=== PATIENT | male | born 1965 | race Caucasian/White ===

== ENCOUNTER 2023-01-22 09:37 | Outpatient (OUT) | payer MEDICAID, SELFPAY ==
[2023-01-22 11:26] LABS: Free T4 0.96 ng/dL (0.76-1.46)
[2023-01-22 11:31] LABS: Anion Gap 8.5; BUN Creatinine Ratio 13.9; Calcium 8.5 mg/dL (8.5-10.1); Carbon Dioxide 27.4 mmol/L (21.0-32.0); Chloride 104 mmol/L (98-107); Estimated GFR (African America >60 (>=60); Estimated GFR (Non-African Ame >60 (>=60); Free T3 2.59 pg/mL (2.18-3.98); Glucose 88 mg/dL (74-106); Potassium 3.9 mmol/L (3.5-5.1); Sodium 136 mmol/L (136-145); Thyroid Stimulating Hormone 1.747 uIU/mL (0.358-3.740)
== END 2023-01-22 09:38 | disposition home or self-care (01) ==
LOC: LAB 09:43
PROVIDERS: PCP Nurse Practitioner; Visit Provider Nurse Practitioner
DX: E03.9 Hypothyroidism, unspecified (principal); I10 Essential (primary) hypertension
CPT/HCPCS: 36415; 80048; 84439; 84443; 84481

== ENCOUNTER 2025-01-03 10:03 | Outpatient (OUT) | payer MEDICAID, SELFPAY ==
--- OUTSIDE RECORDS SUMMARY | 2024-12-29 13:44 | XMS_ITS ---
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 Name Role Phone NO PCP, NO PCP Primary Care Unavailable FABIENNE SIFUENTES Attending Unavailable JASON NASSAR Admitting Unavailable JASON NASSAR Attending Unavailable MARIANN MO Referring Unavailable SARTHAK DIXON Primary Care Unavailable CITLALLI JAMES Attending UnavailZEESHAN Serrano Referring Unavailable ZEESHAN STONE Referring Unavailable KAYLA BALES Attending Unavailable MARIANN MO Attending Unavailable SELF Referring Unavailable JASON NASSAR Attending Unavailable Christy Belcher Jr Referring Unavailable KODI SULLIVAN Referring Unavailable ANA SEVILLA Referring Unavailable ANA SEVILLA Attending Unavailable NASIM ENNIS Attending Unavailable KODI SULLIVAN Referring Unavailable KODI SULLIVAN Referring Unavailable KODI SULLIVAN Attending Unavailable CHERYL SHAW Referring Unavailable KENNETH GUADALUPE Attending Unavailable SCOT RICHMOND Attending Unavailable SARTHAK DIXON Primary Care Unavailable KODI SULLIVAN Attending Unavailable SARTHAK DIXON Primary Care Unavailable ULISSES HERNDON Attending Unavailable SARTHAK DIXON Primary Care Unavailable ULISSES HERNDON Referring Unavailable SARTHAK DIXON Primary Care Unavailable KAYLA BALES Referring Unavailable KAYLA BALES Attending Unavailable SARTHAK DIXON Primary Care Unavailable MARIANN MO Attending Unavailable KENNETH GUADALUPE Referring Unavailable SARTHAK DIXON Primary Care Unavailable SELF Referring Unavailable NIGEL BLUM Attending Unavailable SELF Referring Unavailable RIGO ANNA Attending Unavailab Christy Suh Jr Referring Unavailable SARTHAK DIXON Primary Care Unavailable MARIANN MO Referring Unavailable ANA SEVILLA Referring Unavailable ANA SEVILLA Referring Unavailable OLIVER RACHEL Referring Unavailable KAHNERT, ANA Referring Unavailable KAHNERT, ANA Referring Unavailable BONITA, RAJINDER Referring Unavailable BONITARAJINDER Attending Unavailable SELF Referring Unavailable ZEESHAN STONE Attending Unavailable ULISSES CUEVAS Attending Unavailable PROBLEMS DATE TYPE CONDITION / CODE ATTENDING STATUS [facility] 12/29/2024 Active Sensorineural he aring loss, bilateral / H90.3(ICD-10) NIGEL BLUM Active [facility] 11/22/2024 Active Fatty liver / K76.0(ICD-10) ULISSES HERNDON Active [facility] 07/21/2024 Active Coronary artery disease involving [place] coronary artery of [place] heart without angina pectoris / I25.10(ICD-10) KODI SULLIVAN Active [facility] 11/15/2024 Active Rupture of ulnar collateral ligament of thumb, right, initial encounter / S63.641A(ICD-10) NA [facility] 10/27/2024 Active Cigarette nicoti ne dependence without complication / F17.210(ICD-10) SCOT RICHMOND Active [facility] 10/27/2024 Active Dyspnea and resp iratory abnormalities / R06.00(ICD-10) SCOT RICHMOND Active [facility] 10/27/2024 Active Dyspnea and resp iratory abnormalities / R06.89(ICD-10) SCOT RICHMOND Active [facility] 10/27/2024 Active Obesity, unspeci fied class, unspecified obesity type, unspecified whether serious comorbidity present / E66.9(ICD-10) SCOT RICHMOND Active [facility] 10/09/2024 Active Pain / R52(ICD-10) NA Active [facility] 10/04/2024 Active Other chronic al lergic conjunctivitis of both eyes / H10.45(ICD-10) KAYLA BALES Active [facility] 08/07/2024 Active Pain of both bhavin ulder joints / M25.511(ICD-10) NASIM ENNIS Active [facility] 08/07/2024 Active Pain of both bhavin ulder joints / M25.512(ICD-10) NASIM ENNIS Active [facility] 08/07/2024 Active Impingement synd suzette of right shoulder / M75.41(ICD-10) NASIM ENNIS Active [facility] 08/07/2024 Active Impingement synd suzette of left shoulder / M75.42(ICD-10) NASIM ENNIS Active [facility] 08/04/2024 Active Lumbar spondylos is / M47.816(ICD-10) JASON NASSAR Active [facility] 07/24/2024 Active Epigastric pain / R10.13(ICD-10) CITLALLI JAMES Active [facility] 07/21/2024 Active Cerebral infarct ion due to unspecified occlusion or stenosis of unspecified carotid artery (HCC) / I63.239(ICD-10) NA Active [facility] 07/21/2024 Active Consult / UNK(Unknown) RIGO ANNA Active [facility] 07/21/2024 Active Occlusion of rig ht carotid artery / I65.21(ICD-10) NA Active [facility] 07/21/2024 Active Mixed hyperlipid emia / E78.2(ICD-10) NA Active [facility] 07/21/2024 Active Coronary artery disease involving [place] coronary artery of [place] heart, unspecified whether angina present / I25.10(ICD-10) NA Active [facility] 11/26/2023 Active Primary hyperten lynda / I10(ICD-10) NA Active [facility] 07/27/2023 Active BMI 40.0-44.9, a dult (HCC) / Z68.41(ICD-10) NA Active [facility] 03/22/2023 Active Acquired hypothy roidism / E03.9(ICD-10) NA Active [facility] 03/22/2023 Active Gastroesophageal reflux disease without esophagitis / K21.9(ICD-10) NA Active [facility] 11/07/2020 Active Alcohol use / F10.90(ICD-10) NA Active [facility] 11/07/2020 Active FEDE (obstructive sleep apnea) / G47.33(ICD-10) NA Active [facility] 11/07/2020 Active Hard to intubate , sequela / T88.4XXS(ICD-10) NA [facility] 11/10/2016 Active Former smoker / Z87.891(ICD-10) NA Active [facility] 11/10/2016 Active Laryngeal cancer (HCC) / C32.9(ICD-10) NA [facility] 07/21/2024 Active Pre-op evaluatio n / Z01.818(ICD-10) NA [facility] 06/06/2024 Active Encounter for fo llow-up examination after completed treatment for malignant neoplasm / Z08(ICD-10) NA [facility] 06/06/2024 Active History of glott ic cancer / Z85.21(ICD-10) NA Active [facility] 06/06/2024 Active Hypothyroidism, unspecified type / E03.9(ICD-10) [facility] 06/06/2024 Active Essential hypert ension / I10(ICD-10) [facility] 06/06/2024 Active Class 3 obesity / E66.813(ICD-10) Active [facility] 06/06/2024 Active Encounter for sc reening for cardiovascular disorders / Z13.6(ICD-10) Active [facility] 06/06/2024 Active Ischemic cardiom yopathy / I25.5(ICD-10) [facility] 06/01/2024 Active Benign prostatic hyperplasia with weak urinary stream / N40.1(ICD-10) NA [facility] 06/01/2024 Active Benign prostatic hyperplasia with weak urinary stream / R39.12(ICD-10) [facility] 06/01/2024 Active Screening for pr ostate cancer / Z12.5(ICD-10) Active [facility] 05/22/2024 Unknown Essential (prima ry) hypertension / I10(ICD-10) FABIENNE SIFUENTES Active [facility] 05/22/2024 Unknown Dizziness and gi ddiness / R42(ICD-10) FABIENNE SIFUENTES Active [facility] 05/22/2024 Unknown Hypertension / FREETEXT(AOF) FABIENNE SIFUENTES Active [facility] 05/22/2024 Unknown High blood press ure / UNK(Unknown) FABIENNE SIFUENTES Active [facility] 04/07/2024 Active Abdominal pain, unspecified abdominal location / R10.9(ICD-10) NA [facility] 01/31/2024 Active S/P drug eluting coronary stent placement / Z95.5(ICD-10) NA [facility] 01/31/2024 Active Class 3 severe o besity due to excess calories without serious comorbidity with body mass index (BMI) of 40.0 to 44.9 in adult ([facility]) / E66.813(ICD-10) NA [facility] 01/31/2024 Active Class 3 severe o besity due to excess calories without serious comorbidity with body mass index (BMI) of 40.0 to 44.9 in adult ([facility]) / E66.01(ICD-10) NA [facility] 01/31/2024 Active Class 3 severe o besity due to excess calories without serious comorbidity with body mass index (BMI) of 40.0 to 44.9 in adult ([facility]) / Z68.41(ICD-10) NA Active [facility] 01/31/2024 Active Smoker / F17.200(ICD-10) NA Acti ve [facility] PROCEDURES No Procedure Records Found RESULTS CNOV Observed: 12/29/2024 3:30 PM Status: COMPLETED Source: [facility] Office Visit (OTOL[facility]) MIKI SAUCEDA ([id number]) 1965 M Date Time Provider Department 12/29/24 3:30 PM NIGEL BLUM OTOL During your visit today, we recorded the following information about you: Pulse Respiration 89/minute 18/minute Nigel Blum, MANAGEMENT ACCOUNTANT.UPHOLSTERY TRIMMER 01/02/2025 2:45 PM Signed Recording using Salonmeister software for draft documentation of the visit was discussed with the patient/authorized b2b sales representative; all questions welcomed and answered. Patient/authorized b2b sales representative agreed to proceed Mr. Sauceda is a 59 year old male who comes in for evaluation of ear and sinus problems. Patient has multiple complaints. He has hearing loss, gradual onset and would like that checked. He has concerns about his occluded right carotid artery. He also currently has a head cold, c/o significant head pressure, nasal congestion, PND, coughing up some whitish phlegm, his ears are popping - these symptoms have been ongoing for a while but acutely worsened in last week. Taking OTC Sinex, Advil cold and sinus - taking as needed. Feels this helps with post nasal drainage. Uses nasal saline spray as needed. Smoking one cigarette daily His voice is hoarse. He denies any voice changes since last scope exam in June. Review of Systems: CONSTITUTIONAL: No fevers, chills, nightsweats, unintended weight loss HEAD: + headaches, - head injury EYES: - glasses/contact lens, - changes in vision, - diplopia, - blurry vision, - floaters EARS: + hearing loss, - change in hearing, - tinnitus, - otalgia, + ear pressure, - aural fullness, - otorrhea, - itching, - autophony, - ear infections, - PE tubes NOSE AND SINUSES: + nasal congestion, - rhinorrhea, + PND, - epistaxis, - sense of smell, - history of nasal polyps, - sinus trouble, - sinus pressure, - sinus pain MOUTH AND THROAT: - soreness, - dryness, - ulcers, - sore throat, + hoarseness, - change in voice, - teeth (caries, dentures, extractions, abscesses) NECK: - neck lumps, - goiter, - neck pain, - swollen lymph nodes or glands PULM: No dyspnea, + cough CV: No chest pain, shortness of breath, leg swelling, or palpitations GI: No dysphagia/odynophagia, problematic reflux. No nausea, vomiting, or diarrhea NEURO: No new balance problems, dizziness, or syncope. No peripheral weakness/paresthesias or numbness MSK: No new joint pain, swelling, or erythema HEMATOLOGIC/LYMPHATIC/IMMUNOLOGIC: No prolonged bleeding, bruising easily, or swollen nodes PSYCH: No concerns regarding depression, anxiety or panic Past history : PAST MEDICAL HISTORY Diagnosis Date Adjustment disorder with anxious mood 09/16/2016 CAD (coronary artery disease) 07/21/2024 Chronic obstructive pulmonary disease (COPD) (HCC) Cigarette nicotine dependence in remission 02/06/2016 Reports not smoking for multiple weeks. 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 ticagrelor (BRILINTA) 60 mg tablet Take 1 tablet by mouth two times a day. varenicline tartrate (CHANTIX STARTING MONTH BOX) 0.5 mg (11)- 1 mg (42) tablet Use as directed. levothyroxine (SYNTHROID) 75 mcg tablet Take 1 tablet by mouth once daily tamsulosin (FLOMAX) 0.4 mg Take 1 capsule by mouth once daily. meloxicam (MOBIC) 7.5 mg tablet Take 1 tablet by mouth once daily. methocarbamol (ROBAXIN) 500 mg tablet Take 1 tablet by mouth at bedtime as needed. rosuvastatin (CRESTOR) 20 mg tablet TAKE 1 TABLET BY MOUTH ONCE DAILY AT BEDTIME fluticasone (FLONASE) 50 mcg/actuation nasal spray Use 2 spray(s) in each nostril once daily mupirocin (BACTROBAN) 2 % ointment Apply to affected area daily aspirin, enteric coated (ECOTRIN LOW STRENGTH) 81 mg EC tablet Take 1 tablet by mouth once daily. tamsulosin (FLOMAX) 0.4 mg Take 1 capsule by mouth once daily azelastine 0.1% nasal spray Use 2 Sprays in each nostril two times a day as needed. No current facility-administered medications for this visit. Allergies: ALLERGIES No Known Allergies Social history: SOCIAL HISTORY[1] Family history: FAMILY HISTORY Problem Relation Age of Onset Cancer Mother breast Cancer Father small cell lung cancer Colon Cancer No Family History Anesthesia Problems No Family History There are no exam notes on file for this visit. Physical exam: General Appearance: 59 year old male is alert, oriented, not in acute distress. Hearing is grossly normal, voice is raspy. There is no tenderness with percussion over the paranasal sinuses. Eyes: PEERLA, extraocular movements are full. Nose: Clean, septum is deviated. There are no polyps. There is no discharge. Visible turbinates are hypertrophied. Oropharynx: Teeth are in fair repair. Lips, gums, tongue and posterior pharynx are within normal limits. Gag reflex is intact. Nasopharynx: visualization is limited Hypopharynx: visualization is limited Neck: No masses palpated. Thyroid is not enlarged. Trachea is in the midline. Ears: Both ear canals are impacted with cerumen Procedure: Cerumen disimpaction Risks including but not limited to damage to ear canal, ear drum, and bleeding were discussed. Benefits and alternatives were discussed; patient verbally agrees to proceed with procedure. Cerumen impaction was removed under stereoscopic magnification from Bilateral external auditory canal(s) requiring use of multiple instruments including curette, suction. Patient tolerated procedure well. Once the ears were cleaned, patient felt relief of symptoms and return of hearing back to baseline. After cleaning, both TMs are intact and mobile. Pires is in the midline. Rinne is positive bilaterally. Air conduction is equal bilaterally. 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 -Plan of management: Start Augmentin mg 1 tablet twice daily for 10 days Start Flonase 2 sprays each nostril daily both ears were cleaned Continue saline nasal spray daily as needed Audiogram to evaluate hearing given report of worsening hearing with known history of bilateral SNHL (previous audio in 2016) Reassurance provided that these URI/sinusitis symptoms are unlikely related to known right internal carotid artery occlusion. Instructed patient to send mychart message with update on his condition in few days and follow up after hearing test. Pt seen in conjunction with INTERIOR MECHANIC in orientation Ev Naranjo CNP. Physical exam completed by both the orient and me. All history, objective findings, and plan discussed by me in the office at the time of the visit as well as with Jan Jose A. Nigel Blum APRN.LEWIS I spent a total of 33 minutes on the date of the service which included preparing to see the patient, [id number] patient care, completing clinical documentation, obtaining and/or reviewing separately obtained history, performing a medically appropriate examination, counseling and educating the patient/family/caregiver, ordering medications, tests, or procedures, and time excludes procedure cerumen removal. [1] Social History Tobacco Use Smoking status: Former Current packs/day: 0.00 Average packs/day: 1 pack/day for 30.0 years (30.0 ttl pk-yrs) Types: Cigarettes Start date: 10/30/1985 Quit date: 10/31/2015 Years since quittin.1 Smokeless tobacco: Never Tobacco comments: Smokes socially now or when drinking. -07/27/23 [place] Vaping Use Vaping status: Never Used Substance Use Topics Alcohol use: Yes Comment: 12 beers weekly, does not drink daily Drug use: No Ev Naranjo APRN.CNP 12/29/2024 3:00 PM Signed Send Nigel amaya My Chart message and update her on how you're feeling next week. Referring Provider: SELF [200] Allergies As of Date: 12/29/2024 (No Known Allergies) Date Reviewed: 12/29/2024 Reviewed by: Holden Flynn MA - Fully Assessed Reason for Visit: Ear Infection [816] Cmt: With sinus issues Primary Visit Diagnosis:Sensorineural hearing loss, bilateral [H90.3] Other Visit Diagnoses:Acute non-recurrent pansinusitis [J01.40] Bilateral impacted cerumen [H61.23] Sensorineural hearing loss (SNHL) of both ears [H90.3] Nonallergic rhinitis [J31.0] Order(s):HEARING TEST/AUDIOGRAM [[id number]] Order #: [id number]: 1 FUTURE fluticasone (FLONASE) 50 mcg/actuation nasal sprayUse 2 sprays in each nostril once daily.Disp: 1 eachRfl: 11 amoxicillin-clavulanate potassium (AUGMENTIN) 875-125 mg per tabletTake 1 tablet by mouth two times a day for 10 days.Disp: 20 tabletRfl: 0 Prescriptions as of 01/02/2025 - fluticasone (FLONASE) 50 mcg/actuation nasal spray Use 2 sprays in each nostril once daily. - amoxicillin-clavulanate potassium (AUGMENTIN) 875-125 mg per tablet Take 1 tablet by mouth two times a day for 10 days. - losartan (COZAAR) 50 mg tablet Take 1 tablet by mouth once daily - carvedilol (COREG) 25 mg tablet Take 1 tablet by mouth twice daily - pantoprazole DR (PROTONIX) 40 mg tablet Take 1 tablet by mouth once daily. - ticagrelor (BRILINTA) 60 mg tablet Take 1 tablet by mouth two times a day. - varenicline tartrate (CHANTIX STARTING MONTH BOX) 0.5 mg (11)- 1 mg (42) tablet Use as directed. - levothyroxine (SYNTHROID) 75 mcg tablet Take 1 tablet by mouth once daily - tamsulosin (FLOMAX) 0.4 mg Take 1 capsule by mouth once daily. - meloxicam (MOBIC) 7.5 mg tablet Take 1 tablet by mouth once daily. - methocarbamol (ROBAXIN) 500 mg tablet Take 1 tablet by mouth at bedtime as needed. - rosuvastatin (CRESTOR) 20 mg tablet TAKE 1 TABLET BY MOUTH ONCE DAILY AT BEDTIME - fluticasone (FLONASE) 50 mcg/actuation nasal spray Use 2 spray(s) in each nostril once daily - mupirocin (BACTROBAN) 2 % ointment Apply to affected area daily - aspirin, enteric coated (ECOTRIN LOW STRENGTH) 81 mg EC tablet Take 1 tablet by mouth once daily. - tamsulosin (FLOMAX) 0.4 mg Take 1 capsule by mouth once daily - azelastine 0.1% nasal spray Use 2 Sprays in each nostril two times a day as needed. 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.07] 07/24/2016 Adjustment disorder with anxious mood [F43.22] 09/16/2016 Radiculitis [M54.10] 10/29/2016 Primary hypertension [I10] 11/10/2016 Larynx cancer (HCC) [C32.9] 01/06/2016 Laryngeal cancer (HCC) [C32.9] 11/04/2015 Degenerative spondylolisthesis [M43.10] 05/28/2016 Former smoker [Z87.891] History of laryngeal cancer [Z85.21] 03/10/2017 Hoarseness [R49.0] 03/10/2017 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] 04/19/2017 Spinal stenosis, lumbar region with neurogenic *04/19/2017 Lumbar stenosis with neurogenic claudication [M*05/19/2017 Obesity (BMI 35.0-39.9 without comorbidity) [E6*11/07/2020 Difficult intubation [T88.4XXA] 11/07/2020 FEDE (obstructive sleep apnea) [G47.33] 11/07/2020 Alcohol use [F10.90] 11/07/2020 S/P lumbar spinal fusion [Z98.1] 01/16/2021 Chronic midline low back pain without sciatica *01/16/2021 Degenerative lumbar disc [M51.369] 01/16/2021 Lumbar spondylosis [M47.816] 01/20/2022 GERD (gastroesophageal reflux disease) [K21.9] 03/22/2023 Acquired hypothyroidism [E03.9] 03/22/2023 BMI 40.0-44.9, adult (HCC) [Z68.41] 07/27/2023 Stable angina (HCC) [I20.89] 11/26/2023 Elevated coronary artery calcium score [R93.1] 11/26/2023 CAD (coronary artery disease) [I25.10] 07/21/2024 HLD (hyperlipidemia) [E78.5] 07/21/2024 Occlusion of right carotid artery [I65.21] 07/21/2024 Conjunctivitis [H10.9] 10/04/2024 Dry eye syndrome of both eyes [H04.123] 11/15/2024 Other instructions from your clinician: Send Nigel a My Chart message and update her on how you're feeling next week. Prescriptions ordered this encounter Disp Refills Start End FLUTICASONE PROPIONATE 50 MCG/ACTUAT* 1 ea* 11 12/29/2024 Route: EN Sig: Use 2 sprays in each nostril once daily. AMOXICILLIN 875 MG-POTASSIUM CLAVULA* 20 t* 0 12/29/2024 01/08/2025 Route: PO Sig: Take 1 tablet by mouth two times a day for 10 days. Disposition: Return after hearing test. Follow-up and Disposition History for Encounter Date Provider Department Center 12/29/2024 [id number]-OTMYRQNNIGEL BLUM [facility] Encounter Status:Closed by NIGEL BLUM on 01/02/25 PROGRESS Observed: 12/29/2024 1:56 PM Status: COMPLETED Source: [facility] HNO ID: [id number] Author: NIGEL BLUM APRN.UPHOLSTERY TRIMMER Service: ? Author Type: Nurse Practitioner Type: Progress Notes Filed: 01/02/2025 14:45 Note Text: Recording using Salonmeister software for draft documentation of the visit was discussed with the patient/authorized b2b sales representative; all questions welcomed and answered. Patient/authorized b2b sales representative agreed to proceed Mr. Sauceda is a 59 year old male who comes in for evaluation of ear and sinus problems. Patient has multiple complaints. He has hearing loss, gradual onset and would like that checked. He has concerns about his occluded right carotid artery. He also currently has a head cold, c/o significant head pressure, nasal congestion, PND, coughing up some whitish phlegm, his ears are popping - these symptoms have been ongoing for a while but acutely worsened in last week. Taking OTC Sinex, Advil cold and sinus - taking as needed. Feels this helps with post nasal drainage. Uses nasal saline spray as needed. Smoking one cigarette daily His voice is hoarse. He denies any voice changes since last scope exam in June. Review of Systems: CONSTITUTIONAL: No fevers, chills, nightsweats, unintended weight loss HEAD: + headaches, - head injury EYES: - glasses/contact lens, - changes in vision, - diplopia, - blurry vision, - floaters EARS: + hearing loss, - change in hearing, - tinnitus, - otalgia, + ear pressure, - aural fullness, - otorrhea, - itching, - autophony, - ear infections, - PE tubes NOSE AND SINUSES: + nasal congestion, - rhinorrhea, + PND, - epistaxis, - sense of smell, - history of nasal polyps, - sinus trouble, - sinus pressure, - sinus pain MOUTH AND THROAT: - soreness, - dryness, - ulcers, - sore throat, + hoarseness, - change in voice, - teeth (caries, dentures, extractions, abscesses) NECK: - neck lumps, - goiter, - neck pain, - swollen lymph nodes or glands PULM: No dyspnea, + cough CV: No chest pain, shortness of breath, leg swelling, or palpitations GI: No dysphagia/odynophagia, problematic reflux. No nausea, vomiting, or diarrhea NEURO: No new balance problems, dizziness, or syncope. No peripheral weakness/paresthesias or numbness MSK: No new joint pain, swelling, or erythema HEMATOLOGIC/LYMPHATIC/IMMUNOLOGIC: No prolonged bleeding, bruising easily, or swollen nodes PSYCH: No concerns regarding depression, anxiety or panic Past history : PAST MEDICAL HISTORY Diagnosis Date Adjustment disorder with anxious mood 09/16/2016 CAD (coronary artery disease) 07/21/2024 Chronic obstructive pulmonary disease (COPD) ([facility]) Cigarette nicotine dependence in remission 02/06/2016 Reports not smoking for multiple weeks. 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 ticagrelor (BRILINTA) 60 mg tablet Take 1 tablet by mouth two times a day. varenicline tartrate (CHANTIX STARTING MONTH BOX) 0.5 mg (11)- 1 mg (42) tablet Use as directed. levothyroxine (SYNTHROID) 75 mcg tablet Take 1 tablet by mouth once daily tamsulosin (FLOMAX) 0.4 mg Take 1 capsule by mouth once daily. meloxicam (MOBIC) 7.5 mg tablet Take 1 tablet by mouth once daily. methocarbamol (ROBAXIN) 500 mg tablet Take 1 tablet by mouth at bedtime as needed. rosuvastatin (CRESTOR) 20 mg tablet TAKE 1 TABLET BY MOUTH ONCE DAILY AT BEDTIME fluticasone (FLONASE) 50 mcg/actuation nasal spray Use 2 spray(s) in each nostril once daily mupirocin (BACTROBAN) 2 % ointment Apply to affected area daily aspirin, enteric coated (ECOTRIN LOW STRENGTH) 81 mg EC tablet Take 1 tablet by mouth once daily. tamsulosin (FLOMAX) 0.4 mg Take 1 capsule by mouth once daily azelastine 0.1% nasal spray Use 2 Sprays in each nostril two times a day as needed. No current facility-administered medications for this visit. Allergies: ALLERGIES No Known Allergies Social history: SOCIAL HISTORY[1] Family history: FAMILY HISTORY Problem Relation Age of Onset Cancer Mother breast Cancer Father small cell lung cancer Colon Cancer No Family History Anesthesia Problems No Family History There are no exam notes on file for this visit. Physical exam: General Appearance: 59 year old male is alert, oriented, not in acute distress. Hearing is grossly normal, voice is raspy. There is no tenderness with percussion over the paranasal sinuses. Eyes: PEERLA, extraocular movements are full. Nose: Clean, septum is deviated. There are no polyps. There is no discharge. Visible turbinates are hypertrophied. Oropharynx: Teeth are in fair repair. Lips, gums, tongue and posterior pharynx are within normal limits. Gag reflex is intact. Nasopharynx: visualization is limited Hypopharynx: visualization is limited Neck: No masses palpated. Thyroid is not enlarged. Trachea is in the midline. Ears: Both ear canals are impacted with cerumen Procedure: Cerumen disimpaction Risks including but not limited to damage to ear canal, ear drum, and bleeding were discussed. Benefits and alternatives were discussed; patient verbally agrees to proceed with procedure. Cerumen impaction was removed under stereoscopic magnification from Bilateral external auditory canal(s) requiring use of multiple instruments including curette, suction. Patient tolerated procedure well. Once the ears were cleaned, patient felt relief of symptoms and return of hearing back to baseline. After cleaning, both TMs are intact and mobile. Pires is in the midline. Rinne is positive bilaterally. Air conduction is equal bilaterally. 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 -Plan of management: Start Augmentin mg 1 tablet twice daily for 10 days Start Flonase 2 sprays each nostril daily both ears were cleaned Continue saline nasal spray daily as needed Audiogram to evaluate hearing given report of worsening hearing with known history of bilateral SNHL (previous audio in 2016) Reassurance provided that these URI/sinusitis symptoms are unlikely related to known right internal carotid artery occlusion. Instructed patient to send [employer] message with update on his condition in few days and follow up after hearing test. Pt seen in conjunction with INTERIOR MECHANIC in orientation Ev Naranjo CNP. Physical exam completed by both the orient and me. All history, objective findings, and plan discussed by me in the office at the time of the visit as well as with Ms. Naranjo. Nigel Blum APRN.LEWIS I spent a total of 33 minutes on the date of the service which included preparing to see the patient, [id number] patient care, completing clinical documentation, obtaining and/or reviewing separately obtained history, performing a medically appropriate examination, counseling and educating the patient/family/caregiver, ordering medications, tests, or procedures, and time excludes procedure cerumen removal. [1] Social History Tobacco Use Smoking status: Former Current packs/day: 0.00 Average packs/day: 1 pack/day for 30.0 years (30.0 ttl pk-yrs) Types: Cigarettes Start date: 10/30/1985 Quit date: 10/31/2015 Years since quittin.1 Smokeless tobacco: Never Tobacco comments: Smokes socially now or when drinking. -07/27/23 [place] Vaping Use Vaping status: Never Used Substance Use Topics Alcohol use: Yes Comment: 12 beers weekly, does not drink daily Drug use: No US ABD RIGHT UPPER QUADRANT Observed: 8:16 AM Status: F Source: [facility] * * *Final Report* * * DATE OF EXAM: Dec 22 2024 8:16AM LNU 1032 - US ABD RIGHT UPPER QUADRANT / PROCEDURE REASON: Fatty liver * * * * Physician Interpretation * * * * EXAMINATION: RIGHT UPPER QUADRANT ULTRASOUND CLINICAL HISTORY: Fatty liver TECHNIQUE: Sonography of the right upper quadrant was performed. Images were obtained and stored in a permanent archive. MQ: URUQ_2 COMPARISON: CT abdomen/pelvis dated 10/02/22. RESULT: Pancreas: Normal sonographic appearance. Portions obscured: tail Liver: Echotexture: Normal, homogeneous. Echogenicity: Increased Surface contour: Smooth Lesions: None. Biliary: No intrahepatic biliary duct dilation. CBD: 0.4 cm at the hilum. Gallbladder: Normal caliber -Contents: No cholelithiasis -Wall: Normal -Other: No pericholecystic fluid. Right Kidney: No hydronephrosis. Left kidney: No hydronephrosis. Spleen: Mildly enlarged measuring 14.2 cm in length. Subcentimeter echogenic foci suggestive of calcific granulomas. Ascites: None. IMPRESSION: 1. Diffuse hepatic fatty infiltration. 2. Mild splenomegaly. 3. No evidence of cholelithiasis or cholecystitis. Adjustment Clerk: GO Transcribe Date/Time: Dec 22 2024 1:03P Dictated by : EVANS LINDSEY MD This examination was interpreted and the report reviewed and electronically signed by: EVANS LINDSEY MD on Dec 22 2024 1:12PM EST [id number] US ABD SPLEEN -NB Observed: 12/22/2024 8:16 AM Status: F Source: [facility] * * *Final Report* * * DATE OF EXAM: Dec 22 2024 8:16AM LNU 1232 - US ABD SPLEEN -NB / PROCEDURE REASON: Fatty liver * * * * Physician Interpretation * * * * EXAMINATION: RIGHT UPPER QUADRANT ULTRASOUND CLINICAL HISTORY: Fatty liver TECHNIQUE: Sonography of the right upper quadrant was performed. Images were obtained and stored in a permanent archive. MQ: URUQ_2 COMPARISON: CT abdomen/pelvis dated 10/02/22. RESULT: Pancreas: Normal sonographic appearance. Portions obscured: tail Liver: Echotexture: Normal, homogeneous. Echogenicity: Increased Surface contour: Smooth Lesions: None. Biliary: No intrahepatic biliary duct dilation. CBD: 0.4 cm at the hilum. Gallbladder: Normal caliber -Contents: No cholelithiasis -Wall: Normal -Other: No pericholecystic fluid. Right Kidney: No hydronephrosis. Left kidney: No hydronephrosis. Spleen: Mildly enlarged measuring 14.2 cm in length. Subcentimeter echogenic foci suggestive of calcific granulomas. Ascites: None. IMPRESSION: 1. Diffuse hepatic fatty infiltration. 2. Mild splenomegaly. 3. No evidence of cholelithiasis or cholecystitis. Adjustment Clerk: GO Transcribe Date/Time: Dec 22 2024 1:03P Dictated by : EVANS LINDSEY MD This examination was interpreted and the report reviewed and electronically signed by: EVANS LINDSEY MD on Dec 22 2024 1:12PM EST [id number] PROGRESS Observed: 12/22/2024 7:45 AM Status: COMPLETED Source: [facility] ID: [id number] Author: RENAE ELLISON RDMS Service: Radiology Author Type: Field Support Engineer Type: Progress Notes Filed: 12/22/2024 07:45 Note Text: Radiology Service Progress Note PATIENT NAME: Miki Sauceda DATE OF SERVICE: December 22, 2024 TIME: 7:37 AM PATIENT IDENTITY VERIFICATION COMPLETED USING TWO (2) IDENTIFIERS: Name and Date of confirmed by patient verbally. FALL SCREENING: Has the patient had 2 falls in the last year or 1 fall with injury or currently using an Ambulatory Assistive Device (Walker, Cane, Wheelchair, Crutches, etc.)? No PATIENT GENDER DATA: Assigned male at PATIENT RELEVANT IMPLANT DATA REVIEWED: Not Applicable PATIENT PRESENTS WITH AN IMPLANTABLE OR ATTACHED TELEMARKETING AGENT: No RADIOLOGY DEPARTMENT: Ultrasound PERIPHERAL IV DATA: Not applicable SIGNED BY: Renae Ellison RDMS December 22, 2024 7:37 AM HISTORY PHYSICAL Observed: 11/22/2024 11:45 AM Status: COMPLETED Source: [facility] ID: [id number] Author: ULISSES HERNDON APRN.LEWIS Service: ? Author Type: Nurse Practitioner Type: H&P Filed: 11/22/2024 11:05 Note Text: Consultation requested by Dr. Sarthak Dixon for an opinion regarding GERD. My final recommendations will be communicated back to the requesting physician by way of shared medical record or fax. REASON FOR VISIT: medication refills. HPI: Miki Sauceda is a 59 year old male who presents for medication refills. He reports a chronic sensation of nausea that is most pronounced in the morning and after prolonged periods without eating, such as overnight fasting from 6-7 PM until 11 AM. The nausea is rapidly relieved by eating or drinking fluids such as water or Gatorade. He denies any abdominal pain, heartburn, or emesis. He is currently taking pantoprazole 40 mg daily, which he finds effective for heartburn, though he sometimes takes it at varying times rather than consistently 30-45 minutes before meals. He had an EGD 07/24/24 that revealed a 2 cm HH. He has multiple concerns for fatty liver and is inquiring about doing a cleanse he read about. He has previously been seen by hepatology, but not recently. He reports occasional mild dysuria, but a recent urinalysis by his urologist was negative for UTI. He does not currently have a primary care provider, but has an appointment scheduled. Past Clinical Work-Up: PANEL Order: [id number] Component Ref Range AND Units 5 mo ago Sodium 134 - 146 mmol/L 135 Potassium 3.5 - 5.0 mmol/L 3.7 Chloride 98 - 109 mmol/L 103 Carbon Dioxide 22 - 32 mmol/L 23 Anion Gap 5 - 15 mmol/L 9 BUN 5 - 23 mg/dL 12 CREATEXT 0.70 - 1.20 mg/dL 0.68 Low Comment: METHOD TRACEABLE TO IDMS STANDARD Glucose 65 - 99 mg/dL 108 High Calcium 8.5 - 10.5 mg/dL 8.7 Total Protein 6.0 - 8.0 g/dL 7.3 Albumin 3.2 - 5.3 g/dL 4.3 Alkaline Phosphatase 39 - 130 U/L 69 AST 0 - 41 U/L 25 ALT 0 - 40 U/L 32 Total bilirubin 0.3 - 1.2 mg/dL 1 eGFR (CKD-EPI)non-race dependent >59 ml/min/1.73sq.m >90 Latest Ref Rng 11/19/2023 Calcium 8.5 - 10.2 mg/dL 9.1 Glucose 74 - 99 mg/dL 101 (H) BUN 9 - 24 mg/dL 13 Creatinine 0.73 - 1.22 mg/dL 0.79 Sodium 136 - 144 mmol/L 139 Potassium 3.7 - 5.1 mmol/L 4.1 Chloride 98 - 107 mmol/L 105 CO2 22 - 30 mmol/L 26 Anion Gap 8 - 15 mmol/L 8 eGFR >=60 mL/min/1.73m? 104 XRAY ABDOMEN on 04/07/2024: IMPRESSION: MILD/MODERATE STOOL. NONSPECIFIC AND NONOBSTRUCTIVE BOWEL GAS PATTERN. RESULT: Supine view of the abdomen, including crosswise view of the pelvis. Mild/moderate stool throughout the colon. Nonspecific and nonobstructive bowel gas pattern. Lower thorax is unremarkable Calcifications in the spleen are consistent with remote granulomatous disease. Partially visualized lumbar hardware. Bony structures appear grossly intact EGD on 07/24/2024: Impression: - 2 cm hiatal hernia. - Normal stomach. - Normal examined duodenum. - No specimens collected. ALLERGIES No Known Allergies PAST MEDICAL HISTORY Diagnosis Date Adjustment disorder with anxious mood 09/16/2016 CAD (coronary artery disease) 07/21/2024 Chronic obstructive pulmonary disease (COPD) (HCC) Cigarette nicotine dependence in remission 02/06/2016 Reports not smoking for multiple weeks. 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 [id number] stage MATT Radiculitis 10/29/2016 Added automatically from request for surgery [id number] Snoring Spondylolysis, lumbosacral 07/24/2016 PAST SURGICAL HISTORY Procedure Laterality Date BACK SURGERY HX 2018 COLONOSCOPY DIAGNOSTIC 01/09/2021 polyps removed COLONOSCOPY DIAGNOSTIC 05/29/2016 EGD DIAGNOSTIC PAST SURGICAL HISTORY OF 11/20/2015 Biopsy/Trach FAMILY HISTORY Problem Relation Age of Onset Cancer Mother breast Cancer Father small cell lung cancer Colon Cancer No Family History Anesthesia Problems No Family History SOCIAL HISTORY[1] Current Outpatient Medications Medication Sig ticagrelor (BRILINTA) 60 mg tablet Take 1 tablet by mouth two times a day. varenicline tartrate (CHANTIX STARTING MONTH BOX) 0.5 mg (11)- 1 mg (42) tablet Use as directed. levothyroxine (SYNTHROID) 75 mcg tablet Take 1 tablet by mouth once daily pantoprazole DR (PROTONIX) 40 mg tablet Take 1 tablet by mouth once daily. tamsulosin (FLOMAX) 0.4 mg Take 1 capsule by mouth once daily. meloxicam (MOBIC) 7.5 mg tablet Take 1 tablet by mouth once daily. methocarbamol (ROBAXIN) 500 mg tablet Take 1 tablet by mouth at bedtime as needed. rosuvastatin (CRESTOR) 20 mg tablet TAKE 1 TABLET BY MOUTH ONCE DAILY AT BEDTIME fluticasone (FLONASE) 50 mcg/actuation nasal spray Use 2 spray(s) in each nostril once daily mupirocin (BACTROBAN) 2 % ointment Apply to affected area daily aspirin, enteric coated (ECOTRIN LOW STRENGTH) 81 mg EC tablet Take 1 tablet by mouth once daily. carvedilol (COREG) 25 mg tablet Take 1 tablet by mouth two times a day. losartan (COZAAR) 50 mg tablet Take 1 tablet by mouth once daily. tamsulosin (FLOMAX) 0.4 mg Take 1 capsule by mouth once daily azelastine 0.1% nasal spray Use 2 Sprays in each nostril two times a day as needed. No current facility-administered medications for this visit. I have confirmed and edited, if necessary, the PFSH obtained by others. REVIEW OF SYSTEMS: CONSTITUTIONAL: Negative for unintentional weight loss, malaise or fevers HEENT: Negative for frequent/significant headaches, changes in hearing/vision, nose bleeds or other nasal problems RESPIRATORY: Negative for cough, hemoptysis, wheezing or dyspnea CARDIOVASCULAR: Negative for chest pain, palpitations, syncope or lightheadedness GI: See HPI NEURO: Negative for encephalopathy, tremor or gait abnormality PSYCH: Negative for new changes in mood or affect I have confirmed and edited, if necessary, the PFSH obtained by others. PHYSICAL EXAM: BP 122/84 (BP Site: Left Arm, BP Position: Sitting) Pulse 74 Ht 182.9 cm (6') Wt (!) 141.5 kg (312 lb) SpO2 96% BMI 42.31 kg/m? Gen: Comfortable in NAD Head: Normocephalic, atraumatic Skin: No jaundice, rashes or skin lesions Eyes: Sclera anicteric, conjunctiva pink Lungs: unlabored breathing Abd: Soft, non-distended, non-tender, bowel sounds present, no palpable masses or organomegaly Rectal Exam: Examination deferred by patient Neuro: Alert and oriented, no tremor or gross focal motor deficits Psych: Congruent mood and affect, appropriate insight and judgement ASSESSMENT/PLAN: Mr. Sauceda is a 59 year old male with a history of laryngeal cancer, obesity, FEDE, GERD, hypothyroidism and HTN presents for follow-up GERD and medication refills.. 1. Fatty liver (K76.0) Chronic fatty liver disease with ongoing nausea and concern for hepatic dysfunction. - Order right upper quadrant ultrasound to evaluate liver. - Refer to hepatology for further evaluation and management. - Advised against use of [id number] fatty liver pills seen on TV. 2. Gastroesophageal reflux disease without esophagitis (K21.9) Chronic GERD managed with pantoprazole; patient reports nausea relieved by eating or drinking, with no current heartburn. - Refill pantoprazole. - Educated patient to take pantoprazole 30-45 minutes before eating at the same time each day. - Recommended small, frequent meals, including a morning meal to reduce nausea. This note was dictated using [employer]oot! speech recognition software and may contain some errors that were a result of the program not accurately transcribing what was dictated. Recording using [employer] software for draft documentation of the visit was discussed with the patient/authorized b2b sales representative; all questions welcomed and answered. Patient/authorized b2b sales representative agreed to proceed Ulisses Herndon APRN.UPHOLSTERY TRIMMER [1] Social History Tobacco Use Smoking status: Former Current packs/day: 0.00 Average packs/day: 1 pack/day for 30.0 years (30.0 ttl pk-yrs) Types: Cigarettes Start date: 10/30/1985 Quit date: 10/31/2015 Years since quittin.0 Smokeless tobacco: Never Tobacco comments: Smokes socially now or when drinking. -07/27/23 [place] Vaping Use Vaping status: Never Used Substance Use Topics Alcohol use: Yes Comment: 12 beers weekly, does not drink daily Drug use: No CNOV Observed: 11/22/2024 11:45 AM Status: COMPLETED Source: [facility] Office Visit (GASTLN) SOHAILMIKI ([id number]) 1965 M Date Time Provider Department 11/22/24 11:45 AM ULISSES HERNDON During your visit today, we recorded the following information about you: Pulse Blood pressure Weight Height 74/minute 122/84 141.5 kg 1.829 m Ulisses Herndon APRN.CNP 11/22/2024 10:57 AM Signed Thank you for seeing me in clinic today. As we discussed, my recommendations are as follows: 1.continue Pantoprazole 40 mg daily 30 min before a meal 2.RUQ US 3.Consult to hepatology If you have any questions about the above treatment plan, please do not hesitate to call the office or send me a [facility] message. Ulisses Herndon APRN.CNP 11/22/2024 11:05 AM Signed Consultation requested by Dr. Sarthak Dixon for an opinion regarding GERD. My final recommendations will be communicated back to the requesting physician by way of shared medical record or fax. REASON FOR VISIT: medication refills. HPI: Miki Loomisbowenhanselevelyn is a 59 year old male who presents for medication refills. He reports a chronic sensation of nausea that is most pronounced in the morning and after prolonged periods without eating, such as overnight fasting from 6-7 PM until 11 AM. The nausea is rapidly relieved by eating or drinking fluids such as water or Gatorade. He denies any abdominal pain, heartburn, or emesis. He is currently taking pantoprazole 40 mg daily, which he finds effective for heartburn, though he sometimes takes it at varying times rather than consistently 30-45 minutes before meals. He had an EGD 07/24/24 that revealed a 2 cm HH. He has multiple concerns for fatty liver and is inquiring about doing a cleanse he read about. He has previously been seen by hepatology, but not recently. He reports occasional mild dysuria, but a recent urinalysis by his urologist was negative for UTI. He does not currently have a primary care provider, but has an appointment scheduled. Past Clinical Work-Up: PANEL Order: [id number] Component Ref Range AND Units 5 mo ago Sodium 134 - 146 mmol/L 135 Potassium 3.5 - 5.0 mmol/L 3.7 Chloride 98 - 109 mmol/L 103 Carbon Dioxide 22 - 32 mmol/L 23 Anion Gap 5 - 15 mmol/L 9 BUN 5 - 23 mg/dL 12 CREATEXT 0.70 - 1.20 mg/dL 0.68 Low Comment: METHOD TRACEABLE TO IDMS STANDARD Glucose 65 - 99 mg/dL 108 High Calcium 8.5 - 10.5 mg/dL 8.7 Total Protein 6.0 - 8.0 g/dL 7.3 Albumin 3.2 - 5.3 g/dL 4.3 Alkaline Phosphatase 39 - 130 U/L 69 AST 0 - 41 U/L 25 ALT 0 - 40 U/L 32 Total bilirubin 0.3 - 1.2 mg/dL 1 eGFR (CKD-EPI)non-race dependent >59 ml/min/1.73sq.m >90 Latest Ref Rng 11/19/2023 Calcium 8.5 - 10.2 mg/dL 9.1 Glucose 74 - 99 mg/dL 101 (H) BUN 9 - 24 mg/dL 13 Creatinine 0.73 - 1.22 mg/dL 0.79 Sodium 136 - 144 mmol/L 139 Potassium 3.7 - 5.1 mmol/L 4.1 Chloride 98 - 107 mmol/L 105 CO2 22 - 30 mmol/L 26 Anion Gap 8 - 15 mmol/L 8 eGFR >=60 mL/min/1.73m? 104 XRAY ABDOMEN on 04/07/2024: IMPRESSION: MILD/MODERATE STOOL. NONSPECIFIC AND NONOBSTRUCTIVE BOWEL GAS PATTERN. RESULT: Supine view of the abdomen, including crosswise view of the pelvis. Mild/moderate stool throughout the colon. Nonspecific and nonobstructive bowel gas pattern. Lower thorax is unremarkable Calcifications in the spleen are consistent with remote granulomatous disease. Partially visualized lumbar hardware. Bony structures appear grossly intact EGD on 07/24/2024: Impression: - 2 cm hiatal hernia. - Normal stomach. - Normal examined duodenum. - No specimens collected. ALLERGIES No Known Allergies PAST MEDICAL HISTORY Diagnosis Date Adjustment disorder with anxious mood 09/16/2016 CAD (coronary artery disease) 07/21/2024 Chronic obstructive pulmonary disease (COPD) (HCC) Cigarette nicotine dependence in remission 02/06/2016 Reports not smoking for multiple weeks. 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 [id number] stage MATT Radiculitis 10/29/2016 Added automatically from request for surgery [id number] Snoring Spondylolysis, lumbosacral 07/24/2016 PAST SURGICAL HISTORY Procedure Laterality Date BACK SURGERY HX 2018 COLONOSCOPY DIAGNOSTIC 01/09/2021 polyps removed COLONOSCOPY DIAGNOSTIC 05/29/2016 EGD DIAGNOSTIC PAST SURGICAL HISTORY OF 11/20/2015 Biopsy/Trach FAMILY HISTORY Problem Relation Age of Onset Cancer Mother breast Cancer Father small cell lung cancer Colon Cancer No Family History Anesthesia Problems No Family History SOCIAL HISTORY[1] Current Outpatient Medications Medication Sig ticagrelor (BRILINTA) 60 mg tablet Take 1 tablet by mouth two times a day. varenicline tartrate (CHANTIX STARTING MONTH BOX) 0.5 mg (11)- 1 mg (42) tablet Use as directed. levothyroxine (SYNTHROID) 75 mcg tablet Take 1 tablet by mouth once daily pantoprazole DR (PROTONIX) 40 mg tablet Take 1 tablet by mouth once daily. tamsulosin (FLOMAX) 0.4 mg Take 1 capsule by mouth once daily. meloxicam (MOBIC) 7.5 mg tablet Take 1 tablet by mouth once daily. methocarbamol (ROBAXIN) 500 mg tablet Take 1 tablet by mouth at bedtime as needed. rosuvastatin (CRESTOR) 20 mg tablet TAKE 1 TABLET BY MOUTH ONCE DAILY AT BEDTIME fluticasone (FLONASE) 50 mcg/actuation nasal spray Use 2 spray(s) in each nostril once daily mupirocin (BACTROBAN) 2 % ointment Apply to affected area daily aspirin, enteric coated (ECOTRIN LOW STRENGTH) 81 mg EC tablet Take 1 tablet by mouth once daily. carvedilol (COREG) 25 mg tablet Take 1 tablet by mouth two times a day. losartan (COZAAR) 50 mg tablet Take 1 tablet by mouth once daily. tamsulosin (FLOMAX) 0.4 mg Take 1 capsule by mouth once daily azelastine 0.1% nasal spray Use 2 Sprays in each nostril two times a day as needed. No current facility-administered medications for this visit. I have confirmed and edited, if necessary, the PFSH obtained by others. REVIEW OF SYSTEMS: CONSTITUTIONAL: Negative for unintentional weight loss, malaise or fevers HEENT: Negative for frequent/significant headaches, changes in hearing/vision, nose bleeds or other nasal problems RESPIRATORY: Negative for cough, hemoptysis, wheezing or dyspnea CARDIOVASCULAR: Negative for chest pain, palpitations, syncope or lightheadedness GI: See HPI NEURO: Negative for encephalopathy, tremor or gait abnormality PSYCH: Negative for new changes in mood or affect I have confirmed and edited, if necessary, the PFSH obtained by others. PHYSICAL EXAM: BP 122/84 (BP Site: Left Arm, BP Position: Sitting) Pulse 74 Ht 182.9 cm (6') Wt (!) 141.5 kg (312 lb) SpO2 96% BMI 42.31 kg/m? Gen: Comfortable in NAD Head: Normocephalic, atraumatic Skin: No jaundice, rashes or skin lesions Eyes: Sclera anicteric, conjunctiva pink Lungs: unlabored breathing Abd: Soft, non-distended, non-tender, bowel sounds present, no palpable masses or organomegaly Rectal Exam: Examination deferred by patient Neuro: Alert and oriented, no tremor or gross focal motor deficits Psych: Congruent mood and affect, appropriate insight and judgement ASSESSMENT/PLAN: Mr. Sauceda is a 59 year old male with a history of laryngeal cancer, obesity, FEDE, GERD, hypothyroidism and HTN presents for follow-up GERD and medication refills.. 1. Fatty liver (K76.0) Chronic fatty liver disease with ongoing nausea and concern for hepatic dysfunction. - Order right upper quadrant ultrasound to evaluate liver. - Refer to hepatology for further evaluation and management. - Advised against use of [id number] fatty liver pills seen on TV. 2. Gastroesophageal reflux disease without esophagitis (K21.9) Chronic GERD managed with pantoprazole; patient reports nausea relieved by eating or drinking, with no current heartburn. - Refill pantoprazole. - Educated patient to take pantoprazole 30-45 minutes before eating at the same time each day. - Recommended small, frequent meals, including a morning meal to reduce nausea. This note was dictated using Loot! speech recognition software and may contain some errors that were a result of the program not accurately transcribing what was dictated. Recording using Salonmeister software for draft documentation of the visit was discussed with the patient/authorized b2b sales representative; all questions welcomed and answered. Patient/authorized b2b sales representative agreed to proceed Ulisses Herndon APRN.UPHOLSTERY TRIMMER [1] Social History Tobacco Use Smoking status: Former Current packs/day: 0.00 Average packs/day: 1 pack/day for 30.0 years (30.0 ttl pk-yrs) Types: Cigarettes Start date: 10/30/1985 Quit date: 10/31/2015 Years since quittin.0 Smokeless tobacco: Never Tobacco comments: Smokes socially now or when drinking. -07/27/23 [place] Vaping Use Vaping status: Never Used Substance Use Topics Alcohol use: Yes Comment: 12 beers weekly, does not drink daily Drug use: No Allergies As of Date: 11/22/2024 (No Known Allergies) Date Reviewed: 11/22/2024 Reviewed by: Bonita Sterling MA - Fully Assessed Reason for Visit: Follow Up [171] Cmt: Medication refills Primary Visit Diagnosis:Fatty liver [K76.0] Other Visit Diagnosis:Gastroesophageal reflux disease without esophagitis [K21.9] Order(s):pantoprazole DR (PROTONIX) 40 mg tabletTake 1 tablet by mouth once daily.Disp: 90 tabletRfl: 0 US ABD RIGHT UPPER QUADRANT [[id number]] Order #: [id number] FUTURE CONSULT TO HEPATOLOGY [[id number]] Order #: [id number]: 1 FUTURE Prescriptions as of 11/22/2024 - pantoprazole DR (PROTONIX) 40 mg tablet Take 1 tablet by mouth once daily. - ticagrelor (BRILINTA) 60 mg tablet Take 1 tablet by mouth two times a day. - varenicline tartrate (CHANTIX STARTING MONTH BOX) 0.5 mg (11)- 1 mg (42) tablet Use as directed. - levothyroxine (SYNTHROID) 75 mcg tablet Take 1 tablet by mouth once daily - tamsulosin (FLOMAX) 0.4 mg Take 1 capsule by mouth once daily. - meloxicam (MOBIC) 7.5 mg tablet Take 1 tablet by mouth once daily. - methocarbamol (ROBAXIN) 500 mg tablet Take 1 tablet by mouth at bedtime as needed. - rosuvastatin (CRESTOR) 20 mg tablet TAKE 1 TABLET BY MOUTH ONCE DAILY AT BEDTIME - fluticasone (FLONASE) 50 mcg/actuation nasal spray Use 2 spray(s) in each nostril once daily - mupirocin (BACTROBAN) 2 % ointment Apply to affected area daily - aspirin, enteric coated (ECOTRIN LOW STRENGTH) 81 mg EC tablet Take 1 tablet by mouth once daily. - carvedilol (COREG) 25 mg tablet Take 1 tablet by mouth two times a day. - losartan (COZAAR) 50 mg tablet Take 1 tablet by mouth once daily. - tamsulosin (FLOMAX) 0.4 mg Take 1 capsule by mouth once daily - azelastine 0.1% nasal spray Use 2 Sprays in each nostril two times a day as needed. 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] 01/06/2016 Laryngeal cancer (HCC) [C32.9] 11/04/2015 Degenerative spondylolisthesis [M43.10] 05/28/2016 Former smoker [Z87.891] History of laryngeal cancer [Z85.21] 03/10/2017 Hoarseness [R49.0] 03/10/2017 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] 04/19/2017 Spinal stenosis, lumbar region with neurogenic *04/19/2017 Lumbar stenosis with neurogenic claudication [M*05/19/2017 Obesity (BMI 35.0-39.9 without comorbidity) [E6*11/07/2020 Difficult intubation [T88.4XXA] 11/07/2020 FEDE (obstructive sleep apnea) [G47.33] 11/07/2020 Alcohol use [F10.90] 11/07/2020 S/P lumbar spinal fusion [Z98.1] 01/16/2021 Chronic midline low back pain without sciatica *01/16/2021 Degenerative lumbar disc [M51.369] 01/16/2021 Lumbar spondylosis [M47.816] 01/20/2022 GERD (gastroesophageal reflux disease) [K21.9] 03/22/2023 Acquired hypothyroidism [E03.9] 03/22/2023 BMI 40.0-44.9, adult (HCC) [Z68.41] 07/27/2023 Stable angina (HCC) [I20.89] 11/26/2023 Elevated coronary artery calcium score [R93.1] 11/26/2023 CAD (coronary artery disease) [I25.10] 07/21/2024 HLD (hyperlipidemia) [E78.5] 07/21/2024 Occlusion of right carotid artery [I65.21] 07/21/2024 Conjunctivitis [H10.9] 10/04/2024 Dry eye syndrome of both eyes [H04.123] 11/15/2024 Other instructions from your clinician: Thank you for seeing me in clinic today. As we discussed, my recommendations are as follows: 1.continue Pantoprazole 40 mg daily 30 min before a meal 2.RUQ US 3.Consult to hepatology If you have any questions about the above treatment plan, please do not hesitate to call the office or send me a [facility] message. Prescriptions ordered this encounter Disp Refills Start End PANTOPRAZOLE 40 MG TABLET,DELAYED RE* 90 t* 0 11/22/2024 Route: PO Sig: Take 1 tablet by mouth once daily. Medications Discontinued During This Encounter Prescriptions - pantoprazole DR (PROTONIX) 40 mg tablet (Discontinued) Take 1 tablet by mouth once daily. Encounter Status:Closed by ULISSES HERNDON on 11/22/24 PROGRESS Observed: 11/22/2024 9:02 AM Status: COMPLETED Source: [facility] ID: [id number] Author: MARIANN MO PA-C Service: ? Author Type: Physician Wheel Alignment Mechanic Type: Progress Notes Filed: 11/22/2024 09:23 Note Text: November 22, 2024 MUSCULOSKELETAL DISTANCE HEALTH TELEPHONE VISIT DOCUMENTATION NOTE This visit was performed via telephone audio only, and the patient provided consent to be evaluated and managed using this telephone encounter. CHIEF COMPLAINT (CC): Miki Sauceda is a 59 year old male is presenting for this distance health encounter for the following reason: Right thumb HISTORY OF PRESENT ILLNESS (HPI): Patient presents for follow-up after obtaining MRI and the right thumb for suspected UCL tear. MRI did demonstrate complete tear of the UCL and possible Stener lesion but unable to identify this specifically. Patient still has pain with the thumb and difficulty with ADLs and working on using the hand. Interested in discussing surgical intervention. He states the thumb has a hard time straightening fully and is concerned that the thumb will get caught again and he will retear his UCL. MRI right thumb 11/15/2024 IMPRESSION: COMPLETE TEAR OF THE ULNAR COLLATERAL LIGAMENT WITH PROXIMAL DISPLACEMENT OF THE FIBERS AND ASSOCIATED ANGULATION/SUBLUXATION AT THE MCP JOINT AND BONE CONTUSIONS AT THE MCP JOINT. IT IS DIFFICULT TO ASSESS WHETHER THE DISPLACED LIGAMENT REPRESENTS A TRUE STENER LESION. PAST MEDICAL HISTORY Diagnosis Date Adjustment disorder with anxious mood 09/16/2016 CAD (coronary artery disease) 07/21/2024 Chronic obstructive pulmonary disease (COPD) ([facility]) Cigarette nicotine dependence in remission 02/06/2016 Reports not smoking for multiple weeks. 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 varenicline tartrate (CHANTIX STARTING MONTH BOX) 0.5 mg (11)- 1 mg (42) tablet Use as directed. levothyroxine (SYNTHROID) 75 mcg tablet Take 1 tablet by mouth once daily pantoprazole DR (PROTONIX) 40 mg tablet Take 1 tablet by mouth once daily. tamsulosin (FLOMAX) 0.4 mg Take 1 capsule by mouth once daily. meloxicam (MOBIC) 7.5 mg tablet Take 1 tablet by mouth once daily. methocarbamol (ROBAXIN) 500 mg tablet Take 1 tablet by mouth at bedtime as needed. rosuvastatin (CRESTOR) 20 mg tablet TAKE 1 TABLET BY MOUTH ONCE DAILY AT BEDTIME fluticasone (FLONASE) 50 mcg/actuation nasal spray Use 2 spray(s) in each nostril once daily mupirocin (BACTROBAN) 2 % ointment Apply to affected area daily aspirin, enteric coated (ECOTRIN LOW STRENGTH) 81 mg EC tablet Take 1 tablet by mouth once daily. carvedilol (COREG) 25 mg tablet Take 1 tablet by mouth two times a day. losartan (COZAAR) 50 mg tablet Take 1 tablet by mouth once daily. tamsulosin (FLOMAX) 0.4 mg Take 1 capsule by mouth once daily azelastine 0.1% nasal spray Use 2 Sprays in each nostril two times a day as needed. No current facility-administered medications on file prior to visit. ALLERGIES No Known Allergies ASSESSMENT: (C10.469J) Rupture of ulnar collateral ligament of thumb, right, initial encounter (primary encounter diagnosis) PLAN: We reviewed his MRI results confirming the complete rupture of the UCL. We discussed surgery for a right thumb UCL repair and postoperative course including splinting for 2 weeks followed by a cast for 2 weeks and then initiation of OT and use of removable brace. He would be nonweightbearing with the right hand for 6 weeks from the surgery. Patient is concerned that because he does not have full motion of the thumb but will continue to get caught and jammed which is what caused the initial injury. Would like to discuss surgery further with Dr. Jewell. Will have the office contact him to arrange a tentative surgical date and schedule follow-up with Dr. Jewell for further evaluation and discussion of surgery. Will follow-up pending surgery right thumb UCL repair. Detailed instructions were reviewed with the patient and all questions were answered in detail. We discussed reasons for emergent need to refer to seek care in an Emergency Department or an [facility]. We discussed red flags associated with this condition and emergent treatment if they present. Patient voiced understanding and compliance with the above plan. I spent 10 minutes in the visit, with more than 50% of the total time of the visit in counseling and coordination of care. GEORGETTE Ma Observed: 11/22/2024 12:00 AM Status: COMPLETED Source: [facility] Telephone (BOWENNanoleafM) MIKI SAUCEDA ([id number]) 1965 M Date Time Provider Department 11/22/24 CHELE JEWELL During your visit today, we recorded the following information about you: Agustin Mercer 11/22/2024 10:19 AM Signed Surgical date AND appt with Dr. Jewell Received: Today Mariann Mo PA-C Diehl, Susan Hi Sue, This patient will need surgery for his right thumb and was hopeful for a time mid to late March. He would need to be [place] with his history and likely difficult airway. Case should take about 2 hours but I want him to see Dr. Jewell first to further discuss surgery. Would you be able to give him a tentative date to hold in March ~2 hours and help him get set up with Dr. Jewell in the next month or two to discuss surgery for the right thumb? Thanks, Agustin Man 11/22/2024 10:19 AM Signed [facility] requesting a call back to schedule an appointment with Dr. Jewell and potential surgery date. Allergies As of Date: 11/22/2024 (No Known Allergies) Date Reviewed: 11/15/2024 Reviewed by: Kayla Bales OD - Fully Assessed Reason for Visit: Surgical Followup [104] Prescriptions as of 11/22/2024 - ticagrelor (BRILINTA) 60 mg tablet Take 1 tablet by mouth two times a day. - varenicline tartrate (CHANTIX STARTING MONTH BOX) 0.5 mg (11)- 1 mg (42) tablet Use as directed. - levothyroxine (SYNTHROID) 75 mcg tablet Take 1 tablet by mouth once daily - pantoprazole DR (PROTONIX) 40 mg tablet Take 1 tablet by mouth once daily. - tamsulosin (FLOMAX) 0.4 mg Take 1 capsule by mouth once daily. - meloxicam (MOBIC) 7.5 mg tablet Take 1 tablet by mouth once daily. - methocarbamol (ROBAXIN) 500 mg tablet Take 1 tablet by mouth at bedtime as needed. - rosuvastatin (CRESTOR) 20 mg tablet TAKE 1 TABLET BY MOUTH ONCE DAILY AT BEDTIME - fluticasone (FLONASE) 50 mcg/actuation nasal spray Use 2 spray(s) in each nostril once daily - mupirocin (BACTROBAN) 2 % ointment Apply to affected area daily - aspirin, enteric coated (ECOTRIN LOW STRENGTH) 81 mg EC tablet Take 1 tablet by mouth once daily. - carvedilol (COREG) 25 mg tablet Take 1 tablet by mouth two times a day. - losartan (COZAAR) 50 mg tablet Take 1 tablet by mouth once daily. - tamsulosin (FLOMAX) 0.4 mg Take 1 capsule by mouth once daily - azelastine 0.1% nasal spray Use 2 Sprays in each nostril two times a day as needed. 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] 01/06/2016 Laryngeal cancer (HCC) [C32.9] 11/04/2015 Degenerative spondylolisthesis [M43.10] 05/28/2016 Former smoker [Z87.891] History of laryngeal cancer [Z85.21] 03/10/2017 Hoarseness [R49.0] 03/10/2017 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] 04/19/2017 Spinal stenosis, lumbar region with neurogenic *04/19/2017 Lumbar stenosis with neurogenic claudication [M*05/19/2017 Obesity (BMI 35.0-39.9 without comorbidity) [E6*11/07/2020 Difficult intubation [T88.4XXA] 11/07/2020 FEDE (obstructive sleep apnea) [G47.33] 11/07/2020 Alcohol use [F10.90] 11/07/2020 S/P lumbar spinal fusion [Z98.1] 01/16/2021 Chronic midline low back pain without sciatica *01/16/2021 Degenerative lumbar disc [M51.369] 01/16/2021 Lumbar spondylosis [M47.816] 01/20/2022 GERD (gastroesophageal reflux disease) [K21.9] 03/22/2023 Acquired hypothyroidism [E03.9] 03/22/2023 BMI 40.0-44.9, adult (HCC) [Z68.41] 07/27/2023 Stable angina (HCC) [I20.89] 11/26/2023 Elevated coronary artery calcium score [R93.1] 11/26/2023 CAD (coronary artery disease) [I25.10] 07/21/2024 HLD (hyperlipidemia) [E78.5] 07/21/2024 Occlusion of right carotid artery [I65.21] 07/21/2024 Conjunctivitis [H10.9] 10/04/2024 Dry eye syndrome of both eyes [H04.123] 11/15/2024 Encounter Status:Closed by AGUSTIN MERCER on 11/22/24 PROGRESS Observed: 11/15/2024 12:15 PM Status: COMPLETED Source: [facility] ID: [id number] Author: KAYLA BALES OD Service: ? Author Type: OPERATOR BEARER SYSTEMS Type: Progress Notes Filed: 11/15/2024 12:17 Note Text: (H10.45) Other chronic allergic conjunctivitis of both eyes (primary encounter diagnosis) Comment: 50-60% improvement in allergic conjunctivitis OU Plan: advised use alaway or zaditor qd OU (H04.123) Dry eye syndrome of both eyes Comment: moderate OU Plan: add artificial tears bid - tid New spec rx given for distance FULL in 6 months I have confirmed and edited as necessary the relevant ophthalmic history, ROS, and the neuro exam findings as obtained by others. I have seen and examined this patient. I have discussed the case and the management of this patient's care with the Resident/Fellow, if applicable. I also have reviewed and agree with the assessment and plan as stated above and agree with all of its relevant components. Kayla Bales OD November 15, 2024 12:17 PM' PROGRESS Observed: 11/15/2024 8:56 AM Status: COMPLETED Source: [facility] ID: [id number] Author: KODI SULLIVAN MD Service: ? Author Type: Physician Type: Progress Notes Filed: 11/15/2024 09:18 Note Text: [facility] Ac[facility] Department of Cardiovascular Medicine SECTION OF INTERVENTIONAL CARDIOLOGY OUTPATIENT VISIT DATE 11/15/2024 OUTPATIENT VISIT TYPE Established PRIMARY CARE PHYSICIAN: To use this Smartlink, specify the provider ID whose address you want to display, e.g., .PROVADDR[1 (where 1 is the provider ID). REFERRING PHYSICIAN: No referring provider defined for this encounter. CHIEF COMPLAINT: Patient presents with: CARD New Patient Consult HISTORY OF PRESENT ILLNESS: Prior Visit 12/15/2023: Mr. Sauceda is a 58 year old male who presents today for f/u after CAD s/p RCA PCI . He denies chest pain, shortness of breath, dyspnea on exertion, orthopnea, PND, palpitations, lightheadedness, syncope, claudication, leg swelling, bleeding, cough, and wheezing. He does note mild fatigue that is improved with exertion. Not been able to get CPAP due to weight limitations for FEDE. Prior Visit 05/17/2024: The patient denies chest pain since PCI, but does note fatigue and mild PERAZA now. He is still smoking cigarettes. Denies any skin rash or bleeding with medications. Reports his brother passed from LAD [place] at age 61 since prior visit. Current Visit 11/15/2024: Patient denies any active chest pain. He does note mild lower extremity edema but denies any orthopnea or PND. He has initiated nicotine replacement therapy and is reduced to smoking. Risk factors for coronary artery disease hyperlipidemia, hypertension, history of smoking, family history of CAD, obesity Diet / Nutrition: poor dietary control Weight: no change since last visit Exercise: pending cardiac rehab evaluation PAST MEDICAL HISTORY 09/16/2016: Adjustment disorder with anxious mood No date: Chronic obstructive pulmonary disease (COPD) ([facility]) 02/06/2016: Cigarette nicotine dependence in remission Comment: Reports not smoking for multiple weeks. 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 [id number] stage MATT 10/29/2016: Radiculitis Comment: Added automatically from request for surgery [id number] No date: Snoring 07/24/2016: Spondylolysis, lumbosacral PAST SURGICAL HISTORY /2018: BACK SURGERY HX 01/09/2021: COLONOSCOPY DIAGNOSTIC Comment: polyps removed 05/29/2016: COLONOSCOPY DIAGNOSTIC No date: EGD DIAGNOSTIC 11/20/2015: PAST SURGICAL HISTORY OF Comment: Biopsy/Trach SOCIAL HISTORY Social History Tobacco Use Smoking status: Former Current packs/day: 0.00 Average packs/day: 1 pack/day for 30.0 years (30.0 ttl pk-yrs) Types: Cigarettes Start date: 10/30/1985 Quit date: 10/31/2015 Years since quittin.1 Smokeless tobacco: Never Tobacco comments: Smokes socially now or when drinking. -07/27/23 [place] Vaping Use Vaping status: Never Used Substance Use Topics Alcohol use: Yes Comment: 12 beers weekly, does not drink daily Drug use: No FAMILY HISTORY Problem Relation Age of Onset Cancer Mother breast Cancer Father small cell lung cancer Colon Cancer No Family History Anesthesia Problems No Family History ALLERGIES: ALLERGIES No Known Allergies MEDICATIONS: mupirocin (BACTROBAN) 2 % ointment Apply to affected area daily ammonium lactate (LAC-HYDRIN) 12 % lotion Apply to elbows twice daily as needed. ticagrelor (BRILINTA) 90 mg tablet Take 1 tablet by mouth two times a day. pantoprazole DR (PROTONIX) 40 mg tablet Take 1 tablet by mouth once daily. Patient should start on November 27, 2023. rosuvastatin (CRESTOR) 20 mg tablet Take 1 tablet by mouth daily at bedtime. aspirin, enteric coated (ECOTRIN LOW STRENGTH) 81 mg EC tablet Take 1 tablet by mouth once daily. carvedilol (COREG) 25 mg tablet Take 1 tablet by mouth two times a day. losartan (COZAAR) 50 mg tablet Take 1 tablet by mouth once daily. tamsulosin (FLOMAX) 0.4 mg Take 1 capsule by mouth once daily fluticasone (FLONASE) 50 mcg/actuation nasal spray Use 2 Sprays in each nostril once daily. azelastine 0.1% nasal spray Use 2 Sprays in each nostril two times a day as needed. meloxicam (MOBIC) 7.5 mg tablet Take 1 tablet by mouth once daily. levothyroxine (SYNTHROID) 75 mcg tablet Take 1 tablet by mouth once daily. sodium chloride (AYR, OCEAN) 0.65 % nasal spray Use 1 [place] in the nose every 2 hours while awake. REVIEW OF SYSTEMS: GENERAL: negative for: fevers, chills, and change in weight HEENT: negative for: headaches, hearing loss, difficulty swallowing, visual changes, nose bleeds, dentures, own teeth SKIN: rashes, lesions, and ulcers RESPIRATORY: SEE HPI CARDIOVASCULAR: See HPI GASTROINTESTINAL: negative for: abdominal pain, nausea, vomiting, difficulty or painful swallowing, and melanotic stools GENITOURINARY: negative for: dysuria, frequency, nocturia, and male potency MUSCULOSKELETAL: negative for: joint pain, joint swelling, muscle pain or myalgias, and pain with walking NEUROLOGIC: negative for: numbness, tingling, and sensation of pins and needles HEMATOLOGY: negative for: bruising easily, prolonged bleeding, anemia, and cancer ENDOCRINE: negative for: cold or heat intolerance, polyuria, polydipsia, goiter, diabetes, and thyroid disease PSYCH: negative for: sleep disturbance, mood disorders, and recent psychosocial stressors PHYSICAL EXAMINATION: 11/15/24 0851 BP: 112/78 BP Site: Right Arm BP Position: Sitting BP Cuff Size: Regular Adult Pulse: 70 SpO2: 96% Weight: (!) 141.8 kg (312 lb 9.8 oz) Height: 182.9 cm (6') General: Well appearing, in no acute distress, speaking in complete sentences. Skin: No clubbing, no cyanosis. Head/Eyes: Extra ocular movements intact Mouth: Teeth in good repair. Neck: No jugular venous distention, no carotid bruits, carotids have a normal upstroke, no palpable thyromegaly. Lungs: Clear to auscultation and no rales Heart: Regular rhythm, PMI not displaced, S1, S2 normal, no S3, no S4, no heaves, no rub and no murmur. PV Pulses:Pulses intact Abdomen: Soft, nontender, bowel sounds normal, no palpable organomegaly, no bruits. Extremities: No peripheral edema . Grade 2/4 distal pulses bilaterally. Edema Scale: No Musculoskeletal: Normal gait and ambulation Neuro: Oriented to time, place and person CARDIOVASCULAR MEDICINE TESTING: Laboratory Testing: A1c 5.2, LDL 80, HDL 29 Cardiac Catheterization/Percutaneous Coronary Intervention (PCI): Last EKG Result Conclusion ECG COMPLETE Collected: 12/15/2023 10:34 AM (Preliminary result) Impression: NORMAL SINUS RHYTHM Septal Infarct , AGE UNDETERMINED POSSIBLE INFERIOR MYOCARDIAL INFARCTION , AGE UNDETERMINED ABNORMAL ECG Carotid Duplex: IMPRESSION Kodi Sullivan MD was notified with results at 0900. Compared to prior study of 04/14/2021, right ICA now occluded, left unchanged. RIGHT SIDE Internal carotid artery: Occluded. Vertebral artery: Patent and antegrade flow noted. Subclavian artery: Plaque visualized without evidence of hemodynamically significant stenosis. LEFT SIDE Common carotid artery: Plaque visualized without evidence of hemodynamically significant stenosis. Internal carotid artery: 0-19% stenosis. Tortuous vessel at proximal . Vertebral artery: Patent and antegrade flow noted. Subclavian artery: Patent. Technologist: Ana Pacheco RVT Claudia Crowe RVT Ordering physician: KODI SULLIVAN Interpreting physician: Fran Victoria MD, RPVI Nuclear Stress test: CONCLUSIONS: 1. PET Perfusion Study: Normal. 2. No evidence of ischemia. 3. No evidence of scarred myocardium. 4. Left ventricle is normal in size. The left ventricle systolic function is normal. 5. Right ventricle is normal in size. The right ventricle systolic function is normal. 6. This is a low risk scan. Gated Stress TOF:SC:CTAC Gated Rest TOF:SC:CTAC LVEF % 65 56 I have personally reviewed the Electrocardiogram, Laboratory Testing, and Echocardiogram. IMPRESSION: Mr. Sauceda is a 59 year old male who presents for follow up after CAD s/p PCI RCA. Patient reports overall improved symptoms since last year. Coronary artery disease involving [place] coronary artery of [place] heart without angina pectoris (primary encounter diagnosis) S/p drug eluting coronary stent placement Mixed hyperlipidemia Primary hypertension Class 3 severe obesity due to excess calories without serious comorbidity with body mass index (bmi) of 40.0 to 44.9 in adult (hcc) Smoker PLAN AND RECOMMENDATIONS: CAD s/p PCI RCA -ASA 81 mg PO daily and reduce ticagrelor 90 to 60 mg PO BID -high intensity statin goal LDL <70 and ideally LDL <55 - Repeat nuclear stress test negative for ischemia HLD -high intensity statin goal LDL <70 and ideally LDL <55 HTN -continue with carvedilol 25 mg PO twice daily goal HR < 70. Monitor for bradycardia, lightheadedness, dizziness, hypotension, hyperglycemia continue with lorsartan 50 PO daily goal BP <130/80. Monitor for angioedema, dry cough, hyperkalemia, muscle cramps, palpitations Right Carotid Occluded, Left Carotid Artery 0-19% stenosis -ASA and statin Obesity -Heart healthy diet counseling performed -weight loss clinic referral -age and risk appropriate malignancy screening per pcp -smoking cessation counseling performed for 3-10 minutes. Smoking cessation class referral made previously, patient did not attend -if patient has recurrent or worsening symptoms, patient is instructed to come to the ED or call 911 -patient understands and agrees with the plan -RTC 12 months CONTACT INFORMATION: Kodi Sullivan M.D. Section of Interventional Cardiology AND Endovascular Interventions Yelitza Acosta Department of Cardiovascular Medicine Heart, Vascular and Thoracic [facility] Office Office Pager [phone] This note was partially generated using Loot! voice recognition system, and there may be some incorrect words, spellings, and punctuation that were not noted in checking the note before saving CNOV Observed: 11/15/2024 8:30 AM Status: COMPLETED Source: [facility] Office Visit (CARINF) MIKI SAUCEDA ([id number]) 1965 M Date Time Provider Department 11/15/24 8:30 AM KODI SULLIVAN During your visit today, we recorded the following information about you: Pulse Blood pressure Weight Height 70/minute 112/78 141.8 kg 1.829 m Kodi Sullivan MD 11/15/2024 9:18 AM Signed Heart, Vascular and Thoracic [facility] Kelly of Cardiovascular Medicine SECTION OF INTERVENTIONAL CARDIOLOGY OUTPATIENT VISIT DATE 11/15/2024 OUTPATIENT VISIT TYPE Established PRIMARY CARE PHYSICIAN: To use this Smartlink, specify the provider ID whose address you want to display, e.g., .PROVADDR[1 (where 1 is the provider ID). REFERRING PHYSICIAN: No referring provider defined for this encounter. CHIEF COMPLAINT: Patient presents with: CARD New Patient Consult HISTORY OF PRESENT ILLNESS: Prior Visit 12/15/2023: Mr. Sauceda is a 58 year old male who presents today for f/u after CAD s/p RCA PCI . He denies chest pain, shortness of breath, dyspnea on exertion, orthopnea, PND, palpitations, lightheadedness, syncope, claudication, leg swelling, bleeding, cough, and wheezing. He does note mild fatigue that is improved with exertion. Not been able to get CPAP due to weight limitations for FEED. Prior Visit 05/17/2024: The patient denies chest pain since PCI, but does note fatigue and mild PERAZA now. He is still smoking cigarettes. Denies any skin rash or bleeding with medications. Reports his brother passed from LAD [place] at age 61 since prior visit. Current Visit 11/15/2024: Patient denies any active chest pain. He does note mild lower extremity edema but denies any orthopnea or PND. He has initiated nicotine replacement therapy and is reduced to smoking. Risk factors for coronary artery disease hyperlipidemia, hypertension, history of smoking, family history of CAD, obesity Diet / Nutrition: poor dietary control Weight: no change since last visit Exercise: pending cardiac rehab evaluation PAST MEDICAL HISTORY 09/16/2016: Adjustment disorder with anxious mood No date: Chronic obstructive pulmonary disease (COPD) ([facility]) 02/06/2016: Cigarette nicotine dependence in remission Comment: Reports not smoking for multiple weeks. 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 MATT 10/29/2016: Radiculitis Comment: Added automatically from request for surgery [id number] No date: Snoring 07/24/2016: Spondylolysis, lumbosacral PAST SURGICAL HISTORY /2018: BACK SURGERY HX 01/09/2021: COLONOSCOPY DIAGNOSTIC Comment: polyps removed 05/29/2016: COLONOSCOPY DIAGNOSTIC No date: EGD DIAGNOSTIC 11/20/2015: PAST SURGICAL HISTORY OF Comment: Biopsy/Trach SOCIAL HISTORY Social History Tobacco Use Smoking status: Former Current packs/day: 0.00 Average packs/day: 1 pack/day for 30.0 years (30.0 ttl pk-yrs) Types: Cigarettes Start date: 10/30/1985 Quit date: 10/31/2015 Years since quittin.1 Smokeless tobacco: Never Tobacco comments: Smokes socially now or when drinking. -07/27/23 [place] Vaping Use Vaping status: Never Used Substance Use Topics Alcohol use: Yes Comment: 12 beers weekly, does not drink daily Drug use: No FAMILY HISTORY Problem Relation Age of Onset Cancer Mother breast Cancer Father small cell lung cancer Colon Cancer No Family History Anesthesia Problems No Family History ALLERGIES: ALLERGIES No Known Allergies MEDICATIONS: mupirocin (BACTROBAN) 2 % ointment Apply to affected area daily ammonium lactate (LAC-HYDRIN) 12 % lotion Apply to elbows twice daily as needed. ticagrelor (BRILINTA) 90 mg tablet Take 1 tablet by mouth two times a day. pantoprazole DR (PROTONIX) 40 mg tablet Take 1 tablet by mouth once daily. Patient should start on November 27, 2023. rosuvastatin (CRESTOR) 20 mg tablet Take 1 tablet by mouth daily at bedtime. aspirin, enteric coated (ECOTRIN LOW STRENGTH) 81 mg EC tablet Take 1 tablet by mouth once daily. carvedilol (COREG) 25 mg tablet Take 1 tablet by mouth two times a day. losartan (COZAAR) 50 mg tablet Take 1 tablet by mouth once daily. tamsulosin (FLOMAX) 0.4 mg Take 1 capsule by mouth once daily fluticasone (FLONASE) 50 mcg/actuation nasal spray Use 2 Sprays in each nostril once daily. azelastine 0.1% nasal spray Use 2 Sprays in each nostril two times a day as needed. meloxicam (MOBIC) 7.5 mg tablet Take 1 tablet by mouth once daily. levothyroxine (SYNTHROID) 75 mcg tablet Take 1 tablet by mouth once daily. sodium chloride (AYR, OCEAN) 0.65 % nasal spray Use 1 [place] in the nose every 2 hours while awake. REVIEW OF SYSTEMS: GENERAL: negative for: fevers, chills, and change in weight HEENT: negative for: headaches, hearing loss, difficulty swallowing, visual changes, nose bleeds, dentures, own teeth SKIN: rashes, lesions, and ulcers RESPIRATORY: SEE HPI CARDIOVASCULAR: See HPI GASTROINTESTINAL: negative for: abdominal pain, nausea, vomiting, difficulty or painful swallowing, and melanotic stools GENITOURINARY: negative for: dysuria, frequency, nocturia, and male potency MUSCULOSKELETAL: negative for: joint pain, joint swelling, muscle pain or myalgias, and pain with walking NEUROLOGIC: negative for: numbness, tingling, and sensation of pins and needles HEMATOLOGY: negative for: bruising easily, prolonged bleeding, anemia, and cancer ENDOCRINE: negative for: cold or heat intolerance, polyuria, polydipsia, goiter, diabetes, and thyroid disease PSYCH: negative for: sleep disturbance, mood disorders, and recent psychosocial stressors PHYSICAL EXAMINATION: 11/15/24 0851 BP: 112/78 BP Site: Right Arm BP Position: Sitting BP Cuff Size: Regular Adult Pulse: 70 SpO2: 96% Weight: (!) 141.8 kg (312 lb 9.8 oz) Height: 182.9 cm (6') General: Well appearing, in no acute distress, speaking in complete sentences. Skin: No clubbing, no cyanosis. Head/Eyes: Extra ocular movements intact Mouth: Teeth in good repair. Neck: No jugular venous distention, no carotid bruits, carotids have a normal upstroke, no palpable thyromegaly. Lungs: Clear to auscultation and no rales Heart: Regular rhythm, PMI not displaced, S1, S2 normal, no S3, no S4, no heaves, no rub and no murmur. PV Pulses:Pulses intact Abdomen: Soft, nontender, bowel sounds normal, no palpable organomegaly, no bruits. Extremities: No peripheral edema . Grade 2/4 distal pulses bilaterally. Edema Scale: No Musculoskeletal: Normal gait and ambulation Neuro: Oriented to time, place and person CARDIOVASCULAR MEDICINE TESTING: Laboratory Testing: A1c 5.2, LDL 80, HDL 29 Cardiac Catheterization/Percutaneous Coronary Intervention (PCI): Last EKG Result Conclusion ECG COMPLETE Collected: 12/15/2023 10:34 AM (Preliminary result) Impression: NORMAL SINUS RHYTHM Septal Infarct , AGE UNDETERMINED POSSIBLE INFERIOR MYOCARDIAL INFARCTION , AGE UNDETERMINED ABNORMAL ECG Carotid Duplex: IMPRESSION Kodi Sullivan MD was notified with results at 0900. Compared to prior study of 04/14/2021, right ICA now occluded, left unchanged. RIGHT SIDE Internal carotid artery: Occluded. Vertebral artery: Patent and antegrade flow noted. Subclavian artery: Plaque visualized without evidence of hemodynamically significant stenosis. LEFT SIDE Common carotid artery: Plaque visualized without evidence of hemodynamically significant stenosis. Internal carotid artery: 0-19% stenosis. Tortuous vessel at proximal . Vertebral artery: Patent and antegrade flow noted. Subclavian artery: Patent. Technologist: Ana Pacheco RVT Claudia Crowe RVT Ordering physician: KODI SULLIVAN Interpreting physician: Fran Victoria MD, RPVI Nuclear Stress test: CONCLUSIONS: 1. PET Perfusion Study: Normal. 2. No evidence of ischemia. 3. No evidence of scarred myocardium. 4. Left ventricle is normal in size. The left ventricle systolic function is normal. 5. Right ventricle is normal in size. The right ventricle systolic function is normal. 6. This is a low risk scan. Gated Stress TOF:SC:CTAC Gated Rest TOF:SC:CTAC LVEF % 65 56 I have personally reviewed the Electrocardiogram, Laboratory Testing, and Echocardiogram. IMPRESSION: Mr. Sauceda is a 59 year old male who presents for follow up after CAD s/p PCI RCA. Patient reports overall improved symptoms since last year. Coronary artery disease involving [place] coronary artery of [place] heart without angina pectoris (primary encounter diagnosis) S/p drug eluting coronary stent placement Mixed hyperlipidemia Primary hypertension Class 3 severe obesity due to excess calories without serious comorbidity with body mass index (bmi) of 40.0 to 44.9 in adult (hcc) Smoker PLAN AND RECOMMENDATIONS: CAD s/p PCI RCA -ASA 81 mg PO daily and reduce ticagrelor 90 to 60 mg PO BID -high intensity statin goal LDL <70 and ideally LDL <55 - Repeat nuclear stress test negative for ischemia HLD -high intensity statin goal LDL <70 and ideally LDL <55 HTN -continue with carvedilol 25 mg PO twice daily goal HR < 70. Monitor for bradycardia, lightheadedness, dizziness, hypotension, hyperglycemia continue with lorsartan 50 PO daily goal BP <130/80. Monitor for angioedema, dry cough, hyperkalemia, muscle cramps, palpitations Right Carotid Occluded, Left Carotid Artery 0-19% stenosis -ASA and statin Obesity -Heart healthy diet counseling performed -weight loss clinic referral -age and risk appropriate malignancy screening per pcp -smoking cessation counseling performed for 3-10 minutes. Smoking cessation class referral made previously, patient did not attend -if patient has recurrent or worsening symptoms, patient is instructed to come to the ED or call 911 -patient understands and agrees with the plan -RTC 12 months CONTACT INFORMATION: Kodi Sullivan M.D. Section of Interventional Cardiology AND Endovascular Interventions Yelitza Acosta Department of Cardiovascular Medicine Heart, Vascular and Thoracic [facility] Office Office Pager [phone] This note was partially generated using Loot! voice recognition system, and there may be some incorrect words, spellings, and punctuation that were not noted in checking the note before saving Allergies As of Date: 11/15/2024 (No Known Allergies) Date Reviewed: 11/15/2024 Reviewed by: Davina Gannon OCCA - Fully Assessed Reason for Visit: Established Patient [175] Primary Visit Diagnosis:S/P drug eluting coronary stent placement [Z95.5] Other Visit Diagnosis:Coronary artery disease involving [place] coronary artery of [place] heart without angina pectoris [I25.10] Order(s):ticagrelor (BRILINTA) 60 mg tabletTake 1 tablet by mouth two times a day.Disp: 180 tabletRfl: 3 Prescriptions as of 11/15/2024 - ticagrelor (BRILINTA) 60 mg tablet Take 1 tablet by mouth two times a day. - varenicline tartrate (CHANTIX STARTING MONTH BOX) 0.5 mg (11)- 1 mg (42) tablet Use as directed. - levothyroxine (SYNTHROID) 75 mcg tablet Take 1 tablet by mouth once daily - prednisoLONE acetate (PRED FORTE) 1 % ophthalmic suspension Use 1 drop in both eyes four times daily. For 1 week then twice a day for 1 week then stop - pantoprazole DR (PROTONIX) 40 mg tablet Take 1 tablet by mouth once daily. - tamsulosin (FLOMAX) 0.4 mg Take 1 capsule by mouth once daily. - meloxicam (MOBIC) 7.5 mg tablet Take 1 tablet by mouth once daily. - methocarbamol (ROBAXIN) 500 mg tablet Take 1 tablet by mouth at bedtime as needed. - rosuvastatin (CRESTOR) 20 mg tablet TAKE 1 TABLET BY MOUTH ONCE DAILY AT BEDTIME - fluticasone (FLONASE) 50 mcg/actuation nasal spray Use 2 spray(s) in each nostril once daily - mupirocin (BACTROBAN) 2 % ointment Apply to affected area daily - aspirin, enteric coated (ECOTRIN LOW STRENGTH) 81 mg EC tablet Take 1 tablet by mouth once daily. - carvedilol (COREG) 25 mg tablet Take 1 tablet by mouth two times a day. - losartan (COZAAR) 50 mg tablet Take 1 tablet by mouth once daily. - tamsulosin (FLOMAX) 0.4 mg Take 1 capsule by mouth once daily - azelastine 0.1% nasal spray Use 2 Sprays in each nostril two times a day as needed. Facility-Administered Medications as of 11/15/2024 - fluorescein-benoxinate 0.3-0.4 % 1 drop (FLURESS) Problem List As Of Date 11/15/2024 Noted Resolved Larynx cancer (HCC) [C32.9] 01/06/2016 09/16/2016 Difficulty coping with disease [R45.89] 01/06/2016 Malignant neoplasm of subglottis (HCC) [C32.2] 01/19/2016 Degenerative spondylolisthesis [M43.10] 05/28/2016 07/23/2016 Spondylolysis, lumbosacral [M43.07] 07/24/2016 Adjustment disorder with anxious mood [F43.22] 09/16/2016 Radiculitis [M54.10] 10/29/2016 Primary hypertension [I10] 11/10/2016 Larynx cancer (HCC) [C32.9] 01/06/2016 Laryngeal cancer (HCC) [C32.9] 11/04/2015 Degenerative spondylolisthesis [M43.10] 05/28/2016 Former smoker [Z87.891] History of laryngeal cancer [Z85.21] 03/10/2017 Hoarseness [R49.0] 03/10/2017 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] 04/19/2017 Spinal stenosis, lumbar region with neurogenic *04/19/2017 Lumbar stenosis with neurogenic claudication [M*05/19/2017 Obesity (BMI 35.0-39.9 without comorbidity) [E6*11/07/2020 Difficult intubation [T88.4XXA] 11/07/2020 FEDE (obstructive sleep apnea) [G47.33] 11/07/2020 Alcohol use [F10.90] 11/07/2020 S/P lumbar spinal fusion [Z98.1] 01/16/2021 Chronic midline low back pain without sciatica *01/16/2021 Degenerative lumbar disc [M51.369] 01/16/2021 Lumbar spondylosis [M47.816] 01/20/2022 GERD (gastroesophageal reflux disease) [K21.9] 03/22/2023 Acquired hypothyroidism [E03.9] 03/22/2023 BMI 40.0-44.9, adult (HCC) [Z68.41] 07/27/2023 Stable angina (HCC) [I20.89] 11/26/2023 Elevated coronary artery calcium score [R93.1] 11/26/2023 CAD (coronary artery disease) [I25.10] 07/21/2024 HLD (hyperlipidemia) [E78.5] 07/21/2024 Occlusion of right carotid artery [I65.21] 07/21/2024 Conjunctivitis [H10.9] 10/04/2024 Prescriptions ordered this encounter Disp Refills Start End TICAGRELOR 60 MG TABLET 180 * 3 11/15/2024 11/15/2025 Route: PO Sig: Take 1 tablet by mouth two times a day. Medications Discontinued During This Encounter Prescriptions - ticagrelor (BRILINTA) 90 mg tablet (Discontinued) Take 1 tablet by mouth two times a day. Level of Service: OFFICE/OUTPATIENT ESTABLISHED MOD MDM 30 MIN [80761] Additional E/M codes: VISIT CPLX INHERENT EANDM ASSOC WITH MED * Encounter Status:Closed by SULLIVANKODI on 11/15/24 MRI HAND WO IVCON RT Observed: 8:06 AM Status: F Source: [facility] * * *Final Report* * * DATE OF EXAM: Nov 15 2024 8:06AM [facility] 0201 - MRI HAND WO IVCON RT / PROCEDURE REASON: Rupture of ulnar collateral ligament of thumb, right, initial encounter * * * * Physician Interpretation * * * * HISTORY (as given from clinical provider): Rupture of ulnar collateral ligament of thumb, right, initial encounter . Additional history provided by the performing technologist (if any): --> TECHNIQUE: MRI HAND WO IVCON RT COMPARISON: None RESULT: Complete tear of the ulnar collateral ligament at the MCP joint of the thumb. The metacarpal attachment appears to be intact. The ulnar attachment is not identified and is probably displaced proximally. There is associated radial angulation at the MCP joint. Associated small joint effusion at the MCP joint and bone contusions on both sides of the joint. The radial collateral ligament is intact. Flexor and extensor tendon are intact. No other significant abnormality. IMPRESSION: COMPLETE TEAR OF THE ULNAR COLLATERAL LIGAMENT WITH PROXIMAL DISPLACEMENT OF THE FIBERS AND ASSOCIATED ANGULATION/SUBLUXATION AT THE MCP JOINT AND BONE CONTUSIONS AT THE MCP JOINT. IT IS DIFFICULT TO ASSESS WHETHER THE DISPLACED LIGAMENT REPRESENTS A TRUE STENER LESION. Adjustment Clerk: GO Transcribe Date/Time: Nov 15 2024 9:37A Dictated by : INGRID GAONA MD This examination was interpreted and the report reviewed and electronically signed by: INGRID GAONA MD on Nov 15 2024 9:40AM EST [id number] ALLIED HEALTH Observed: 11/15/2024 7:00 AM Status: COMPLETED Source: [facility] HNO ID: [id number] Author: JELENA PINEDA, law firm consultant Service: Radiology Author Type: [employer] Incident Responder Type: Allied Health Filed: 11/15/2024 07:31 Note Text: Radiology Service Progress Note PATIENT NAME: Miki Sauceda DATE OF SERVICE: November 15, 2024 TIME: 7:30 AM PATIENT IDENTITY VERIFICATION COMPLETED USING TWO (2) IDENTIFIERS: Name and Date of confirmed by patient verbally and Name and Date of confirmed by identification band. FALL SCREENING: Has the patient had 2 falls in the last year or 1 fall with injury or currently using an Ambulatory Assistive Device (Walker, Cane, Wheelchair, Crutches, etc.)? No PATIENT GENDER DATA: Assigned male at PATIENT RELEVANT IMPLANT DATA REVIEWED: Not Applicable PATIENT PRESENTS WITH AN IMPLANTABLE OR ATTACHED TELEMARKETING AGENT: No RADIOLOGY DEPARTMENT: MR; Exam(s) Completed: Upper MSK: Hand, right . Aromatherapy Administered: No PERIPHERAL IV DATA: Not applicable SIGNED BY: Jelena Liang, law firm consultant November 15, 2024 7:30 AM PROGRESS Observed: 10/27/2024 9:30 AM Status: COMPLETED Source: [facility] HNO ID: [id number] Author: SCOT RICHMOND MD Service: ? Author Type: Physician Type: Progress Notes Filed: 10/27/2024 09:30 Note Text: . [facility] Follow Up Clinic Note Mr. Sauceda is a 59 year old male who presents to the [facility] for follow up of dyspnea. HPI: 59 year old male with Obesity and FEDE (intolerant to Mask), HTN, Laryngeal Cancer s/p Chemo and RT, Hypothyroidism, former smoker that presents for an eval of dyspnea. He has started smoking again. He states that he runs out of energy.He reports that he had three stens in his heart. He states that he feels terrible and he started coughing again in the mornings and it is clear in color and sometimes dark in color. No hemoptysis. He is feeling more short of breath. He has been smoking for at least a year. 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 He denies any chest pain but he feels weird in his chest. He reports that he is using his CPAP. Allergies: Patient has no known allergies. Outpatient Medications: levothyroxine (SYNTHROID) 75 mcg tablet Take 1 tablet by mouth once daily prednisoLONE acetate (PRED FORTE) 1 % ophthalmic suspension Use 1 drop in both eyes four times daily. For 1 week then twice a day for 1 week then stop pantoprazole DR (PROTONIX) 40 mg tablet Take 1 tablet by mouth once daily. tamsulosin (FLOMAX) 0.4 mg Take 1 capsule by mouth once daily. meloxicam (MOBIC) 7.5 mg tablet Take 1 tablet by mouth once daily. methocarbamol (ROBAXIN) 500 mg tablet Take 1 tablet by mouth at bedtime as needed. rosuvastatin (CRESTOR) 20 mg tablet TAKE 1 TABLET BY MOUTH ONCE DAILY AT BEDTIME fluticasone (FLONASE) 50 mcg/actuation nasal spray Use 2 spray(s) in each nostril once daily mupirocin (BACTROBAN) 2 % ointment Apply to affected area daily ticagrelor (BRILINTA) 90 mg tablet Take 1 tablet by mouth two times a day. aspirin, enteric coated (ECOTRIN LOW STRENGTH) 81 mg EC tablet Take 1 tablet by mouth once daily. carvedilol (COREG) 25 mg tablet Take 1 tablet by mouth two times a day. losartan (COZAAR) 50 mg tablet Take 1 tablet by mouth once daily. tamsulosin (FLOMAX) 0.4 mg Take 1 capsule by mouth once daily azelastine 0.1% nasal spray Use 2 Sprays in each nostril two times a day as needed. PHYSICAL EXAM: BP 128/88 Pulse 72 Ht 6' 0 (1.83m) Wt 314 lb 6 oz (142.6kg) SpO2 98% BMI 42.63 kg/(m2). GEN: Alert, comfortable, sitting up in chair, no distress CV: RRR PULM: CTAB, no wheezing/crackles Labs / Imaging / Diagnostic Studies: All radiography listed below personally reviewed by me Data Review[facility] from [facility] (in addition to that noted in HPI, and Past histories above): PFT: 07/27/23: Difficult testing session, Nl marianna CT Chest 06/06/24: RESULT: Limitations: None. Lines, tubes, and devices: None. Lung parenchyma and airways: No consolidation. Scattered calcified granulomas in both lungs. No suspicious pulmonary nodule. The central airways are patent. Pleural space: No pleural effusion. No pleural thickening. CT chest 05/27/22 Lung parenchyma and airways: The lungs are free of focal consolidation. There is minimal bilateral dependent atelectasis. Multiple bilateral calcified nodules representing granulomas are unchanged. No new or enlarging suspicious pulmonary nodule is seen. The central airways are patent. Mild distortion of the anterior aspect of the trachea at the level of the thoracic inlet is again seen and likely related to prior tracheostomy. No endobronchial lesion is seen. Assessment: Mr. Sauceda is a 57 year old male who presents to the [facility] for evaluation of Dyspnea. Dyspnea -suspect primarily from obesity, he has restart smoking and will repeat PFTs -counseled on the importance of weight loss -he will call for another visit with his sleep team to make sure that his FEDE is properly managed Tobacco use disorder -discussed risks of chantix including vivid dreams, mental health affects of thoughs of SI and wishes to start to assist with quitting smoking. He was counseled to stop the med with any signs of side effects Lack of PCP -referral placed Follow up in 1 month with PFTs with CINDY Scot Richmond MD Pulmonary and Critical Care Staff CNOV Observed: 10/27/2024 9:30 AM Status: COMPLETED Source: [facility] Office Visit (PULMLO) MIKI SAUCEDA ([id number]) 1965 M Date Time Provider Department 10/27/24 9:30 AM SCOT R[place] During your visit today, we recorded the following information about you: Pulse Blood pressure Weight Height 72/minute 128/88 142.6 kg 1.829 m Scot Richmond MD 10/27/2024 9:22 AM Addendum See your sleep apnea team to make sure it is properly managed. Work on quitting smoking. We will check breathing tests and have you come back to clinic afterwards. Work on weight loss. SMOKING CESSATION Stopping smoking is the most important thing you can do to protect your current and future health, as well as that of your family. It is the most potent risk factor for the future development of coronary artery disease and heart attacks. Smoking is both an addiction and a learned behavior. The nicotine withdrawal takes anywhere from 2-4 weeks and results in symptoms such as irritability, fatigue, insomnia, coughing, dizziness, poor concentration, hunger and cigarette cravings. After the nicotine withdrawal period, the learned linkage between certain acts or situations and cigarette use remain. Strategies to deal with these must be developed along with new behaviors to ensure successful smoking cessation. STRATEGIES TOWARD SMOKING CESSATION - Make a list of the reasons why you want to quit, plus the benefits to be gained, and compare them to the reasons why you should continue to smoke. - Pick a specific quit date. - If you are interested in using nicotine patches or gum to assist with the nicotine withdrawal, let the staff know. - Inform friends, family, and co-workers that you are quitting and when your quit date is. Ask for their understanding and support. - Prepare your environment by removing all cigarettes prior to your quit date. - Prior to your quit date, avoid smoking in places where you spend a lot of time (such as the house, work, car). - From previous quit attempts, identify what helped you to stop smoking. - From previous quit attempts, identify what triggered relapse. How can you avoid that again? - What things (situations, emotions) do you anticipate will be most challenging, especially in the first few weeks, to your quitting effort? - What can you do to address these challenges? - Avoid (or limit) alcohol consumption during the quitting process. - If your spouse or close coworker currently smoke, consider quitting together or at the very least, develop specific plans to maintain your cigarette abstinence while in the home or at work. - Take each day, each hour, each craving, one at a time. Every step or action you take toward smoking cessation is a success. The only failure is the failure to try. - The health of you and your family, is worth the effort. STOP SMOKING CHECK LIST Preparing to Quit: ___ Make a personal pact with yourself to quit. ___ Pick a date for quitting completely. (My date to quit is ____.) ___ Write down on a card the three most important reasons for quitting. Carry the card with you from now on. Look at it several times a day. ___ Prior to quitting, eliminate smoking completely in 2 or 3 of your high risk situations. ___ Reduce consumption to one pack per day or less. ___ Change to a less desirable brand of cigarettes. ___ Discard your roller cleaner. Use matches. Carry your cigarettes in a different place. ___ Spend a little time each day picturing in your mind stressful events occurring in the future and you not smoking. Actual Quitting: The First Two Weeks ___ Get rid of all cigarettes. Put away all smoking related objects such as ashtrays. Ask the people you live with not to smoke in your presence for the first two weeks. ___ Spend as much time as possible with non-smoking people. ___ Keep busy, especially on evenings and weekends. ___ Avoid high risk situations (large parties, bars, etc.). ___ Spend lots of time in places that prohibit or discourage smoking (e.g., theaters, libraries.) ___ Drink plenty of fluids. ___ Don't substitute food or sugar based products for cigarettes. Use approved substitutions. (... ice water, high bulk/low calorie foods, sugarless gum, mouthwash, brushing teeth.) ___ Begin or increase regular exercise program. ___ When experiencing withdrawal effects: 1. Remind yourself why you are quitting (from your card). 2. Remind yourself that whatever discomfort you are experiencing is only a tiny fraction of the probable discomfort associated with continued smoking. 3. Practice deep breathing or other relaxation techniques - tapes. ___ Remind yourself that you can free yourself from this unhealthy, expensive, messy habit and become a non-smoker. Maintenance of Quitting: After two weeks ___ Remind yourself that the desire to smoke is linked to a great many situations, people and emotional stress. ___ When you do have a desire to smoke, remember that it only lasts a few seconds: distract yourself and leave the situation if necessary. ___ After each desire to smoke has passed, pat yourself on the back, you have just made progress in breaking the habit forever. ___ Save the money on wasted on cigarettes in a special fund and buy yourself something nice. Maintenance of Quitting: After Two Months ___ Be particularly vigilant when unusual life events occur. (.. weddings, holidays, vacations.) ___ Be particularly vigilant when stressful life events occur (e.g., relationship problems, financial or work problems.) ___ Remind yourself regularly that not smoking is completely within your personal control. ___ Never lull yourself into thinking you are out of danger and you can safely have a cigarette or two. -- you cannot!!!!! ___ If, by chance, you do slip and have one or more cigarettes, do not conclude that all is lost . Return to complete abstinence immediately and learn from your experience. ___ If you have gained significant weight since quitting, now is the time to do something about it. ___ Each time you see a cigarettes advertisement, remind yourself of why you quit. Also remember that a [employer] spends billions of dollars each year trying to get people like yourself re-hooked . Scot Richmond MD 10/27/2024 9:30 AM Signed . [facility] Follow Up Clinic Note Mr. Sauceda is a 59 year old male who presents to the [facility] for follow up of dyspnea. HPI: 59 year old male with Obesity and FEDE (intolerant to Mask), HTN, Laryngeal Cancer s/p Chemo and RT, Hypothyroidism, former smoker that presents for an eval of dyspnea. He has started smoking again. He states that he runs out of energy.He reports that he had three stens in his heart. He states that he feels terrible and he started coughing again in the mornings and it is clear in color and sometimes dark in color. No hemoptysis. He is feeling more short of breath. He has been smoking for at least a year. 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 He denies any chest pain but he feels weird in his chest. He reports that he is using his CPAP. Allergies: Patient has no known allergies. Outpatient Medications: levothyroxine (SYNTHROID) 75 mcg tablet Take 1 tablet by mouth once daily prednisoLONE acetate (PRED FORTE) 1 % ophthalmic suspension Use 1 drop in both eyes four times daily. For 1 week then twice a day for 1 week then stop pantoprazole DR (PROTONIX) 40 mg tablet Take 1 tablet by mouth once daily. tamsulosin (FLOMAX) 0.4 mg Take 1 capsule by mouth once daily. meloxicam (MOBIC) 7.5 mg tablet Take 1 tablet by mouth once daily. methocarbamol (ROBAXIN) 500 mg tablet Take 1 tablet by mouth at bedtime as needed. rosuvastatin (CRESTOR) 20 mg tablet TAKE 1 TABLET BY MOUTH ONCE DAILY AT BEDTIME fluticasone (FLONASE) 50 mcg/actuation nasal spray Use 2 spray(s) in each nostril once daily mupirocin (BACTROBAN) 2 % ointment Apply to affected area daily ticagrelor (BRILINTA) 90 mg tablet Take 1 tablet by mouth two times a day. aspirin, enteric coated (ECOTRIN LOW STRENGTH) 81 mg EC tablet Take 1 tablet by mouth once daily. carvedilol (COREG) 25 mg tablet Take 1 tablet by mouth two times a day. losartan (COZAAR) 50 mg tablet Take 1 tablet by mouth once daily. tamsulosin (FLOMAX) 0.4 mg Take 1 capsule by mouth once daily azelastine 0.1% nasal spray Use 2 Sprays in each nostril two times a day as needed. PHYSICAL EXAM: BP 128/88 Pulse 72 Ht 6' 0 (1.83m) Wt 314 lb 6 oz (142.6kg) SpO2 98% BMI 42.63 kg/(m2). GEN: Alert, comfortable, sitting up in chair, no distress CV: RRR PULM: CTAB, no wheezing/crackles Labs / Imaging / Diagnostic Studies: All radiography listed below personally reviewed by me Data Reviewed from [facility] (in addition to that noted in HPI, and Past histories above): PFT: 07/27/23: Difficult testing session, Nl mar[place]na CT Chest 06/06/24: RESULT: Limitations: None. Lines, tubes, and devices: None. Lung parenchyma and airways: No consolidation. Scattered calcified granulomas in both lungs. No suspicious pulmonary nodule. The central airways are patent. Pleural space: No pleural effusion. No pleural thickening. CT chest 05/27/22 Lung parenchyma and airways: The lungs are free of focal consolidation. There is minimal bilateral dependent atelectasis. Multiple bilateral calcified nodules representing granulomas are unchanged. No new or enlarging suspicious pulmonary nodule is seen. The central airways are patent. Mild distortion of the anterior aspect of the trachea at the level of the thoracic inlet is again seen and likely related to prior tracheostomy. No endobronchial lesion is seen. Assessment: Mr. Sauceda is a 57 year old male who presents to the [facility] for evaluation of Dyspnea. Dyspnea -suspect primarily from obesity, he has restart smoking and will repeat PFTs -counseled on the importance of weight loss -he will call for another visit with his sleep team to make sure that his FEDE is properly managed Tobacco use disorder -discussed risks of chantix including vivid dreams, mental health affects of thoughs of SI and wishes to start to assist with quitting smoking. He was counseled to stop the med with any signs of side effects Lack of PCP -referral placed Follow up in 1 month with PFTs with CINDY Scot Richmond MD Pulmonary and Critical Care Staff Allergies As of Date: 10/27/2024 (No Known Allergies) Date Reviewed: 10/27/2024 Reviewed by: Emma Dale MA - Fully Assessed Reason for Visit: Shortness of Breath [227] Primary Visit Diagnosis:Cigarette nicotine dependence without complication [F17.210] Other Visit Diagnoses:Dyspnea and respiratory abnormalities [R06.00, R06.89] Obesity, unspecified class, unspecified obesity type, unspecified whether serious comorbidity present [E66.9] Order(s):varenicline tartrate (CHANTIX STARTING MONTH BOX) 0.5 mg (11)- 1 mg (42) tabletUse as directed.Disp: 55 tabletRfl: 0 ESTABLISH WITH PRIMARY CARE ? NEW PATIENT [[id number]] Order #: [id number]: 1 FUTURE SPIROMETRY WITH DILATOR IF OBSTRUCTED [[id number]] Order #: [id number]: 1 FUTURE LUNG VOLUMES [[id number]] Order #: [id number]: 1 FUTURE LUNG DIFFUSION CAPACITY (DLCO) [[id number]] Order #: [id number]: 1 FUTURE Prescriptions as of 10/27/2024 - varenicline tartrate (CHANTIX STARTING MONTH BOX) 0.5 mg (11)- 1 mg (42) tablet Use as directed. - levothyroxine (SYNTHROID) 75 mcg tablet Take 1 tablet by mouth once daily - prednisoLONE acetate (PRED FORTE) 1 % ophthalmic suspension Use 1 drop in both eyes four times daily. For 1 week then twice a day for 1 week then stop - pantoprazole DR (PROTONIX) 40 mg tablet Take 1 tablet by mouth once daily. - tamsulosin (FLOMAX) 0.4 mg Take 1 capsule by mouth once daily. - meloxicam (MOBIC) 7.5 mg tablet Take 1 tablet by mouth once daily. - methocarbamol (ROBAXIN) 500 mg tablet Take 1 tablet by mouth at bedtime as needed. - rosuvastatin (CRESTOR) 20 mg tablet TAKE 1 TABLET BY MOUTH ONCE DAILY AT BEDTIME - fluticasone (FLONASE) 50 mcg/actuation nasal spray Use 2 spray(s) in each nostril once daily - mupirocin (BACTROBAN) 2 % ointment Apply to affected area daily - ticagrelor (BRILINTA) 90 mg tablet Take 1 tablet by mouth two times a day. - aspirin, enteric coated (ECOTRIN LOW STRENGTH) 81 mg EC tablet Take 1 tablet by mouth once daily. - carvedilol (COREG) 25 mg tablet Take 1 tablet by mouth two times a day. - losartan (COZAAR) 50 mg tablet Take 1 tablet by mouth once daily. - tamsulosin (FLOMAX) 0.4 mg Take 1 capsule by mouth once daily - azelastine 0.1% nasal spray Use 2 Sprays in each nostril two times a day as needed. 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] 07/24/2016 Adjustment disorder with anxious mood [F43.22] 09/16/2016 Radiculitis [M54.10] 10/29/2016 Primary hypertension [I10] 11/10/2016 Larynx cancer (HCC) [C32.9] 01/06/2016 Laryngeal cancer (HCC) [C32.9] 11/04/2015 Degenerative spondylolisthesis [M43.10] 05/28/2016 Former smoker [Z87.891] History of laryngeal cancer [Z85.21] 03/10/2017 Hoarseness [R49.0] 03/10/2017 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] 04/19/2017 Spinal stenosis, lumbar region with neurogenic *04/19/2017 Lumbar stenosis with neurogenic claudication [M*05/19/2017 Obesity (BMI 35.0-39.9 without comorbidity) [E6*11/07/2020 Difficult intubation [T88.4XXA] 11/07/2020 FEDE (obstructive sleep apnea) [G47.33] 11/07/2020 Alcohol use [F10.90] 11/07/2020 S/P lumbar spinal fusion [Z98.1] 01/16/2021 Chronic midline low back pain without sciatica *01/16/2021 Degenerative lumbar disc [M51.369] 01/16/2021 Lumbar spondylosis [M47.816] 01/20/2022 GERD (gastroesophageal reflux disease) [K21.9] 03/22/2023 Acquired hypothyroidism [E03.9] 03/22/2023 BMI 40.0-44.9, adult (HCC) [Z68.41] 07/27/2023 Stable angina (HCC) [I20.89] 11/26/2023 Elevated coronary artery calcium score [R93.1] 11/26/2023 CAD (coronary artery disease) [I25.10] 07/21/2024 HLD (hyperlipidemia) [E78.5] 07/21/2024 Occlusion of right carotid artery [I65.21] 07/21/2024 Conjunctivitis [H10.9] 10/04/2024 Other instructions from your clinician: See your sleep apnea team to make sure it is properly managed. Work on quitting smoking. We will check breathing tests and have you come back to clinic afterwards. Work on weight loss. SMOKING CESSATION Stopping smoking is the most important thing you can do to protect your current and future health, as well as that of your family. It is the most potent risk factor for the future development of coronary artery disease and heart attacks. Smoking is both an addiction and a learned behavior. The nicotine withdrawal takes anywhere from 2-4 weeks and results in symptoms such as irritability, fatigue, insomnia, coughing, dizziness, poor concentration, hunger and cigarette cravings. After the nicotine withdrawal period, the learned linkage between certain acts or situations and cigarette use remain. Strategies to deal with these must be developed along with new behaviors to ensure successful smoking cessation. STRATEGIES TOWARD SMOKING CESSATION - Make a list of the reasons why you want to quit, plus the benefits to be gained, and compare them to the reasons why you should continue to smoke. - Pick a specific quit date. - If you are interested in using nicotine patches or gum to assist with the nicotine withdrawal, let the staff know. - Inform friends, family, and co-workers that you are quitting and when your quit date is. Ask for their understanding and support. - Prepare your environment by removing all cigarettes prior to your quit date. - Prior to your quit date, avoid smoking in places where you spend a lot of time (such as the house, work, car). - From previous quit attempts, identify what helped you to stop smoking. - From previous quit attempts, identify what triggered relapse. How can you avoid that again? - What things (situations, emotions) do you anticipate will be most challenging, especially in the first few weeks, to your quitting effort? - What can you do to address these challenges? - Avoid (or limit) alcohol consumption during the quitting process. - If your spouse or close coworker currently smoke, consider quitting together or at the very least, develop specific plans to maintain your cigarette abstinence while in the home or at work. - Take each day, each hour, each craving, one at a time. Every step or action you take toward smoking cessation is a success. The only failure is the failure to try. - The health of you and your family, is worth the effort. STOP SMOKING CHECK LIST Preparing to Quit: ___ Make a personal pact with yourself to quit. ___ Pick a date for quitting completely. (My date to quit is ____.) ___ Write down on a card the three most important reasons for quitting. Carry the card with you from now on. Look at it several times a day. ___ Prior to quitting, eliminate smoking completely in 2 or 3 of your high risk situations. ___ Reduce consumption to one pack per day or less. ___ Change to a less desirable brand of cigarettes. ___ Discard your roller cleaner. Use matches. Carry your cigarettes in a different place. ___ Spend a little time each day picturing in your mind stressful events occurring in the future and you not smoking. Actual Quitting: The First Two Weeks ___ Get rid of all cigarettes. Put away all smoking related objects such as ashtrays. Ask the people you live with not to smoke in your presence for the first two weeks. ___ Spend as much time as possible with non-smoking people. ___ Keep busy, especially on evenings and weekends. ___ Avoid high risk situations (large parties, bars, etc.). ___ Spend lots of time in places that prohibit or discourage smoking (e.g., theaters, libraries.) ___ Drink plenty of fluids. ___ Don't substitute food or sugar based products for cigarettes. Use approved substitutions. (... ice water, high bulk/low calorie foods, sugarless gum, mouthwash, brushing teeth.) ___ Begin or increase regular exercise program. ___ When experiencing withdrawal effects: 1. Remind yourself why you are quitting (from your card). 2. Remind yourself that whatever discomfort you are experiencing is only a tiny fraction of the probable discomfort associated with continued smoking. 3. Practice deep breathing or other relaxation techniques - tapes. ___ Remind yourself that you can free yourself from this unhealthy, expensive, messy habit and become a non-smoker. Maintenance of Quitting: After two weeks ___ Remind yourself that the desire to smoke is linked to a great many situations, people and emotional stress. ___ When you do have a desire to smoke, remember that it only lasts a few seconds: distract yourself and leave the situation if necessary. ___ After each desire to smoke has passed, pat yourself on the back, you have just made progress in breaking the habit forever. ___ Save the money on wasted on cigarettes in a special fund and buy yourself something nice. Maintenance of Quitting: After Two Months ___ Be particularly vigilant when unusual life events occur. (.. weddings, holidays, vacations.) ___ Be particularly vigilant when stressful life events occur (e.g., relationship problems, financial or work problems.) ___ Remind yourself regularly that not smoking is completely within your personal control. ___ Never lull yourself into thinking you are out of danger and you can safely have a cigarette or two. -- you cannot!!!!! ___ If, by chance, you do slip and have one or more cigarettes, do not conclude that all is lost . Return to complete abstinence immediately and learn from your experience. ___ If you have gained significant weight since quitting, now is the time to do something about it. ___ Each time you see a cigarettes advertisement, remind yourself of why you quit. Also remember that a [employer] spends billions of dollars each year trying to get people like yourself re-hooked . Prescriptions ordered this encounter Disp Refills Start End VARENICLINE TARTRATE 0.5 MG (11)-1 M* 55 t* 0 10/27/2024 Sig: Use as directed. Disposition: Return in about 1 month (around 11/27/2024). Follow-up and Disposition History for Encounter Date Provider Department Center 10/27/2024 [id number] Encounter Status:Closed by SCOT R[facility] on 10/27/24 XR HAND 3V PA/LAT/OBL RT Observed: 10/09 9:09 AM Status: F Source: [facility] * * *Final Report* * * DATE OF EXAM: Oct 09 2024 9:09AM LZX [id number] - XR HAND 3V PA/LAT/OBL RT / PROCEDURE REASON: Pain * * * * Physician Interpretation * * * * X-RAYS RIGHT HAND HISTORY: Chronic right thumb pain, no injury, with swelling. Pain TECHNIQUE: 3 views of the right hand. COMPARISON: None RESULT: Osteoarthritis at the right thumb MCP joint with associated asymmetric widening along the ulnar aspect of the joint space raising concern for a remote/chronic UCL injury. Additionally there is a small 3 mm ossific fragment which is separate from the sesamoid along the volar/ulnar aspect of the MCP joint, likely related to remote injury. Additional changes of osteoarthritis are noted at the 1st CMC joint, 3rd MCP joint and small finger PIP joint. There is chondrocalcinosis noted within the wrist. No marginal erosions identified. 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 Adjustment Clerk: GO Transcribe Date/Time: Oct 09 2024 9:45A Dictated by : MANDY DÍAZ MD This examination was interpreted and the report reviewed and electronically signed by: MANDY DÍAZ MD on Oct 09 2024 9:48AM EST [id number] CNOV Observed: 10/09/2024 8:30 AM Status: COMPLETED Source: [facility] Office Visit (LOORRM) MIKI SAUCEDA ([id number]) 1965 M Date Time Provider Department 10/09/24 8:30 AM MARIANN MO During your visit today, we recorded the following information about you: Mariann Mo PA-C 10/09/2024 9:06 AM Signed October 09, 2024 CHIEF COMPLAINT: Miki Sauceda is a 59-year-old male presenting for right thumb pain. 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 - He had an injection of the right thumb MP joint with Dr. Shaw last year that provided good relief. - Recent exacerbation after trauma where his thumb got caught and jammed. - He had swelling throughout the exam and pain particularly at the ulnar aspect of the thumb MP joint. - Denies numbness or tingling; reports pain with movement and palpation. - No previous surgeries or injections on the hand. - Works in [employer] business, frequently uses hands for shredding meat. Right thumb MP joint cortisone injection Dr. Shaw 05/07/23 ROS: REVIEW OF SYSTEMS: Constitutional: Fever/chills: No Cardiovascular: Chest Pain: No Respiratory: SOB: No Musculoskeletal: as noted in the HPI Neurologic: as noted in the HPI Endocrine: Diabetes: No Tobacco user? No, former SOCIAL HISTORY: Tobacco Use: Types: Cigarettes FAMILY HISTORY: FAMILY HISTORY Problem Relation Age of Onset Cancer Mother breast Cancer Father small cell lung cancer Colon Cancer No Family History Anesthesia Problems No Family History PAST MEDICAL HISTORY Diagnosis Date Adjustment disorder with anxious mood 09/16/2016 CAD (coronary artery disease) 07/21/2024 Chronic obstructive pulmonary disease (COPD) (HCC) Cigarette nicotine dependence in remission 02/06/2016 Reports not smoking for multiple weeks. 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 PAST SURGICAL HISTORY Procedure Laterality Date BACK SURGERY HX 2018 COLONOSCOPY DIAGNOSTIC 01/09/2021 polyps removed COLONOSCOPY DIAGNOSTIC 05/29/2016 EGD DIAGNOSTIC PAST SURGICAL HISTORY OF 11/20/2015 Biopsy/Trach FAMILY HISTORY Problem Relation Age of Onset Cancer Mother breast Cancer Father small cell lung cancer Colon Cancer No Family History Anesthesia Problems No Family History Social History Tobacco Use Smoking status: Former Current packs/day: 0.00 Average packs/day: 1 pack/day for 30.0 years (30.0 ttl pk-yrs) Types: Cigarettes Start date: 10/30/1985 Quit date: 10/31/2015 Years since quittin.9 Smokeless tobacco: Never Tobacco comments: Smokes socially now or when drinking. -07/27/23 [place] Vaping Use Vaping status: Never Used Substance Use Topics Alcohol use: Yes Comment: 12 beers weekly, does not drink daily Drug use: No ALLERGIES No Known Allergies Current Outpatient Medications Medication Sig Dispense Refill prednisoLONE acetate (PRED FORTE) 1 % ophthalmic suspension Use 1 drop in both eyes four times daily. For 1 week then twice a day for 1 week then stop [address] (PROTONIX) 40 mg tablet Take 1 tablet by mouth once daily. 90 tablet 0 levothyroxine (SYNTHROID) 75 mcg tablet Take 1 tablet by mouth once daily 90 tablet 0 tamsulosin (FLOMAX) 0.4 mg Take 1 capsule by mouth once daily. 30 capsule 11 meloxicam (MOBIC) 7.5 mg tablet Take 1 tablet by mouth once daily. 90 tablet 3 methocarbamol (ROBAXIN) 500 mg tablet Take 1 tablet by mouth at bedtime as needed. 90 tablet 3 rosuvastatin (CRESTOR) 20 mg tablet TAKE 1 TABLET BY MOUTH ONCE DAILY AT BEDTIME 90 tablet 3 fluticasone (FLONASE) 50 mcg/actuation nasal spray Use 2 spray(s) in each nostril once daily 16 g 5 mupirocin (BACTROBAN) 2 % ointment Apply to affected area daily 22 g 0 ticagrelor (BRILINTA) 90 mg tablet Take 1 tablet by mouth two times a day. 180 tablet 3 aspirin, enteric coated (ECOTRIN LOW STRENGTH) 81 mg EC tablet Take 1 tablet by mouth once daily. carvedilol (COREG) 25 mg tablet Take 1 tablet by mouth two times a day. 180 tablet 3 losartan (COZAAR) 50 mg tablet Take 1 tablet by mouth once daily. 90 tablet 3 tamsulosin (FLOMAX) 0.4 mg Take 1 capsule by mouth once daily 90 capsule 3 azelastine 0.1% nasal spray Use 2 Sprays in each nostril two times a day as needed. 90 mL 3 No current facility-administered medications for this visit. Physical Exam: Vitals: There were no vitals taken for this visit. Body Habitus: Well nourished and no acute distress Orientation: Normal, oriented to person, place and time Psych: Normal Skin: Color, texture, turgor normal. No rashes or lesions Sensation: Sensation to light touch is grossly normal bilaterally Right hand On exam of the right hand, skin is intact. There is tenderness to palpation at the thumb MP joint particularly at the ulnar aspect. With ulnar and radial stress of the thumb in extension and with 30 degrees of flexion there is pain at the ulnar aspect of the thumb with radial stress and no solid endpoint especially compared to the contralateral side. No pain and there is stability noted with ulnar stress of the thumb MP. Sensation is intact to light touch in the median, radial and ulnar nerve distributions. AIN, PIN and ulnar motor is intact. They can make a complete fist. Radial pulse 2+ and brisk capillary refill present to all digits. IMAGING: PA lateral obliques of the right hand demonstrate slight volar, chondrocalcinosis of the wrist, severe degenerative changes at the small finger PIP. Widening at the thumb MP joint at the ulnar aspect and slight possible volar subluxation of the thumb. No acute fractures. Other Tests: None. Assessment AND Plan: 1. Rupture of ulnar collateral ligament of thumb, right, initial encounter (A44.452G) - Exam reveals mild swelling and tenderness over the ulnar aspect of the right thumb MP, with limited painful range of motion - X-rays reviewed, showing widening of the joint space on the ulnar side of the thumb, consistent with UCL injury; no fractures identified. - Suspected partial or complete rupture of the UCL; differential includes Stener lesion. - Ordered MRI to assess the extent of the UCL injury and to rule out Stener lesion. - Provided thumb spica brace to immobilize the thumb and prevent further injury; instructed to wear the brace continuously, removing only for hygiene purposes. - Advised to avoid activities that stress the thumb, including pushing, pulling, and lifting, to facilitate healing. - Discussed potential need for surgical intervention depending on MRI findings; surgery would involve repair of the UCL. - Patient understands and agrees with the treatment plan; will schedule MRI and follow up with results to determine next steps. Follow-up pending MRI results. Mariann Mo PA-C This document has been created with the use of voice recognition technology. It may contain inaccuracies: misspellings, inaccurate syntax or word sense that escaped review. Recording using ambient Meniga software for draft documentation of the visit was discussed with the patient/authorized b2b sales representative; all questions welcomed and answered. Patient/authorized b2b sales representative agreed to proceed Allergies As of Date: 10/09/2024 (No Known Allergies) Date Reviewed: 10/09/2024 Reviewed by: Sarah Ferreira OCCA - Fully Assessed Reason for Visit: New [680641] Pain [78] Primary Visit Diagnosis:Rupture of ulnar collateral ligament of thumb, right, initial encounter [H06.637X] Order(s):MRI HAND WO IVCON RIGHT [[id number]] Order #: [id number] FUTURE Prescriptions as of 10/09/2024 - prednisoLONE acetate (PRED FORTE) 1 % ophthalmic suspension Use 1 drop in both eyes four times daily. For 1 week then twice a day for 1 week then stop - pantoprazole DR (PROTONIX) 40 mg tablet Take 1 tablet by mouth once daily. - levothyroxine (SYNTHROID) 75 mcg tablet Take 1 tablet by mouth once daily - tamsulosin (FLOMAX) 0.4 mg Take 1 capsule by mouth once daily. - meloxicam (MOBIC) 7.5 mg tablet Take 1 tablet by mouth once daily. - methocarbamol (ROBAXIN) 500 mg tablet Take 1 tablet by mouth at bedtime as needed. - rosuvastatin (CRESTOR) 20 mg tablet TAKE 1 TABLET BY MOUTH ONCE DAILY AT BEDTIME - fluticasone (FLONASE) 50 mcg/actuation nasal spray Use 2 spray(s) in each nostril once daily - mupirocin (BACTROBAN) 2 % ointment Apply to affected area daily - ticagrelor (BRILINTA) 90 mg tablet Take 1 tablet by mouth two times a day. - aspirin, enteric coated (ECOTRIN LOW STRENGTH) 81 mg EC tablet Take 1 tablet by mouth once daily. - carvedilol (COREG) 25 mg tablet Take 1 tablet by mouth two times a day. - losartan (COZAAR) 50 mg tablet Take 1 tablet by mouth once daily. - tamsulosin (FLOMAX) 0.4 mg Take 1 capsule by mouth once daily - azelastine 0.1% nasal spray Use 2 Sprays in each nostril two times a day as needed. 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] 01/06/2016 Laryngeal cancer (HCC) [C32.9] 11/04/2015 Degenerative spondylolisthesis [M43.10] 05/28/2016 Former smoker [Z87.891] History of laryngeal cancer [Z85.21] 03/10/2017 Hoarseness [R49.0] 03/10/2017 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] 04/19/2017 Spinal stenosis, lumbar region with neurogenic *04/19/2017 Lumbar stenosis with neurogenic claudication [M*05/19/2017 Obesity (BMI 35.0-39.9 without comorbidity) [E6*11/07/2020 Difficult intubation [T88.4XXA] 11/07/2020 FEDE (obstructive sleep apnea) [G47.33] 11/07/2020 Alcohol use [F10.90] 11/07/2020 S/P lumbar spinal fusion [Z98.1] 01/16/2021 Chronic midline low back pain without sciatica *01/16/2021 Degenerative lumbar disc [M51.369] 01/16/2021 Lumbar spondylosis [M47.816] 01/20/2022 GERD (gastroesophageal reflux disease) [K21.9] 03/22/2023 Acquired hypothyroidism [E03.9] 03/22/2023 BMI 40.0-44.9, adult (HCC) [Z68.41] 07/27/2023 Stable angina (HCC) [I20.89] 11/26/2023 Elevated coronary artery calcium score [R93.1] 11/26/2023 CAD (coronary artery disease) [I25.10] 07/21/2024 HLD (hyperlipidemia) [E78.5] 07/21/2024 Occlusion of right carotid artery [I65.21] 07/21/2024 Conjunctivitis [H10.9] 10/04/2024 Level of Service: OFFICE/OUTPATIENT ESTABLISHED MOD MDM 30 MIN [01621] Additional E/M codes: VISIT CPLX INHERENT EANDM ASSOC WITH MED * Encounter Status:Closed by MARIANN MO on 10/09/24 PROGRESS Observed: 10/09/2024 8:30 AM Status: COMPLETED Source: [facility] ID: [id number] Author: MARIANN MO PA-C Service: ? Author Type: Physician Wheel Alignment Mechanic Type: Progress Notes Filed: 10/09/2024 09:06 Note Text: October 09, 2024 CHIEF COMPLAINT: Miki Sauceda is a 59-year-old male presenting for right thumb pain. 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 - He had an injection of the right thumb MP joint with Dr. Shaw last year that provided good relief. - Recent exacerbation after trauma where his thumb got caught and jammed. - He had swelling throughout the exam and pain particularly at the ulnar aspect of the thumb MP joint. - Denies numbness or tingling; reports pain with movement and palpation. - No previous surgeries or injections on the hand. 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 Right thumb MP joint cortisone injection Dr. Shaw 05/07/23 ROS: REVIEW OF SYSTEMS: Constitutional: Fever/chills: No Cardiovascular: Chest Pain: No Respiratory: SOB: No Musculoskeletal: as noted in the HPI Neurologic: as noted in the HPI Endocrine: Diabetes: No Tobacco user? No, former SOCIAL HISTORY: Tobacco Use: Types: Cigarettes FAMILY HISTORY: FAMILY HISTORY Problem Relation Age of Onset Cancer Mother breast Cancer Father small cell lung cancer Colon Cancer No Family History Anesthesia Problems No Family History PAST MEDICAL HISTORY Diagnosis Date Adjustment disorder with anxious mood 09/16/2016 CAD (coronary artery disease) 07/21/2024 Chronic obstructive pulmonary disease (COPD) ([facility]) Cigarette nicotine dependence in remission 02/06/2016 Reports not smoking for multiple weeks. 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 MATT Radiculitis 10/29/2016 Added automatically from request for surgery [id number] Snoring Spondylolysis, lumbosacral 07/24/2016 PAST SURGICAL HISTORY Procedure Laterality Date BACK SURGERY HX 2018 COLONOSCOPY DIAGNOSTIC 01/09/2021 polyps removed COLONOSCOPY DIAGNOSTIC 05/29/2016 EGD DIAGNOSTIC PAST SURGICAL HISTORY OF 11/20/2015 Biopsy/Trach FAMILY HISTORY Problem Relation Age of Onset Cancer Mother breast Cancer Father small cell lung cancer Colon Cancer No Family History Anesthesia Problems No Family History Social History Tobacco Use Smoking status: Former Current packs/day: 0.00 Average packs/day: 1 pack/day for 30.0 years (30.0 ttl pk-yrs) Types: Cigarettes Start date: 10/30/1985 Quit date: 10/31/2015 Years since quittin.9 Smokeless tobacco: Never Tobacco comments: Smokes socially now or when drinking. -07/27/23 [place] Vaping Use Vaping status: Never Used Substance Use Topics Alcohol use: Yes Comment: 12 beers weekly, does not drink daily Drug use: No ALLERGIES No Known Allergies Current Outpatient Medications Medication Sig Dispense Refill prednisoLONE acetate (PRED FORTE) 1 % ophthalmic suspension Use 1 drop in both eyes four times daily. For 1 week then twice a day for 1 week then stop [address] (PROTONIX) 40 mg tablet Take 1 tablet by mouth once daily. 90 tablet 0 levothyroxine (SYNTHROID) 75 mcg tablet Take 1 tablet by mouth once daily 90 tablet 0 tamsulosin (FLOMAX) 0.4 mg Take 1 capsule by mouth once daily. 30 capsule 11 meloxicam (MOBIC) 7.5 mg tablet Take 1 tablet by mouth once daily. 90 tablet 3 methocarbamol (ROBAXIN) 500 mg tablet Take 1 tablet by mouth at bedtime as needed. 90 tablet 3 rosuvastatin (CRESTOR) 20 mg tablet TAKE 1 TABLET BY MOUTH ONCE DAILY AT BEDTIME 90 tablet 3 fluticasone (FLONASE) 50 mcg/actuation nasal spray Use 2 spray(s) in each nostril once daily 16 g 5 mupirocin (BACTROBAN) 2 % ointment Apply to affected area daily 22 g 0 ticagrelor (BRILINTA) 90 mg tablet Take 1 tablet by mouth two times a day. 180 tablet 3 aspirin, enteric coated (ECOTRIN LOW STRENGTH) 81 mg EC tablet Take 1 tablet by mouth once daily. carvedilol (COREG) 25 mg tablet Take 1 tablet by mouth two times a day. 180 tablet 3 losartan (COZAAR) 50 mg tablet Take 1 tablet by mouth once daily. 90 tablet 3 tamsulosin (FLOMAX) 0.4 mg Take 1 capsule by mouth once daily 90 capsule 3 azelastine 0.1% nasal spray Use 2 Sprays in each nostril two times a day as needed. 90 mL 3 No current facility-administered medications for this visit. Physical Exam: Vitals: There were no vitals taken for this visit. Body Habitus: Well nourished and no acute distress Orientation: Normal, oriented to person, place and time Psych: Normal Skin: Color, texture, turgor normal. No rashes or lesions Sensation: Sensation to light touch is grossly normal bilaterally Right hand On exam of the right hand, skin is intact. There is tenderness to palpation at the thumb MP joint particularly at the ulnar aspect. With ulnar and radial stress of the thumb in extension and with 30 degrees of flexion there is pain at the ulnar aspect of the thumb with radial stress and no solid endpoint especially compared to the contralateral side. No pain and there is stability noted with ulnar stress of the thumb MP. Sensation is intact to light touch in the median, radial and ulnar nerve distributions. AIN, PIN and ulnar motor is intact. They can make a complete fist. Radial pulse 2+ and brisk capillary refill present to all digits. IMAGING: PA lateral obliques of the right hand demonstrate slight volar, chondrocalcinosis of the wrist, severe degenerative changes at the small finger PIP. Widening at the thumb MP joint at the ulnar aspect and slight possible volar subluxation of the thumb. No acute fractures. Other Tests: None. Assessment AND Plan: 1. Rupture of ulnar collateral ligament of thumb, right, initial encounter (L87.487F) - Exam reveals mild swelling and tenderness over the ulnar aspect of the right thumb MP, with limited painful range of motion - X-rays reviewed, showing widening of the joint space on the ulnar side of the thumb, consistent with UCL injury; no fractures identified. - Suspected partial or complete rupture of the UCL; differential includes Stener lesion. - Ordered MRI to assess the extent of the UCL injury and to rule out Stener lesion. - Provided thumb spica brace to immobilize the thumb and prevent further injury; instructed to wear the brace continuously, removing only for hygiene purposes. - Advised to avoid activities that stress the thumb, including pushing, pulling, and lifting, to facilitate healing. - Discussed potential need for surgical intervention depending on MRI findings; surgery would involve repair of the UCL. - Patient understands and agrees with the treatment plan; will schedule MRI and follow up with results to determine next steps. Follow-up pending MRI results. Mariann Mo PA-C This document has been created with the use of voice recognition technology. It may contain inaccuracies: misspellings, inaccurate syntax or word sense that escaped review. Recording using [employer] software for draft documentation of the visit was discussed with the patient/authorized b2b sales representative; all questions welcomed and answered. Patient/authorized b2b sales representative agreed to proceed PROGRESS Observed: 10/04/2024 9:06 AM Status: COMPLETED Source: [facility] ID: [id number] Author: KAYLA BALES OD Service: ? Author Type: OPERATOR BEARER SYSTEMS Type: Progress Notes Filed: 10/04/2024 09:08 Note Text: (H10.45) Other chronic allergic conjunctivitis of both eyes (primary encounter diagnosis) Comment: chronic allergic conjunctivitis and mild dermatitis Plan: add PA qid for 1 week and the bid for 1 week then DC Then add pataday and follow up in 4-5 weeks for recheck Discussed may need to address dryness after treating allergy I have confirmed and edited as necessary the relevant ophthalmic history, ROS, and the neuro exam findings as obtained by others. I have seen and examined this patient. I have discussed the case and the management of this patient's care with the Resident/Fellow, if applicable. I also have reviewed and agree with the assessment and plan as stated above and agree with all of its relevant components. Kayla Bales OD October 04, 2024 9:08 AM;alejo PECK Observed: 08/23/2024 12:00 AM Status: COMPLETED Source: [facility] Telephone ([place]) MIKI SAUCEDA ([id number]) 1965 M Date Time Provider Department 08/23/24 ULISSES HERNDON During your visit today, we recorded the following information about you: Kristin Hunter RN 08/23/2024 12:05 PM Signed Fax received requesting refill of pantoprazole. Last OV with Ulisses Herndon INTERIOR MECHANIC, 07/02/23. Patient needs follow up with Ulisses to receive refills. Another GI provider, Zeeshan RODNEY did recommend follow up with Dr. Underwood after completing testing that she ordered. Please call patient to schedule follow up appointment with Ulisses for refills of medication. Thank you, BUCK BakerCitlalli george 08/23/2024 1:19 PM Signed Pt is scheduled on 11/22 with Ulisses Herndon because he does not have MyChart and cannot do virtual. Patient is requesting a temporary refill of 90 days to get through until that appointment. Kristin Hunter RN 08/23/2024 3:41 PM Signed Ulisses Herndon APRN.UPHOLSTERY TRIMMER You1 hour ago (2:23 PM) INTERIOR MECHANIC Refilled for 90 days Ulisses Herndon APRN.UPHOLSTERY TRIMMER Call to patient, Let him know 90 day supply sent to his pharmacy. Kristin Hunter RN Allergies As of Date: 08/23/2024 (No Known Allergies) Date Reviewed: 08/04/2024 Reviewed by: Cathie Eason RN - Fully Assessed Reason for Visit: Refill Request [94] Order(s):pantoprazole DR (PROTONIX) 40 mg tabletTake 1 tablet by mouth once daily.Disp: 90 tabletRfl: 0 Prescriptions as of 08/23/2024 - pantoprazole DR (PROTONIX) 40 mg tablet Take 1 tablet by mouth once daily. - levothyroxine (SYNTHROID) 75 mcg tablet Take 1 tablet by mouth once daily - tamsulosin (FLOMAX) 0.4 mg Take 1 capsule by mouth once daily. - meloxicam (MOBIC) 7.5 mg tablet Take 1 tablet by mouth once daily. - methocarbamol (ROBAXIN) 500 mg tablet Take 1 tablet by mouth at bedtime as needed. - rosuvastatin (CRESTOR) 20 mg tablet TAKE 1 TABLET BY MOUTH ONCE DAILY AT BEDTIME - fluticasone (FLONASE) 50 mcg/actuation nasal spray Use 2 spray(s) in each nostril once daily - mupirocin (BACTROBAN) 2 % ointment Apply to affected area daily - ticagrelor (BRILINTA) 90 mg tablet Take 1 tablet by mouth two times a day. - aspirin, enteric coated (ECOTRIN LOW STRENGTH) 81 mg EC tablet Take 1 tablet by mouth once daily. - carvedilol (COREG) 25 mg tablet Take 1 tablet by mouth two times a day. - losartan (COZAAR) 50 mg tablet Take 1 tablet by mouth once daily. - tamsulosin (FLOMAX) 0.4 mg Take 1 capsule by mouth once daily - azelastine 0.1% nasal spray Use 2 Sprays in each nostril two times a day as needed. 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.9] 01/06/2016 Laryngeal cancer (HCC) [C32.9] 11/04/2015 Degenerative spondylolisthesis [M43.10] 05/28/2016 Former smoker [Z87.891] History of laryngeal cancer [Z85.21] 03/10/2017 Hoarseness [R49.0] 03/10/2017 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] 04/19/2017 Spinal stenosis, lumbar region with neurogenic *04/19/2017 Lumbar stenosis with neurogenic claudication [M*05/19/2017 Obesity (BMI 35.0-39.9 without comorbidity) [E6*11/07/2020 Difficult intubation [T88.4XXA] 11/07/2020 FEDE (obstructive sleep apnea) [G47.33] 11/07/2020 Alcohol use [F10.90] 11/07/2020 S/P lumbar spinal fusion [Z98.1] 01/16/2021 Chronic midline low back pain without sciatica *01/16/2021 Degenerative lumbar disc [M51.369] 01/16/2021 Lumbar spondylosis [M47.816] 01/20/2022 GERD (gastroesophageal reflux disease) [K21.9] 03/22/2023 Acquired hypothyroidism [E03.9] 03/22/2023 BMI 40.0-44.9, adult (HCC) [Z68.41] 07/27/2023 Stable angina (HCC) [I20.89] 11/26/2023 Elevated coronary artery calcium score [R93.1] 11/26/2023 CAD (coronary artery disease) [I25.10] 07/21/2024 HLD (hyperlipidemia) [E78.5] 07/21/2024 Occlusion of right carotid artery [I65.21] 07/21/2024 Prescriptions ordered this encounter Disp Refills Start End PANTOPRAZOLE 40 MG TABLET,DELAYED RE* 90 t* 0 08/23/2024 Route: ORAL Sig: Take 1 tablet by mouth once daily. Medications Discontinued During This Encounter Prescriptions - pantoprazole DR (PROTONIX) 40 mg tablet (Discontinued) Take 1 tablet by mouth once daily Encounter Status:Closed by ULISSES HERNDON on 08/23/24 PROGRESS Observed: 08/07/2024 8:49 AM Status: COMPLETED Source: [facility] ID: [id number] Author: NASIM ENNIS, DO Service: ? Author Type: Physician Type: Progress Notes Filed: 08/07/2024 09:04 Note Text: Miki Sauceda is a patient of No primary care provider on file.. CHIEF COMPLAINT: Miki Sauceda is a 58 year old male who presents today for evaluation of bilateral shoulder pain. HISTORY OF PRESENT ILLNESS: Patient is a 58-year-old male presents today for evaluation of bilateral shoulder pain. He has had pain in the left shoulder chronically for quite some time. Has had an MRI suggesting labral tearing of the shoulder but has not been able to proceed with surgical intervention due to cardiac stent application. He said cortisone injections for the left shoulder in the past which have helped and he was hoping to get injections today. He states that he lifted something with the left arm about a month ago seeming to trigger the pain further. States that for the past year the right shoulder has been giving him similar symptoms. Raising the right arm out the side overhead is also uncomfortable. No specific injury or trauma to the right shoulder. PAIN EVALUATION 08/07/2024 0827 Pain Level: -- 6 TO 7 Pain Location: -- BILATERAL SHOULDER, LEFT WORSE THAN RIGHT Description: Aching Duration Amount of Time: -- SEVERAL YEARS Duration Units: Years Frequency: Intermittent Intervention/Comfort measure: Medication CORTISONE INJECTION, MOBIC ROS: REVIEW OF SYMPTOMS: Constitutional: patient denies any recent fever or significant change in weight Gastrointestinal: patient denies any current abdominal discomfort Musculoskeletal: as noted in the HPI Neurologic: as noted in the HPI SOCIAL HISTORY: Tobacco Use: Types: Cigarettes ALLERGIES: ALLERGIES No Known Allergies PAST MEDICAL HISTORY: PAST MEDICAL HISTORY Diagnosis Date Adjustment disorder with anxious mood 09/16/2016 CAD (coronary artery disease) 07/21/2024 Chronic obstructive pulmonary disease (COPD) ([facility]) Cigarette nicotine dependence in remission 02/06/2016 Reports not smoking for multiple weeks. 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 He has some tenderness palpation of the anterior lateral aspect with positive signs of impingement bilaterally. Negative drop arm test bilaterally but he does have discomfort with resisted bilateral shoulder abduction and forward flexion. He has some slight weakness on external rotation of the left shoulder otherwise he is neurovascularly intact No tenderness about the elbow, forearm, wrist, or hand. Elbow and wrist motion were not irritable. Neurovascularly intact, radial pulses 2 + and palpable. Sensation is intact to light touch in the hand. IMAGING: X-rays of the patient's left shoulder taken today reveal no fractures or dislocations. There is moderate degenerative changes of the acromioclavicular joint. There is a small area of calcification in the rotator cuff suggesting calcific tendinitis X-rays of the patient's right shoulder reveal no fractures or dislocations. Mild degenerative changes of the acromioclavicular joint. No other abnormality. CLINICAL IMPRESSION / ASSESSMENT: Impingement syndrome right shoulder Impingement syndrome left shoulder Glenoid labrum tear left shoulder Rotator cuff calcific tendinitis left shoulder PROCEDURES: Large Joint Arthro/Inj: bilateral subacromial bursas 08/07/2024 9:02 AM The procedure site was prepped in the usual sterile fashion. Site: bilateral subacromial bursas Medications (Right): 40 mg triamcinolone acetonide 40 mg/mL Medications (Left): 40 mg triamcinolone acetonide 40 mg/mL Anesthetics (Right): 4 mL lidocaine (PF) 10 mg/mL (1 %) Anesthetics (Left): 4 mL lidocaine (PF) 10 mg/mL (1 %) Outcome: Tolerated well, no immediate complications Post-injection instructions were reviewed with the patient and the patient voiced understanding of these instructions. Informed Consent Consent Obtained: Verbal Norvell Protocol A moment to CARE was completed. SIGN IN Personnel directly involved with the procedure wore the appropriate PPE. Special Equipment: N/A Patient/Surrogate Stated/Verified: Patient name, Date of , Relevant allergies and Intended procedure TIME OUT Relevant labs, photos, and/or imaging studies have been reviewed. Intended patient and procedure match source documents. Correct side/site marked and visible. Medications required for procedure verified. Fire risk assessed and interventions discussed. No implant(s) inserted. SIGN OUT No specimen collected. All instruments, equipment, possible retained foreign bodies accounted for. The post-procedure POC has been communicated to the patient or surrogate. No post-procedure POC communication to the patient's multidisciplinary team (including the bedside nurse for hospitalized patients) applicable. RECOMMENDATION / PLAN: I discussed treatment options with the patient today at length. Patient is interested in bilateral subacromial cortisone injections today. He was given both of these injections today under complete sterile technique without any complications as outlined above. He tolerated the injections well. Will see how responds over the next several weeks. If he is not improving he can return for reevaluation and I will make further recommendations at that time. I spent a total of 20 minutes on the date of the service which included preparing to see the patient, [id number] patient care, completing clinical documentation, obtaining and/or reviewing separately obtained history, performing a medically appropriate examination, and counseling and educating the patient/family/caregiver. Verbal health education was given to patient. Patient verbalizes understanding and agrees with the treatment plan as detailed above. Nasim Ennis DO CNOV Observed: 08/07/2024 8:15 AM Status: COMPLETED Source: [facility] Office Visit (VEDA) SOHAILMIKI Saucedo ([id number]) 1965 M Date Time Provider Department 08/07/24 8:15 AM NASIM ENNIS During your visit today, we recorded the following information about you: Nasim Ennis DO 08/07/2024 9:04 AM Signed Miki Sauceda is a patient of No primary care provider on file.. CHIEF COMPLAINT: Miki Sauceda is a 58 year old male who presents today for evaluation of bilateral shoulder pain. HISTORY OF PRESENT ILLNESS: Patient is a 58-year-old male presents today for evaluation of bilateral shoulder pain. He has had pain in the left shoulder chronically for quite some time. Has had an MRI suggesting labral tearing of the shoulder but has not been able to proceed with surgical intervention due to cardiac stent application. He said cortisone injections for the left shoulder in the past which have helped and he was hoping to get injections today. He states that he lifted something with the left arm about a month ago seeming to trigger the pain further. States that for the past year the right shoulder has been giving him similar symptoms. Raising the right arm out the side overhead is also uncomfortable. No specific injury or trauma to the right shoulder. PAIN EVALUATION 08/07/2024 0827 Pain Level: -- 6 TO 7 Pain Location: -- BILATERAL SHOULDER, LEFT WORSE THAN RIGHT Description: Aching Duration Amount of Time: -- SEVERAL YEARS Duration Units: Years Frequency: Intermittent Intervention/Comfort measure: Medication CORTISONE INJECTION, MOBIC ROS: REVIEW OF SYMPTOMS: Constitutional: patient denies any recent fever or significant change in weight Gastrointestinal: patient denies any current abdominal discomfort Musculoskeletal: as noted in the HPI Neurologic: as noted in the HPI SOCIAL HISTORY: Tobacco Use: Types: Cigarettes ALLERGIES: ALLERGIES No Known Allergies PAST MEDICAL HISTORY: PAST MEDICAL HISTORY Diagnosis Date Adjustment disorder with anxious mood 09/16/2016 CAD (coronary artery disease) 07/21/2024 Chronic obstructive pulmonary disease (COPD) ([facility]) Cigarette nicotine dependence in remission 02/06/2016 Reports not smoking for multiple weeks. 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 He has some tenderness palpation of the anterior lateral aspect with positive signs of impingement bilaterally. Negative drop arm test bilaterally but he does have discomfort with resisted bilateral shoulder abduction and forward flexion. He has some slight weakness on external rotation of the left shoulder otherwise he is neurovascularly intact No tenderness about the elbow, forearm, wrist, or hand. Elbow and wrist motion were not irritable. Neurovascularly intact, radial pulses 2 + and palpable. Sensation is intact to light touch in the hand. IMAGING: X-rays of the patient's left shoulder taken today reveal no fractures or dislocations. There is moderate degenerative changes of the acromioclavicular joint. There is a small area of calcification in the rotator cuff suggesting calcific tendinitis X-rays of the patient's right shoulder reveal no fractures or dislocations. Mild degenerative changes of the acromioclavicular joint. No other abnormality. CLINICAL IMPRESSION / ASSESSMENT: Impingement syndrome right shoulder Impingement syndrome left shoulder Glenoid labrum tear left shoulder Rotator cuff calcific tendinitis left shoulder PROCEDURES: Large Joint Arthro/Inj: bilateral subacromial bursas 08/07/2024 9:02 AM The procedure site was prepped in the usual sterile fashion. Site: bilateral subacromial bursas Medications (Right): 40 mg triamcinolone acetonide 40 mg/mL Medications (Left): 40 mg triamcinolone acetonide 40 mg/mL Anesthetics (Right): 4 mL lidocaine (PF) 10 mg/mL (1 %) Anesthetics (Left): 4 mL lidocaine (PF) 10 mg/mL (1 %) Outcome: Tolerated well, no immediate complications Post-injection instructions were reviewed with the patient and the patient voiced understanding of these instructions. Informed Consent Consent Obtained: Verbal Norvell Protocol A moment to CARE was completed. SIGN IN Personnel directly involved with the procedure wore the appropriate PPE. Special Equipment: N/A Patient/Surrogate Stated/Verified: Patient name, Date of , Relevant allergies and Intended procedure TIME OUT Relevant labs, photos, and/or imaging studies have been reviewed. Intended patient and procedure match source documents. Correct side/site marked and visible. Medications required for procedure verified. Fire risk assessed and interventions discussed. No implant(s) inserted. SIGN OUT No specimen collected. All instruments, equipment, possible retained foreign bodies accounted for. The post-procedure POC has been communicated to the patient or surrogate. No post-procedure POC communication to the patient's multidisciplinary team (including the bedside nurse for hospitalized patients) applicable. RECOMMENDATION / PLAN: I discussed treatment options with the patient today at length. Patient is interested in bilateral subacromial cortisone injections today. He was given both of these injections today under complete sterile technique without any complications as outlined above. He tolerated the injections well. Will see how responds over the next several weeks. If he is not improving he can return for reevaluation and I will make further recommendations at that time. I spent a total of 20 minutes on the date of the service which included preparing to see the patient, [id number] patient care, completing clinical documentation, obtaining and/or reviewing separately obtained history, performing a medically appropriate examination, and counseling and educating the patient/family/caregiver. Verbal health education was given to patient. Patient verbalizes understanding and agrees with the treatment plan as detailed above. Nasim Ennis DO Allergies As of Date: 08/07/2024 (No Known Allergies) Date Reviewed: 08/04/2024 Reviewed by: Cathie Eason RN - Fully Assessed Reason for Visit: Follow Up [171] New [[id number]] Primary Visit Diagnosis:Pain of both shoulder joints [M25.511, M25.512] Other Visit Diagnoses:Impingement syndrome of right shoulder [M75.41] Impingement syndrome of left shoulder [M75.42] Order(s):XR SHOULDER GENERAL 3V OR MORE AP/TRUE AP/OTHER LEFT [[id number]] Order #: [id number] FUTURE XR SHOULDER GENERAL 3V OR MORE AP/TRUE AP/OTHER RIGHT [[id number]] Order #: [id number] FUTURE Large Joint Arthro/Inj: bilateral subacromial bursas [OSQ556] Order #: [id number] [] lidocaine (PF) 10 mg/mL (1 %) 4 mL injection (XYLOCAINE)Disp: Rfl: [] lidocaine (PF) 10 mg/mL (1 %) 4 mL injection (XYLOCAINE)Disp: Rfl: [] triamcinolone acetonide 40 mg injection (KeNALog 40)Disp: Rfl: [] triamcinolone acetonide 40 mg injection (KeNALog 40)Disp: Rfl: Prescriptions as of 08/07/2024 - levothyroxine (SYNTHROID) 75 mcg tablet Take 1 tablet by mouth once daily - tamsulosin (FLOMAX) 0.4 mg Take 1 capsule by mouth once daily. - pantoprazole DR (PROTONIX) 40 mg tablet Take 1 tablet by mouth once daily - meloxicam (MOBIC) 7.5 mg tablet Take 1 tablet by mouth once daily. - methocarbamol (ROBAXIN) 500 mg tablet Take 1 tablet by mouth at bedtime as needed. - rosuvastatin (CRESTOR) 20 mg tablet TAKE 1 TABLET BY MOUTH ONCE DAILY AT BEDTIME - fluticasone (FLONASE) 50 mcg/actuation nasal spray Use 2 spray(s) in each nostril once daily - mupirocin (BACTROBAN) 2 % ointment Apply to affected area daily - ticagrelor (BRILINTA) 90 mg tablet Take 1 tablet by mouth two times a day. - aspirin, enteric coated (ECOTRIN LOW STRENGTH) 81 mg EC tablet Take 1 tablet by mouth once daily. - carvedilol (COREG) 25 mg tablet Take 1 tablet by mouth two times a day. - losartan (COZAAR) 50 mg tablet Take 1 tablet by mouth once daily. - tamsulosin (FLOMAX) 0.4 mg Take 1 capsule by mouth once daily - azelastine 0.1% nasal spray Use 2 Sprays in each nostril two times a day as needed. Problem List As Of Date 08/07/2024 Noted Resolved Larynx cancer (HCC) [C32.9] 01/06/2016 09/16/2016 Difficulty coping with disease [R45.89] 01/06/2016 Malignant neoplasm of subglottis (HCC) [C32.2] 01/19/2016 Degenerative spondylolisthesis [M43.10] 05/28/2016 07/23/2016 Spondylolysis, lumbosacral [M43.07] 07/24/2016 Adjustment disorder with anxious mood [F43.22] 09/16/2016 Radiculitis [M54.10] 10/29/2016 Primary hypertension [I10] 11/10/2016 Larynx cancer (HCC) [C32.9] 01/06/2016 Laryngeal cancer (HCC) [C32.9] 11/04/2015 Degenerative spondylolisthesis [M43.10] 05/28/2016 Former smoker [Z87.891] History of laryngeal cancer [Z85.21] 03/10/2017 Hoarseness [R49.0] 03/10/2017 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] 04/19/2017 Spinal stenosis, lumbar region with neurogenic *04/19/2017 Lumbar stenosis with neurogenic claudication [M*05/19/2017 Obesity (BMI 35.0-39.9 without comorbidity) [E6*11/07/2020 Difficult intubation [T88.4XXA] 11/07/2020 FEDE (obstructive sleep apnea) [G47.33] 11/07/2020 Alcohol use [F10.90] 11/07/2020 S/P lumbar spinal fusion [Z98.1] 01/16/2021 Chronic midline low back pain without sciatica *01/16/2021 Degenerative lumbar disc [M51.369] 01/16/2021 Lumbar spondylosis [M47.816] 01/20/2022 GERD (gastroesophageal reflux disease) [K21.9] 03/22/2023 Acquired hypothyroidism [E03.9] 03/22/2023 BMI 40.0-44.9, adult (HCC) [Z68.41] 07/27/2023 Stable angina (HCC) [I20.89] 11/26/2023 Elevated coronary artery calcium score [R93.1] 11/26/2023 CAD (coronary artery disease) [I25.10] 07/21/2024 HLD (hyperlipidemia) [E78.5] 07/21/2024 Occlusion of right carotid artery [I65.21] 07/21/2024 Prescriptions ordered this encounter Disp Refills Start End LIDOCAINE (PF) 10 MG/ML (1 %) INJECT* 08/07/2024 08/07/2024 Route: Inj-ORTHO LIDOCAINE (PF) 10 MG/ML (1 %) INJECT* 08/07/2024 08/07/2024 Route: Inj-ORTHO TRIAMCINOLONE ACETONIDE 40 MG/ML LEMUEL* 08/07/2024 08/07/2024 Route: Inj-ORTHO TRIAMCINOLONE ACETONIDE 40 MG/ML LEMUEL* 08/07/2024 08/07/2024 Route: Inj-ORTHO Encounter Status:Closed by NASIM ENNIS on 08/07/24 XR SHLDR >/=3V AP/OLGA AP/OTHR LT Observed: 08/07/2024 8:03 AM Status: F Source: [facility] * * *Final Report* * * DATE OF EXAM: Aug 07 2024 8:03AM AFR 5252 - XR SHLDR >/=3V AP/OLGA AP/OTHR LT / PROCEDURE REASON: multiple diagnoses * * * * Physician Interpretation * * * * HISTORY (as given from clinical provider): Pain of both shoulder joints Pain of both shoulder joints . Additional history provided by the performing technologist (if any): --> CHRONIC BILATERAL SHOULDER PAIN TECHNIQUE: XR SHLDR >/=3V AP/OLGA AP/OTHR LT COMPARISON: 07/13/2023 RESULT: Normal glenohumeral joint space. Small inferior glenoid osteophyte. Mild osteoarthritis of the AC joint. Minimal linear calcification in the infraspinatus tendon as seen previously. No other significant abnormality. IMPRESSION: NO SIGNIFICANT CHANGE Adjustment Clerk: [facility] Transcribe Date/Time: Aug 07 2024 8:16A Dictated by : INGRID GAONA MD This examination was interpreted and the report reviewed and electronically signed by: INGRID GAONA MD on Aug 07 2024 8:16AM EST [id number] XR SHLDR >/=3V AP/OLGA AP/OTHR RT Observed: 08/07/2024 8:03 AM Status: F Source: [facility] * * *Final Report* * * DATE OF EXAM: Aug 07 2024 8:03AM AFR 5253 - XR SHLDR >/=3V AP/OLGA AP/OTHR RT / PROCEDURE REASON: multiple diagnoses * * * * Physician Interpretation * * * * HISTORY (as given from clinical provider): Pain of both shoulder joints Pain of both shoulder joints . Additional history provided by the performing technologist (if any): --> CHRONIC BILATERAL SHOULDER PAIN TECHNIQUE: XR SHLDR >/=3V AP/OLGA AP/OTHR RT COMPARISON: None RESULT: Small inferior glenoid osteophyte without joint space loss. Minimal osteoarthritis of the AC joint. No other significant abnormality. Adjustment Clerk: [facility] Transcribe Date/Time: Aug 07 2024 8:15A Dictated by : INGRID GAONA MD This examination was interpreted and the report reviewed and electronically signed by: INGRID GAONA MD on Aug 07 2024 8:16AM EST [id number] Observed: 08/07/2024 8:00 AM Status: COMPLETED Source: [facility] HNO ID: [id number] Author: CAMMY WILLETT, RT(R) Service: Radiology Author Type: Technologist Type: Progress Notes Filed: 08/07/2024 08:01 Note Text: Radiology Service Progress Note PATIENT NAME: Miki Sauceda DATE OF SERVICE: August 07, 2024 TIME: 8:01 AM PATIENT IDENTITY VERIFICATION COMPLETED USING TWO (2) IDENTIFIERS: Name and Date of confirmed by patient verbally. FALL SCREENING: Has the patient had 2 falls in the last year or 1 fall with injury or currently using an Ambulatory Assistive Device (Walker, Cane, Wheelchair, Crutches, etc.)? No PATIENT GENDER DATA: Assigned male at PATIENT RELEVANT IMPLANT DATA REVIEWED: Not Applicable PATIENT PRESENTS WITH AN IMPLANTABLE OR ATTACHED TELEMARKETING AGENT: No RADIOLOGY DEPARTMENT: General X-ray: Exam(s) Completed: Upper Extremity X-Ray(s): Shoulder, AP / TRUE AP / AXILLARY bilateral PERIPHERAL IV DATA: Not applicable SIGNED BY: RT Zahra(R) August 07, 2024 8:01 AM CISCO Observed: 08/07/2024 12:00 AM Status: COMPLETED Source: [facility] Telephone (SPNMAV) MIKI SAUCEDA ([id number]) 1965 M Date Time Provider Department 08/07/24 JASON NASSAR SPNMAV During your visit today, we recorded the following information about you: Ulisses Allen RN 08/07/2024 1:29 PM Signed DATE OF SERVICE: 08/04/24 PATIENT'S PHONE NUMBERS: [phone] (home) OR @[facility]@ PROVIDER: Dr. Nassar PROCEDURE: Elective Pain Management Procedure Spoke directly with patient. Patient states that they are 85% better. Patient claims to have no problems. Allergies As of Date: 08/07/2024 (No Known Allergies) Date Reviewed: 08/04/2024 Reviewed by: Cathie Eason RN - Fully Assessed Reason for Visit: Follow Up Phone Call [[phone]] Prescriptions as of 08/07/2024 - levothyroxine (SYNTHROID) 75 mcg tablet Take 1 tablet by mouth once daily - tamsulosin (FLOMAX) 0.4 mg Take 1 capsule by mouth once daily. - pantoprazole DR (PROTONIX) 40 mg tablet Take 1 tablet by mouth once daily - meloxicam (MOBIC) 7.5 mg tablet Take 1 tablet by mouth once daily. - methocarbamol (ROBAXIN) 500 mg tablet Take 1 tablet by mouth at bedtime as needed. - rosuvastatin (CRESTOR) 20 mg tablet TAKE 1 TABLET BY MOUTH ONCE DAILY AT BEDTIME - fluticasone (FLONASE) 50 mcg/actuation nasal spray Use 2 spray(s) in each nostril once daily - mupirocin (BACTROBAN) 2 % ointment Apply to affected area daily - ticagrelor (BRILINTA) 90 mg tablet Take 1 tablet by mouth two times a day. - aspirin, enteric coated (ECOTRIN LOW STRENGTH) 81 mg EC tablet Take 1 tablet by mouth once daily. - carvedilol (COREG) 25 mg tablet Take 1 tablet by mouth two times a day. - losartan (COZAAR) 50 mg tablet Take 1 tablet by mouth once daily. - tamsulosin (FLOMAX) 0.4 mg Take 1 capsule by mouth once daily - azelastine 0.1% nasal spray Use 2 Sprays in each nostril two times a day as needed. Problem List As Of Date 08/07/2024 Noted Resolved Larynx cancer (HCC) [C32.9] 01/06/2016 09/16/2016 Difficulty coping with disease [R45.89] 01/06/2016 Malignant neoplasm of subglottis (HCC) [C32.2] 01/19/2016 Degenerative spondylolisthesis [M43.10] 05/28/2016 07/23/2016 Spondylolysis, lumbosacral [M43.07] 07/24/2016 Adjustment disorder with anxious mood [F43.22] 09/16/2016 Radiculitis [M54.10] 10/29/2016 Primary hypertension [I10] 11/10/2016 Larynx cancer (HCC) [C32.9] 01/06/2016 Laryngeal cancer (HCC) [C32.9] 11/04/2015 Degenerative spondylolisthesis [M43.10] 05/28/2016 Former smoker [Z87.891] History of laryngeal cancer [Z85.21] 03/10/2017 Hoarseness [R49.0] 03/10/2017 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] 04/19/2017 Spinal stenosis, lumbar region with neurogenic *04/19/2017 Lumbar stenosis with neurogenic claudication [M*05/19/2017 Obesity (BMI 35.0-39.9 without comorbidity) [E6*11/07/2020 Difficult intubation [T88.4XXA] 11/07/2020 FEDE (obstructive sleep apnea) [G47.33] 11/07/2020 Alcohol use [F10.90] 11/07/2020 S/P lumbar spinal fusion [Z98.1] 01/16/2021 Chronic midline low back pain without sciatica *01/16/2021 Degenerative lumbar disc [M51.369] 01/16/2021 Lumbar spondylosis [M47.816] 01/20/2022 GERD (gastroesophageal reflux disease) [K21.9] 03/22/2023 Acquired hypothyroidism [E03.9] 03/22/2023 BMI 40.0-44.9, adult (HCC) [Z68.41] 07/27/2023 Stable angina (HCC) [I20.89] 11/26/2023 Elevated coronary artery calcium score [R93.1] 11/26/2023 CAD (coronary artery disease) [I25.10] 07/21/2024 HLD (hyperlipidemia) [E78.5] 07/21/2024 Occlusion of right carotid artery [I65.21] 07/21/2024 Encounter Status:Closed by ULISSES ALLEN on 08/07/24 ANES POSTPROC EVAL Observed: 08/04/2024 9:21 AM Status: COMPLETED Source: [facility] HNO ID: [id number] Author: DEJA CELESTIN MD Service: Anesthesiology Author Type: Physician Type: Anesthesia Postprocedure Evaluation Filed: 08/04/2024 09:22 Note Text: POST ANESTHESIA EVALUATION NOTE : 1965 Procedure Summary Date: 08/04/24 Room / Location: AV PROCEDURE B / AV ENDO Anesthesia Start: 828 Anesthesia Stop: 901 Procedures: DESTRUCTION BY RADIO FREQUENCY ABLATION PARAVERTEBRAL FACET JOINT NERVE(S) LUMBAR/SACRAL SINGLE FACET JOINT W/IMAGE GUIDANCE FLUORO OR CT (Bilateral: Spine levels L4-5) DESTRUCTION BY NEUROLYTIC AGENT PARAVERTEBRAL FACET JOINT NERVE(S) LUMBAR SINGLE FACET JOINT CARYL W/IMAGE GUIDANCE FLUORO OR CT (Bilateral: Spine levels L4-5) Diagnosis: Lumbar spondylosis (Lumbar spondylosis [M47.816]) Surgeons: Jason Nassar DO Responsible Provider: Deja Celestin MD Anesthesia Type: MAC ASA Status: 3 Anesthesia Type: MAC Last Vitals Vitals Value Taken Time BP 116/78 08/04/24 0920 Temp 36.6 ?C (97.9 ?F) 08/04/24 09 Pulse 62 08/04/24 0900 Resp 16 08/04/24 0900 SpO2 95 % 08/04/24 0920 Vitals shown include unfiled device data. Post Anesthesia Patient Status Patient Evaluation: PACU. PACU/ICU Patient Condition: stable. Anticipated Disposition: phase 2 then home. Neurological Status: aware and responsive. Pulmonary Status: breathing comfortably on room air Airway Control: returned to baseline unsupported. Cardiovascular Status: stable. Pain Management: clinically adequate Postoperative Hydration: acceptable. Intraoperative Events: no significant anesthesia events Post Operative Nausea/Vomiting Status: no significant post operative nausea or vomiting Recommendation: further care per PACU/ICU/floor team. Other Remarks: Did great with the mild sedation. Feels comfortable and did well intra-procedure. Anesthesia Observations No Documentation SIGNATURE: Deja Celestin MD PATIENT NAME: Miki Sauceda DATE: August 04, 2024 TIME: 9:21 AM CSN: [id number] OPERATIVE NO Observed: 08/04/2024 8:28 AM Status: COMPLETED Source: [facility] HNO ID: [id number] Author: JASON NASSAR DO Service: Pain Management Author Type: Physician Type: Operative Report Filed: 08/04/2024 09:06 Note Text: Pt presents for radio frequency ablation for low back pain. Had lumbar RFA in the past with good and sustained relief and now some of the pain is coming back after 11 months. Continues to have low back pain. Wants to proceed with the previously scheduled injection. Consent obtained. Pt is aware of risks, benefits, alternatives, expected outcome, equipment and personnel. [facility] approved time out was performed identifying the site, side and level of procedure prior to start of procedure. The patient was offered a procedure / surgery at a [facility] facility. Patient and I have discussed in detail the risk of exposure to and/or potential harm posed by the COVID-19 virus with having a surgery/procedure at this time versus the risk of delaying the surgery/procedure. It is not possible to know either the risk of delaying the surgery or procedure or chance of getting an infection with perfect accuracy, but a joint decision was made between the patient and the surgeon/proceduralist to proceed at this time with the scheduled surgery/procedure as indicated on the consent form. [facility] - ELECTIVE PROCEDURE Radio Frequency Ablation - Lumbar b/l side Pre Operative Diagnosis: Lumbar spondylosis / low back pain Post Operative Diagnosis: Lumbar spondylosis / low back pain Sedation: MAC The risks and benefits of the procedure were discussed extensively with the patient. The verbal and written informed consent of the patient was obtained and the following procedure was performed: The patient was placed in the prone position on the fluoroscopic table. The patient's back was prepped in a sterile fashion. DuraPrep was used per skin prep guidelines. We waited 3 minutes by timer for the DuraPrep to dry before proceed with the procedure. Using fluoroscopic guidance the L5 vertebral body was definitively identified using the most caudal normal disc space labeled as L5-S1. The iliac crest was also visualized as a secondary landmark identifying the L4-5 level. Initially, the L4, L5 dorsal rami which is at the junction of the sacral ala and superior articular process of S1 was visualized. The skin was anesthetized with 1% lidocaine. A 20 G, 150 mm introducer needle with a 10 mm active tip was placed and directed to the bony contact at the three levels. Under fluoroscopic guidance, appropriate placement was confirmed including lateral view. Pt's MAC was reversed at this point. LT SIDE L5 transverse process (L4 nerve) was 148, and sacral ala (L5 nerve) was 171. Sensory stimulation at 0.5v was conducted. Motor stimulation at 50 Hz up to 2.0 volts did not cause any radicular symptoms at any level. Pt denied any radicular symptoms or any pain below the lower back. Pt was then placed back under MAC and we conducted the radiofrequency ablation protocol at 80 degrees ([employer] preset parameters) for 90 seconds at each level. A second lesion was done at the same levels with impedance as follows L5 transverse process (L4 nerve) was 158, and sacral ala (L5 nerve) was 162. RT SIDE L5 transverse process (L4 nerve) was 187, and sacral ala (L5 nerve) was 159. Sensory stimulation at 0.5v was conducted. Motor stimulation at 50 Hz up to 2.0 volts did not cause any radicular symptoms at any level. Pt denied any radicular symptoms or any pain below the lower back. Pt was then placed back under MAC and we conducted the radiofrequency ablation protocol at 80 degrees ([employer] preset parameters) for 90 seconds at each level. A second lesion was done at the same levels with impedance as follows L5 transverse process (L4 nerve) was 176, and sacral ala (L5 nerve) was 158 We injected approximately 10 mg of dexamethasone and 4cc's of 1% xylocaine preservative free divided equally into each site before taking the needles out. Pt was monitored through out by anesthesia team. Please see anesthesia notes for details of time and medications. At the end of the procedure, needles were removed. No bleeding was noted from the three sites. Dressing was placed. Blood loss was about 0 cc's. Pt was transferred to post procedure area for recovery. The patient was instructed to apply ice over the injection site for twenty minutes every two hours for the next twenty-four to forty-eight hours. The patient was also instructed to contact us if there is any exacerbation of the symptoms. Post procedure instruction sheet was given. The patient was recommended to follow up with me as schedules permit Incision/Procedure Start Time: 8:36 AM Incision Close/Procedure End Time: 8:56 AM Date of Service: 08/04/2024 I was present for the entire duration of the procedure and I performed the entire procedure. Jason Nassar DO, MBA HISTORY PHYSICAL Observed: 08/04/2024 8:25 AM Status: COMPLETED Source: [facility] HNO ID: [id number] Author: JASON NASSAR DO Service: Pain Management Author Type: Physician Type: H&P Filed: 08/04/2024 08:26 Note Text: The contents accurately reflect the patient's condition with the following additions or revisions since the HANDP was completed. Pt presents to day for b/l radiofrequency ablation. Did well with last RFA on 08/10/23. Pain is returning. Examination indicates: Neuro: AOx3, answers questions appropriately. HEENT: Normal cephalic, atraumatic Eyes: no conjuntivitis Ears: Non hyperemic external auditory canal Nose: No nasoaural discharge noted Throat: no visible tracheal deviation noted CARDIAC: Normal S1 and S2; no rubs, murmurs, or gallops LUNGS: CTA b/l Abdomen: non tender. Extremities: No clubbing, cyanosis or edema noted Jason Nassar DO, MBA ANES PRE-OP Observed: 08/04/2024 8:05 AM Status: COMPLETED Source: [facility] HNO ID: [id number] Author: DEJA CELESTIN MD Service: Anesthesiology Author Type: Physician Type: Anesthesia Preprocedure Evaluation Filed: 08/04/2024 08:15 Note Text: ANESTHESIOLOGY DAY OF SURGERY NOTE : 1965 Procedure Information Date/Time: 08/04/24 0830 Procedures: DESTRUCTION BY RADIO FREQUENCY ABLATION PARAVERTEBRAL FACET JOINT NERVE(S) LUMBAR/SACRAL SINGLE FACET JOINT W/IMAGE GUIDANCE FLUORO OR CT (Bilateral: Spine levels L4-5) DESTRUCTION BY NEUROLYTIC AGENT PARAVERTEBRAL FACET JOINT NERVE(S) LUMBAR SINGLE FACET JOINT CARYL W/IMAGE GUIDANCE FLUORO OR CT (Bilateral: Spine levels L4-5) Location: AV PROCEDURE B / AV ENDO Surgeons: Jason Nassar DO Estimated body mass index is 41.23 kg/m? as calculated from the following: Height as of 07/21/24: 182.9 cm (6'). Weight as of 07/21/24: 137.9 kg (304 lb). Most recent hematocrit and potassium results: Hematocrit 46.3 11/19/2023 Potassium 4.1 11/19/2023 Relevant Problems ANESTHESIA (+) Difficult intubation (Durand scope, kaur, and lma with ease in the past; hx of throat cancer s/p chemo and radiation. Prior trach. ) (+) FEDE (obstructive sleep apnea) (Doesn't use CPAP) CARDIO (+) CAD (coronary artery disease) (+) Elevated coronary artery calcium score (+) Occlusion of right carotid artery (+) Primary hypertension (+) Stable angina ENDO (+) Acquired hypothyroidism GI (+) GERD (gastroesophageal reflux disease) NEURO-PSYCH (+) History of laryngeal cancer PULMONARY (+) FEDE (obstructive sleep apnea) (Doesn't use CPAP) Oncology (+) Laryngeal cancer (HCC) Other (+) BMI 40.0-44.9, adult (HCC) (+) Hoarseness I - PHYSICAL EVALUATION AIRWAY Patient intubated: No. Tracheostomy tube not present Mallampati: III. TM distance: <3 FB. Neck ROM: full ROM without neurological symptoms. Mouth opening: adequate. Short neck: yes. Thick neck: yes Desai present: no DENTAL Dental findings: poor dentition. Additional exam findings: yes. CARDIOVASCULAR Rhythm: regular Rate: normal PULMONARY Breath sounds clear to auscultation. ABDOMINAL Obese: obesity present. II - ANESTHESIA PLAN ASA Score: 3 Anesthetic Plan: MAC The patient is not a current smoker. NPO Status: adequate Anesthetic plan additional comments: Discussed light sedation . Beta Brad Monitoring Plan Monitoring plan: standard ASA. Post Procedure Analgesic Plan Postoperative analgesic plan: per surgical service. Informed Consent Anesthetic risks, benefits, alternatives, personnel and consent discussed: yes. Patient / Responsible Libertarian agrees to proceed: yes Patient / Surrogate agrees to blood products: blood products not planned DNR status not reviewed with patient and/or family prior to surgery. Significant changes in the patient condition since the History and Physical, not otherwise documented in primary service progress note: no. Potential Anesthesia issues that may suggest increased risk of complications or contraindication to planned procedure: potential difficult intubation, potential difficult IV access, surgical field avoidance and other. Obstruction risk. Discussed light sedation due to hx of laryngeal cancer, MO and prone position. He has concerns about moving but has tolerated several in the past field avoidance. The anesthetic will be complicated due to field avoidance because the surgical procedure will be around the airway (head, neck, or shoulder girdle). There will be no direct access to the patient's airway therefore increasing the technical difficulty. No vitals data found for the desired time range. Facility-Administered Medications as of 08/04/2024 Medication Dose Route Frequency NaCl 0.9% iv infusion 30 mL/hr INTRAVENOUS CONTINUOUS Outpatient Medications as of 08/04/2024 Medication Sig levothyroxine (SYNTHROID) 75 mcg tablet Take 1 tablet by mouth once daily tamsulosin (FLOMAX) 0.4 mg Take 1 capsule by mouth once daily. pantoprazole DR (PROTONIX) 40 mg tablet Take 1 tablet by mouth once daily meloxicam (MOBIC) 7.5 mg tablet Take 1 tablet by mouth once daily. methocarbamol (ROBAXIN) 500 mg tablet Take 1 tablet by mouth at bedtime as needed. rosuvastatin (CRESTOR) 20 mg tablet TAKE 1 TABLET BY MOUTH ONCE DAILY AT BEDTIME fluticasone (FLONASE) 50 mcg/actuation nasal spray Use 2 spray(s) in each nostril once daily mupirocin (BACTROBAN) 2 % ointment Apply to affected area daily ticagrelor (BRILINTA) 90 mg tablet Take 1 tablet by mouth two times a day. aspirin, enteric coated (ECOTRIN LOW STRENGTH) 81 mg EC tablet Take 1 tablet by mouth once daily. carvedilol (COREG) 25 mg tablet Take 1 tablet by mouth two times a day. losartan (COZAAR) 50 mg tablet Take 1 tablet by mouth once daily. tamsulosin (FLOMAX) 0.4 mg Take 1 capsule by mouth once daily azelastine 0.1% nasal spray Use 2 Sprays in each nostril two times a day as needed. I have interviewed and examined the patient. I have reviewed the medical record and/or the pre-anesthesia evaluation, pertinent labs, and test results. This contains updated information obtained within 48 hours of Surgery/Procedure. 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 He stated that he has had to hold his Brilinta 2x separate times now for procedures for a 5 day period. He feels like his breathing is better. He is wondering if there is something else he can take in place of that or maybe a lower dose even? Please advise Allergies As of Date: 08/04/2024 (No Known Allergies) Date Reviewed: 08/04/2024 Reviewed by: Cathie Eason RN - Fully Assessed Reason for Visit: Medication Question [4818] Prescriptions as of 08/31/2024 - pantoprazole DR (PROTONIX) 40 mg tablet Take 1 tablet by mouth once daily. - levothyroxine (SYNTHROID) 75 mcg tablet Take 1 tablet by mouth once daily - tamsulosin (FLOMAX) 0.4 mg Take 1 capsule by mouth once daily. - meloxicam (MOBIC) 7.5 mg tablet Take 1 tablet by mouth once daily. - methocarbamol (ROBAXIN) 500 mg tablet Take 1 tablet by mouth at bedtime as needed. - rosuvastatin (CRESTOR) 20 mg tablet TAKE 1 TABLET BY MOUTH ONCE DAILY AT BEDTIME - fluticasone (FLONASE) 50 mcg/actuation nasal spray Use 2 spray(s) in each nostril once daily - mupirocin (BACTROBAN) 2 % ointment Apply to affected area daily - ticagrelor (BRILINTA) 90 mg tablet Take 1 tablet by mouth two times a day. - aspirin, enteric coated (ECOTRIN LOW STRENGTH) 81 mg EC tablet Take 1 tablet by mouth once daily. - carvedilol (COREG) 25 mg tablet Take 1 tablet by mouth two times a day. - losartan (COZAAR) 50 mg tablet Take 1 tablet by mouth once daily. - tamsulosin (FLOMAX) 0.4 mg Take 1 capsule by mouth once daily - azelastine 0.1% nasal spray Use 2 Sprays in each nostril two times a day as needed. 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] 07/24/2016 Adjustment disorder with anxious mood [F43.22] 09/16/2016 Radiculitis [M54.10] 10/29/2016 Primary hypertension [I10] 11/10/2016 Larynx cancer (HCC) [C32.9] 01/06/2016 Laryngeal cancer (HCC) [C32.9] 11/04/2015 Degenerative spondylolisthesis [M43.10] 05/28/2016 Former smoker [Z87.891] History of laryngeal cancer [Z85.21] 03/10/2017 Hoarseness [R49.0] 03/10/2017 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] 04/19/2017 Spinal stenosis, lumbar region with neurogenic *04/19/2017 Lumbar stenosis with neurogenic claudication [M*05/19/2017 Obesity (BMI 35.0-39.9 without comorbidity) [E6*11/07/2020 Difficult intubation [T88.4XXA] 11/07/2020 FEDE (obstructive sleep apnea) [G47.33] 11/07/2020 Alcohol use [F10.90] 11/07/2020 S/P lumbar spinal fusion [Z98.1] 01/16/2021 Chronic midline low back pain without sciatica *01/16/2021 Degenerative lumbar disc [M51.369] 01/16/2021 Lumbar spondylosis [M47.816] 01/20/2022 GERD (gastroesophageal reflux disease) [K21.9] 03/22/2023 Acquired hypothyroidism [E03.9] 03/22/2023 BMI 40.0-44.9, adult (HCC) [Z68.41] 07/27/2023 Stable angina (HCC) [I20.89] 11/26/2023 Elevated coronary artery calcium score [R93.1] 11/26/2023 CAD (coronary artery disease) [I25.10] 07/21/2024 HLD (hyperlipidemia) [E78.5] 07/21/2024 Occlusion of right carotid artery [I65.21] 07/21/2024 Encounter Status:Closed by TERRA BALLESTEROS on 08/31/24 ANES POSTPROC EVAL Observed: 07/24/2024 3:23 PM Status: COMPLETED Source: [facility] HNO ID: [id number] Author: CITLALLI JAMES MD Service: Anesthesiology Author Type: Anesthesiologist Type: Anesthesia Postprocedure Evaluation Filed: 07/24/2024 15:23 Note Text: POST ANESTHESIA EVALUATION NOTE : 1965 Procedure Summary Date: 07/24/24 Room / Location: Procedures Anesthesia Start: 1503 Anesthesia Stop: 1522 Procedure: EGD DIAGNOSTIC Diagnosis: Epigastric pain (Abdominal pain) Scheduled Providers: Christy Belcher Jr., MD; Claudia Villalba AA; Citlalli James MD Responsible Provider: Citlalli James MD Anesthesia Type: MAC ASA Status: 3 Anesthesia Type: MAC Last Vitals Vitals Value Taken Time BP 117/91 07/24/24 1521 Temp 07/24/24 1523 Pulse 83 07/24/24 1522 Resp 17 07/24/24 1522 SpO2 95 % 07/24/24 1522 Vitals shown include unfiled device data. Post Anesthesia Patient Status Patient Evaluation: PACU. PACU/ICU Patient Condition: stable. Anticipated Disposition: phase 2 then home. Neurological Status: sleepy but arousable. Pulmonary Status: breathing comfortably on supplemental oxygen Airway Control: returned to baseline unsupported. Cardiovascular Status: stable. Pain Management: clinically adequate - multimodal analgesia pain management approach Postoperative Hydration: acceptable. Intraoperative Events: no significant anesthesia events Post Operative Nausea/Vomiting Status: no significant post operative nausea or vomiting Recommendation: continue current plan of care. Other Remarks: cough. Anesthesia Observations No Documentation SIGNATURE: Citlalli James MD PATIENT NAME: Miki Sauceda DATE: July 24, 2024 TIME: 3:23 PM CSN: [id number] UPPER GI ENDOSCOPY Observed: 07/24/2024 2:59 PM Status: F Source: [facility] Gastrointestinal Endoscopy Patient Name: Miki Sauceda Procedure Date: 07/24/2024 2:59 PM Date of : 1965 Admit Type: Outpatient Age: 58 Room: [facility] 02 Gender: Male Note Status: Finalized Attending MD: Christy Belcher Jr, MD, [id number] Procedure: Upper GI endoscopy Indications: Abdominal pain Providers: Christy Belcher Jr, MD Patient Profile: This is a 58 year old male. Referring Physician: Zeeshan Stone (Referring MD) Medicines: Monitored Anesthesia Care Complications: No immediate complications. Requesting Provider: Procedure: Pre-Anesthesia Assessment: - Prior to the procedure, a History and Physical was performed, and patient medications and allergies were reviewed. The patient's tolerance of previous anesthesia was also reviewed. The risks and benefits of the procedure and the sedation options and risks were discussed with the patient. All questions were answered, and informed consent was obtained. Prior Anticoagulants: The patient has taken Brilinta (ticagrelor), last dose was 5 days prior to procedure. ASA Grade Assessment: III - A patient with severe systemic disease. After reviewing the risks and benefits, the patient was deemed in satisfactory condition to undergo the procedure. After obtaining informed consent, the endoscope was passed under direct vision. Throughout the procedure, the patient's blood pressure, pulse, and oxygen saturations were monitored continuously. The 3389 EGD was introduced through the mouth, and advanced to the second part of duodenum. The upper GI endoscopy was accomplished without difficulty. The patient tolerated the procedure well. Moderate Sedation: MAC anesthesia was administered by the anesthesia team. Total Procedure Duration: 0 hours 2 minutes 46 seconds Findings: A 2 cm hiatal hernia was present. The exam of the esophagus was otherwise normal. The entire examined stomach was normal. The examined duodenum was normal. Impression: - 2 cm hiatal hernia. - Normal stomach. - Normal examined duodenum. - No specimens collected. Recommendation: - Patient has a contact number available for emergencies. The signs and symptoms of potential delayed complications were discussed with the patient. Return to normal activities tomorrow. Written discharge instructions were provided to the patient. - Resume Brilinta (ticagrelor) at prior dose today. Procedure Code(s): --- Professional --- 05590, Esophagogastroduodenoscopy, flexible, transoral; diagnostic, including collection of specimen(s) by brushing or washing, when performed (separate procedure) Diagnosis Code(s): --- Professional --- K44.9, Diaphragmatic hernia without obstruction or gangrene R10.9, Unspecified abdominal pain CPT copyright 2020 [employer]. All rights reserved. The codes documented in this report are preliminary and upon clutch inspector review may be revised to meet current compliance requirements. Attending Participation: I personally performed the entire procedure. Scope In: 3:09:36 PM Scope Out: 3:12:22 PM MD Christy Mejia Jr, MD 07/24/2024 3:15:32 PM This report has been signed electronically by Christy Belcher Jr, MD Number of Addenda: 0 Note Initiated On: 07/24/2024 2:59 PM Estimated Blood Loss: Estimated blood loss: none. ANES PRE-OP Observed: 07/24/2024 2:00 PM Status: COMPLETED Source: [facility] HNO ID: [id number] Author: CITLALLI JAMES MD Service: Anesthesiology Author Type: Anesthesiologist Type: Anesthesia Preprocedure Evaluation Filed: 07/24/2024 14:02 Note Text: ANESTHESIOLOGY DAY OF SURGERY NOTE : 1965 Procedure Information Date/Time: 07/24/24 1400 Scheduled providers: Christy Belcher Jr., MD; Claudia Villalba AA; Citlalli James MD Procedure: EGD DIAGNOSTIC Location: Procedures Estimated body mass index is 41.23 kg/m? as calculated from the following: Height as of 07/21/24: 182.9 cm (6'). Weight as of 07/21/24: 137.9 kg (304 lb). Most recent hematocrit and potassium results: Hematocrit 46.3 11/19/2023 Potassium 4.1 11/19/2023 Relevant Problems ANESTHESIA (+) Difficult intubation (+) FEDE (obstructive sleep apnea) CARDIO (+) CAD (coronary artery disease) (+) Elevated coronary artery calcium score (+) Occlusion of right carotid artery (+) Primary hypertension (+) Stable angina ENDO (+) Acquired hypothyroidism GI (+) GERD (gastroesophageal reflux disease) NEURO-PSYCH (+) History of laryngeal cancer PULMONARY (+) FEDE (obstructive sleep apnea) I - PHYSICAL EVALUATION AIRWAY Patient intubated: No. Tracheostomy tube not present Mallampati: II. TM distance: >3 FB. Neck ROM: full ROM without neurological symptoms. Mouth opening: adequate. Short neck: yes. Thick neck: yes Desai present: yes DENTAL Dental findings: teeth intact and missing tooth/teeth. Additional exam findings: yes. CARDIOVASCULAR Rhythm: regular Rate: normal PULMONARY Breath sounds clear to auscultation. ABDOMINAL Obese: obesity present. II - ANESTHESIA PLAN ASA Score: 3 Anesthetic Plan: MAC The patient is not a current smoker. NPO Status: adequate Beta Brad Monitoring Plan Monitoring plan: standard ASA. Post Procedure Analgesic Plan Postoperative analgesic plan: multimodal analgesia. Informed Consent Anesthetic risks, benefits, alternatives, personnel and consent discussed: yes. Patient / Responsible Libertarian agrees to proceed: yes Patient / Surrogate agrees to blood products: blood products not planned DNR status not reviewed with patient and/or family prior to surgery. Significant changes in the patient condition since the History and Physical, not otherwise documented in primary service progress note: no. Potential Anesthesia issues that may suggest increased risk of complications or contraindication to planned procedure: none. No vitals data found for the desired time range. Outpatient Medications as of 07/24/2024 Medication Sig levothyroxine (SYNTHROID) 75 mcg tablet Take 1 tablet by mouth once daily pantoprazole DR (PROTONIX) 40 mg tablet Take 1 tablet by mouth once daily meloxicam (MOBIC) 7.5 mg tablet Take 1 tablet by mouth once daily. rosuvastatin (CRESTOR) 20 mg tablet TAKE 1 TABLET BY MOUTH ONCE DAILY AT BEDTIME aspirin, enteric coated (ECOTRIN LOW STRENGTH) 81 mg EC tablet Take 1 tablet by mouth once daily. carvedilol (COREG) 25 mg tablet Take 1 tablet by mouth two times a day. losartan (COZAAR) 50 mg tablet Take 1 tablet by mouth once daily. tamsulosin (FLOMAX) 0.4 mg Take 1 capsule by mouth once daily. methocarbamol (ROBAXIN) 500 mg tablet Take 1 tablet by mouth at bedtime as needed. fluticasone (FLONASE) 50 mcg/actuation nasal spray Use 2 spray(s) in each nostril once daily mupirocin (BACTROBAN) 2 % ointment Apply to affected area daily ticagrelor (BRILINTA) 90 mg tablet Take 1 tablet by mouth two times a day. tamsulosin (FLOMAX) 0.4 mg Take 1 capsule by mouth once daily azelastine 0.1% nasal spray Use 2 Sprays in each nostril two times a day as needed. Facility-Administered Medications as of 07/24/2024 Medication Dose Route Frequency lidocaine (PF) 10 mg/mL (1 %) 1-2 mg injection (XYLOCAINE) 0.1-0.2 mL INTRADERMAL PRN NaCl 0.9% iv infusion 50 mL/hr INTRAVENOUS CONTINUOUS I have interviewed and examined the patient. I have reviewed the medical record and/or the pre-anesthesia evaluation, pertinent labs, and test results. This contains updated information obtained within 48 hours of Surgery/Procedure. SIGNATURE: Citlalli James MD PATIENT NAME: Miki Sauceda DATE: July 24, 2024 TIME: 2:00 PM CSN: [id number] PROGRESS Observed: 07/21/2024 10:52 AM Status: COMPLETED Source: [facility] HN ID: [id number] Author: RIGO ANNA MD Service: ? Author Type: Physician Type: Progress Notes Filed: 07/21/2024 11:05 Note Text: [facility] DEPARTMENT OF VASCULAR SURGERY OUTPATIENT VISIT DATE July 21, 2024 OUTPATIENT VISIT TYPE CONSULTATION SERVICE DATE: 07/21/2024 SERVICE TIME: 10:52 AM PRIMARY CARE PHYSICIAN: No primary care provider on file. REFERRING PROVIDER: LUCIEN Consult requested for an opinion regarding the evaluation and treatment of the above. My final impression and recommendations will be communicated back to the requesting physician by way of the shared medical record or letter via US mail. CHIEF COMPLAINT: Dry eyes, tiredness HISTORY OF PRESENT ILLNESS: Vascular consultation at the request of Dr. Mtz. A copy of this consultation note will be provided to the requesting physician by way of shared Medical record or letter to requesting physician via US mail. Mr. Sauceda is a 58 year old male who is seen today for evaluation of dry eyes and frequent yawning. Patient reports that he had chemo in neck radiation in 2006 for laryngeal cancer. He was trached around that time. He was later found to have a right ICA occlusion that he is known about for some time. He denies any symptoms of unilateral numbness or weakness, amaurosis, difficulty with language production or comprehension. No document history of stroke or TIA. He is currently maintained on aspirin, Brilinta and rosuvastatin 20. Patient is quite insistent that his dry eyes and tiredness is the result of his right ICA occlusion. He has been told multiple times in the past that there is no surgery to reopen his occluded right ICA though he is insistent that he needs this for symptomatic relief. PAST MEDICAL HISTORY Diagnosis Date Adjustment disorder with anxious mood 09/16/2016 CAD (coronary artery disease) 07/21/2024 Chronic obstructive pulmonary disease (COPD) (HCC) Cigarette nicotine dependence in remission 02/06/2016 Reports not smoking for multiple weeks. 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 MATT Radiculitis 10/29/2016 Added automatically from request for surgery [id number] Snoring Spondylolysis, lumbosacral 07/24/2016 PAST SURGICAL HISTORY Procedure Laterality Date BACK SURGERY HX 2018 COLONOSCOPY DIAGNOSTIC 01/09/2021 polyps removed COLONOSCOPY DIAGNOSTIC 05/29/2016 EGD DIAGNOSTIC PAST SURGICAL HISTORY OF 11/20/2015 Biopsy/Trach SOCIAL HISTORY: Social History Tobacco Use Smoking status: Former Current packs/day: 0.00 Average packs/day: 1 pack/day for 30.0 years (30.0 ttl pk-yrs) Types: Cigarettes Start date: 10/30/1985 Quit date: 10/31/2015 Years since quittin.7 Smokeless tobacco: Never Tobacco comments: Smokes socially now or when drinking. -07/27/23 [place] Vaping Use Vaping status: Never Used Substance Use Topics Alcohol use: Yes Comment: 12 beers weekly, does not drink daily Drug use: No FAMILY HISTORY Problem Relation Age of Onset Cancer Mother breast Cancer Father small cell lung cancer Colon Cancer No Family History Anesthesia Problems No Family History MEDICATIONS: levothyroxine (SYNTHROID) 75 mcg tablet Take 1 tablet by mouth once daily tamsulosin (FLOMAX) 0.4 mg Take 1 capsule by mouth once daily. pantoprazole DR (PROTONIX) 40 mg tablet Take 1 tablet by mouth once daily meloxicam (MOBIC) 7.5 mg tablet Take 1 tablet by mouth once daily. methocarbamol (ROBAXIN) 500 mg tablet Take 1 tablet by mouth at bedtime as needed. rosuvastatin (CRESTOR) 20 mg tablet TAKE 1 TABLET BY MOUTH ONCE DAILY AT BEDTIME fluticasone (FLONASE) 50 mcg/actuation nasal spray Use 2 spray(s) in each nostril once daily mupirocin (BACTROBAN) 2 % ointment Apply to affected area daily ticagrelor (BRILINTA) 90 mg tablet Take 1 tablet by mouth two times a day. aspirin, enteric coated (ECOTRIN LOW STRENGTH) 81 mg EC tablet Take 1 tablet by mouth once daily. carvedilol (COREG) 25 mg tablet Take 1 tablet by mouth two times a day. losartan (COZAAR) 50 mg tablet Take 1 tablet by mouth once daily. tamsulosin (FLOMAX) 0.4 mg Take 1 capsule by mouth once daily azelastine 0.1% nasal spray Use 2 Sprays in each nostril two times a day as needed. ALLERGIES: ALLERGIES No Known Allergies REVIEW OF SYSTEM: CONSTITUTIONAL: Negative for fevers or chills. HEENT: Negative for significant headaches RESPIRATORY: Negative for cough, wheezing, or shortness of breath. CARDIOVASCULAR: Negative for chest pain, leg swelling or palpitations. GI: Negative for abdominal discomfort, blood in stools, black stools or change in bowel habits. : Negative for dysuria, frequency, incontinence or hematuria. MUSCULOSKELETAL: Negative for joint pain or swelling, back pain or muscle pain. ENDOCRINE: Negative for cold or heat intolerance, polyuria or polydipsia. HEMATOLOGIC/LYMPHATIC: Negative for prolonged bleeding, bruising easily or swollen nodes. NEUROLOGIC: Negative for headaches, syncope, paralysis, seizures, tremors, stroke/TIA or amaurosis fugax. INTEGUMENTARY: Negative for rash or itching. PHYSICAL EXAM: VITALS: BP 126/88 Pulse 66 Temp 98.7 Resp 18 Ht 6' 0 (1.83m) Wt 304 lb (137.9kg) SpO2 97% BMI 41.22 kg/(m2). General: Alert and oriented Integumentary: Normal color, no rash, no lesions. HEENT: EOM, pupils equal, round and reactive. Skin of the neck is supple with no clear radiation changes. No bruits. Cardiovascular: Normal S1 AND S2, no rubs, murmurs or gallops. No JVD. Lungs: Normal breath sounds, no wheezes or crackles. Abdomen: Soft, non-tender, no rigidity. Extremities: No deformity, no edema or tenderness, no joint swelling or clubbing. Neurological: Normal cognition and motor skills. Vascular: Palpable radials bilaterally. Diagnostic tests reviewed for today's visit: Non-Invasive Vascular Laboratory [facility] F30 Carotid Duplex Bilateral/Complete Date of service/time: 07/21/2024 9:56:17 AM Name: MR. MIKI SAUCEDA Date of : 1965 Age: 58 years Gender: M Clinical Indication Follow-up study on a patient with known carotid disease and previously known right internal carotid artery occlusion and left internal carotid artery 0-19AND stenosis 01/31/2024. TECHNIQUE -------- A carotid duplex ultrasound examination was performed, including grayscale imaging and color Doppler and spectral Doppler examination of the below mentioned arteries. FINDINGS -------- RIGHT SIDE Common carotid artery: Origin: PSV: 94 cm/s. EDV: 13 cm/s. Proximal: PSV: 59 cm/s. EDV: 12 cm/s. Mid: PSV: 52 cm/s. EDV: 10 cm/s. Distal: PSV: 44 cm/s. EDV: 8 cm/s. Mild heterogeneous plaque at distal. Internal carotid artery: Origin: PSV: 0 cm/s. EDV: 0 cm/s. Proximal: PSV: 0 cm/s. EDV: 0 cm/s. Occlusive heterogeneous plaque throughout. ICA/CCA Ratio: 0.0 External carotid artery: PSV: 79 cm/s. EDV: 17 cm/s. Subclavian artery: PSV: 248 cm/s. EDV: 0 cm/s. Innominate artery: PSV: 208 cm/s. EDV: 14 cm/s. Vertebral artery: PSV: 48 cm/s. EDV: 23 cm/s. LEFT SIDE Common carotid artery: Proximal: PSV: 95 cm/s. EDV: 36 cm/s. Mid: PSV: 85 cm/s. EDV: 29 cm/s. Distal: PSV: 68 cm/s. EDV: 23 cm/s. Mild heterogeneous irregular and calcified plaque at distal. Internal carotid artery: Origin: PSV: 78 cm/s. EDV: 31 cm/s. Proximal: PSV: 86 cm/s. EDV: 33 cm/s. Mid: PSV: 63 cm/s. EDV: 26 cm/s. Distal: PSV: 67 cm/s. EDV: 28 cm/s. Mild heterogeneous plaque from origin to proximal. ICA/CCA Ratio: 1.3 External carotid artery: PSV: 67 cm/s. EDV: 12 cm/s. Mild heterogeneous irregular and calcified plaque at origin. Subclavian artery: PSV: 136 cm/s. EDV: 19 cm/s. Vertebral artery: PSV: 65 cm/s. EDV: 23 cm/s. IMPRESSION Please note: the new carotid interpretation criteria are used as recommended by [employer]. Rigo Anna MD was notified with results at 10:30 am. When compared with the prior study, of 01/31/2024 no significant change is noted on the right side and no significant change is noted on the left side. RIGHT SIDE Common carotid artery: Plaque visualized without evidence of hemodynamically significant stenosis. Internal carotid artery: Total occlusion. Vertebral artery: Patent and antegrade flow noted. Abnormal signal suggests pre-steal. Innominate artery: Turbulent flow noted, cannot rule out more proximal stenosis. May wish other means of evaluation. Subclavian artery: Turbulent flow noted, cannot rule out more proximal subclavian artery stenosis. May wish other means of evaluation. LEFT SIDE Common carotid artery: Plaque visualized without evidence of hemodynamically significant stenosis. Acoustic shadowing over mid common carotid artery likely secondary to history of radiation therapy. Internal carotid artery: <50% stenosis consistent with mild carotid artery disease. Tortuous vessel throughout . Vertebral artery: Patent and antegrade flow noted. IMPRESSION: Mr. Sauceda is a 58 year old male with history of laryngeal cancer status post chemo and radiation as well as tracheostomy that has since been removed. He has a known right ICA occlusion and some elevated velocities in his right subclavian and innominate. He has no history of TIA or stroke. His main complaint today is dry eyes and tiredness that he feels is due to his brain not getting enough oxygen. Discussed with him at length that his right ICA occlusion is not amenable to intervention and would not explain his symptoms of dry eyes or tiredness. He was told this by his human resources services specialist as well who has been following his carotids however he wanted to seek a second opinion. PLAN and RECOMMENDATIONS: -Recommend continue optimal medical management with dual platelet therapy and high intensity statin regimen -He would like to continue to follow with his human resources services specialist who has been surveilling his left carotid for him SIGNATURE: Rigo Anna MD PATIENT NAME: Miki Sauceda DATE: July 21, 2024 TIME: 10:52 AM CNOV Observed: 07/21/2024 10:00 AM Status: COMPLETED Source: [facility] Office Visit ([facility]) VLADISLAVBOWENMIKI ORNELAS ([id number]) 1965 M Date Time Provider Department 07/21/24 10:00 AM RIGO ANNA During your visit today, we recorded the following information about you: Temperature Pulse Respiration Blood pressure 98.7 degrees 66/minute 18/minute 126/88 Weight Height 137.9 kg 1.829 m Rigo Anna MD 07/21/2024 11:05 AM Signed [facility] DEPART[facility] OF VASCULAR SURGERY OUTPATIENT VISIT DATE July 21, 2024 OUTPATIENT VISIT TYPE CONSULTATION SERVICE DATE: 07/21/2024 SERVICE TIME: 10:52 AM PRIMARY CARE PHYSICIAN: No primary care provider on file. REFERRING PROVIDER: SELF Consult requested for an opinion regarding the evaluation and treatment of the above. My final impression and recommendations will be communicated back to the requesting physician by way of the shared medical record or letter via [place] mail. CHIEF COMPLAINT: Dry eyes, tiredness HISTORY OF PRESENT ILLNESS: Vascular consultation at the request of Dr. Mtz. A copy of this consultation note will be provided to the requesting physician by way of shared Medical record or letter to requesting physician via [place] mail. Mr. Sauceda is a 58 year old male who is seen today for evaluation of dry eyes and frequent yawning. Patient reports that he had chemo in neck radiation in 2006 for laryngeal cancer. He was trached around that time. He was later found to have a right ICA occlusion that he is known about for some time. He denies any symptoms of unilateral numbness or weakness, amaurosis, difficulty with language production or comprehension. No document history of stroke or TIA. He is currently maintained on aspirin, Brilinta and rosuvastatin 20. Patient is quite insistent that his dry eyes and tiredness is the result of his right ICA occlusion. He has been told multiple times in the past that there is no surgery to reopen his occluded right ICA though he is insistent that he needs this for symptomatic relief. PAST MEDICAL HISTORY Diagnosis Date Adjustment disorder with anxious mood 09/16/2016 CAD (coronary artery disease) 07/21/2024 Chronic obstructive pulmonary disease (COPD) (HCC) Cigarette nicotine dependence in remission 02/06/2016 Reports not smoking for multiple weeks. 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 [id number] stage MATT Radiculitis 10/29/2016 Added automatically from request for surgery [id number] Snoring Spondylolysis, lumbosacral 07/24/2016 PAST SURGICAL HISTORY Procedure Laterality Date BACK SURGERY HX 2018 COLONOSCOPY DIAGNOSTIC 01/09/2021 polyps removed COLONOSCOPY DIAGNOSTIC 05/29/2016 EGD DIAGNOSTIC PAST SURGICAL HISTORY OF 11/20/2015 Biopsy/Trach SOCIAL HISTORY: Social History Tobacco Use Smoking status: Former Current packs/day: 0.00 Average packs/day: 1 pack/day for 30.0 years (30.0 ttl pk-yrs) Types: Cigarettes Start date: 10/30/1985 Quit date: 10/31/2015 Years since quittin.7 Smokeless tobacco: Never Tobacco comments: Smokes socially now or when drinking. -07/27/23 [place] Vaping Use Vaping status: Never Used Substance Use Topics Alcohol use: Yes Comment: 12 beers weekly, does not drink daily Drug use: No FAMILY HISTORY Problem Relation Age of Onset Cancer Mother breast Cancer Father small cell lung cancer Colon Cancer No Family History Anesthesia Problems No Family History MEDICATIONS: levothyroxine (SYNTHROID) 75 mcg tablet Take 1 tablet by mouth once daily tamsulosin (FLOMAX) 0.4 mg Take 1 capsule by mouth once daily. pantoprazole DR (PROTONIX) 40 mg tablet Take 1 tablet by mouth once daily meloxicam (MOBIC) 7.5 mg tablet Take 1 tablet by mouth once daily. methocarbamol (ROBAXIN) 500 mg tablet Take 1 tablet by mouth at bedtime as needed. rosuvastatin (CRESTOR) 20 mg tablet TAKE 1 TABLET BY MOUTH ONCE DAILY AT BEDTIME fluticasone (FLONASE) 50 mcg/actuation nasal spray Use 2 spray(s) in each nostril once daily mupirocin (BACTROBAN) 2 % ointment Apply to affected area daily ticagrelor (BRILINTA) 90 mg tablet Take 1 tablet by mouth two times a day. aspirin, enteric coated (ECOTRIN LOW STRENGTH) 81 mg EC tablet Take 1 tablet by mouth once daily. carvedilol (COREG) 25 mg tablet Take 1 tablet by mouth two times a day. losartan (COZAAR) 50 mg tablet Take 1 tablet by mouth once daily. tamsulosin (FLOMAX) 0.4 mg Take 1 capsule by mouth once daily azelastine 0.1% nasal spray Use 2 Sprays in each nostril two times a day as needed. ALLERGIES: ALLERGIES No Known Allergies REVIEW OF SYSTEM: CONSTITUTIONAL: Negative for fevers or chills. HEENT: Negative for significant headaches RESPIRATORY: Negative for cough, wheezing, or shortness of breath. CARDIOVASCULAR: Negative for chest pain, leg swelling or palpitations. GI: Negative for abdominal discomfort, blood in stools, black stools or change in bowel habits. : Negative for dysuria, frequency, incontinence or hematuria. MUSCULOSKELETAL: Negative for joint pain or swelling, back pain or muscle pain. ENDOCRINE: Negative for cold or heat intolerance, polyuria or polydipsia. HEMATOLOGIC/LYMPHATIC: Negative for prolonged bleeding, bruising easily or swollen nodes. NEUROLOGIC: Negative for headaches, syncope, paralysis, seizures, tremors, stroke/TIA or amaurosis fugax. INTEGUMENTARY: Negative for rash or itching. PHYSICAL EXAM: VITALS: BP 126/88 Pulse 66 Temp 98.7 Resp 18 Ht 6' 0 (1.83m) Wt 304 lb (137.9kg) SpO2 97% BMI 41.22 kg/(m2). General: Alert and oriented Integumentary: Normal color, no rash, no lesions. HEENT: EOM, pupils equal, round and reactive. Skin of the neck is supple with no clear radiation changes. No bruits. Cardiovascular: Normal S1 AND S2, no rubs, murmurs or gallops. No JVD. Lungs: Normal breath sounds, no wheezes or crackles. Abdomen: Soft, non-tender, no rigidity. Extremities: No deformity, no edema or tenderness, no joint swelling or clubbing. Neurological: Normal cognition and motor skills. Vascular: Palpable radials bilaterally. Diagnostic tests reviewed for today's visit: Non-Invasive Vascular Laboratory [facility] F30 Carotid Duplex Bilateral/Complete Date of service/time: 07/21/2024 9:56:17 AM Name: MR. MIKI SAUCEDA Date of : 1965 Age: 58 years Gender: M Clinical Indication Follow-up study on a patient with known carotid disease and previously known right internal carotid artery occlusion and left internal carotid artery 0-19AND stenosis 01/31/2024. TECHNIQUE -------- A carotid duplex ultrasound examination was performed, including grayscale imaging and color Doppler and spectral Doppler examination of the below mentioned arteries. FINDINGS -------- RIGHT SIDE Common carotid artery: Origin: PSV: 94 cm/s. EDV: 13 cm/s. Proximal: PSV: 59 cm/s. EDV: 12 cm/s. Mid: PSV: 52 cm/s. EDV: 10 cm/s. Distal: PSV: 44 cm/s. EDV: 8 cm/s. Mild heterogeneous plaque at distal. Internal carotid artery: Origin: PSV: 0 cm/s. EDV: 0 cm/s. Proximal: PSV: 0 cm/s. EDV: 0 cm/s. Occlusive heterogeneous plaque throughout. ICA/CCA Ratio: 0.0 External carotid artery: PSV: 79 cm/s. EDV: 17 cm/s. Subclavian artery: PSV: 248 cm/s. EDV: 0 cm/s. Innominate artery: PSV: 208 cm/s. EDV: 14 cm/s. Vertebral artery: PSV: 48 cm/s. EDV: 23 cm/s. LEFT SIDE Common carotid artery: Proximal: PSV: 95 cm/s. EDV: 36 cm/s. Mid: PSV: 85 cm/s. EDV: 29 cm/s. Distal: PSV: 68 cm/s. EDV: 23 cm/s. Mild heterogeneous irregular and calcified plaque at distal. Internal carotid artery: Origin: PSV: 78 cm/s. EDV: 31 cm/s. Proximal: PSV: 86 cm/s. EDV: 33 cm/s. Mid: PSV: 63 cm/s. EDV: 26 cm/s. Distal: PSV: 67 cm/s. EDV: 28 cm/s. Mild heterogeneous plaque from origin to proximal. ICA/CCA Ratio: 1.3 External carotid artery: PSV: 67 cm/s. EDV: 12 cm/s. Mild heterogeneous irregular and calcified plaque at origin. Subclavian artery: PSV: 136 cm/s. EDV: 19 cm/s. Vertebral artery: PSV: 65 cm/s. EDV: 23 cm/s. IMPRESSION Please note: the new carotid interpretation criteria are used as recommended by [employer]. Rigo Anna MD was notified with results at 10:30 am. When compared with the prior study, of 01/31/2024 no significant change is noted on the right side and no significant change is noted on the left side. RIGHT SIDE Common carotid artery: Plaque visualized without evidence of hemodynamically significant stenosis. Internal carotid artery: Total occlusion. Vertebral artery: Patent and antegrade flow noted. Abnormal signal suggests pre-steal. Innominate artery: Turbulent flow noted, cannot rule out more proximal stenosis. May wish other means of evaluation. Subclavian artery: Turbulent flow noted, cannot rule out more proximal subclavian artery stenosis. May wish other means of evaluation. LEFT SIDE Common carotid artery: Plaque visualized without evidence of hemodynamically significant stenosis. Acoustic shadowing over mid common carotid artery likely secondary to history of radiation therapy. Internal carotid artery: <50% stenosis consistent with mild carotid artery disease. Tortuous vessel throughout . Vertebral artery: Patent and antegrade flow noted. IMPRESSION: Mr. Sauceda is a 58 year old male with history of laryngeal cancer status post chemo and radiation as well as tracheostomy that has since been removed. He has a known right ICA occlusion and some elevated velocities in his right subclavian and innominate. He has no history of TIA or stroke. His main complaint today is dry eyes and tiredness that he feels is due to his brain not getting enough oxygen. Discussed with him at length that his right ICA occlusion is not amenable to intervention and would not explain his symptoms of dry eyes or tiredness. He was told this by his human resources services specialist as well who has been following his carotids however he wanted to seek a second opinion. PLAN and RECOMMENDATIONS: -Recommend continue optimal medical management with dual platelet therapy and high intensity statin regimen -He would like to continue to follow with his human resources services specialist who has been surveilling his left carotid for him SIGNATURE: Rigo Anna MD PATIENT NAME: Miki Sauceda DATE: July 21, 2024 TIME: 10:52 AM Referring Provider: SELF [[id number]] Allergies As of Date: 07/21/2024 (No Known Allergies) Date Reviewed: 07/21/2024 Reviewed by: Hernan Wong - Fully Assessed Reason for Visit: Consult [[id number]] Primary Visit Diagnosis:Occlusion of right carotid artery [I65.21] Other Visit Diagnoses:Mixed hyperlipidemia [E78.2] Stenosis of left carotid artery without cerebral infarction [I65.22] Prescriptions as of 07/21/2024 - levothyroxine (SYNTHROID) 75 mcg tablet Take 1 tablet by mouth once daily - tamsulosin (FLOMAX) 0.4 mg Take 1 capsule by mouth once daily. - pantoprazole DR (PROTONIX) 40 mg tablet Take 1 tablet by mouth once daily - meloxicam (MOBIC) 7.5 mg tablet Take 1 tablet by mouth once daily. - methocarbamol (ROBAXIN) 500 mg tablet Take 1 tablet by mouth at bedtime as needed. - rosuvastatin (CRESTOR) 20 mg tablet TAKE 1 TABLET BY MOUTH ONCE DAILY AT BEDTIME - fluticasone (FLONASE) 50 mcg/actuation nasal spray Use 2 spray(s) in each nostril once daily - mupirocin (BACTROBAN) 2 % ointment Apply to affected area daily - ticagrelor (BRILINTA) 90 mg tablet Take 1 tablet by mouth two times a day. - aspirin, enteric coated (ECOTRIN LOW STRENGTH) 81 mg EC tablet Take 1 tablet by mouth once daily. - carvedilol (COREG) 25 mg tablet Take 1 tablet by mouth two times a day. - losartan (COZAAR) 50 mg tablet Take 1 tablet by mouth once daily. - tamsulosin (FLOMAX) 0.4 mg Take 1 capsule by mouth once daily - azelastine 0.1% nasal spray Use 2 Sprays in each nostril two times a day as needed. Problem List As Of Date 07/21/2024 Noted Resolved Larynx cancer (HCC) [C32.9] 01/06/2016 09/16/2016 Difficulty coping with disease [R45.89] 01/06/2016 Malignant neoplasm of subglottis (HCC) [C32.2] 01/19/2016 Degenerative spondylolisthesis [M43.10] 05/28/2016 07/23/2016 Spondylolysis, lumbosacral [M43.07] 07/24/2016 Adjustment disorder with anxious mood [F43.22] 09/16/2016 Radiculitis [M54.10] 10/29/2016 Primary hypertension [I10] 11/10/2016 Larynx cancer (HCC) [C32.9] 01/06/2016 Laryngeal cancer (HCC) [C32.9] 11/04/2015 Degenerative spondylolisthesis [M43.10] 05/28/2016 Former smoker [Z87.891] History of laryngeal cancer [Z85.21] 03/10/2017 Hoarseness [R49.0] 03/10/2017 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] 04/19/2017 Spinal stenosis, lumbar region with neurogenic *04/19/2017 Lumbar stenosis with neurogenic claudication [M*05/19/2017 Obesity (BMI 35.0-39.9 without comorbidity) [E6*11/07/2020 Difficult intubation [T88.4XXA] 11/07/2020 FEDE (obstructive sleep apnea) [G47.33] 11/07/2020 Alcohol use [F10.90] 11/07/2020 S/P lumbar spinal fusion [Z98.1] 01/16/2021 Chronic midline low back pain without sciatica *01/16/2021 Degenerative lumbar disc [M51.369] 01/16/2021 Lumbar spondylosis [M47.816] 01/20/2022 GERD (gastroesophageal reflux disease) [K21.9] 03/22/2023 Acquired hypothyroidism [E03.9] 03/22/2023 BMI 40.0-44.9, adult (HCC) [Z68.41] 07/27/2023 Stable angina (HCC) [I20.89] 11/26/2023 Elevated coronary artery calcium score [R93.1] 11/26/2023 CAD (coronary artery disease) [I25.10] 07/21/2024 HLD (hyperlipidemia) [E78.5] 07/21/2024 Occlusion of right carotid artery [I65.21] 07/21/2024 Level of Service: OFFICE/OUTPATIENT [facility] 45 MINUTES [74787] Encounter Status:Closed by RIGO ANNA on 07/21/24 CAROTID ARTERIES [facility] Observed: 07/21/2024 9:56 AM Status: F Source: [facility]In[facility] F30 Carotid Duplex Bilateral/Complete Date of service/time: 07/21/2024 9:56:17 AM Name: MR. MIKI SAUCEDA Date of : 1965 Age: 58 years Gender: M Clinical Indication Follow-up study on a patient with known carotid disease and previously known right internal carotid artery occlusion and left internal carotid artery 0-19& stenosis 01/31/2024. TECHNIQUE -------- A carotid duplex ultrasound examination was performed, including grayscale imaging and color Doppler and spectral Doppler examination of the below mentioned arteries. FINDINGS -------- RIGHT SIDE Common carotid artery: Origin: PSV: 94 cm/s. EDV: 13 cm/s. Proximal: PSV: 59 cm/s. EDV: 12 cm/s. Mid: PSV: 52 cm/s. EDV: 10 cm/s. Distal: PSV: 44 cm/s. EDV: 8 cm/s. Mild heterogeneous plaque at distal. Internal carotid artery: Origin: PSV: 0 cm/s. EDV: 0 cm/s. Proximal: PSV: 0 cm/s. EDV: 0 cm/s. Occlusive heterogeneous plaque throughout. ICA/CCA Ratio: 0.0 External carotid artery: PSV: 79 cm/s. EDV: 17 cm/s. Subclavian artery: PSV: 248 cm/s. EDV: 0 cm/s. Innominate artery: PSV: 208 cm/s. EDV: 14 cm/s. Vertebral artery: PSV: 48 cm/s. EDV: 23 cm/s. LEFT SIDE Common carotid artery: Proximal: PSV: 95 cm/s. EDV: 36 cm/s. Mid: PSV: 85 cm/s. EDV: 29 cm/s. Distal: PSV: 68 cm/s. EDV: 23 cm/s. Mild heterogeneous irregular and calcified plaque at distal. Internal carotid artery: Origin: PSV: 78 cm/s. EDV: 31 cm/s. Proximal: PSV: 86 cm/s. EDV: 33 cm/s. Mid: PSV: 63 cm/s. EDV: 26 cm/s. Distal: PSV: 67 cm/s. EDV: 28 cm/s. Mild heterogeneous plaque from origin to proximal. ICA/CCA Ratio: 1.3 External carotid artery: PSV: 67 cm/s. EDV: 12 cm/s. Mild heterogeneous irregular and calcified plaque at origin. Subclavian artery: PSV: 136 cm/s. EDV: 19 cm/s. Vertebral artery: PSV: 65 cm/s. EDV: 23 cm/s. IMPRESSION Please note: the new carotid interpretation criteria are used as recommended by [employer]. Rigo Anna MD was notified with results at 10:30 am. When compared with the prior study, of 01/31/2024 no significant change is noted on the right side and no significant change is noted on the left side. RIGHT SIDE Common carotid artery: Plaque visualized without evidence of hemodynamically significant stenosis. Internal carotid artery: Total occlusion. Known occlusion. Vertebral artery: Patent and antegrade flow noted. Abnormal signal suggests pre-steal. Innominate artery: Turbulent flow noted, cannot rule out more proximal stenosis. May wish other means of evaluation. Subclavian artery: Turbulent flow noted, cannot rule out more proximal subclavian artery stenosis. May wish other means of evaluation. LEFT SIDE Common carotid artery: Plaque visualized without evidence of hemodynamically significant stenosis. Acoustic shadowing noted over mid common carotid artery in patient with history of radiation therapy. Internal carotid artery: <50% stenosis consistent with mild carotid artery disease. Tortuous vessel throughout . Vertebral artery: Patent and antegrade flow noted. Technologist: Burt Bustos T Ordering physician: RIGO ANNA Interpreting physician: Ananya Soto MD, RPVI Final CC [employer] [facility] Image : [id number] See Link below for Image HISTORY PHYSICAL Observed: 07/21/2024 7:40 AM Status: COMPLETED Source: [facility] HNO ID: [id number] Author: DAVID GONZALEZ APRN.LEWIS Service: ? Author Type: Nurse Practitioner Type: H&P Filed: 07/21/2024 13:37 Note Text: HISTORY AND PHYSICAL EXAMINATION SERVICE DATE: 07/21/2024 SERVICE TIME: 7:45 AM PRIMARY CARE PHYSICIAN: No primary care provider on file. REASON FOR VISIT: Miki Sauceda is a 58 year old male who is scheduled for at the request of Dr. Christy Belcher Jr. for consultation. My final recommendation will be communicated back to the requesting physician by way of shared medical record or letter. Assessment Patient has the following medical conditions which may affect silvina-operative course: FEDE (obstructive sleep apnea) Assessment: Complaint with CPAP Primary hypertension Assessment: Controlled with medication management 123/81 in office today GERD (gastroesophageal reflux disease) Assessment: Controlled with PPI BMI 40.0-44.9, adult (HCC) Assessment: Body mass index is 41.26 kg/m?. Acquired hypothyroidism Assessment: Controlled with levothyroxine TSH Date Value Ref Range Status 06/06/2024 3.000 0.270 - 4.200 mIU/L Final CAD (coronary artery disease) Assessment: Stable S/p ANGEL x3 on 11/26/2023 ON DAPT and statin Hold Brilinta 5 days prior to procedure Denies any chest pain or SOB Follows with [facility] Dr. Drew RIGGINS 05/17/2024 HLD (hyperlipidemia) Assessment: Compliant with Statin Cholesterol, Total Date Value Ref Range Status 08/26/2023 188 <200 mg/dL Final Comment: <200 mg/dL, Desirable 200-239 mg/dL, Borderline high >239 mg/dL, High HDL Cholesterol Date Value Ref Range Status 08/26/2023 29 (L) >39 mg/dL Final Comment: 40-59 mg/dL, Acceptable >59 mg/dL, High: Negative risk factor for coronary heart disease <40 mg/dL, Low: Positive risk factor for coronary heart disease LDL Cholesterol Date Value Ref Range Status 08/26/2023 80 <100 mg/dL Final Comment: <100 mg/dL, Optimal 100-129 mg/dL, Near optimal/above optimal 130-159 mg/dL, Borderline high 160-189 mg/dL, High >189 mg/dL, Very high Secondary prevention optimal LDL Cholesterol levels are recommended to be < 70 mg/dL Triglyceride Date Value Ref Range Status 08/26/2023 393 (H) <150 mg/dL Final Comment: <150 mg/dL, Normal 150-199 mg/dL, Borderline high 200-499 mg/dL, High >499 mg/dL, Very high Former smoker Assessment: Quit 1 month ago 30 Pack years Laryngeal cancer (HCC) Assessment: diagnosed 2016 s/p chemo and radiation. Had trach until ~ 2017 No known recurrence Difficult intubation Assessment: Previously had a difficult airway d/t laryngeal cancer. Since that time he has had surgery with easy intubation. Documented by Dr. Wright on 11/21/20 Alcohol use Assessment: Social on weekend ~ 12 beers Occlusion of right carotid artery Assessment: Occluded per 01/31/2024 CUS Left side was 0-19% On ASA and Statin Patient has an appointment with Vascular today ANESTHESIA FINDINGS: Intubation History: No history of difficult intubation Significant Anesthesia Considerations: potential difficult intubation Airway History: Previously Documented Difficult airway d/y Laryngeal cancer Per Anesthesia note 04/09/23, no difficult airway documented Final Airway Details Final airway type: endotracheal airway Final Endotracheal Airway: ETT Cuffed: yes Successful intubation technique: video laryngoscopy Devices used: Nonoba Endotracheal tube insertion site: oral Blade: Adriana Blade size: #4 ETT size (mm): 7.5 Measured from: lips Measurement (cm): 23 Placement verified by: capnometry Cormack-Lehane Classification: grade I - full view of glottis Number of attempts at approach: 1 Airway not difficult No history of difficult airway Difficult airway documented by an anesthesiologist during past surgical procedure History of head/neck radiation that distorted airway, including mouth, neck, or their mobility Norris Activity Status Index: METS: Walk indoors, such as around the house (1.75 METs) Do light work around the house, such as dusting or washing dishes (2.70 METs) Take care of self; that is eating, dressing, bathing, using the toilet (2.75 METs) Walk a block or two on level ground (2.75 METs) Do moderate work around the house, such as vacuuming, sweeping floors, or carrying in groceries (3.50 METs) Climb a flight of stairs or walk up a hill (5.50 METs) DASI Score: 18.95 Patient denies any chest pain or undue shortness of breath with the above physical activity. STOP-Bang Score: STOP-Bang Score: 0 (+Uses CPAP) [id number] Score: Age: <65 Sex: male CHF history: No Hypertension history: Yes Stroke/TIA/thromboembolism history: No Vascular disease history: Yes Diabetes history: No [id number] Score: 2 ARISCAT Score: Age: 51-80 Preoperative SpO2: >=96% Preoperative anemia: Yes Duration of surgery: <2 hrs Emergency procedure: No ARISCAT Score: I - PHYSICAL EVALUATION AIRWAY Patient intubated: No. Tracheostomy tube not present Mallampati: II. TM distance: >3 FB. Neck ROM: full ROM without neurological symptoms. Mouth opening: adequate. Short neck: no. Thick neck: no Lip Bite Test: II Microretrognathia/Micronagthia/Recessed Chin: No DENTAL Dental findings: teeth intact. II - ANESTHESIA PLAN Beta Brad Monitoring Plan Post Procedure Analgesic Plan Prepared for surgery: This patient is optimally prepared for surgery Per Cardiology May hold Brilinta for 5 days prior to procedure. CONSULTS: Patient does not require consults for optimization at this time. The Following Tests/Procedures Have Been Initiated: Labs not indicated per [facility] protocol, EKG not indicated per [facility] protocol Planned Anesthetic: Per anesthesia choice Subjective CHIEF COMPLAINT: Epigastric Pain HPI: 58 year old year old presents to [facility] for evaluation. Patient has had epigastric pain > 1 year. No vomiting or fevers. Has elected for surgical intervention. PAST MEDICAL HISTORY Diagnosis Date Adjustment disorder with anxious mood 09/16/2016 CAD (coronary artery disease) 07/21/2024 Chronic obstructive pulmonary disease (COPD) (HCC) Cigarette nicotine dependence in remission 02/06/2016 Reports not smoking for multiple weeks. 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 MATT Radiculitis 10/29/2016 Added automatically from request for surgery [id number] Snoring Spondylolysis, lumbosacral 07/24/2016 PAST SURGICAL HISTORY Procedure Laterality Date BACK SURGERY HX 2018 COLONOSCOPY DIAGNOSTIC 01/09/2021 polyps removed COLONOSCOPY DIAGNOSTIC 05/29/2016 EGD DIAGNOSTIC PAST SURGICAL HISTORY OF 11/20/2015 Biopsy/Trach FAMILY HISTORY Problem Relation Age of Onset Cancer Mother breast Cancer Father small cell lung cancer Colon Cancer No Family History Anesthesia Problems No Family History SOCIAL HISTORY: Social History Tobacco Use Smoking status: Former Current packs/day: 0.00 Average packs/day: 1 pack/day for 30.0 years (30.0 ttl pk-yrs) Types: Cigarettes Start date: 10/30/1985 Quit date: 10/31/2015 Years since quittin.7 Smokeless tobacco: Never Tobacco comments: Smokes socially now or when drinking. -07/27/23 YnesNathan Vaping Use Vaping status: Never Used Substance Use Topics Alcohol use: Yes Comment: 12 beers weekly, does not drink daily Drug use: No Prior to Admission medications as of 07/21/24 0741 Medication Sig Last Dose Taking levothyroxine (SYNTHROID) 75 mcg tablet Take 1 tablet by mouth once daily Yes tamsulosin (FLOMAX) 0.4 mg Take 1 capsule by mouth once daily. Yes pantoprazole DR (PROTONIX) 40 mg tablet Take 1 tablet by mouth once daily Yes meloxicam (MOBIC) 7.5 mg tablet Take 1 tablet by mouth once daily. Yes methocarbamol (ROBAXIN) 500 mg tablet Take 1 tablet by mouth at bedtime as needed. Yes rosuvastatin (CRESTOR) 20 mg tablet TAKE 1 TABLET BY MOUTH ONCE DAILY AT BEDTIME Yes fluticasone (FLONASE) 50 mcg/actuation nasal spray Use 2 spray(s) in each nostril once daily Yes mupirocin (BACTROBAN) 2 % ointment Apply to affected area daily Yes ticagrelor (BRILINTA) 90 mg tablet Take 1 tablet by mouth two times a day. Yes aspirin, enteric coated (ECOTRIN LOW STRENGTH) 81 mg EC tablet Take 1 tablet by mouth once daily. Yes carvedilol (COREG) 25 mg tablet Take 1 tablet by mouth two times a day. Yes losartan (COZAAR) 50 mg tablet Take 1 tablet by mouth once daily. Yes tamsulosin (FLOMAX) 0.4 mg Take 1 capsule by mouth once daily Yes azelastine 0.1% nasal spray Use 2 Sprays in each nostril two times a day as needed. Yes No medication comments found. ALLERGIES No Known Allergies Covid Immunization Dates Current Care Gaps Covid-19 Vaccine ( season) Overdue since 12/05/2023 03/17/2021 Imm Admin: COVID-19 original vaccine, age 12+ yr, monovalent ([facility]) 08/12/2020 Imm Admin: COVID-19 original vaccine, age 12+ yr, monovalent ([facility]) 07/22/2020 Imm Admin: COVID-19 original vaccine, age 12+ yr, monovalent ([facility]) REVIEW OF SYSTEMS: PAIN ASSESSMENT: General: No weight loss, malaise or fevers. Neuro: No history of TIA's, stroke, DISTRICT LEADER tumor, impaired sensorium, hemiplegia, paraplegia or quadraplegia. No neurological symptoms or problems. Respiratory: No history of current cough or dyspnea, or pneumonia in the past 6 weeks. No history of respiratory/pulmonary symptoms or problems. +FEDE Cardiovascular: Negative for Recent MO, Angina, Chest Pain, PVD, DVT/PE +HTN +HLD +R Carotid artery occlusion +CAD s/p stents x3 GI: Negative for Nausea, Vomiting, Abdominal pain +GERD +Difficult intubation : Negative for dysuria, incontinence, hematuria, and hesitancy Endocrine: Hypothyroidism Hematology: Chronic anti-coagulation / platelet meds (Aspirin, Ticagrelor) Oncology: +H/o laryngeal Cancer s/p chem and radiation Psych: No history of psychiatric symptoms or problems. Musculoskeletal: Back pain Skin: Negative for lesions, rash and itching. Objective PHYSICAL EXAM: VITALS: BP 123/81 Pulse 63 Temp (Src) 97.7 (Oral) Resp 16 Ht 6' 0 (1.83m) Wt 304 lb 3.8 oz (138.0kg) SpO2 97% BMI 41.25 kg/(m2). General: Alert and oriented Skin: Normal color, no rash, no lesions. HEENT: EOM, pupils equal, round and reactive. Cardiovascular: Normal S1 AND S2, no rubs, murmurs or gallops. No JVD. Pulse regular. Lungs: Normal breath sounds, no wheezes or crackles. Abdomen: Soft, non-tender, no rigidity. Extremities: No deformity, no edema or tenderness, no joint swelling or clubbing. Neurological: Normal cognition and motor skills. Pulses: Carotid and radial pulses normal +2. Diagnostic tests reviewed for today's visit: Lab Value Units Date High Low HB No results within date range. HCT No results within date range. WBC No results within date range. PLT No results within date range. NA No results within date range. K No results within date range. GLUC No results within date range. BUN No results within date range. CREAT No results within date range. PTSEC No results within date range. INR No results within date range. APTT No results within date range. ALT No results within date range. AST No results within date range. TBILI No results within date range. TSH 3.000 mIU/L 06/06/2024 4.200 0.270 Hemoglobin A1C (%) Date Value 05/12/2017 5.2 Recent Results (from the past 8760 hours) ECG COMPLETE Collection Time: 05/17/24 9:42 AM Result Value Ventricular Rate 77 Atrial Rate 77 P-R Interval 158 QRS Duration 98 QT Interval 370 QTC Calculation (Bazett) 418 Calculated P [place] 40 Calculated R [place] 53 Calculated T [place] -13 Impression NORMAL SINUS RHYTHM ABNORMAL QRS-T ANGLE, CONSIDER PRIMARY T WAVE ABNORMALITY ABNORMAL ECG Confirmed by ERNESTO HILARIO M.D. ([id number]) on 05/17/2024 3:22:41 PM STRESS TEST 06/06/2024 CONCLUSIONS: 1. PET Perfusion Study: Normal. 2. No evidence of ischemia. 3. No evidence of scarred myocardium. 4. Left ventricle is normal in size. The left ventricle systolic function is normal. 5. Right ventricle is normal in size. The right ventricle systolic function is normal. 6. This is a low risk scan. Gated Stress TOF:SC:CTAC Gated Rest TOF:SC:CTAC LVEF % 65 56 CAROTID US 01/31/2024 IMPRESSION Kodi Sullivan MD was notified with results at 0900. Compared to prior study of 04/14/2021, right ICA now occluded, left unchanged. RIGHT SIDE Internal carotid artery: Occluded. Vertebral artery: Patent and antegrade flow noted. Subclavian artery: Plaque visualized without evidence of hemodynamically significant stenosis. LEFT SIDE Common carotid artery: Plaque visualized without evidence of hemodynamically significant stenosis. Internal carotid artery: 0-19% stenosis. Tortuous vessel at proximal . Vertebral artery: Patent and antegrade flow noted. Subclavian artery: Patent. Instructions Given to Patient: Instructions located in the after visit summary. Patient given verbal and written preop instructions and voices comprehension and compliance. SIGNATURE: David Gonzalez APRN.CNP PATIENT NAME: Miki Sauceda DATE: 07/21/2024 TIME: 7:25 AM CNPN Observed: 07/10/2024 12:00 AM Status: COMPLETED Source: [facility] Telephone (PODCCP) MIKI SAUCEDA ([id number]) 1965 M Date Time Provider Department 07/10/24 NO PCP (HIST) POD[facility]P During your visit today, we recorded the following information about you: Erin Mendoza 07/10/2024 1:16 PM Signed Reason for call: Mr. Sauceda would like to reschedule his 07/14/[address] Anna Home and cell number [phone] Diagnosis Carotid artery occlusion syndrome Best regardsErin Nadine 07/11/2024 1:30 PM Signed Spoke with patient appt rescheduled to 07/21/[address] Anna. Allergies As of Date: 07/10/2024 (No Known Allergies) Date Reviewed: 06/06/2024 Reviewed by: Mckenzie Rust MA - Fully Assessed Reason for Visit: Appointment [186] Prescriptions as of 07/11/2024 - levothyroxine (SYNTHROID) 75 mcg tablet Take 1 tablet by mouth once daily - tamsulosin (FLOMAX) 0.4 mg Take 1 capsule by mouth once daily. - pantoprazole DR (PROTONIX) 40 mg tablet Take 1 tablet by mouth once daily - meloxicam (MOBIC) 7.5 mg tablet Take 1 tablet by mouth once daily. - methocarbamol (ROBAXIN) 500 mg tablet Take 1 tablet by mouth at bedtime as needed. - rosuvastatin (CRESTOR) 20 mg tablet TAKE 1 TABLET BY MOUTH ONCE DAILY AT BEDTIME - fluticasone (FLONASE) 50 mcg/actuation nasal spray Use 2 spray(s) in each nostril once daily - mupirocin (BACTROBAN) 2 % ointment Apply to affected area daily - ticagrelor (BRILINTA) 90 mg tablet Take 1 tablet by mouth two times a day. - aspirin, enteric coated (ECOTRIN LOW STRENGTH) 81 mg EC tablet Take 1 tablet by mouth once daily. - carvedilol (COREG) 25 mg tablet Take 1 tablet by mouth two times a day. - losartan (COZAAR) 50 mg tablet Take 1 tablet by mouth once daily. - tamsulosin (FLOMAX) 0.4 mg Take 1 capsule by mouth once daily - azelastine 0.1% nasal spray Use 2 Sprays in each nostril two times a day as needed. Problem List As Of Date 07/10/2024 Noted Resolved Larynx cancer (HCC) [C32.9] 01/06/2016 09/16/2016 Difficulty coping with disease [R45.89] 01/06/2016 Malignant neoplasm of subglottis (HCC) [C32.2] 01/19/2016 Degenerative spondylolisthesis [M43.10] 05/28/2016 07/23/2016 Spondylolysis, lumbosacral [M43.07] 07/24/2016 Adjustment disorder with anxious mood [F43.22] 09/16/2016 Radiculitis [M54.10] 10/29/2016 Primary hypertension [I10] 11/10/2016 Larynx cancer (HCC) [C32.9] 01/06/2016 Laryngeal cancer (HCC) [C32.9] 11/04/2015 Degenerative spondylolisthesis [M43.10] 05/28/2016 Former smoker [Z87.891] History of laryngeal cancer [Z85.21] 03/10/2017 Hoarseness [R49.0] 03/10/2017 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] 04/19/2017 Spinal stenosis, lumbar region with neurogenic *04/19/2017 Lumbar stenosis with neurogenic claudication [M*05/19/2017 Obesity (BMI 35.0-39.9 without comorbidity) [E6*11/07/2020 Difficult intubation [T88.4XXA] 11/07/2020 FEDE (obstructive sleep apnea) [G47.33] 11/07/2020 Alcohol use [F10.90] 11/07/2020 S/P lumbar spinal fusion [Z98.1] 01/16/2021 Chronic midline low back pain without sciatica *01/16/2021 Degenerative lumbar disc [M51.369] 01/16/2021 Lumbar spondylosis [M47.816] 01/20/2022 GERD (gastroesophageal reflux disease) [K21.9] 03/22/2023 Acquired hypothyroidism [E03.9] 03/22/2023 BMI 40.0-44.9, adult (HCC) [Z68.41] 07/27/2023 Stable angina (HCC) [I20.89] 11/26/2023 Elevated coronary artery calcium score [R93.1] 11/26/2023 Encounter Status:Closed by ERIN MENDOZA on 07/10/24 CNPN Observed: 06/30/2024 12:00 AM Status: COMPLETED Source: [facility] Telephone (HVI) MIKI SAUCEDA ([id number]) 1965 M Date Time Provider Department 06/30/24 NOT AVAILABE (HIST) [facility] During your visit today, we recorded the following information about you: Michelle Malik 06/30/2024 8:40 AM Signed Reason for call: Mr Sauceda would like to schedule a consult with a vascular surgeon. A male doctor if possible. Referral in [facility] Contact: Diagnosis: Carotid artery occlusion syndrome Kind regards Shaila Fisher 06/30/2024 9:16 AM Signed Triage Shaila Rivera 06/30/2024 11:07 AM Signed scheduled Allergies As of Date: 06/30/2024 (No Known Allergies) Date Reviewed: 06/06/2024 Reviewed by: Mckenzie Rust MA - Fully Assessed Reason for Visit: Appointment [186] Prescriptions as of 06/30/2024 - tamsulosin (FLOMAX) 0.4 mg Take 1 capsule by mouth once daily. - pantoprazole DR (PROTONIX) 40 mg tablet Take 1 tablet by mouth once daily - meloxicam (MOBIC) 7.5 mg tablet Take 1 tablet by mouth once daily. - methocarbamol (ROBAXIN) 500 mg tablet Take 1 tablet by mouth at bedtime as needed. - levothyroxine (SYNTHROID) 75 mcg tablet Take 1 tablet by mouth once daily - rosuvastatin (CRESTOR) 20 mg tablet TAKE 1 TABLET BY MOUTH ONCE DAILY AT BEDTIME - fluticasone (FLONASE) 50 mcg/actuation nasal spray Use 2 spray(s) in each nostril once daily - mupirocin (BACTROBAN) 2 % ointment Apply to affected area daily - ticagrelor (BRILINTA) 90 mg tablet Take 1 tablet by mouth two times a day. - aspirin, enteric coated (ECOTRIN LOW STRENGTH) 81 mg EC tablet Take 1 tablet by mouth once daily. - carvedilol (COREG) 25 mg tablet Take 1 tablet by mouth two times a day. - losartan (COZAAR) 50 mg tablet Take 1 tablet by mouth once daily. - tamsulosin (FLOMAX) 0.4 mg Take 1 capsule by mouth once daily - azelastine 0.1% nasal spray Use 2 Sprays in each nostril two times a day as needed. Problem List As Of Date 06/30/2024 Noted Resolved Larynx cancer (HCC) [C32.9] 01/06/2016 09/16/2016 Difficulty coping with disease [R45.89] 01/06/2016 Malignant neoplasm of subglottis (HCC) [C32.2] 01/19/2016 Degenerative spondylolisthesis [M43.10] 05/28/2016 07/23/2016 Spondylolysis, lumbosacral [M43.07] 07/24/2016 Adjustment disorder with anxious mood [F43.22] 09/16/2016 Radiculitis [M54.10] 10/29/2016 Primary hypertension [I10] 11/10/2016 Larynx cancer (HCC) [C32.9] 01/06/2016 Laryngeal cancer (HCC) [C32.9] 11/04/2015 Degenerative spondylolisthesis [M43.10] 05/28/2016 Former smoker [Z87.891] History of laryngeal cancer [Z85.21] 03/10/2017 Hoarseness [R49.0] 03/10/2017 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] 04/19/2017 Spinal stenosis, lumbar region with neurogenic *04/19/2017 Lumbar stenosis with neurogenic claudication [M*05/19/2017 Obesity (BMI 35.0-39.9 without comorbidity) [E6*11/07/2020 Difficult intubation [T88.4XXA] 11/07/2020 FEDE (obstructive sleep apnea) [G47.33] 11/07/2020 Alcohol use [Z78.9] 11/07/2020 S/P lumbar spinal fusion [Z98.1] 01/16/2021 Chronic midline low back pain without sciatica *01/16/2021 Degenerative lumbar disc [M51.369] 01/16/2021 Lumbar spondylosis [M47.816] 01/20/2022 GERD (gastroesophageal reflux disease) [K21.9] 03/22/2023 Acquired hypothyroidism [E03.9] 03/22/2023 BMI 40.0-44.9, adult (HCC) [Z68.41] 07/27/2023 Stable angina (HCC) [I20.89] 11/26/2023 Elevated coronary artery calcium score [R93.1] 11/26/2023 Encounter Status:Closed by MICHELLE MALIK on 06/30/24 CISCO Observed: 06/28/2024 12:00 AM Status: COMPLETED Source: [facility] Telephone (GASTAV) MIKI SUACEDA ([id number]) 1965 M Date Time Provider Department 06/28/24 CHRISTY BELCHER JR During your visit today, we recorded the following information about you: Adela Bledsoe OCCA 06/28/2024 2:06 PM Signed Called pt regarding prep instructions for upcoming procedure on 07/24/2024 . Pt does not have My Chart access so informed pt prep instructions will be mailed to their home address we have on file, also to please call [phone] and ask for Nurse triage with any questions, concerns, or if prep instructions are not received. NICOLÁS Milton BELOW ARE THE INSTRUCTIONS THAT WERE SENT OUT!! EGD Prep Instructions The surgical center will call you the afternoon prior to your procedure with your arrival time. You will need to have a responsible adult to come with you and to remain with you until discharge. Take all other medications as instructed by your doctor. Dietary Restrictions: -No solid food after midnight. -You may have clear liquids (water, clear juices such as apple juice or Gatorade, carbonated beverages, clear tea, black coffee, jello) until 2 hours before scheduled arrival at facility. After this time do not have anything by mouth which includes water, gum, candy, chewing tobacco, snuff or food items. Medications Please bring a list of all of your current medications, including any rzep-[id number] medications, with you. If you take insulin, medications for diabetes, blood thinners, anti-inflammatory, or weight loss medications you must call the doctor who orders those medications for instructions on altering the dosage before your colonoscopy. Blood thinners include Coumadin? (warfarin); Plavix?(clopidogrel); Ticlid? (ticlopidine hydrochloride); Agrylin? (anagrelide); Xarelto? (Rivaroxaban); Pradaxa? (Dabigatran); Eliquis? (Apixaban); and Effient? (Prasugrel). Diabetes/Weight loss medications include Oral: Bexagliflozin (Benzavvy?) Canagliflozin (Invokana?) Dapagliflozin (Farziga?) Empagliflozin (Jardiance?) Ertugliflozin (Steglatro?) Semaglutide (Rybelsus?) Injectable: Dulaglutide (Trulicity?) Exenatide (Byeta?, Bydureon?) Liraglutide (Victoza?, Saxenda?) Semaglutide (Ozempic?, Wegovy?) Tirzepatide (Mounjaro?) All other medications, including aspirin, should be taken the day of the exam with a sip of water. Important Reminders: - Candy, mints, and tobacco products are NOT permitted the morning of Procedure/Surgery. - Hearing aids, dentures and glasses may be worn the morning of Procedure/Surgery. If you develop symptoms such as a fever, cold, or flu, or have other changes to your health within TWO DAYS of your scheduled Procedure/Surgery or the morning of Procedure/Surgery, please contact the surgery center where you are scheduled. - YOU MUST HAVE A RESPONSIBLE IP LITIGATION PARALEGAL TAKE YOU HOME. A SHRINK PIT OPERATOR OR CAT AND DOG BATHER CANNOT BE MADE A RESPONSIBLE IP LITIGATION PARALEGAL. Please call [phone] and ask for Nurse Triage with any Questions or Concerns. Thank You Allergies As of Date: 06/28/2024 (No Known Allergies) Date Reviewed: 06/06/2024 Reviewed by: Mckenzie Rust MA - Fully Assessed Reason for Visit: mailing prep instructions [Other] Prescriptions as of 06/28/2024 - tamsulosin (FLOMAX) 0.4 mg Take 1 capsule by mouth once daily. - pantoprazole DR (PROTONIX) 40 mg tablet Take 1 tablet by mouth once daily - meloxicam (MOBIC) 7.5 mg tablet Take 1 tablet by mouth once daily. - methocarbamol (ROBAXIN) 500 mg tablet Take 1 tablet by mouth at bedtime as needed. - levothyroxine (SYNTHROID) 75 mcg tablet Take 1 tablet by mouth once daily - rosuvastatin (CRESTOR) 20 mg tablet TAKE 1 TABLET BY MOUTH ONCE DAILY AT BEDTIME - fluticasone (FLONASE) 50 mcg/actuation nasal spray Use 2 spray(s) in each nostril once daily - mupirocin (BACTROBAN) 2 % ointment Apply to affected area daily - ticagrelor (BRILINTA) 90 mg tablet Take 1 tablet by mouth two times a day. - aspirin, enteric coated (ECOTRIN LOW STRENGTH) 81 mg EC tablet Take 1 tablet by mouth once daily. - carvedilol (COREG) 25 mg tablet Take 1 tablet by mouth two times a day. - losartan (COZAAR) 50 mg tablet Take 1 tablet by mouth once daily. - tamsulosin (FLOMAX) 0.4 mg Take 1 capsule by mouth once daily - azelastine 0.1% nasal spray Use 2 Sprays in each nostril two times a day as needed. 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] 01/06/2016 Laryngeal cancer (HCC) [C32.9] 11/04/2015 Degenerative spondylolisthesis [M43.10] 05/28/2016 Former smoker [Z87.891] History of laryngeal cancer [Z85.21] 03/10/2017 Hoarseness [R49.0] 03/10/2017 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] 04/19/2017 Spinal stenosis, lumbar region with neurogenic *04/19/2017 Lumbar stenosis with neurogenic claudication [M*05/19/2017 Obesity (BMI 35.0-39.9 without comorbidity) [E6*11/07/2020 Difficult intubation [T88.4XXA] 11/07/2020 FEDE (obstructive sleep apnea) [G47.33] 11/07/2020 Alcohol use [Z78.9] 11/07/2020 S/P lumbar spinal fusion [Z98.1] 01/16/2021 Chronic midline low back pain without sciatica *01/16/2021 Degenerative lumbar disc [M51.369] 01/16/2021 Lumbar spondylosis [M47.816] 01/20/2022 GERD (gastroesophageal reflux disease) [K21.9] 03/22/2023 Acquired hypothyroidism [E03.9] 03/22/2023 BMI 40.0-44.9, adult (HCC) [Z68.41] 07/27/2023 Stable angina (HCC) [I20.89] 11/26/2023 Elevated coronary artery calcium score [R93.1] 11/26/2023 Encounter Status:Closed by ADELA BLEDSOE on 06/28/24 CISCO Observed: 06/23/2024 12:00 AM Status: COMPLETED Source: [facility] Telephone (OTMNCA) MIKI SAUCEDA ([id number]) 1965 M Date Time Provider Department 06/23/24 ANA SEVILLA During your visit today, we recorded the following information about you: Ana Sevilla APRN.CNP 06/23/2024 10:01 AM Signed (G45.1) 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 - pantoprazole DR (PROTONIX) 40 mg tablet Take 1 tablet by mouth once daily - meloxicam (MOBIC) 7.5 mg tablet Take 1 tablet by mouth once daily. - methocarbamol (ROBAXIN) 500 mg tablet Take 1 tablet by mouth at bedtime as needed. - levothyroxine (SYNTHROID) 75 mcg tablet Take 1 tablet by mouth once daily - rosuvastatin (CRESTOR) 20 mg tablet TAKE 1 TABLET BY MOUTH ONCE DAILY AT BEDTIME - fluticasone (FLONASE) 50 mcg/actuation nasal spray Use 2 spray(s) in each nostril once daily - mupirocin (BACTROBAN) 2 % ointment Apply to affected area daily - ticagrelor (BRILINTA) 90 mg tablet Take 1 tablet by mouth two times a day. - aspirin, enteric coated (ECOTRIN LOW STRENGTH) 81 mg EC tablet Take 1 tablet by mouth once daily. - carvedilol (COREG) 25 mg tablet Take 1 tablet by mouth two times a day. - losartan (COZAAR) 50 mg tablet Take 1 tablet by mouth once daily. - tamsulosin (FLOMAX) 0.4 mg Take 1 capsule by mouth once daily - azelastine 0.1% nasal spray Use 2 Sprays in each nostril two times a day as needed. 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] 07/24/2016 Adjustment disorder with anxious mood [F43.22] 09/16/2016 Radiculitis [M54.10] 10/29/2016 Primary hypertension [I10] 11/10/2016 Larynx cancer (HCC) [C32.9] 01/06/2016 Laryngeal cancer (HCC) [C32.9] 11/04/2015 Degenerative spondylolisthesis [M43.10] 05/28/2016 Former smoker [Z87.891] History of laryngeal cancer [Z85.21] 03/10/2017 Hoarseness [R49.0] 03/10/2017 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] 04/19/2017 Spinal stenosis, lumbar region with neurogenic *04/19/2017 Lumbar stenosis with neurogenic claudication [M*05/19/2017 Obesity (BMI 35.0-39.9 without comorbidity) [E6*11/07/2020 Difficult intubation [T88.4XXA] 11/07/2020 FEDE (obstructive sleep apnea) [G47.33] 11/07/2020 Alcohol use [Z78.9] 11/07/2020 S/P lumbar spinal fusion [Z98.1] 01/16/2021 Chronic midline low back pain without sciatica *01/16/2021 Degenerative lumbar disc [M51.369] 01/16/2021 Lumbar spondylosis [M47.816] 01/20/2022 GERD (gastroesophageal reflux disease) [K21.9] 03/22/2023 Acquired hypothyroidism [E03.9] 03/22/2023 BMI 40.0-44.9, adult (HCC) [Z68.41] 07/27/2023 Stable angina (HCC) [I20.89] 11/26/2023 Elevated coronary artery calcium score [R93.1] 11/26/2023 Encounter Status:Closed by ANA SEVILLA on 06/23/24 PROGRESS Observed: 06/21/2024 6:38 AM Status: COMPLETED Source: [facility] HNO ID: [id number] Author: VINNY MCKINLEY RN Service: ? Author Type: Registered Nurse Type: Progress Notes Filed: 06/22/2024 10:21 Note Text: RN Pre Visit Questionnaire for upcoming PACC appointment PROCEDURE : EGD SURGEON : Christy Belcher Jr., MD PROCEDURE DATE : 07/24/24 PACC APPT : 07/14/24 Prepared for surgery: Anticoagulant recommendations received: Yes RN Pre Visit Questionnaire completed by [facility] chart review and completed with patient. Do you see a human resources services specialist, space officer, hr clerk or other specialist within or outside of [facility]? SPECIALISTS: CARDIOLOGY: Satin Finisher Dr. Kodi Sullivan, Last office visit 05/17/24 PULMONARY: DR Scot Richmond VAISHNAVI 07/27/[address] Russell VAISHNAVI 05/03/24 Gastro Zeeshan Stone PA-C VAISHNAVI 03/23/[address] Nasim Ennis VAISHNAVI 07/13/23 Office Visit with Jason Nassar DO (05/03/2024) Spine Office Visit with Kodi Sullivan MD (05/17/2024) Cards Office Visit with Scot Richmond MD (07/27/2023) Pulm Office Visit with Zeehsan Stone PA-C (03/23/2024) Gastro Office Visit with Nasim Ennis DO (07/13/2023) Ortho Are you on an anticoagulant PACC Anticoagulant: Yes Medication : Brillinta (Ticagrelor) Stents: Yes, Coronary RCA 3 ANGEL 11/26/23 Have you been provided instructions: Yes Anticoagulation recommendations : Found in TE on 06/21/24 Provider : Dr Conchis Pizano APRN UPHOLSTERY TRIMMER Anticoagulation instructions : May hold for 5 days prior to procedure. Do NOT interrupt aspirin. HX: 09/16/2016 Adjustment disorder with anxious mood Chronic obstructive pulmonary disease (COPD) (HCC) Cigarette nicotine dependence in remission 02/06/2016 Reports not smoking for multiple weeks. 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 No Are you a Pre Diabetic/Diabetic/Weight loss/CHF medications No Dialysis No Skilled Facility Resident: no Any recent hospitalizations outside of [facility]? No Please have an up-to-date list of medications in preparation for your PACC visit. Instructions Given to Patient: Patient given verbal preop instructions and voices comprehension and compliance. SIGNATURE: Vinny Mckinley RN PATIENT NAME: Miki Sauceda DATE: June 21, 2024 TIME: 6:38 AM PAGER/CONTACT PHONE: CISCO Observed: 06/21/2024 12:00 AM Status: COMPLETED Source: [facility] Telephone (Phylogy) MIKI SAUCEDA ([id number]) 1965 M Date Time Provider Department 06/21/24 VINNY MCKINLEY During your visit today, we recorded the following information about you: Vinny Mckinley RN 06/21/2024 7:38 AM Signed Good morning Dr. Sullivan Patient Miki Sauceda is scheduled for EGD on 07/24/24 with Christy Shukla Jr., MD Please advise if okay to hold ticagrelor for 5 days prior to procedure per PACC Guidelines. Thank you Pre Anesthesia Consult Clinic Vinny Mckinley RN June 21, 2024 7:30 AM Isabella Donnelly RN 06/21/2024 11:13 AM Signed Request to hold Aspirin, Plavix, Brilinta or Effient Procedure being performed: EGD Date procedure is being performed: 07/24/24 Patient is prescribed: Brilinta History of CABG?No date: History of PCI/stent? Yes date: 11/26/23 Conchis Pizano APRN.CNP 06/21/2024 1:34 PM Signed May hold for 5 days prior to procedure. Do NOT interrupt aspirin. Thank you! Conchis Pizano APRN.CNP Allergies As of Date: 06/21/2024 (No Known Allergies) Date Reviewed: 06/06/2024 Reviewed by: Mckenzie Rsut MA - Fully Assessed Reason for Visit: Preparations For Surgery [898] Cmt: Brillinta Prescriptions as of 06/21/2024 - tamsulosin (FLOMAX) 0.4 mg Take 1 capsule by mouth once daily. - pantoprazole DR (PROTONIX) 40 mg tablet Take 1 tablet by mouth once daily - meloxicam (MOBIC) 7.5 mg tablet Take 1 tablet by mouth once daily. - methocarbamol (ROBAXIN) 500 mg tablet Take 1 tablet by mouth at bedtime as needed. - levothyroxine (SYNTHROID) 75 mcg tablet Take 1 tablet by mouth once daily - rosuvastatin (CRESTOR) 20 mg tablet TAKE 1 TABLET BY MOUTH ONCE DAILY AT BEDTIME - fluticasone (FLONASE) 50 mcg/actuation nasal spray Use 2 spray(s) in each nostril once daily - mupirocin (BACTROBAN) 2 % ointment Apply to affected area daily - ticagrelor (BRILINTA) 90 mg tablet Take 1 tablet by mouth two times a day. - aspirin, enteric coated (ECOTRIN LOW STRENGTH) 81 mg EC tablet Take 1 tablet by mouth once daily. - carvedilol (COREG) 25 mg tablet Take 1 tablet by mouth two times a day. - losartan (COZAAR) 50 mg tablet Take 1 tablet by mouth once daily. - tamsulosin (FLOMAX) 0.4 mg Take 1 capsule by mouth once daily - azelastine 0.1% nasal spray Use 2 Sprays in each nostril two times a day as needed. 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] 07/24/2016 Adjustment disorder with anxious mood [F43.22] 09/16/2016 Radiculitis [M54.10] 10/29/2016 Primary hypertension [I10] 11/10/2016 Larynx cancer (HCC) [C32.9] 01/06/2016 Laryngeal cancer (HCC) [C32.9] 11/04/2015 Degenerative spondylolisthesis [M43.10] 05/28/2016 Former smoker [Z87.891] History of laryngeal cancer [Z85.21] 03/10/2017 Hoarseness [R49.0] 03/10/2017 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] 04/19/2017 Spinal stenosis, lumbar region with neurogenic *04/19/2017 Lumbar stenosis with neurogenic claudication [M*05/19/2017 Obesity (BMI 35.0-39.9 without comorbidity) [E6*11/07/2020 Difficult intubation [T88.4XXA] 11/07/2020 FEDE (obstructive sleep apnea) [G47.33] 11/07/2020 Alcohol use [Z78.9] 11/07/2020 S/P lumbar spinal fusion [Z98.1] 01/16/2021 Chronic midline low back pain without sciatica *01/16/2021 Degenerative lumbar disc [M51.369] 01/16/2021 Lumbar spondylosis [M47.816] 01/20/2022 GERD (gastroesophageal reflux disease) [K21.9] 03/22/2023 Acquired hypothyroidism [E03.9] 03/22/2023 BMI 40.0-44.9, adult (HCC) [Z68.41] 07/27/2023 Stable angina (HCC) [I20.89] 11/26/2023 Elevated coronary artery calcium score [R93.1] 11/26/2023 Encounter Status:Closed by VINNY MCKINLEY on 06/21/24 CISCO Observed: 06/16/2024 12:00 AM Status: COMPLETED Source: [facility] Telephone (INTMAL) MIKI SAUCEDA ([id number]) 1965 M Date Time Provider Department 06/16/24 KODI SULLIVAN During your visit today, we recorded the following information about you: Elaina Strong 06/16/2024 11:53 AM Oleksandr Luong is calling Kodi Sullivan MD today to request a call back to discuss stress test and imaging results. Please call patient to advise. Patient has been identified by name and birthdate. Duration of symptoms: N/A Person calling: self Call patient at: at home [phone] (home) [phone] (cell) Was an appointment scheduled: No Closing statement: Results or non-symptom based questions: Thank you for calling [facility], your call will be returned within the next business day. Thank you, Leonidas Tucker 06/23/2024 9:03 AM Signed Please advise patient is calling back asking if a nurse can call him back about results. Patient states he has not heard anything. Renae Fox, RN 06/23/2024 9:45 AM Signed Called and spoke to patient per below, and he is anxious about how he is feeling for what he feels is related to his occluded carotid artery. He says despite Dr. Sullivan saying he can't have surgery, he would like to be referred to a vascular surgeon to proceed with surgery. I advised he speak to Dr. Sullivan about this, and I let him know he would be here on Wednesday in the office if he would like to call back and try to catch him. Allergies As of Date: 06/16/2024 (No Known Allergies) Date Reviewed: 06/06/2024 Reviewed by: Mckenzie Rust MA - Fully Assessed Reason for Visit: Results [95] Prescriptions as of 06/23/2024 - tamsulosin (FLOMAX) 0.4 mg Take 1 capsule by mouth once daily. - pantoprazole DR (PROTONIX) 40 mg tablet Take 1 tablet by mouth once daily - meloxicam (MOBIC) 7.5 mg tablet Take 1 tablet by mouth once daily. - methocarbamol (ROBAXIN) 500 mg tablet Take 1 tablet by mouth at bedtime as needed. - levothyroxine (SYNTHROID) 75 mcg tablet Take 1 tablet by mouth once daily - rosuvastatin (CRESTOR) 20 mg tablet TAKE 1 TABLET BY MOUTH ONCE DAILY AT BEDTIME - fluticasone (FLONASE) 50 mcg/actuation nasal spray Use 2 spray(s) in each nostril once daily - mupirocin (BACTROBAN) 2 % ointment Apply to affected area daily - ticagrelor (BRILINTA) 90 mg tablet Take 1 tablet by mouth two times a day. - aspirin, enteric coated (ECOTRIN LOW STRENGTH) 81 mg EC tablet Take 1 tablet by mouth once daily. - carvedilol (COREG) 25 mg tablet Take 1 tablet by mouth two times a day. - losartan (COZAAR) 50 mg tablet Take 1 tablet by mouth once daily. - tamsulosin (FLOMAX) 0.4 mg Take 1 capsule by mouth once daily - azelastine 0.1% nasal spray Use 2 Sprays in each nostril two times a day as needed. 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] 07/24/2016 Adjustment disorder with anxious mood [F43.22] 09/16/2016 Radiculitis [M54.10] 10/29/2016 Primary hypertension [I10] 11/10/2016 Larynx cancer (HCC) [C32.9] 01/06/2016 Laryngeal cancer (HCC) [C32.9] 11/04/2015 Degenerative spondylolisthesis [M43.10] 05/28/2016 Former smoker [Z87.891] History of laryngeal cancer [Z85.21] 03/10/2017 Hoarseness [R49.0] 03/10/2017 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] 04/19/2017 Spinal stenosis, lumbar region with neurogenic *04/19/2017 Lumbar stenosis with neurogenic claudication [M*05/19/2017 Obesity (BMI 35.0-39.9 without comorbidity) [E6*11/07/2020 Difficult intubation [T88.4XXA] 11/07/2020 FEDE (obstructive sleep apnea) [G47.33] 11/07/2020 Alcohol use [Z78.9] 11/07/2020 S/P lumbar spinal fusion [Z98.1] 01/16/2021 Chronic midline low back pain without sciatica *01/16/2021 Degenerative lumbar disc [M51.369] 01/16/2021 Lumbar spondylosis [M47.816] 01/20/2022 GERD (gastroesophageal reflux disease) [K21.9] 03/22/2023 Acquired hypothyroidism [E03.9] 03/22/2023 BMI 40.0-44.9, adult (HCC) [Z68.41] 07/27/2023 Stable angina (HCC) [I20.89] 11/26/2023 Elevated coronary artery calcium score [R93.1] 11/26/2023 Encounter Status:Closed by ELAINA STRONG on 06/23/24 PROGRESS Observed: 06/06/2024 1:10 PM Status: COMPLETED Source: [facility] HNO ID: [id number] Author: ANA SEVILLA APRN.UPHOLSTERY TRIMMER Service: ? Author Type: Nurse Practitioner Type: Progress Notes Filed: 06/06/2024 13:12 Note Text: [facility] Note CC: oncologic follow up Patient of Dr. Hackett Last clinic visit on: 05/27/2023 HPI: Patient is a 58 year old male with a history of T4N0 SCCa of subglottic larynx. He underwent chemoXRT to larynx and bilateral neck lymph nodes, 70 Gy in 35 fx of 2.0 Gy/fx with concurrent Cisplatin completed 03/13/16. questions/concerns today include: does not feel well overall vision feels blurry does feel better when he eats has had 3 stents placed follows with cardiology no dysphagia no ear pain no throat pain Last 2 Encounter Wt Readings: Date: Wt: 06/06/2024 138.8 kg (306 lb) 05/17/2024 138.9 kg (306 lb 3.5 oz) BP (!) 95/49 (BP Position: Sitting) Pulse 88 Temp 36.3 ?C (97.4 ?F) Wt (!) 138.8 kg (306 lb) SpO2 96% BMI 42.68 kg/m? bp rechecked with manual cuff- 120's over 60's Current Outpatient Medications Medication Sig Dispense Refill tamsulosin (FLOMAX) 0.4 mg Take 1 capsule by mouth once daily. [address] (PROTONIX) 40 mg tablet Take 1 tablet by mouth once daily 90 tablet 0 meloxicam (MOBIC) 7.5 mg tablet Take 1 tablet by mouth once daily. 90 tablet 3 methocarbamol (ROBAXIN) 500 mg tablet Take 1 tablet by mouth at bedtime as needed. 90 tablet 3 levothyroxine (SYNTHROID) 75 mcg tablet Take 1 tablet by mouth once daily 90 tablet 0 rosuvastatin (CRESTOR) 20 mg tablet TAKE 1 TABLET BY MOUTH ONCE DAILY AT BEDTIME 90 tablet 3 fluticasone (FLONASE) 50 mcg/actuation nasal spray Use 2 spray(s) in each nostril once daily 16 g 5 mupirocin (BACTROBAN) 2 % ointment Apply to affected area daily 22 g 0 ticagrelor (BRILINTA) 90 mg tablet Take 1 tablet by mouth two times a day. 180 tablet 3 aspirin, enteric coated (ECOTRIN LOW STRENGTH) 81 mg EC tablet Take 1 tablet by mouth once daily. carvedilol (COREG) 25 mg tablet Take 1 tablet by mouth two times a day. 180 tablet 3 losartan (COZAAR) 50 mg tablet Take 1 tablet by mouth once daily. 90 tablet 3 tamsulosin (FLOMAX) 0.4 mg Take 1 capsule by mouth once daily (Patient not taking: Reported on 06/01/2024) 90 capsule 3 azelastine 0.1% nasal spray Use 2 Sprays in each nostril two times a day as needed. 90 mL 3 No current facility-administered medications for this visit. ALLERGIES No Known Allergies EXAM: Constitutional - General Appearance: well developed, well nourished, without obvious deformities Communication: speaks with a hoarse voice Head AND Face - Overall: no obvious scars, lesions or masses Parotid and submandibular glands: no masses or tenderness Facial strength: normal and equal bilaterally Ear, Nose, Mouth AND Throat - Ears: bilateral cerumen impaction -encouraged debrox Nasal exam: mucosa is pink, septum is without perforation, visible turbinates are normal on anterior rhinoscopy Mastication: multiple missing teeth Oral Cavity and oropharynx: mucosa, hard and soft palates, tongue, tonsil area, posterior pharyngeal wall, lips and gums are without lesions Neck: , radiation fibrosis to his left neck, otherwise appears symmetric, and on palpation is without masses or lymphadenopathy Thyroid: no asymmetry, thyromegaly, or thyroid nodules on palpation Neuro: CN III - CN XII grossly intact Procedure: Flexible laryngoscopy was performed because of the following indication: hx of subglottic ca , mirror exam limited by gag reflex. With the patient sitting upright, informed consent was obtained. Declined xylocaine/neosynephrine, the flexible scope was placed in a transnasal fashion via left nares. The nasopharynx, oropharynx, were normal there was pooling of secretions in the hypopharynx including the pyriform sinuses The base of tongue showed no gross lesions. The larynx itself showed no lesions. Exam recorded on [facility] Procedure performed by Ana Sevilla APRN.CNP and reviewed with patient IMAGIN06/07/2024 CT NECK IMPRESSION: Primary NIRADS Category: 1. Expected post-treatment changes in the neck without evidence of recurrent disease in the primary site. Neck NIRADS Category: 1. No evidence of abnormal lymph nodes. 06/07/2024 CT CHEST IMPRESSION: No interval change with no convincing findings of metastatic disease in the thorax. TSH Date Value 05/27/2023 3.780 mIU/L 05/27/2022 3.930 mIU/L 10/16/2020 1.610 uU/mL 03/13/2020 5.790 uU/mL Latest Ref Rng AND Units 05/27/2023 08/26/2023 11/19/2023 CMP Sodium 136 - 144 mmol/L 139 140 139 Potassium 3.7 - 5.1 mmol/L 4.0 4.2 4.1 Chloride 98 - 107 mmol/L 103 104 105 CO2 22 - 30 mmol/L 23 23 26 Glucose 74 - 99 mg/dL 92 94 101 BUN 9 - 24 mg/dL 10 11 13 Creatinine 0.73 - 1.22 mg/dL 0.72 0.76 0.79 EGFR >=60 mL/min/1.73m? 107 105 104 Protein, Total 6.3 - 8.0 g/dL 6.8 7.0 Albumin 3.9 - 4.9 g/dL 4.3 4.2 Calcium 8.5 - 10.2 mg/dL 9.0 9.2 9.1 Bilirubin, Total 0.2 - 1.3 mg/dL 0.2 0.5 AST 14 - 40 U/L 21 22 ALT 10 - 54 U/L 22 23 Alkaline Phosphatase 38 - 113 U/L 79 80 Latest Ref Rng AND Units 10/13/2022 05/27/2023 11/19/2023 CBC WBC 3.70 - 11.00 k/uL 8.60 8.42 9.20 RBC 4.20 - 6.00 m/uL 5.78 5.34 5.40 Hemoglobin 13.0 - 17.0 g/dL 17.3 15.9 16.4 Hematocrit 39.0 - 51.0 % 51.4 46.6 46.3 MCV 80.0 - 100.0 fL 88.9 87.3 85.7 MCH 26.0 - 34.0 pg 29.9 29.8 30.4 MCHC 30.5 - 36.0 g/dL 33.7 34.1 35.4 RDW-CV 11.5 - 15.0 % 13.7 13.6 13.4 Platelet Count 150 - 400 k/uL 174 176 148 MPV 9.0 - 12.7 fL 11.6 10.2 10.0 Baso% % 0.6 0.8 Abs Neut (ANC) 1.45 - 7.50 k/uL 5.39 4.74 Abs Lymph 1.00 - 4.00 k/uL 2.19 2.39 Abs Snyder <0.87 k/uL 0.65 0.76 Abs Eosin <0.46 k/uL 0.29 0.41 Abs Baso <0.11 k/uL 0.05 0.07 NRBC /100 WBC 0.0 0.0 ASSESSMENT: Miki Sauceda is a 58 year old male with hx T4N0 SCCa of subglottic larynx. He underwent chemoXRT to larynx and bilateral neck lymph nodes, 70 Gy in 35 fx of 2.0 Gy/fx with concurrent Cisplatin completed 03/13/16. Pt is currently 8y 3mo out from treatment PLAN AND RECOMMENDATIONS: (Z08) Encounter for follow-up examination after completed treatment for malignant neoplasm (primary encounter diagnosis) (Z85.21) History of glottic cancer Comment: at this time I do not see any evidence of new or recurrent disease on exam. Plan: flex scope completed today Encouraged continued use of salt/soda oral rinse along with neck massage / stretches daily RTC in 1y in coordinated fashion Ana Sevilla APRN.UPHOLSTERY TRIMMER Elements of this note, including HPI, ROS, Physical Exam, Assessment and Plan were copied and pasted from my last office visit on 05/27/2023. Updates have been made where needed and reflect current exam and medical decision making from 06/05/2024 I spent a total of 34 minutes on the date of the service which included preparing to see the patient, [id number] patient care, completing clinical documentation, obtaining and/or reviewing separately obtained history, performing a medically appropriate examination, counseling and educating the patient/family/caregiver, and communicating with other HCPs (not separately reported). CNOV Observed: 06/06/2024 1:10 PM Status: COMPLETED Source: [facility] Office Visit ([facility]) MIKI SAUCEDA ([id number]) 1965 M Date Time Provider Department 06/06/24 1:10 PM ANA SEVILLA During your visit today, we recorded the following information about you: Temperature Pulse Blood pressure Weight 97.4 degrees 88/minute 95/49 138.8 kg Ana Sevilla APRN.CNP 06/06/2024 1:12 PM Signed [facility] CC: oncologic follow up Patient of Dr. Hackett Last clinic visit on: 05/27/2023 HPI: Patient is a 58 year old male with a history of T4N0 SCCa of subglottic larynx. He underwent chemoXRT to larynx and bilateral neck lymph nodes, 70 Gy in 35 fx of 2.0 Gy/fx with concurrent Cisplatin completed 03/13/16. questions/concerns today include: does not feel well overall vision feels blurry does feel better when he eats has had 3 stents placed follows with cardiology no dysphagia no ear pain no throat pain Last 2 Encounter Wt Readings: Date: Wt: 06/06/2024 138.8 kg (306 lb) 05/17/2024 138.9 kg (306 lb 3.5 oz) BP (!) 95/49 (BP Position: Sitting) Pulse 88 Temp 36.3 ?C (97.4 ?F) Wt (!) 138.8 kg (306 lb) SpO2 96% BMI 42.68 kg/m? bp rechecked with manual cuff- 120's over 60's Current Outpatient Medications Medication Sig Dispense Refill tamsulosin (FLOMAX) 0.4 mg Take 1 capsule by mouth once daily. [address] (PROTONIX) 40 mg tablet Take 1 tablet by mouth once daily 90 tablet 0 meloxicam (MOBIC) 7.5 mg tablet Take 1 tablet by mouth once daily. 90 tablet 3 methocarbamol (ROBAXIN) 500 mg tablet Take 1 tablet by mouth at bedtime as needed. 90 tablet 3 levothyroxine (SYNTHROID) 75 mcg tablet Take 1 tablet by mouth once daily 90 tablet 0 rosuvastatin (CRESTOR) 20 mg tablet TAKE 1 TABLET BY MOUTH ONCE DAILY AT BEDTIME 90 tablet 3 fluticasone (FLONASE) 50 mcg/actuation nasal spray Use 2 spray(s) in each nostril once daily 16 g 5 mupirocin (BACTROBAN) 2 % ointment Apply to affected area daily 22 g 0 ticagrelor (BRILINTA) 90 mg tablet Take 1 tablet by mouth two times a day. 180 tablet 3 aspirin, enteric coated (ECOTRIN LOW STRENGTH) 81 mg EC tablet Take 1 tablet by mouth once daily. carvedilol (COREG) 25 mg tablet Take 1 tablet by mouth two times a day. 180 tablet 3 losartan (COZAAR) 50 mg tablet Take 1 tablet by mouth once daily. 90 tablet 3 tamsulosin (FLOMAX) 0.4 mg Take 1 capsule by mouth once daily (Patient not taking: Reported on 06/01/2024) 90 capsule 3 azelastine 0.1% nasal spray Use 2 Sprays in each nostril two times a day as needed. 90 mL 3 No current facility-administered medications for this visit. ALLERGIES No Known Allergies EXAM: Constitutional - General Appearance: well developed, well nourished, without obvious deformities Communication: speaks with a hoarse voice Head AND Face - Overall: no obvious scars, lesions or masses Parotid and submandibular glands: no masses or tenderness Facial strength: normal and equal bilaterally Ear, Nose, Mouth AND Throat - Ears: bilateral cerumen impaction -encouraged debrox Nasal exam: mucosa is pink, septum is without perforation, visible turbinates are normal on anterior rhinoscopy Mastication: multiple missing teeth Oral Cavity and oropharynx: mucosa, hard and soft palates, tongue, tonsil area, posterior pharyngeal wall, lips and gums are without lesions Neck: , radiation fibrosis to his left neck, otherwise appears symmetric, and on palpation is without masses or lymphadenopathy Thyroid: no asymmetry, thyromegaly, or thyroid nodules on palpation Neuro: CN III - CN XII grossly intact Procedure: Flexible laryngoscopy was performed because of the following indication: hx of subglottic ca , mirror exam limited by gag reflex. With the patient sitting upright, informed consent was obtained. Declined xylocaine/neosynephrine, the flexible scope was placed in a transnasal fashion via left nares. The nasopharynx, oropharynx, were normal there was pooling of secretions in the hypopharynx including the pyriform sinuses The base of tongue showed no gross lesions. The larynx itself showed no lesions. Exam recorded on [facility] Procedure performed by Ana Sevilla APRN.CNP and reviewed with patient IMAGIN06/07/2024 CT NECK IMPRESSION: Primary NIRADS Category: 1. Expected post-treatment changes in the neck without evidence of recurrent disease in the primary site. Neck NIRADS Category: 1. No evidence of abnormal lymph nodes. 06/07/2024 CT CHEST IMPRESSION: No interval change with no convincing findings of metastatic disease in the thorax. TSH Date Value 05/27/2023 3.780 mIU/L 05/27/2022 3.930 mIU/L 10/16/2020 1.610 uU/mL 03/13/2020 5.790 uU/mL Latest Ref Rng AND Units 05/27/2023 08/26/2023 11/19/2023 CMP Sodium 136 - 144 mmol/L 139 140 139 Potassium 3.7 - 5.1 mmol/L 4.0 4.2 4.1 Chloride 98 - 107 mmol/L 103 104 105 CO2 22 - 30 mmol/L 23 23 26 Glucose 74 - 99 mg/dL 92 94 101 BUN 9 - 24 mg/dL 10 11 13 Creatinine 0.73 - 1.22 mg/dL 0.72 0.76 0.79 EGFR >=60 mL/min/1.73m? 107 105 104 Protein, Total 6.3 - 8.0 g/dL 6.8 7.0 Albumin 3.9 - 4.9 g/dL 4.3 4.2 Calcium 8.5 - 10.2 mg/dL 9.0 9.2 9.1 Bilirubin, Total 0.2 - 1.3 mg/dL 0.2 0.5 AST 14 - 40 U/L 21 22 ALT 10 - 54 U/L 22 23 Alkaline Phosphatase 38 - 113 U/L 79 80 Latest Ref Rng AND Units 10/13/2022 05/27/2023 11/19/2023 CBC WBC 3.70 - 11.00 k/uL 8.60 8.42 9.20 RBC 4.20 - 6.00 m/uL 5.78 5.34 5.40 Hemoglobin 13.0 - 17.0 g/dL 17.3 15.9 16.4 Hematocrit 39.0 - 51.0 % 51.4 46.6 46.3 MCV 80.0 - 100.0 fL 88.9 87.3 85.7 MCH 26.0 - 34.0 pg 29.9 29.8 30.4 MCHC 30.5 - 36.0 g/dL 33.7 34.1 35.4 RDW-CV 11.5 - 15.0 % 13.7 13.6 13.4 Platelet Count 150 - 400 k/uL 174 176 148 MPV 9.0 - 12.7 fL 11.6 10.2 10.0 Baso% % 0.6 0.8 Abs Neut (ANC) 1.45 - 7.50 k/uL 5.39 4.74 Abs Lymph 1.00 - 4.00 k/uL 2.19 2.39 Abs Snyder <0.87 k/uL 0.65 0.76 Abs Eosin <0.46 k/uL 0.29 0.41 Abs Baso <0.11 k/uL 0.05 0.07 NRBC /100 WBC 0.0 0.0 ASSESSMENT: Miki Sauceda is a 58 year old male with hx T4N0 SCCa of subglottic larynx. He underwent chemoXRT to larynx and bilateral neck lymph nodes, 70 Gy in 35 fx of 2.0 Gy/fx with concurrent Cisplatin completed 03/13/16. Pt is currently 8y 3mo out from treatment PLAN AND RECOMMENDATIONS: (Z08) Encounter for follow-up examination after completed treatment for malignant neoplasm (primary encounter diagnosis) (Z85.21) History of glottic cancer Comment: at this time I do not see any evidence of new or recurrent disease on exam. Plan: flex scope completed today Encouraged continued use of salt/soda oral rinse along with neck massage / stretches daily RTC in 1y in coordinated fashion Ana Sevilla, SONJA.UPHOLSTERY TRIMMER Elements of this note, including HPI, ROS, Physical Exam, Assessment and Plan were copied and pasted from my last office visit on 05/27/2023. Updates have been made where needed and reflect current exam and medical decision making from 06/05/2024 I spent a total of 34 minutes on the date of the service which included preparing to see the patient, [id number] patient care, completing clinical documentation, obtaining and/or reviewing separately obtained history, performing a medically appropriate examination, counseling and educating the patient/family/caregiver, and communicating with other HCPs (not separately reported). Referring Provider: ANA SEVILLA [[id number]] Allergies As of Date: 06/06/2024 (No Known Allergies) Date Reviewed: 06/06/2024 Reviewed by: Mckenzie Rust MA - Fully Assessed Reason for Visit: Follow Up [171] Primary Visit Diagnosis:Encounter for follow-up examination after completed treatment for malignant neoplasm [Z08] Other Visit Diagnosis:History of glottic cancer [Z85.21] Prescriptions as of 06/06/2024 - tamsulosin (FLOMAX) 0.4 mg Take 1 capsule by mouth once daily. - pantoprazole DR (PROTONIX) 40 mg tablet Take 1 tablet by mouth once daily - meloxicam (MOBIC) 7.5 mg tablet Take 1 tablet by mouth once daily. - methocarbamol (ROBAXIN) 500 mg tablet Take 1 tablet by mouth at bedtime as needed. - levothyroxine (SYNTHROID) 75 mcg tablet Take 1 tablet by mouth once daily - rosuvastatin (CRESTOR) 20 mg tablet TAKE 1 TABLET BY MOUTH ONCE DAILY AT BEDTIME - fluticasone (FLONASE) 50 mcg/actuation nasal spray Use 2 spray(s) in each nostril once daily - mupirocin (BACTROBAN) 2 % ointment Apply to affected area daily - ticagrelor (BRILINTA) 90 mg tablet Take 1 tablet by mouth two times a day. - aspirin, enteric coated (ECOTRIN LOW STRENGTH) 81 mg EC tablet Take 1 tablet by mouth once daily. - carvedilol (COREG) 25 mg tablet Take 1 tablet by mouth two times a day. - losartan (COZAAR) 50 mg tablet Take 1 tablet by mouth once daily. - tamsulosin (FLOMAX) 0.4 mg Take 1 capsule by mouth once daily - azelastine 0.1% nasal spray Use 2 Sprays in each nostril two times a day as needed. 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] 07/24/2016 Adjustment disorder with anxious mood [F43.22] 09/16/2016 Radiculitis [M54.10] 10/29/2016 Primary hypertension [I10] 11/10/2016 Larynx cancer (HCC) [C32.9] 01/06/2016 Laryngeal cancer (HCC) [C32.9] 11/04/2015 Degenerative spondylolisthesis [M43.10] 05/28/2016 Former smoker [Z87.891] History of laryngeal cancer [Z85.21] 03/10/2017 Hoarseness [R49.0] 03/10/2017 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] 04/19/2017 Spinal stenosis, lumbar region with neurogenic *04/19/2017 Lumbar stenosis with neurogenic claudication [M*05/19/2017 Obesity (BMI 35.0-39.9 without comorbidity) [E6*11/07/2020 Difficult intubation [T88.4XXA] 11/07/2020 FEDE (obstructive sleep apnea) [G47.33] 11/07/2020 Alcohol use [Z78.9] 11/07/2020 S/P lumbar spinal fusion [Z98.1] 01/16/2021 Chronic midline low back pain without sciatica *01/16/2021 Degenerative lumbar disc [M51.369] 01/16/2021 Lumbar spondylosis [M47.816] 01/20/2022 GERD (gastroesophageal reflux disease) [K21.9] 03/22/2023 Acquired hypothyroidism [E03.9] 03/22/2023 BMI 40.0-44.9, adult (HCC) [Z68.41] 07/27/2023 Stable angina (HCC) [I20.89] 11/26/2023 Elevated coronary artery calcium score [R93.1] 11/26/2023 Encounter Status:Closed by ANA SEVILLA on 06/06/24 PROGRESS Observed: 06/06/2024 12:30 PM Status: COMPLETED Source: [facility] HNO ID: [id number] Author: RAJINDER ROJAS APRN.UPHOLSTERY TRIMMER Service: ? 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 SIGNIFICANT SECONDARY DIAGNOSES: (1) Carotid Artery Stenosis: Occluded right side with left minimal stenosis. Managed by cardiology (Drew) INTERVAL HISTORY: Miki Sauceda returns to the clinic 8 years since completion of chemoRT. Labs satisfactory from OSH (CBC and CMP). Needs to get TSH completed today prior to leaving. CT neck stable. Chest imaging stable. -BP initially low today using electronic cuff but on manual was more WNL for him - Fatigue and off feeling as of late. Got 3 stents and is being worked up by cardiology for these symptoms. - Taste remains about 80% of baseline. Xerostomia is mild, not needing to carry water with him at all times. - Voice hoarseness is stable. - Baseline neck injury; has some stiffness and cramping that is normal for him Last Wt 06/06/24 : (!) 138.8 kg (306 lb) 05/17/24 : (!) 138.9 kg (306 lb 3.5 oz) 05/03/24 : 133.8 kg (295 lb) 03/23/24 : (!) 137.3 kg (302 lb 11.1 oz) 12/15/23 : 133.9 kg (295 lb 3.1 oz) Labs: Reviewed CBC and CMP in Care Everywhere; satisfactory. Requested patient stop by lab on way out to get repeat TSH (last 05/2023) ALLERGIES No Known Allergies MEDICATIONS: tamsulosin (FLOMAX) 0.4 mg Take 1 capsule by mouth once daily. pantoprazole DR (PROTONIX) 40 mg tablet Take 1 tablet by mouth once daily meloxicam (MOBIC) 7.5 mg tablet Take 1 tablet by mouth once daily. methocarbamol (ROBAXIN) 500 mg tablet Take 1 tablet by mouth at bedtime as needed. levothyroxine (SYNTHROID) 75 mcg tablet Take 1 tablet by mouth once daily rosuvastatin (CRESTOR) 20 mg tablet TAKE 1 TABLET BY MOUTH ONCE DAILY AT BEDTIME fluticasone (FLONASE) 50 mcg/actuation nasal spray Use 2 spray(s) in each nostril once daily mupirocin (BACTROBAN) 2 % ointment Apply to affected area daily ticagrelor (BRILINTA) 90 mg tablet Take 1 tablet by mouth two times a day. aspirin, enteric coated (ECOTRIN LOW STRENGTH) 81 mg EC tablet Take 1 tablet by mouth once daily. carvedilol (COREG) 25 mg tablet Take 1 tablet by mouth two times a day. losartan (COZAAR) 50 mg tablet Take 1 tablet by mouth once daily. tamsulosin (FLOMAX) 0.4 mg Take 1 capsule by mouth once daily (Patient not taking: Reported on 06/01/2024) azelastine 0.1% nasal spray Use 2 Sprays in each nostril two times a day as needed. REVIEW OF SYSTEMS: As in HPI PHYSICAL EXAM: *Exam completed by BRIAN Murguia during same encounter with documentation noted from her findings and simultaneously documented in her note from same day.* BP 128/86 (manual BP done) KPS: 90 General Appearance: Alert and oriented. No acute distress. Oral cavity and oropharynx: lips and gums normal, oral and pharyngeal mucosa moist, palate elevates normally, tongue mobile and without palpable lesions, tonsils without masses Neck: Well healed prior trach site. Normal ROM. No palpable cervical or supraclavicular adenopathy. SCOPE: Per Ana Sevilla APRN-LEWIS today; this greeting card writer was present and observed scope exam in its entirety TOXICITY ASSESSMENT: Dysphagia: Grade 0 - No symptoms Trismus: Grade 0 - No symptoms Voice Changes: Grade 1 - Mild or intermittent change from normal voice Xerostomia: Grade 1 - Symptomatic (dry or thick saliva) without significant dietary alteration; unstimulated saliva flow >2ml/min Fatigue: Grade 0 - No symptoms Laryngeal Edema: Grade 0 - No Symptoms Pain: Grade 0 - No symptoms Skin Fibrosis: Grade 0- No symptoms Taste Changes: Grade 1 - Altered taste but no change in diet Dental Gingival Health: NA IMPRESSION/PLAN: Miki Sauceda is a 58 year old gentleman with a 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 CMP and CBC from OSH satisfactory. Patient to get TSH on way out today. Neck imaging stable. Chest imaging stable. Plan: - Follow up with cardiology for heart concerns and symptoms - RTC in 12 months with [place] NICOLE at next follow up to avoid duplication - Chest imaging Survivorship: - Supportive care reviewed including ROM exercises, dental recommendations I spent a total of 42 minutes on the date of the service which included all of the following unless otherwise specified: preparing to see the patient, [id number] patient care, completing clinical documentation, obtaining and/or reviewing separately obtained history, performing a medically appropriate examination, counseling and educating the patient/family/caregiver, ordering medications, tests, or procedures, communicating with other HCPs (not separately reported), independently interpreting results (not separately reported), communicating results to the patient/family/caregiver, and care coordination (not separately reported). (Chronic conditions are bolded above in ROS. Elements of this note, including HPI, ROS, Physical Exam, Assessment and Plan were copied and pasted from the last office visit with Dr. Lao on 05/27/2023. Updates have been made where noted and reflect current exam and medical decision making from June 06, 2024.) Electronically signed: Rajinder Rojas APRN.UPHOLSTERY TRIMMER ADDENDUM: Latest Ref Rng 06/06/2024 TSH 0.270 - 4.200 mIU/L 3.000 Electronically signed: Rajinder Rojas APRN.CNP cc: Nestor Perez Sr, MD [address] [place] [address] CNOV Observed: 06/06/2024 12:30 PM Status: COMPLETED Source: [facility] Office Visit (RACOMN) VLADISLAVBOWENMIKI ORNELAS ([id number]) 1965 M Date Time Provider Department 06/06/24 12:30 PM RAJINDER ROJAS RACOMN During your visit today, we recorded the following information about you: Blood pressure 128/86 Rajinder Rojas APRN.CNP 06/08/2024 3:54 PM Signed Radiation Oncology - Follow Up Note Documentation from my notes of previous visit of 05/27/2022 was copied and pasted, documentation has been reviewed and edited as necessary and is current for today PATIENT NAME: Miki Sauceda PATIENT DIAGNOSIS: 57 year old gentleman with a 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 SIGNIFICANT SECONDARY DIAGNOSES: (1) Carotid Artery Stenosis: Occluded right side with left minimal stenosis. Managed by cardiology (Drew) INTERVAL HISTORY: Miki D Karlovetz returns to the clinic 8 years since completion of chemoRT. Labs satisfactory from OSH (CBC and CMP). Needs to get TSH completed today prior to leaving. CT neck stable. Chest imaging stable. -BP initially low today using electronic cuff but on manual was more WNL for him - Fatigue and off feeling as of late. Got 3 stents and is being worked up by cardiology for these symptoms. - Taste remains about 80% of baseline. Xerostomia is mild, not needing to carry water with him at all times. - Voice hoarseness is stable. - Baseline neck injury; has some stiffness and cramping that is normal for him Last Wt 06/06/24 : (!) 138.8 kg (306 lb) 05/17/24 : (!) 138.9 kg (306 lb 3.5 oz) 05/03/24 : 133.8 kg (295 lb) 03/23/24 : (!) 137.3 kg (302 lb 11.1 oz) 12/15/23 : 133.9 kg (295 lb 3.1 oz) Labs: Reviewed CBC and CMP in Care Everywhere; satisfactory. Requested patient stop by lab on way out to get repeat TSH (last 05/2023) ALLERGIES No Known Allergies MEDICATIONS: tamsulosin (FLOMAX) 0.4 mg Take 1 capsule by mouth once daily. pantoprazole DR (PROTONIX) 40 mg tablet Take 1 tablet by mouth once daily meloxicam (MOBIC) 7.5 mg tablet Take 1 tablet by mouth once daily. methocarbamol (ROBAXIN) 500 mg tablet Take 1 tablet by mouth at bedtime as needed. levothyroxine (SYNTHROID) 75 mcg tablet Take 1 tablet by mouth once daily rosuvastatin (CRESTOR) 20 mg tablet TAKE 1 TABLET BY MOUTH ONCE DAILY AT BEDTIME fluticasone (FLONASE) 50 mcg/actuation nasal spray Use 2 spray(s) in each nostril once daily mupirocin (BACTROBAN) 2 % ointment Apply to affected area daily ticagrelor (BRILINTA) 90 mg tablet Take 1 tablet by mouth two times a day. aspirin, enteric coated (ECOTRIN LOW STRENGTH) 81 mg EC tablet Take 1 tablet by mouth once daily. carvedilol (COREG) 25 mg tablet Take 1 tablet by mouth two times a day. losartan (COZAAR) 50 mg tablet Take 1 tablet by mouth once daily. tamsulosin (FLOMAX) 0.4 mg Take 1 capsule by mouth once daily (Patient not taking: Reported on 06/01/2024) azelastine 0.1% nasal spray Use 2 Sprays in each nostril two times a day as needed. REVIEW OF SYSTEMS: As in HPI PHYSICAL EXAM: *Exam completed by BRIAN Murguia during same encounter with documentation noted from her findings and simultaneously documented in her note from same day.* BP 128/86 (manual BP done) KPS: 90 General Appearance: Alert and oriented. No acute distress. Oral cavity and oropharynx: lips and gums normal, oral and pharyngeal mucosa moist, palate elevates normally, tongue mobile and without palpable lesions, tonsils without masses Neck: Well healed prior trach site. Normal ROM. No palpable cervical or supraclavicular adenopathy. SCOPE: Per BRIAN Murguia today; this greeting card writer was present and observed scope exam in its entirety TOXICITY ASSESSMENT: Dysphagia: Grade 0 - No symptoms Trismus: Grade 0 - No symptoms Voice Changes: Grade 1 - Mild or intermittent change from normal voice Xerostomia: Grade 1 - Symptomatic (dry or thick saliva) without significant dietary alteration; unstimulated saliva flow >2ml/min Fatigue: Grade 0 - No symptoms Laryngeal Edema: Grade 0 - No Symptoms Pain: Grade 0 - No symptoms Skin Fibrosis: Grade 0- No symptoms Taste Changes: Grade 1 - Altered taste but no change in diet Dental Gingival Health: NA IMPRESSION/PLAN: Miki Sauceda is a 58 year old gentleman with a 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 CMP and CBC from OSH satisfactory. Patient to get TSH on way out today. Neck imaging stable. Chest imaging stable. Plan: - Follow up with cardiology for heart concerns and symptoms - RTC in 12 months with [place] NICOLE at next follow up to avoid duplication - Chest imaging Survivorship: - Supportive care reviewed including ROM exercises, dental recommendations I spent a total of 42 minutes on the date of the service which included all of the following unless otherwise specified: preparing to see the patient, [id number] patient care, completing clinical documentation, obtaining and/or reviewing separately obtained history, performing a medically appropriate examination, counseling and educating the patient/family/caregiver, ordering medications, tests, or procedures, communicating with other HCPs (not separately reported), independently interpreting results (not separately reported), communicating results to the patient/family/caregiver, and care coordination (not separately reported). (Chronic conditions are bolded above in ROS. Elements of this note, including HPI, ROS, Physical Exam, Assessment and Plan were copied and pasted from the last office visit with Dr. Lao on 05/27/2023. Updates have been made where noted and reflect current exam and medical decision making from June 06, 2024.) Electronically signed: Rajinder Rojas APRN.UPHOLSTERY TRIMMER ADDENDUM: Latest Ref Rng 06/06/2024 TSH 0.270 - 4.200 mIU/L 3.000 Electronically signed: Rajinder Rojas APRN.UPHOLSTERY TRIMMER cc: Nestor Perez Sr, MD [address] [place] [address] Referring Provider: RAJINDER ROJAS [[id number]] Allergies As of Date: 06/06/2024 (No Known Allergies) Date Reviewed: 06/06/2024 Reviewed by: Mckenzie Rust MA - Fully Assessed Reason for Visit: Established Patient [175] Primary Visit Diagnosis:Radiotherapy follow-up examination [Z09] Other Visit Diagnoses:History of laryngeal cancer [Z85.21] Taste, altered [R43.2] 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 - pantoprazole DR (PROTONIX) 40 mg tablet Take 1 tablet by mouth once daily - meloxicam (MOBIC) 7.5 mg tablet Take 1 tablet by mouth once daily. - methocarbamol (ROBAXIN) 500 mg tablet Take 1 tablet by mouth at bedtime as needed. - levothyroxine (SYNTHROID) 75 mcg tablet Take 1 tablet by mouth once daily - rosuvastatin (CRESTOR) 20 mg tablet TAKE 1 TABLET BY MOUTH ONCE DAILY AT BEDTIME - fluticasone (FLONASE) 50 mcg/actuation nasal spray Use 2 spray(s) in each nostril once daily - mupirocin (BACTROBAN) 2 % ointment Apply to affected area daily - ticagrelor (BRILINTA) 90 mg tablet Take 1 tablet by mouth two times a day. - aspirin, enteric coated (ECOTRIN LOW STRENGTH) 81 mg EC tablet Take 1 tablet by mouth once daily. - carvedilol (COREG) 25 mg tablet Take 1 tablet by mouth two times a day. - losartan (COZAAR) 50 mg tablet Take 1 tablet by mouth once daily. - tamsulosin (FLOMAX) 0.4 mg Take 1 capsule by mouth once daily - azelastine 0.1% nasal spray Use 2 Sprays in each nostril two times a day as needed. 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] 07/24/2016 Adjustment disorder with anxious mood [F43.22] 09/16/2016 Radiculitis [M54.10] 10/29/2016 Primary hypertension [I10] 11/10/2016 Larynx cancer (HCC) [C32.9] 01/06/2016 Laryngeal cancer (HCC) [C32.9] 11/04/2015 Degenerative spondylolisthesis [M43.10] 05/28/2016 Former smoker [Z87.891] History of laryngeal cancer [Z85.21] 03/10/2017 Hoarseness [R49.0] 03/10/2017 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] 04/19/2017 Spinal stenosis, lumbar region with neurogenic *04/19/2017 Lumbar stenosis with neurogenic claudication [M*05/19/2017 Obesity (BMI 35.0-39.9 without comorbidity) [E6*11/07/2020 Difficult intubation [T88.4XXA] 11/07/2020 FEDE (obstructive sleep apnea) [G47.33] 11/07/2020 Alcohol use [Z78.9] 11/07/2020 S/P lumbar spinal fusion [Z98.1] 01/16/2021 Chronic midline low back pain without sciatica *01/16/2021 Degenerative lumbar disc [M51.369] 01/16/2021 Lumbar spondylosis [M47.816] 01/20/2022 GERD (gastroesophageal reflux disease) [K21.9] 03/22/2023 Acquired hypothyroidism [E03.9] 03/22/2023 BMI 40.0-44.9, adult (HCC) [Z68.41] 07/27/2023 Stable angina (HCC) [I20.89] 11/26/2023 Elevated coronary artery calcium score [R93.1] 11/26/2023 Disposition: Return in about 1 year (around 06/06/2025). Follow-up and Disposition History for Encounter Date Provider Department Center 06/06/2024 [id number]-SCRORAJINDER ROJAS [facility] Encounter Status:Closed by RAJINDER ROJAS on 06/08/24 PROGRESS Observed: 06/06/2024 11:00 AM Status: COMPLETED Source: [facility] ID: [id number] Author: BERRY LEYVA RN Service: Radiology Author Type: Registered Nurse Type: Progress Notes Filed: 06/06/2024 09:47 Note Text: Radiology Service Progress Note DATE OF SERVICE: June 06, 2024 TIME: 9:20 AM PATIENT WEIGHT: 300 LBS PATIENT IDENTITY VERIFICATION COMPLETED USING TWO (2) STANDARD IDENTIFIERS: Name and Date of confirmed by patient verbally and Name and Date of confirmed by identification band. FALL SCREENING: Has the patient had 2 falls in the last year or 1 fall with injury or currently using an Ambulatory Assistive Device (Walker, Cane, Wheelchair, Crutches, etc.)? No PATIENT GENDER DATA: Assigned male at ALLERGIES: Reviewed and unchanged CONTRAST ALLERGY: No EXAM: CT -CONTRAST INDUCED NEPHROPATHY RISK FACTORS: Not applicable CREATININE: Creatinine Date Value Ref Range Status 11/19/2023 0.79 0.73 - 1.22 mg/dL Final 08/26/2023 0.76 0.73 - 1.22 mg/dL Final 05/27/2023 0.72 (L) 0.73 - 1.22 mg/dL Final Estimated Glomerular Filtration Rate Date Value Ref Range Status 11/19/2023 104 >=60 mL/min/1.73m? Final Comment: Estimated Glomerular Filtration Rate (eGFR) is calculated using the 2020 CKD-EPI creatinine equation. This equation utilizes serum creatinine, sex, and age as parameters. The creatinine assay has traceable calibration to isotope dilution-mass spectrometry. Refer to KDIGO guidelines for clinical interpretation. In patients with unstable renal function, e.g. those with acute kidney injury, the eGFR may not accurately reflect actual GFR. eGFR- Date Value Ref Range Status 10/16/2020 >60 Final P.O.C.T. RESULTS: N/A June 06, 2024 TREATMENT: No Hydration needed. IV SITE: Ambulatory: A peripheral IV was started in the Left forearm with a Angio cath: 20 gauge. Leave for lab in [facility]. IV SITE APPEARANCE: Clean,Dry and Intact SIGNATURE: Berry Leyva RN PATIENT NAME: Miki Sauceda DATE: June 06, 2024 TIME: 9:20 AM PSA/PROSTATE SPECIFIC ANTIGEN SCREENING Collected: 06/06/2024 10:45 AM Status: F Source: [facility] Comment: Specimen Type : BLOOD SPECIMEN Ordering Facility: [facility] Address: [address] [place] [address] TYPE CODE TESTS RESULT OUT OF RANGE REFERENCE UNITS LAB 2857-1(LOINC) PSA SerPl-mCnc 0.46 <2.60 ng/mL Result Comment: Total PSA te st methodology used is the Electrochemiluminescence Immunoassay by [employer]. Total PSA values by differing methodologies cannot be interchanged. Performed By: #### PSAS1 ### # [facility] CLIA [id number] [address] [place] [address] [place] TSH SERPL-ACNC Collected: 10:44 AM Status: F Source: [facility] Comment: Specimen Type : BLOOD SPECIMEN Ordering Facility: [facility] Address: [address] [place] [address] TYPE CODE TESTS RESULT OUT OF RANGE REFERENCE UNITS LAB 3016-3(LOINC) TSH SerPl-aCnc 3.000 0.270-4.200 mIU/L Performed By: #### 3016-3 ## ## [facility] CLIA [id number] [address] [place] [address] [place] [address] [place] CT NECK SOFT TISSUE W IVCON Observed: 10:14 AM Status: F Source: [facility] * * *Final Report* * * DATE OF EXAM: Jun 06 2024 10:14AM [facility] 0013 - CT NECK SOFT TISSUE W IVCON / PROCEDURE REASON: multiple diagnoses * * * * Physician Interpretation * * * * EXAMINATION: CT NECK SOFT TISSUE W IVCON HISTORY: Encounter for follow-up examination after completed treatment for malignant neoplasm History of glottic cancer per EMR, T4N0 SCCa of subglottic larynx. ?He underwent chemoXRT to larynx and bilateral neck lymph nodes, 70 Gy in 35 fx of 2.0 Gy/fx with concurrent Cisplatin completed 03/13/16. Technique: CT of the soft tissues of the neck with IV contrast. A series of contiguous helical scans were performed from the skull base to the aortic arch. M: CTNW_1 Contrast: 100 mL Omnipaque [address] Dose-Length Product (DLP): 1511 mGy*cm CT Dose Reduction Employed: Automated exposure control (AEC) COMPARISON: CT neck from 05/27/2022 RESULT: Posttreatment change: Expected posttreatment changes of supraglottic and glottic minimal mucosal edema without masslike enhancement to suggest disease recurrence. Suprahyoid Neck: Nasopharynx and oropharynx appear normal. Parapharyngeal tissue planes are preserved. Oral cavity and floor of mouth appear normal within constraints of artifact from dental amalgam. Parotid and submandibular spaces are normal. Pediatric Np spaces appear normal. Infrahyoid Neck: Unremarkable appearance of the hypopharynx. The vocal folds are positionally apposed to the midline, somewhat degrading the assessment, although the larynx otherwise appears essentially stable from the prior exam. Stable appearance of the trachea and visualized basilar bronchi. Unremarkable appearance of the partially visualized upper esophagus. Thyroid gland is homogeneous without evidence of discrete nodule. Lymph Nodes: No cervical lymphadenopathy by size criteria. Carotid Space: No masses. Patent extracranial carotid systems and internal jugular veins bilaterally. Orbits, Face and Skull Base: Orbital soft tissue planes are preserved. Focal area of hyperattenuation in the left rectus muscle (3:128) favored to represent streak artifact which is best appreciated on sagittal images. Chronic fracture right lamina papyracea.. Mucosal thickening bilateral left greater than right maxillary sinuses. Mastoid air cells and middle ear cavities are clear. No evidence of an osteolytic or osteoblastic process in the skull base. Imaged intracranial contents: No enhancement, no mass effect, and no hydrocephalus. Cervical spine and remaining osseous structures: Straightening of the normal cervical lordosis. No discrete osteolytic or osteoblastic process. Multilevel degenerative disc osteophyte complexes with resulting spinal canal stenosis being most pronounced and severe at C4-C5 and C5-C6 and at least moderate in severity at C6-C7 within the constraints of the acquisition. Uncovertebral and facet hypertrophy contributes to varying degrees of neuroforaminal stenosis, suboptimally assessed on the current exam, although grossly mild to moderate in severity bilaterally at C3-C4, moderate on the left greater than right at C4-C5, mild to moderate bilaterally at C5-C6 and C6-C7. Lung apices: For detailed intrathoracic findings, please see concurrent CT chest which is reported under a separate accession. IMPRESSION: Primary NIRADS Category: 1. Expected post-treatment changes in the neck without evidence of recurrent disease in the primary site. Neck NIRADS Category: 1. No evidence of abnormal lymph nodes. [email or web address] Adjustment Clerk: PSCB Transcribe Date/Time: Jun 06 2024 11:48A Dictated by : ELAINA CRAIN MD This examination was interpreted and the report reviewed and electronically signed by: SARTHAK CEE MD on Jun 06 2024 12:57PM EST [id number] CT CHEST W IVCON Observed: 06/06/2024 10:14 AM Status: F Source: [facility] * * *Final Report* * * DATE OF EXAM: Jun 06 2024 10:14AM [facility] 0539 - CT CHEST W IVCON / PROCEDURE REASON: multiple diagnoses * * * * Physician Interpretation * * * * EXAMINATION: CHEST CT WITH CONTRAST CLINICAL HISTORY: Follow-up malignant neoplasm, history of squamous cell carcinoma of subglottic larynx Technique: Spiral CT acquisition of the chest from the thoracic inlet to the upper abdomen following IV contrast. MQ: CTCW_6 Contrast: 100 mL Omnipaque [address] Radiation dose: Integrated Dose-length product (DLP) for this visit = 1511 mGy*cm CT Dose Reduction Employed: Automated exposure control (AEC) Comparison: 05/27/2022, 06/23/2017 RESULT: Limitations: None. Lines, tubes, and devices: None. Lung parenchyma and airways: No consolidation. Scattered calcified granulomas in both lungs. No suspicious pulmonary nodule. The central airways are patent. Pleural space: No pleural effusion. No pleural thickening. Lower neck, lymph nodes, and mediastinum: CT of the neck is interpreted separately. The imaged thyroid gland is normal. No lymphadenopathy in the supraclavicular, axillary, mediastinal, or hilar regions. Heart, pericardium, and thoracic vessels: The thoracic aorta and main pulmonary artery are normal in caliber. The cardiac chambers are normal in size. Scattered coronary artery atherosclerotic calcifications are noted, although the study is not optimized for coronary assessment. No pericardial effusion or thickening. Bones and soft tissues: No destructive bone lesion. Chest wall is unremarkable. Upper abdomen: No abnormality in the imaged upper abdomen. Localizer images: No additional findings. IMPRESSION: No interval change with no convincing findings of metastatic disease in the thorax. Adjustment Clerk: GO Transcribe Date/Time: Jun 06 2024 10:16A Dictated by : JEREMY ARZATE MD This examination was interpreted and the report reviewed and electronically signed by: JEREMY ARZATE MD on Jun 06 2024 10:21AM EST [id number] NM PET/CT CARD PERF REST/STRESS Observed: 06/06/2024 7:42 AM Status: F Source: [facility] * * *Final Report* * * DATE OF EXAM: Jun 06 2024 7:42AM N 0109 - NM PET/CT CARD PERF REST/STRESS / PROCEDURE REASON: multiple diagnoses * * * * Physician Interpretation * * * * Stress Salon Assistant Report: [facility] SNOW-2 Date of service: 06/06/2024 7:06:02 AM Supervising physician: Kaylee Melara MD PATIENT: Name: MR. MIKI SAUCEDA Age: 58 years Gender: M The supervising physician was in the department and immediately available. * * * Final * * * PATIENT: Name: MR. MIKI SAUCEDA Age: 58 years Gender: M CONCLUSIONS: 1. PET Perfusion Study: Normal. 2. No evidence of ischemia. 3. No evidence of scarred myocardium. 4. Left ventricle is normal in size. The left ventricle systolic function is normal. 5. Right ventricle is normal in size. The right ventricle systolic function is normal. 6. This is a low risk scan. Gated Stress TOF:SC:CTAC Gated Rest TOF:SC:CTAC LVEF % 65 56 Prior Study Comparison No prior nuclear cardiology exam available for comparison. Nuclear Med Report:Gated Rb-82 Regadenoson Stress PET Study: The patient was injected with Rb-82 at rest, and ECG gated tomographic images were obtained. Approximately 10 minutes later, the patient received 0.4 mg of regadenoson, via rapid IV push, immediately followed by Rb-82 30 seconds after starting the regadenoson infusion; and ECG gated tomographic images were obtained. See administered doses below. Main [place] Date of service: 06/06/2024 7:06:02 AM Ordering Physician: KODI SULLIVAN. Requesting Physician: KODI SULLIVAN Indication: CAD screening, high CAD risk, not treadmill candidate. Fellow: Nasim Hendrix MD Interpreting physician: Kaylee Melara MD Previous Cardiovascular Interventions: PCI to RCA (11/26/2023) Height: 180.34 cm BSA: 2.64 m? Weight: 138.90 kg BMI: 42.7 kg/m? CT Dose-Length Product(DLP): 46.0 mGy * cm. CT Dose Reduction Employed: Yes. Exam Type: Rest Stress Radiopharm: Rb-82 Rb-82 Dosage(mCi): 34.8 34.8 Atten Correction: performed performed Stress Agent: Regadenoson 0.4mg Supply provided from [facility] Resting Blood Press: 114/67 mmHg Image Quality The overall study imaging quality was deemed to be good. FINDINGS: Left Ventricle Wall Motion: 1 - All segments are normal. 1 Stress Gated Stress Gated Rest Stress TOF:3D:SC:CTAC TOF:SC:CTAC TOF:SC:CTAC TOF:SC:CTAC LVEF: 65 % 56 % ED Volume: 134 ml 106 ml ES Volume: 47 ml 47 ml EDv Index: 53 ml/m? 42 ml/m? ESv Index: 18 ml/m? 19 ml/m? TID: 1.02 0.77 Perfusion Findings Stress TOF:3D:SC:CTAC - Summed Score=0 All segments demonstrate normal perfusion. Rest TOF:3D:SC:CTAC - Summed Score=0 All segments demonstrate normal perfusion. Stress TOF:3D:SC:CTAC Rest TOF:3D:SC:CTAC Summed Score=0 Summed Score=0 LEFT VENTRICLE The left ventricle is normal in size. Left ventricular systolic function is normal. Right Ventricle The right ventricle is normal in size. Right ventricle systolic function is normal. Positron Emission Km Test Findings: There is no evidence of ischemia. There is no evidence of scarring. Myocardial Blood Flow: +------+------+ Ratio +------+------+ LAD 2.79 +------+------+ LCX 2.94 +------+------+ RCA 2.79 +------+------+ Global 2.89 +------+------+ Myocardial Blood Flow: +------+ + Stress [ml/g/min] +------+ + LAD 1.64 +------+ + LCX 1.58 +------+ + RCA 1.33 +------+ + Global 1.52 +------+ + Myocardial Blood Flow: +------+ + Rest [ml/g/min] +------+ + LAD 0.59 +------+ + LCX 0.54 +------+ + RCA 0.48 +------+ + Global 0.53 +------+ + Comment: Normal MBFR. * * * Final * * * NM CTAC Report: [facility] Date of service: 06/06/2024 7:06:02 AM CTAC interpreting physician: Kaylee Melara MD PATIENT: Name: MR. MIKI SAUCEDA Age: 58 years Gender: M 1. Incidental Findings from limited non-diagnostic CTAC: - Coronary calcifications visualized. Known bilateral calcified lung nodules, likely granulomas. * * * Final * * * Stress ECG Report: [facility] SNOW-2 Date of service: 06/06/2024 7:06:02 AM Ordering physician: KODI SULLIVAN behavioral health specialist: Jelena Love MS, EP Fellow: Nasim Hendrix MD Interpreting physician: Kaylee Melara MD Patient name: MR. MIKI SAUCEDA Age: 58 years Gender: M Height: 180.34 cm BSA: 2.64 m? Weight: 138.90 kg BMI: 42.7 kg/m? Indication: Dyspnea on exertion, Fatigue and History of percutaneous coronary angioplasty Stress ECG Conclusion: Conclusion: Normal Stress ECG Summary: The patient's resting heart rate was 71 bpm and blood pressure was 114/67 mmHg. The test was terminated due to end of protocol. No symptoms provoked during stress. The maximum heart rate was 85 bpm, which is 52% of the predicted heart rate for age. Peak blood pressure was 101/60 mmHg. The double product achieved was 8585. Previous cardiovascular interventions: PCI to RCA (11/26/2023) Medications: Last Used CARVEDILOL 2 Hours LOSARTAN 14 Hours Resting ECG: Normal Sinus Rhythm and Inferior Wall MO Symptoms at rest: No symptoms Pharamcologic Protocol: Regadenoson Stress Exercise Table: +-----+--+---+---+ Stage HR SYS KIRAN +-----+--+---+---+ 1 66 +-----+--+---+---+ 2 85 105 66 +-----+--+---+---+ 3 86 97 60 +-----+--+---+---+ 4 85 101 60 +-----+--+---+---+ +-----+--+---+---+ HR SYS KIRAN +-----+--+---+---+ Final 85 101 60 +-----+--+---+---+ Recovery Table: +------+ +--+---+---+ Stage Time (min) HR SYS KIRAN +------+ +--+---+---+ 1 1.0 83 100 62 +------+ +--+---+---+ 2 2.0 82 101 62 +------+ +--+---+---+ 3 3.0 80 100 61 +------+ +--+---+---+ 4 4.0 82 109 65 +------+ +--+---+---+ Stress Observations: Resting HR: 71 bpm Peak HR: 85 bpm (52% MPHR) Resting BP: 114 / 67 mmHg Peak BP: 101 / 60 mmHg Rate Pressure Product (RPP): 8585 Stress Exercise Observations: Reason for test termination: end of protocol, Symptoms during test: No symptoms provoked during stress, ST segment and T wave changes: No ST changes and Arrhythmias: No arrhythmias Metabolic Exercise Data Variable: Observed value [Expected Range] HGI: 0.1 [>1.06 bpm/mmHg] * * * Final * * * RP Adjustment Clerk: [email or web address] Transcribe Date/Time: Jun 06 2024 7:06A Dictated by : KAYLEE MELARA MD This examination was interpreted and the report reviewed and electronically signed by: KAYLEE MELARA MD on Jun 06 2024 8:21AM EST [id number] PROGRESS Observed: 06/06/2024 7:30 AM Status: COMPLETED Source: [facility] ID: [id number] Author: MIKE NARVAEZ RT(R) Service: Radiology Author Type: Technologist Type: Progress Notes Filed: 06/06/2024 07:34 Note Text: RADIOLOGY SERVICE PROGRESS NOTE SERVICE DATE: 06/06/2024 SERVICE TIME: 7:21 AM PATIENT IDENTITY VERIFICATION COMPLETED USING TWO (2) STANDARD IDENTIFIERS: Name and Date of confirmed by patient verbally and Name and Date of confirmed by identification band FALL SCREENING: Has the patient had 2 falls in the last year or 1 fall with injury or currently using an Ambulatory Assistive Device (Walker, Cane, Wheelchair, Crutches, etc.)? No PATIENT GENDER DATA: .male ALLERGIES: Reviewed and unchanged MEDICATIONS REVIEWED: Yes PATIENT RELEVANT IMPLANT DATA REVIEWED: Not Applicable PATIENT PRESENTS WITH AN IMPLANTABLE OR ATTACHED TELEMARKETING AGENT: No CREATININE: Creatinine Date Value Ref Range Status 11/19/2023 0.79 0.73 - 1.22 mg/dL Final 08/26/2023 0.76 0.73 - 1.22 mg/dL Final 05/27/2023 0.72 (L) 0.73 - 1.22 mg/dL Final Estimated Glomerular Filtration Rate Date Value Ref Range Status 11/19/2023 104 >=60 mL/min/1.73m? Final Comment: Estimated Glomerular Filtration Rate (eGFR) is calculated using the 2020 CKD-EPI creatinine equation. This equation utilizes serum creatinine, sex, and age as parameters. The creatinine assay has traceable calibration to isotope dilution-mass spectrometry. Refer to KDIGO guidelines for clinical interpretation. In patients with unstable renal function, e.g. those with acute kidney injury, the eGFR may not accurately reflect actual GFR. eGFR- Date Value Ref Range Status 10/16/2020 >60 Final P.O.C.T. RESULTS: N/A June 06, [address] PERFORMED: No IV SITE: Ambulatory: A peripheral IV was started in the Left antecubital site with a Angio cath: 20 gauge. POST EXAM PIV STATUS: Left in for next appointment PROCEDURE TYPE: NM PET Myocardial Imagin.8 mCi Rb-82(Rubidium) was administered IV for Rest Imaging at 0718. 34.8 mCi Rb-82(Rubidium) was administered IV for Stress Imaging at 0730. Viability Imaging performed: No. PATIENT DISCHARGED TO: Ambulatory patient, left [place] department area. Is this a therapy: No A Diagnostic radioactive procedure has taken place, with no further precautions necessary other than routine body substance precautions. More information regarding radiation safety can be found using this link: [email or web address] SIGNATURE: RT Lokesh(R) PATIENT NAME: Miki Sauceda DATE: June 06, 2024 TIME: 7:21 AM PAGER/CONTACT #: PROGRESS Observed: 06/06/2024 7:30 AM Status: COMPLETED Source: [facility] ID: [id number] Author: MEJIA SANCHEZ RT(Alexia) Service: Radiology Author Type: Technologist Type: Progress Notes Filed: 06/06/2024 10:14 Note Text: Radiology Service Progress Note PATIENT NAME: Miki Sauceda DATE OF SERVICE: June 06, 2024 TIME: 10:06 AM PATIENT IDENTITY VERIFICATION COMPLETED USING TWO (2) IDENTIFIERS: Name and Date of confirmed by patient verbally and Name and Date of confirmed by identification band. FALL SCREENING: Has the patient had 2 falls in the last year or 1 fall with injury or currently using an Ambulatory Assistive Device (Walker, Cane, Wheelchair, Crutches, etc.)? No PATIENT GENDER DATA: Assigned male at PATIENT RELEVANT IMPLANT DATA REVIEWED: Yes PATIENT PRESENTS WITH AN IMPLANTABLE OR ATTACHED TELEMARKETING AGENT: No RADIOLOGY DEPARTMENT: CT; Exam(s) Completed: Chest and Neck PERIPHERAL IV DATA: Site assessment: Clean,Dry and Intact, Site disposition Left in for next appointment SIGNED BY: RT Yaya(Alexia) June 06, 2024 10:06 AM PROGRESS Observed: 06/06/2024 7:30 AM Status: COMPLETED Source: [facility] ID: [id number] Author: TAYO VEGA RN Service: Radiology Author Type: Registered Nurse Type: Progress Notes Filed: 06/06/2024 07:44 Note Text: RADIOLOGY SERVICE PROGRESS NOTE SERVICE DATE: 06/06/2024 SERVICE TIME: 6:51 AM PATIENT IDENTITY VERIFICATION COMPLETED USING TWO (2) STANDARD IDENTIFIERS: Name and Date of confirmed by patient verbally and Name and Date of confirmed by identification band PATIENT GENDER DATA: male ALLERGIES: Reviewed and unchanged MEDICATIONS REVIEWED BY: Veterinary Laboratory Diagnostician and Tayo Vega RN PROCEDURE TYPE: NM PET Myocardial Imagin.4 mg of Regadenoson was administered at 0729 over 10 Seconds. Reversal agent used: None. Expiration date: 11/2025 Lot#: [id number] IV SITE: Ambulatory: A peripheral IV was started in the Left antecubital site with a Angio cath: 20 gauge. and A Saline lock was inserted per protocol POST EXAM PIV STATUS: Left in for next appointment PATIENT DISCHARGED TO: Ambulatory patient, left [place] department area. A Diagnostic radioactive procedure has taken place, with no further precautions necessary other than routine body substance precautions. More information regarding radiation safety can be found using this link: [email or web address] SIGNATURE: Tayo Vega RN PATIENT NAME: Miki Sauceda DATE: June 06, 2024 TIME: 6:51 AM PAGER/CONTACT #: BACTERIA UR CULT Observed: 06/01/2024 9:08 AM Status: F Source: [facility] CULTURE, URINE: No growth (<1,000 CFU/ml) Performed By: #### [id number] ### # [facility] CLIA [id number] [address] [place] [address] [place] OF [place] Observed: 06/01/2024 8:40 AM Status: COMPLETED Source: [facility] Office Visit (UROLLN) MIKI SAUCEDA ([id number]) 1965 M Date Time Provider Department 06/01/24 8:40 AM KENNETH GUADALUPE During your visit today, we recorded the following information about you: Pulse Blood pressure 80/minute 124/81 Kenneth Guadalupe MD 06/01/2024 8:34 AM Addendum Miki Sauceda [id number] ADDENDUM Chief Complaint: BPH HISTORY OF PRESENT ILLNESS: Miki Sauceda is a 58 year old male with history of sleep apnea, larynx cancer treated with chemoradiation 6 years ago (and tracheostomy), prior tobacco exposure, obesity and LUTS for the last few years who presents to clinic today for evaluation. No hematuria. Some times dysuria. No STDs. No prostate medications. [facility] SYMPTOMS SCORE. Date 02/04/2023 TOTAL SCORE 23 QOL 3 I order US with PVR (670 cc and 33 cc) , Uroflow (Not done) , PSA (0.58) and UC (N) Dr. Ramakrishna Álvarez did bilateral hernias in 04/09/23 PVR today 0 cc. 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 UROFLOWMETRY 06/01/2024 Voided vol: 150 ml. Q max: 8.7 ml/sec. Average 4.1 ml/sec PVR: 0 ml. Uroflow interpretation: Decreased strength of the urinary stream with complete bladder emptying. Kenneth Guadalupe M.D. June 01, 2024 8:[address] BRAIN WO IVCON Order: [id number] Narrative STUDY: CT BRAIN WO CONT INDICATION: Mental status change, unknown cause. TECHNIQUE: * CT head was performed without intravenous contrast using the standard protocol. Automated exposure control was utilized. * All CT scans at this facility use dose modulation, iterative reconstruction, and/or weight based dosing when appropriate to reduce radiation dose to as low as reasonably achievable. FINDINGS: No evidence of acute intracranial hemorrhage, territorial infarct, mass effect, midline shift, or extra-axial fluid collection. Ventricles, sulci and cistern are unremarkable. Brain volume is age appropriate. Orbits and globes appear unremarkable. Soft tissues are unremarkable. Atherosclerotic plaque is noted in the carotid siphons bilaterally. Mild mucosal thickening of paranasal sinus. Mastoid air cells are broadly clear. Right lamina papyracea defect on the right, chronic. IMPRESSION: * No acute intracranial abnormality, by CT. MRI is more sensitive for evaluation of ischemia or subtle parenchymal abnormalities. Finalized by Ector Moreno on 05/22/2024 10:23 AM Exam End: 05/22/24 10:12 AM Specimen Collected: 05/22/24 10:13 AM Last Resulted: 05/22/24 10:23 AM Received From: [facility] Order: [id number] Status: Final result Next appt: 06/06/2024 at 07:00 AM in RADIOLOGY (Molecular Imaging) Dx: Mixed hyperlipidemia; Primary hyperte... Test Result Released: No (inaccessible in MyChart) 0 Result Notes Narrative Non-Invasive Vascular Laboratory [facility] Lower Extremity Arterial Physiology Study Bilateral/Complete Date of service/time: 01/31/2024 7:56:50 AM Name: MR. MIKI SAUCEDA Date of : 1965 Age: 58 years Gender: M Clinical Indication Claudication. TECHNIQUE -------- An arterial physiological examination was performed, including measurement of blood pressures using continuous wave Doppler and recording of plethysmographic with or without Doppler waveforms at the below-mentioned limb segments. FINDINGS -------- RIGHT SIDE AT REST Right Doppler Waveforms Dorsalis pedis: Multiphasic. Post tibial: Multiphasic. Right Pressures Brachial: 122 mmHg High thigh: 153 mmHg Low thigh: 149 mmHg Calf: 149 mmHg Ankle dorsalis pedis: 146 mmHg MITCHELL: 1.14 Ankle posterior tibial: 158 mmHg MITCHELL: 1.23 Right PVR Waveforms High thigh: Normal. Low thigh: Normal. Calf: Normal. Ankle: Normal. Transmetatarsal: Normal. Digit: Normal. LEFT SIDE AT REST Left Doppler Waveforms Dorsalis pedis: Multiphasic. Post tibial: Multiphasic. Left Pressures Brachial: 128 mmHg High thigh: 155 mmHg Low thigh: 153 mmHg Calf: 153 mmHg Ankle dorsalis pedis: 154 mmHg MITCHELL: 1.20 Ankle posterior tibial: 148 mmHg MITCHELL: 1.16 Left PVR Waveforms High thigh: Normal. Low thigh: Normal. Calf: Normal. Ankle: Normal. Transmetatarsal: Normal. Digit: Normal. POST EXERCISE Treadmill grade: 12.0 rate: 2.0 mph Onset of claudication: 1 min 50 sec Maximal walking time: 4 min 0 sec Exercise symptoms 1 min 50 sec: mild bilateral thigh tightening Reason test was terminated: shortness of breath. Post Exercise: Immediate Right Pressures and Waveform Ankle: 155 mmHg MITCHELL: 1.13 Ankle waveform: Normal. Left Pressures and Waveform Brachial: 137 mmHg Ankle: 149 mmHg MITCHELL: 1.09 Ankle waveform: Normal. IMPRESSION RIGHT SIDE Resting right ankle brachial index: 1.23 Post exercise right ankle brachial index: 1.13 Normal ankle brachial index at rest in the right leg. Right ankle: Normal at rest. No significant change in pressure and/or ankle-brachial index with exercise. LEFT SIDE Resting left ankle brachial index: 1.20 Post exercise left ankle brachial index: 1.09 Normal ankle brachial index at rest in the left leg. Left ankle: Normal at rest. No significant change in pressure and/or ankle-brachial index with exercise. Technologist: Ana Pacheco RVT Ordering physician: KODI SULLIVAN Interpreting physician: Fran Victoria MD, RPNADIRA Results US CAROTID ARTERIES [facility] (Acc#[id number]) (Order [id number]) Patient Info Patient Name Sex Miki Sauceda ([id number]) Male 1965 [facility]ID [facility]ER[facility] Order: [id number] Status: Final result Next appt: 06/06/2024 at 07:00 AM in RADIOLOGY (Molecular Imaging) Dx: Mixed hyperlipidemia; Primary hyperte... Test Result Released: No (inaccessible in [place]) 0 Result Notes Narrative Non-Invasive Vascular Laboratory [facility] Carotid Duplex Bilateral/Complete Date of service/time: 01/31/2024 7:53:41 AM Name: MR. MIKI SAUCEDA Date of : 1965 Age: 58 years Gender: M Clinical Indication Rule out carotid artery disease. TECHNIQUE -------- A carotid duplex ultrasound examination was performed, including grayscale imaging and color Doppler and spectral Doppler examination of the below mentioned arteries. FINDINGS -------- RIGHT SIDE Common carotid artery: Origin: PSV: 79 cm/s. EDV: 8 cm/s. Proximal: PSV: 64 cm/s. EDV: 9 cm/s. Mid: PSV: 49 cm/s. EDV: 7 cm/s. Distal: PSV: 46 cm/s. EDV: 9 cm/s. Internal carotid artery: Origin: PSV: 0 cm/s. EDV: 0 cm/s. Proximal: PSV: 0 cm/s. EDV: 0 cm/s. Mid: PSV: 0 cm/s. EDV: 0 cm/s. ICA/CCA Ratio: 0.0 External carotid artery: Proximal: PSV: 76 cm/s. EDV: 14 cm/s. Subclavian artery: Proximal: PSV: 215 cm/s. EDV: 0 cm/s. Mild heterogeneous plaque at proximal. Innominate artery: PSV: 106 cm/s. EDV: 13 cm/s. Vertebral artery: PSV: 59 cm/s. EDV: 19 cm/s. LEFT SIDE Common carotid artery: Proximal: PSV: 90 cm/s. EDV: 26 cm/s. Mid: PSV: 78 cm/s. EDV: 24 cm/s. Distal: PSV: 63 cm/s. EDV: 17 cm/s. Mild heterogeneous plaque at distal. Internal carotid artery: Origin: PSV: 74 cm/s. EDV: 25 cm/s. Proximal: PSV: 80 cm/s. EDV: 34 cm/s. Mid: PSV: 73 cm/s. EDV: 31 cm/s. Distal: PSV: 84 cm/s. EDV: 39 cm/s. ICA/CCA Ratio: 1.3 External carotid artery: Proximal: PSV: 69 cm/s. EDV: 11 cm/s. Subclavian artery: Proximal: PSV: 117 cm/s. EDV: 12 cm/s. Vertebral artery: PSV: 46 cm/s. EDV: 15 cm/s. IMPRESSION Kodi Sullivan MD was notified with results at 0900. Compared to prior study of 04/14/2021, right ICA now occluded, left unchanged. RIGHT SIDE Internal carotid artery: Occluded. Vertebral artery: Patent and antegrade flow noted. Subclavian artery: Plaque visualized without evidence of hemodynamically significant stenosis. LEFT SIDE Common carotid artery: Plaque visualized without evidence of hemodynamically significant stenosis. Internal carotid artery: 0-19% stenosis. Tortuous vessel at proximal . Vertebral artery: Patent and antegrade flow noted. Subclavian artery: Patent. Technologist: Ana Pacheco RVT Claudia Crowe RVT Ordering physician: KODI SULLIVAN Interpreting physician: Fran Victoria MD, RPVI Final See Link below for Image Specimen Collected: 01/31/24 7:53 AM EDT Last Resulted: 01/31/24 8:39 PM EDT pH, Arterial Date Value Ref Range Status 05/19/2017 7.32 (L) 7.35 - 7.45 Final Lab Results Component Value Date CULT No growth (<1,000 CFU/ml) 02/04/2023 No results found for: UPCP , BENZO , UCOC2 , UAMPH , THC , UOPI , UBARB , URPOS No results found. LABS PSA Screening (ng/mL) Date Value 02/04/2023 0.58 Creatinine (mg/dL) Date Value 11/19/2023 0.79 08/26/2023 0.76 05/27/2023 0.72 10/13/2022 0.83 05/27/2022 0.77 10/16/2020 0.83 03/13/2020 0.88 05/19/2017 0.77 05/12/2017 0.92 03/10/2017 0.77 PAST MEDICAL HISTORY Diagnosis Date Adjustment disorder with anxious mood 09/16/2016 Chronic obstructive pulmonary disease (COPD) (HCC) Cigarette nicotine dependence in remission 02/06/2016 Reports not smoking for multiple weeks. 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 MATT Radiculitis 10/29/2016 Added automatically from request for surgery [id number] Snoring Spondylolysis, lumbosacral 07/24/2016 PAST SURGICAL HISTORY Procedure Laterality Date BACK SURGERY HX 2018 COLONOSCOPY DIAGNOSTIC 01/09/2021 polyps removed COLONOSCOPY DIAGNOSTIC 05/29/2016 EGD DIAGNOSTIC PAST SURGICAL HISTORY OF 11/20/2015 Biopsy/Trach Social History Tobacco Use Smoking status: Former Current packs/day: 0.00 Average packs/day: 1 pack/day for 30.0 years (30.0 ttl pk-yrs) Types: Cigarettes Start date: 10/30/1985 Quit date: 10/31/2015 Years since quittin.5 Smokeless tobacco: Never Tobacco comments: Smokes socially now or when drinking. -07/27/23 [place] Vaping Use Vaping status: Never Used Substance Use Topics Alcohol use: Yes Comment: 12 beers weekly, does not drink daily Drug use: No Current Outpatient Medications Medication Instructions aspirin, enteric coated (ECOTRIN LOW STRENGTH) 81 mg, ORAL, DAILY azelastine 0.1% nasal spray 2 Sprays, EACH NOSTRIL, 2 TIMES DAILY NEEDED carvedilol (COREG) 25 mg, ORAL, 2 TIMES DAILY fluticasone (FLONASE) 50 mcg/actuation nasal spray Use 2 spray(s) in each nostril once daily levothyroxine (SYNTHROID) 75 mcg, ORAL, DAILY losartan (COZAAR) 50 mg, ORAL, DAILY meloxicam (MOBIC) 7.5 mg, ORAL, DAILY methocarbamol (ROBAXIN) 500 mg, ORAL, AT BEDTIME NEEDED mupirocin (BACTROBAN) 2 % ointment Apply to affected area daily pantoprazole DR (PROTONIX) 40 mg, ORAL, DAILY rosuvastatin (CRESTOR) 20 mg, ORAL, AT BEDTIME tamsulosin (FLOMAX) 0.4 mg, ORAL, DAILY ticagrelor (BRILINTA) 90 mg, ORAL, 2 TIMES DAILY REVIEW OF SYSTEMS GENERAL: No fever, no fatigue and no weight loss. HEAD AND NECK: No headache, no blurred vision and no hearing loss. CARDIOVASCULAR: No chest pain, no palpitations and no leg edema. RESPIRATORY: No cough, wheezing and no shortness of breath. : As indicated in HPI. GI: No epigastric discomfort, no blood in stool and no changes in bowel habits. MUSCLOSKELETAL: No neck pain, + back pain and + joint pain. SKIN: No varicose veins, no rash and no abnormal itching. NEUROLOGICAL: No numbness, no seizures and no tremor. BLOOD: No ekimosis, no hematomas or no bleeding from the gums. PHYSICAL EXAM: BP 124/81 (BP Position: Sitting, BP Cuff Size: Large Adult) Pulse 80 SpO2 97% GENERAL: Alert, oriented and in no distress. ABDOMEN: No CVA tenderness. EXTREMITIES: No leg edema, No joint swelling GENITALIA: deferred ASSESSMENT/PLAN : 58 year old male with history of sleep apnea, larynx cancer treated with chemoradiation 6 years ago (and tracheostomy), prior tobacco exposure, obesity and LUTS for the last few years who presents to clinic today for evaluation. No hematuria. Some times dysuria. No STDs. No prostate medications. [facility] SYMPTOMS SCORE. Date 02/04/2023 TOTAL SCORE 23 QOL 3 I order US with PVR (670 cc and 33 cc) , Uroflow (Not done) , PSA (0.58) and UC (N) Dr. Ramakrishna Álvarez did bilateral hernias in 04/09/23 PVR today 0 cc. 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 UROFLOWMETRY 06/01/2024 Voided vol: 150 ml. Q max: 8.7 ml/sec. Average 4.1 ml/sec PVR: 0 ml. Uroflow interpretation: Decreased strength of the urinary stream with complete bladder emptying. Kenneth Guadalupe M.D. June 01, 2024 8:26 AM After discussing pros and cons, we agreed on taking flomax again. I order UC to RO UTI given his recent nocturia. PSA in a year. The pt. understands that I do not provide tests results over the phone unless there is an emergency and eventually agrees to return to clinic to discuss tests results. Medical Decision Making: Problems: Moderate: 1+ chronic illnesses with change Data: Unique test result(s) reviewed: 2 Unique test(s) ordered: 1 Risk: Moderate: Drug management Medical Decision Making Level: 4 - Moderate Kenneth Guadalupe MD, PhD [facility] [id number] June 01, 2024 8:21 AM Kenneth Guadalupe MD 06/01/2024 8:34 AM Signed Addended by: KENNETH GUADALUPE on: 06/01/2024 08:34 AM Modules accepted: Orders Referring Provider: CHERYL SHAW [[id number]] Allergies As of Date: 06/01/2024 (No Known Allergies) Date Reviewed: 06/01/2024 Reviewed by: Kenneth Guadalupe MD - Fully Assessed Reason for Visit: Recheck [92] Primary Visit Diagnosis:Benign prostatic hyperplasia with weak urinary stream [N40.1, R39.12] Other Visit Diagnosis:Screening for prostate cancer [Z12.5] Order(s):tamsulosin (FLOMAX) 0.4 mgTake 1 capsule by mouth once daily.Disp: 30 capsuleRfl: 11 BACTERIAL CULTURE, URINE [SQURCUL] Order #: [id number] FUTURE PSA/PROSTATE SPECIFIC ANTIGEN SCREENING [SQPSAS1] Order #: [id number] FUTURE Prescriptions as of 06/01/2024 - tamsulosin (FLOMAX) 0.4 mg Take 1 capsule by mouth once daily. - pantoprazole DR (PROTONIX) 40 mg tablet Take 1 tablet by mouth once daily - meloxicam (MOBIC) 7.5 mg tablet Take 1 tablet by mouth once daily. - methocarbamol (ROBAXIN) 500 mg tablet Take 1 tablet by mouth at bedtime as needed. - levothyroxine (SYNTHROID) 75 mcg tablet Take 1 tablet by mouth once daily - rosuvastatin (CRESTOR) 20 mg tablet TAKE 1 TABLET BY MOUTH ONCE DAILY AT BEDTIME - fluticasone (FLONASE) 50 mcg/actuation nasal spray Use 2 spray(s) in each nostril once daily - mupirocin (BACTROBAN) 2 % ointment Apply to affected area daily - ticagrelor (BRILINTA) 90 mg tablet Take 1 tablet by mouth two times a day. - aspirin, enteric coated (ECOTRIN LOW STRENGTH) 81 mg EC tablet Take 1 tablet by mouth once daily. - carvedilol (COREG) 25 mg tablet Take 1 tablet by mouth two times a day. - losartan (COZAAR) 50 mg tablet Take 1 tablet by mouth once daily. - tamsulosin (FLOMAX) 0.4 mg Take 1 capsule by mouth once daily - azelastine 0.1% nasal spray Use 2 Sprays in each nostril two times a day as needed. Problem List As Of Date 06/01/2024 Noted Resolved Larynx cancer (HCC) [C32.9] 01/06/2016 09/16/2016 Difficulty coping with disease [R45.89] 01/06/2016 Malignant neoplasm of subglottis (HCC) [C32.2] 01/19/2016 Degenerative spondylolisthesis [M43.10] 05/28/2016 07/23/2016 Spondylolysis, lumbosacral [M43.07] 07/24/2016 Adjustment disorder with anxious mood [F43.22] 09/16/2016 Radiculitis [M54.10] 10/29/2016 Primary hypertension [I10] 11/10/2016 Larynx cancer (HCC) [C32.9] 01/06/2016 Laryngeal cancer (HCC) [C32.9] 11/04/2015 Degenerative spondylolisthesis [M43.10] 05/28/2016 Former smoker [Z87.891] History of laryngeal cancer [Z85.21] 03/10/2017 Hoarseness [R49.0] 03/10/2017 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] 04/19/2017 Spinal stenosis, lumbar region with neurogenic *04/19/2017 Lumbar stenosis with neurogenic claudication [M*05/19/2017 Obesity (BMI 35.0-39.9 without comorbidity) [E6*11/07/2020 Difficult intubation [T88.4XXA] 11/07/2020 FEDE (obstructive sleep apnea) [G47.33] 11/07/2020 Alcohol use [Z78.9] 11/07/2020 S/P lumbar spinal fusion [Z98.1] 01/16/2021 Chronic midline low back pain without sciatica *01/16/2021 Degenerative lumbar disc [M51.369] 01/16/2021 Lumbar spondylosis [M47.816] 01/20/2022 GERD (gastroesophageal reflux disease) [K21.9] 03/22/2023 Acquired hypothyroidism [E03.9] 03/22/2023 BMI 40.0-44.9, adult (HCC) [Z68.41] 07/27/2023 Stable angina (HCC) [I20.89] 11/26/2023 Elevated coronary artery calcium score [R93.1] 11/26/2023 Prescriptions ordered this encounter Disp Refills Start End TAMSULOSIN 0.4 MG CAPSULE 30 c* 11 06/01/2024 05/27/2025 Route: ORAL Sig: Take 1 capsule by mouth once daily. Disposition: Return in about 1 year (around 06/01/2025). Follow-up and Disposition History for Encounter Date Provider Department Center 06/01/2024 [id number]-MATORKENNETH GUADALUPE [facility] Letter Text Encounter Status:Closed by KENNETH GUADALUPE on 06/01/24 PROGRESS Observed: 06/01/2024 8:21 AM Status: COMPLETED Source: [facility] ID: [id number] Author: KENNETH GUADALUPE MD Service: ? Author Type: Physician Type: Progress Notes Filed: 06/01/2024 08:34 Note Text: Miki Sauceda [id number] ADDENDUM Chief Complaint: BPH HISTORY OF PRESENT ILLNESS: Miki Sauceda is a 58 year old male with history of sleep apnea, larynx cancer treated with chemoradiation 6 years ago (and tracheostomy), prior tobacco exposure, obesity and LUTS for the last few years who presents to clinic today for evaluation. No hematuria. Some times dysuria. No STDs. No prostate medications. [facility] SYMPTOMS SCORE. Date 02/04/2023 TOTAL SCORE 23 QOL 3 I order US with PVR (670 cc and 33 cc) , Uroflow (Not done) , PSA (0.58) and UC (N) Dr. Ramakrishna Álvarez did bilateral hernias in 04/09/23 PVR today 0 cc. 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 UROFLOWMETRY 06/01/2024 Voided vol: 150 ml. Q max: 8.7 ml/sec. Average 4.1 ml/sec PVR: 0 ml. Uroflow interpretation: Decreased strength of the urinary stream with complete bladder emptying. Kenneth Guadalupe M.D. June 01, 2024 8:[address] BRAIN WO IVCON Order: [id number] Narrative STUDY: CT BRAIN WO CONT INDICATION: Mental status change, unknown cause. TECHNIQUE: * CT head was performed without intravenous contrast using the standard protocol. Automated exposure control was utilized. * All CT scans at this facility use dose modulation, iterative reconstruction, and/or weight based dosing when appropriate to reduce radiation dose to as low as reasonably achievable. FINDINGS: No evidence of acute intracranial hemorrhage, territorial infarct, mass effect, midline shift, or extra-axial fluid collection. Ventricles, sulci and cistern are unremarkable. Brain volume is age appropriate. Orbits and globes appear unremarkable. Soft tissues are unremarkable. Atherosclerotic plaque is noted in the carotid siphons bilaterally. Mild mucosal thickening of paranasal sinus. Mastoid air cells are broadly clear. Right lamina papyracea defect on the right, chronic. IMPRESSION: * No acute intracranial abnormality, by CT. MRI is more sensitive for evaluation of ischemia or subtle parenchymal abnormalities. Finalized by Ector Moreno on 05/22/2024 10:23 AM Exam End: 05/22/24 10:12 AM Specimen Collected: 05/22/24 10:13 AM Last Resulted: 05/22/24 10:23 AM Received From: [facility] Order: [id number] Status: Final result Next appt: 06/06/2024 at 07:00 AM in RADIOLOGY (Molecular Imaging) Dx: Mixed hyperlipidemia; Primary hyperte... Test Result Released: No (inaccessible in MyChart) 0 Result Notes Narrative Non-Invasive Vascular Laboratory [facility] Lower Extremity Arterial Physiology Study Bilateral/Complete Date of service/time: 01/31/2024 7:56:50 AM Name: MR. MIKI SAUCEDA Date of : 1965 Age: 58 years Gender: M Clinical Indication Claudication. TECHNIQUE -------- An arterial physiological examination was performed, including measurement of blood pressures using continuous wave Doppler and recording of plethysmographic with or without Doppler waveforms at the below-mentioned limb segments. FINDINGS -------- RIGHT SIDE AT REST Right Doppler Waveforms Dorsalis pedis: Multiphasic. Post tibial: Multiphasic. Right Pressures Brachial: 122 mmHg High thigh: 153 mmHg Low thigh: 149 mmHg Calf: 149 mmHg Ankle dorsalis pedis: 146 mmHg MITCHELL: 1.14 Ankle posterior tibial: 158 mmHg MITCHELL: 1.23 Right PVR Waveforms High thigh: Normal. Low thigh: Normal. Calf: Normal. Ankle: Normal. Transmetatarsal: Normal. Digit: Normal. LEFT SIDE AT REST Left Doppler Waveforms Dorsalis pedis: Multiphasic. Post tibial: Multiphasic. Left Pressures Brachial: 128 mmHg High thigh: 155 mmHg Low thigh: 153 mmHg Calf: 153 mmHg Ankle dorsalis pedis: 154 mmHg MITCHELL: 1.20 Ankle posterior tibial: 148 mmHg MITCHELL: 1.16 Left PVR Waveforms High thigh: Normal. Low thigh: Normal. Calf: Normal. Ankle: Normal. Transmetatarsal: Normal. Digit: Normal. POST EXERCISE Treadmill grade: 12.0 rate: 2.0 mph Onset of claudication: 1 min 50 sec Maximal walking time: 4 min 0 sec Exercise symptoms 1 min 50 sec: mild bilateral thigh tightening Reason test was terminated: shortness of breath. Post Exercise: Immediate Right Pressures and Waveform Ankle: 155 mmHg MITCHELL: 1.13 Ankle waveform: Normal. Left Pressures and Waveform Brachial: 137 mmHg Ankle: 149 mmHg MITCHELL: 1.09 Ankle waveform: Normal. IMPRESSION RIGHT SIDE Resting right ankle brachial index: 1.23 Post exercise right ankle brachial index: 1.13 Normal ankle brachial index at rest in the right leg. Right ankle: Normal at rest. No significant change in pressure and/or ankle-brachial index with exercise. LEFT SIDE Resting left ankle brachial index: 1.20 Post exercise left ankle brachial index: 1.09 Normal ankle brachial index at rest in the left leg. Left ankle: Normal at rest. No significant change in pressure and/or ankle-brachial index with exercise. Technologist: Ana Pacheco RVT Ordering physician: KODI SULLIVAN Interpreting physician: Fran Victoria MD, HERBERT Results [facility] (Acc#[id number]) (Order [id number]) Patient Info Patient Name Sex Miki Sharif ([id number]) Male 1965 [facility] Order: [id number] Status: Final result Next appt: 06/06/2024 at 07:00 AM in RADIOLOGY (Molecular Imaging) Dx: Mixed hyperlipidemia; Primary hyperte... Test Result Released: No ([facility] 0 Result Notes Narrative Non-Invasive Vascular Laboratory [facility] Carotid Duplex Bilateral/Complete Date of service/time: 01/31/2024 7:53:41 AM Name: MR. MIKI SAUCEDA Date of : 1965 Age: 58 years Gender: M Clinical Indication Rule out carotid artery disease. TECHNIQUE -------- A carotid duplex ultrasound examination was performed, including grayscale imaging and color Doppler and spectral Doppler examination of the below mentioned arteries. FINDINGS -------- RIGHT SIDE Common carotid artery: Origin: PSV: 79 cm/s. EDV: 8 cm/s. Proximal: PSV: 64 cm/s. EDV: 9 cm/s. Mid: PSV: 49 cm/s. EDV: 7 cm/s. Distal: PSV: 46 cm/s. EDV: 9 cm/s. Internal carotid artery: Origin: PSV: 0 cm/s. EDV: 0 cm/s. Proximal: PSV: 0 cm/s. EDV: 0 cm/s. Mid: PSV: 0 cm/s. EDV: 0 cm/s. ICA/CCA Ratio: 0.0 External carotid artery: Proximal: PSV: 76 cm/s. EDV: 14 cm/s. Subclavian artery: Proximal: PSV: 215 cm/s. EDV: 0 cm/s. Mild heterogeneous plaque at proximal. Innominate artery: PSV: 106 cm/s. EDV: 13 cm/s. Vertebral artery: PSV: 59 cm/s. EDV: 19 cm/s. LEFT SIDE Common carotid artery: Proximal: PSV: 90 cm/s. EDV: 26 cm/s. Mid: PSV: 78 cm/s. EDV: 24 cm/s. Distal: PSV: 63 cm/s. EDV: 17 cm/s. Mild heterogeneous plaque at distal. Internal carotid artery: Origin: PSV: 74 cm/s. EDV: 25 cm/s. Proximal: PSV: 80 cm/s. EDV: 34 cm/s. Mid: PSV: 73 cm/s. EDV: 31 cm/s. Distal: PSV: 84 cm/s. EDV: 39 cm/s. ICA/CCA Ratio: 1.3 External carotid artery: Proximal: PSV: 69 cm/s. EDV: 11 cm/s. Subclavian artery: Proximal: PSV: 117 cm/s. EDV: 12 cm/s. Vertebral artery: PSV: 46 cm/s. EDV: 15 cm/s. IMPRESSION Kodi Sullivan MD was notified with results at 0900. Compared to prior study of 04/14/2021, right ICA now occluded, left unchanged. RIGHT SIDE Internal carotid artery: Occluded. Vertebral artery: Patent and antegrade flow noted. Subclavian artery: Plaque visualized without evidence of hemodynamically significant stenosis. LEFT SIDE Common carotid artery: Plaque visualized without evidence of hemodynamically significant stenosis. Internal carotid artery: 0-19% stenosis. Tortuous vessel at proximal . Vertebral artery: Patent and antegrade flow noted. Subclavian artery: Patent. Technologist: Ana Pacheco RVT Claudia Crowe RVT Ordering physician: KODI SULLIVAN Interpreting physician: Fran Victoria MD, RPVI Final See Link below for Image Specimen Collected: 01/31/24 7:53 AM EDT Last Resulted: 01/31/24 8:39 PM EDT pH, Arterial Date Value Ref Range Status 05/19/2017 7.32 (L) 7.35 - 7.45 Final Lab Results Component Value Date CULT No growth (<1,000 CFU/ml) 02/04/2023 No results found for: UPCP , BENZO , UCOC2 , UAMPH , THC , UOPI , UBARB , URPOS No results found. LABS PSA Screening (ng/mL) Date Value 02/04/2023 0.58 Creatinine (mg/dL) Date Value 11/19/2023 0.79 08/26/2023 0.76 05/27/2023 0.72 10/13/2022 0.83 05/27/2022 0.77 10/16/2020 0.83 03/13/2020 0.88 05/19/2017 0.77 05/12/2017 0.92 03/10/2017 0.77 PAST MEDICAL HISTORY Diagnosis Date Adjustment disorder with anxious mood 09/16/2016 Chronic obstructive pulmonary disease (COPD) (HCC) Cigarette nicotine dependence in remission 02/06/2016 Reports not smoking for multiple weeks. 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 -07/27/23 [place] Vaping Use Vaping status: Never Used Substance Use Topics Alcohol use: Yes Comment: 12 beers weekly, does not drink daily Drug use: No Current Outpatient Medications Medication Instructions aspirin, enteric coated (ECOTRIN LOW STRENGTH) 81 mg, ORAL, DAILY azelastine 0.1% nasal spray 2 Sprays, EACH NOSTRIL, 2 TIMES DAILY NEEDED carvedilol (COREG) 25 mg, ORAL, 2 TIMES DAILY fluticasone (FLONASE) 50 mcg/actuation nasal spray Use 2 spray(s) in each nostril once daily levothyroxine (SYNTHROID) 75 mcg, ORAL, DAILY losartan (COZAAR) 50 mg, ORAL, DAILY meloxicam (MOBIC) 7.5 mg, ORAL, DAILY methocarbamol (ROBAXIN) 500 mg, ORAL, AT BEDTIME NEEDED mupirocin (BACTROBAN) 2 % ointment Apply to affected area daily pantoprazole DR (PROTONIX) 40 mg, ORAL, DAILY rosuvastatin (CRESTOR) 20 mg, ORAL, AT BEDTIME tamsulosin (FLOMAX) 0.4 mg, ORAL, DAILY ticagrelor (BRILINTA) 90 mg, ORAL, 2 TIMES DAILY REVIEW OF SYSTEMS GENERAL: No fever, no fatigue and no weight loss. HEAD AND NECK: No headache, no blurred vision and no hearing loss. CARDIOVASCULAR: No chest pain, no palpitations and no leg edema. RESPIRATORY: No cough, wheezing and no shortness of breath. : As indicated in HPI. GI: No epigastric discomfort, no blood in stool and no changes in bowel habits. MUSCLOSKELETAL: No neck pain, + back pain and + joint pain. SKIN: No varicose veins, no rash and no abnormal itching. NEUROLOGICAL: No numbness, no seizures and no tremor. BLOOD: No ekimosis, no hematomas or no bleeding from the gums. PHYSICAL EXAM: BP 124/81 (BP Position: Sitting, BP Cuff Size: Large Adult) Pulse 80 SpO2 97% GENERAL: Alert, oriented and in no distress. ABDOMEN: No CVA tenderness. EXTREMITIES: No leg edema, No joint swelling GENITALIA: deferred ASSESSMENT/PLAN : 58 year old male with history of sleep apnea, larynx cancer treated with chemoradiation 6 years ago (and tracheostomy), prior tobacco exposure, obesity and LUTS for the last few years who presents to clinic today for evaluation. No hematuria. Some times dysuria. No STDs. No prostate medications. [facility] SYMPTOMS SCORE. Date 02/04/2023 TOTAL SCORE 23 QOL 3 I order US with PVR (670 cc and 33 cc) , Uroflow (Not done) , PSA (0.58) and UC (N) Dr. Ramakrishna Álvarez did bilateral hernias in 04/09/23 PVR today 0 cc. 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 UROFLOWMETRY 06/01/2024 Voided vol: 150 ml. Q max: 8.7 ml/sec. Average 4.1 ml/sec PVR: 0 ml. Uroflow interpretation: Decreased strength of the urinary stream with complete bladder emptying. Kenneth Guadalupe M.D. June 01, 2024 8:26 AM After discussing pros and cons, we agreed on taking flomax again. I order UC to RO UTI given his recent nocturia. PSA in a year. The pt. understands that I do not provide tests results over the phone unless there is an emergency and eventually agrees to return to clinic to discuss tests results. Medical Decision Making: Problems: Moderate: 1+ chronic illnesses with change Data: Unique test result(s) reviewed: 2 Unique test(s) ordered: 1 Risk: Moderate: Drug management Medical Decision Making Level: 4 - Moderate Kenneth Guadalupe MD, PhD [facility] [id number] June 01, 2024 8:21 AM CNPN Observed: 05/23/2024 12:00 AM Status: COMPLETED Source: [facility] Telephone (INTMAL) MIKI SAUCEDA ([id number]) 1965 M Date Time Provider Department 05/23/24 KODI SULLIVAN During your visit today, we recorded the following information about you: Elaina Montemayor 05/23/2024 8:12 AM Signed Miki is calling Kodi Sullivan MD today with concern regarding right artery being clogged. Patient is requesting recommendation on surgery and who he can see. Patient stated he can't live like this . Please call patient to advise. Patient has been identified by name and birthdate. Duration of symptoms: N/A Person calling: self Call patient at: at home [phone] (home) [phone] (cell) Was an appointment scheduled: No Closing statement: Results or non-symptom based questions: Thank you for calling [facility], your call will be returned within the next business day. Thank you, Nichol Jacobo RN 05/25/2024 11:42 AM Signed Explained PET scan needed completed prior to Dr. Sullivan making any additional recommedations regarding therapy. He is in agreement and scheduled procedure for 3./4 Allergies As of Date: 05/23/2024 (No Known Allergies) Date Reviewed: 05/17/2024 Reviewed by: Neil Proctor LPN - Fully Assessed Reason for Visit: Patient Question [1477] Prescriptions as of 06/05/2024 - tamsulosin (FLOMAX) 0.4 mg Take 1 capsule by mouth once daily. - pantoprazole DR (PROTONIX) 40 mg tablet Take 1 tablet by mouth once daily - meloxicam (MOBIC) 7.5 mg tablet Take 1 tablet by mouth once daily. - methocarbamol (ROBAXIN) 500 mg tablet Take 1 tablet by mouth at bedtime as needed. - levothyroxine (SYNTHROID) 75 mcg tablet Take 1 tablet by mouth once daily - rosuvastatin (CRESTOR) 20 mg tablet TAKE 1 TABLET BY MOUTH ONCE DAILY AT BEDTIME - fluticasone (FLONASE) 50 mcg/actuation nasal spray Use 2 spray(s) in each nostril once daily - mupirocin (BACTROBAN) 2 % ointment Apply to affected area daily - ticagrelor (BRILINTA) 90 mg tablet Take 1 tablet by mouth two times a day. - aspirin, enteric coated (ECOTRIN LOW STRENGTH) 81 mg EC tablet Take 1 tablet by mouth once daily. - carvedilol (COREG) 25 mg tablet Take 1 tablet by mouth two times a day. - losartan (COZAAR) 50 mg tablet Take 1 tablet by mouth once daily. - tamsulosin (FLOMAX) 0.4 mg Take 1 capsule by mouth once daily - azelastine 0.1% nasal spray Use 2 Sprays in each nostril two times a day as needed. Problem List As Of Date 05/23/2024 Noted Resolved Larynx cancer (HCC) [C32.9] 01/06/2016 09/16/2016 Difficulty coping with disease [R45.89] 01/06/2016 Malignant neoplasm of subglottis (HCC) [C32.2] 01/19/2016 Degenerative spondylolisthesis [M43.10] 05/28/2016 07/23/2016 Spondylolysis, lumbosacral [M43.07] 07/24/2016 Adjustment disorder with anxious mood [F43.22] 09/16/2016 Radiculitis [M54.10] 10/29/2016 Primary hypertension [I10] 11/10/2016 Larynx cancer (HCC) [C32.9] 01/06/2016 Laryngeal cancer (HCC) [C32.9] 11/04/2015 Degenerative spondylolisthesis [M43.10] 05/28/2016 Former smoker [Z87.891] History of laryngeal cancer [Z85.21] 03/10/2017 Hoarseness [R49.0] 03/10/2017 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] 04/19/2017 Spinal stenosis, lumbar region with neurogenic *04/19/2017 Lumbar stenosis with neurogenic claudication [M*05/19/2017 Obesity (BMI 35.0-39.9 without comorbidity) [E6*11/07/2020 Difficult intubation [T88.4XXA] 11/07/2020 FEDE (obstructive sleep apnea) [G47.33] 11/07/2020 Alcohol use [Z78.9] 11/07/2020 S/P lumbar spinal fusion [Z98.1] 01/16/2021 Chronic midline low back pain without sciatica *01/16/2021 Degenerative lumbar disc [M51.369] 01/16/2021 Lumbar spondylosis [M47.816] 01/20/2022 GERD (gastroesophageal reflux disease) [K21.9] 03/22/2023 Acquired hypothyroidism [E03.9] 03/22/2023 BMI 40.0-44.9, adult (HCC) [Z68.41] 07/27/2023 Stable angina (HCC) [I20.89] 11/26/2023 Elevated coronary artery calcium score [R93.1] 11/26/2023 Encounter Status:Closed by ELAINA STRONG on 06/05/24 CBC AND AUTO DIFF Collected: 05/22/2024 10:03 A M Status: COMPLETED Source: [facility] TYPE CODE TESTS RESULT OUT OF RANGE REFERENCE UNITS LAB WBC(LOINC) WBC COUNT 7.0 4.0-11.0 X10E9/L LAB RBC(LOINC) RBC COUNT 5.27 4.10-5.70 X10E12/L LAB HGB(LOINC) HEMOGLOBIN 15.5 13.0-17.0 g/dL LAB HCT(LOINC) HEMATOCRIT 45.0 39-49 % LAB MCV(LOINC) MCV 85 80-100 fL LAB MCH(LOINC) MCH 29.4 27-34 pg LAB MCHC(LOINC) MCHC 34.4 32-36 g/dL LAB RDW(LOINC) RDW 14.1 11.5-15.0 % LAB PLTC(LOINC) PLATELET COUNT 132 Low 150-450 X10E9 /L LAB MPV(LOINC) MPV 8.4 7-12 fL LAB NEUT(LOINC) % NEUTROPHILS 63.6 % LAB LYMP(LOINC) % LYMPHOCYTES 21.7 % LAB MONO(LOINC) % MONOCYTES 8.7 % LAB EOS(LOINC) % EOSINOPHILS 4.8 % LAB BASO(LOINC) % BASOPHILS 1.2 % LAB ANEUT(LOINC) ABSOLUTE NEUTROPHIL 4.4 1.5-6.6 X10E9/L LAB ALYMP(LOINC) ABSOLUTE LYMPHOCYTE 1.5 1.0-3.5 X10E9/L LAB AMONO(LOINC) ABSOLUTE MONOCYTE 0.6 0-0.9 X10E9/L LAB AEOS(LOINC) ABSOLUTE EOSINOPHIL 0.3 0.0-0.4 X10E9/L LAB ABASO(LOINC) ABSOLUTE BASOPHIL 0.1 0.0-0.2 X10E9/L Performed By: #### CBCA, CMP #### [facility] ([id number]) [address] [place] [address], [place] [address] COMPREHENSIVE METABOLIC PANEL Collected : 05/22/2024 10:03 AM Status: COMPLETED Source: [facility] TYPE CODE TESTS RESULT OUT OF RANGE REFERENCE UNITS LAB NA(LOINC) SODIUM 135 134-146 mmol/L LAB K(LOINC) POTASSIUM 3.7 3.5-5.0 mmol/L LAB CL(LOINC) CHLORIDE 103 98-109 mmol/L LAB CO2(LOINC) CARBON DIOXIDE 23 22-32 mmol/L LAB AGAP(LOINC) ANION GAP 9 5-15 mmol/L LAB BUN(LOINC) BLOOD UREA NITROGEN 12 5-23 mg/dL LAB CRET(LOINC) CREATININE 0.68 Low 0.70-1.20 mg/dL Result Comment: METHOD TRACE ABLE TO IDMS STANDARD LAB GLU(LOINC) GLUCOSE 108 High 65-99 mg/dL LAB CA(LOINC) CALCIUM 8.7 8.5-10.5 mg/dL LAB TP(LOINC) TOTAL PROTEIN 7.3 6.0-8.0 g/dL LAB ALB(LOINC) ALBUMIN 4.3 3.2-5.3 g/dL LAB ALK(LOINC) ALKALINE PHOSPHATASE 69 39-130 U/L LAB AST(LOINC) AST 25 0-41 U/L LAB ALT1(LOINC) ALT 32 0-40 U/L LAB TBIL(LOINC) BILIRUBIN,TOTAL 1.0 0.3-1.2 mg/d L LAB EGFR(LOINC) eGFR (CKD-EPI) NON-RACE DEPENDENT >90 >59 ml/min/1 .73sq.m Result Comment: Reported eGFR is based on the CKD-EPI 2020 equation that does not use a race coefficient. Performed By: #### CBCA, CMP #### [facility] ([id number]) [address] [place] [address], [place] [address] CT BRAIN WO CONT Observed: 05/22/2024 10:01 AM Status: COMPLETED Source: [facility] CT BRAIN WO CONT STUDY: CT BRAIN WO CONT INDICATION: Mental status change, unknown cause. TECHNIQUE: * CT head was performed without intravenous contrast using the standard protocol. Automated exposure control was utilized. * All CT scans at this facility use dose modulation, iterative reconstruction, and/or weight based dosing when appropriate to reduce radiation dose to as low as reasonably achievable. FINDINGS: No evidence of acute intracranial hemorrhage, territorial infarct, mass effect, midline shift, or extra-axial fluid collection. Ventricles, sulci and cistern are unremarkable. Brain volume is age appropriate. Orbits and globes appear unremarkable. Soft tissues are unremarkable. Atherosclerotic plaque is noted in the carotid siphons bilaterally. Mild mucosal thickening of paranasal sinus. Mastoid air cells are broadly clear. Right lamina papyracea defect on the right, chronic. IMPRESSION: * No acute intracranial abnormality, by CT. MRI is more sensitive for evaluation of ischemia or subtle parenchymal abnormalities. Finalized by Ector Moreno on 05/22/2024 10:23 AM REJI Observed: 05/17/2024 10:00 AM Status: COMPLETED Source: [facility] Office Visit (CARINF) VLADISLAVBOWENMIKI ORNELAS ([id number]) 1965 M Date Time Provider Department 05/17/24 10:00 AM KODI SULLIVAN CARINF During your visit today, we recorded the following information about you: Pulse Blood pressure Weight Height 77/minute 130/84 138.9 kg 1.803 m Kodi Sullivan MD 05/17/2024 10:17 AM Signed [facility] Department of Cardiovascular Medicine SECTION OF INTERVENTIONAL CARDIOLOGY OUTPATIENT VISIT DATE 05/17/2024 OUTPATIENT VISIT TYPE Established PRIMARY CARE PHYSICIAN: To use this Smartlink, specify the provider ID whose address you want to display, e.g., .PROVADDR[1 (where 1 is the provider ID). REFERRING PHYSICIAN: No referring provider defined for this encounter. CHIEF COMPLAINT: Patient presents with: CARD New Patient Consult HISTORY OF PRESENT ILLNESS: Prior Visit 12/15/2023: Mr. Sauceda is a 58 year old male who presents today for f/u after CAD s/p RCA PCI . He denies chest pain, shortness of breath, dyspnea on exertion, orthopnea, PND, palpitations, lightheadedness, syncope, claudication, leg swelling, bleeding, cough, and wheezing. He does note mild fatigue that is improved with exertion. Not been able to get CPAP due to weight limitations for FEDE. Current Visit 05/17/2024: The patient denies chest pain since PCI, but does note fatigue and mild PERAZA now. He is still smoking cigarettes. Denies any skin rash or bleeding with medications. Reports his brother passed from LAD MO at age 61 since prior visit. Risk factors for coronary artery disease hyperlipidemia, hypertension, history of smoking, family history of CAD, obesity Diet / Nutrition: poor dietary control Weight: no change since last visit Exercise: pending cardiac rehab evaluation PAST MEDICAL HISTORY 09/16/2016: Adjustment disorder with anxious mood No date: Chronic obstructive pulmonary disease (COPD) (HCC) 02/06/2016: Cigarette nicotine dependence in remission Comment: Reports not smoking for multiple weeks. 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 [id number] stage MATT 10/29/2016: Radiculitis Comment: Added automatically from request for surgery [id number] No date: Snoring 07/24/2016: Spondylolysis, lumbosacral PAST SURGICAL HISTORY 2018: BACK SURGERY HX 01/09/2021: COLONOSCOPY DIAGNOSTIC Comment: polyps removed 05/29/2016: COLONOSCOPY DIAGNOSTIC No date: EGD DIAGNOSTIC 11/20/2015: PAST SURGICAL HISTORY OF Comment: Biopsy/Trach SOCIAL HISTORY Social History Tobacco Use Smoking status: Former Current packs/day: 0.00 Average packs/day: 1 pack/day for 30.0 years (30.0 ttl pk-yrs) Types: Cigarettes Start date: 10/30/1985 Quit date: 10/31/2015 Years since quittin.1 Smokeless tobacco: Never Tobacco comments: Smokes socially now or when drinking. -07/27/23 [place] Vaping Use Vaping status: Never Used Substance Use Topics Alcohol use: Yes Comment: 12 beers weekly, does not drink daily Drug use: No FAMILY HISTORY Problem Relation Age of Onset Cancer Mother breast Cancer Father small cell lung cancer Colon Cancer No Family History Anesthesia Problems No Family History ALLERGIES: ALLERGIES No Known Allergies MEDICATIONS: mupirocin (BACTROBAN) 2 % ointment Apply to affected area daily ammonium lactate (LAC-HYDRIN) 12 % lotion Apply to elbows twice daily as needed. ticagrelor (BRILINTA) 90 mg tablet Take 1 tablet by mouth two times a day. pantoprazole DR (PROTONIX) 40 mg tablet Take 1 tablet by mouth once daily. Patient should start on November 27, 2023. rosuvastatin (CRESTOR) 20 mg tablet Take 1 tablet by mouth daily at bedtime. aspirin, enteric coated (ECOTRIN LOW STRENGTH) 81 mg EC tablet Take 1 tablet by mouth once daily. carvedilol (COREG) 25 mg tablet Take 1 tablet by mouth two times a day. losartan (COZAAR) 50 mg tablet Take 1 tablet by mouth once daily. tamsulosin (FLOMAX) 0.4 mg Take 1 capsule by mouth once daily fluticasone (FLONASE) 50 mcg/actuation nasal spray Use 2 Sprays in each nostril once daily. azelastine 0.1% nasal spray Use 2 Sprays in each nostril two times a day as needed. meloxicam (MOBIC) 7.5 mg tablet Take 1 tablet by mouth once daily. levothyroxine (SYNTHROID) 75 mcg tablet Take 1 tablet by mouth once daily. sodium chloride (AYR, OCEAN) 0.65 % nasal spray Use 1 [place] in the nose every 2 hours while awake. REVIEW OF SYSTEMS: GENERAL: negative for: fevers, chills, and change in weight HEENT: negative for: headaches, hearing loss, difficulty swallowing, visual changes, nose bleeds, dentures, own teeth SKIN: rashes, lesions, and ulcers RESPIRATORY: SEE HPI CARDIOVASCULAR: See HPI GASTROINTESTINAL: negative for: abdominal pain, nausea, vomiting, difficulty or painful swallowing, and melanotic stools GENITOURINARY: negative for: dysuria, frequency, nocturia, and male potency MUSCULOSKELETAL: negative for: joint pain, joint swelling, muscle pain or myalgias, and pain with walking NEUROLOGIC: negative for: numbness, tingling, and sensation of pins and needles HEMATOLOGY: negative for: bruising easily, prolonged bleeding, anemia, and cancer ENDOCRINE: negative for: cold or heat intolerance, polyuria, polydipsia, goiter, diabetes, and thyroid disease PSYCH: negative for: sleep disturbance, mood disorders, and recent psychosocial stressors PHYSICAL EXAMINATION: 05/17/24 0924 BP: 130/84 Pulse: 77 Weight: (!) 138.9 kg (306 lb 3.5 oz) Height: 180.3 cm (5' 11 ) General: Well appearing, in no acute distress, speaking in complete sentences. Skin: No clubbing, no cyanosis. Head/Eyes: Extra ocular movements intact Mouth: Teeth in good repair. Neck: No jugular venous distention, no carotid bruits, carotids have a normal upstroke, no palpable thyromegaly. Lungs: Clear to auscultation and no rales Heart: Regular rhythm, PMI not displaced, S1, S2 normal, no S3, no S4, no heaves, no rub and no murmur. PV Pulses:Pulses intact Abdomen: Soft, nontender, bowel sounds normal, no palpable organomegaly, no bruits. Extremities: No peripheral edema . Grade 2/4 distal pulses bilaterally. Edema Scale: No Musculoskeletal: Normal gait and ambulation Neuro: Oriented to time, place and person CARDIOVASCULAR MEDICINE TESTING: Laboratory Testing: A1c 5.2, LDL 80, HDL 29 Cardiac Catheterization/Percutaneous Coronary Intervention (PCI): Last EKG Result Conclusion ECG COMPLETE Collected: 12/15/2023 10:34 AM (Preliminary result) Impression: NORMAL SINUS RHYTHM Septal Infarct , AGE UNDETERMINED POSSIBLE INFERIOR MYOCARDIAL INFARCTION , AGE UNDETERMINED ABNORMAL ECG Carotid Duplex: IMPRESSION Kodi Sullivan MD was notified with results at 0900. Compared to prior study of 04/14/2021, right ICA now occluded, left unchanged. RIGHT SIDE Internal carotid artery: Occluded. Vertebral artery: Patent and antegrade flow noted. Subclavian artery: Plaque visualized without evidence of hemodynamically significant stenosis. LEFT SIDE Common carotid artery: Plaque visualized without evidence of hemodynamically significant stenosis. Internal carotid artery: 0-19% stenosis. Tortuous vessel at proximal . Vertebral artery: Patent and antegrade flow noted. Subclavian artery: Patent. Technologist: Ana Pacheco RVT Claudia Crowe T Ordering physician: KODI SULLIVAN Interpreting physician: Fran Victoria MD, HERBERT I have personally reviewed the Electrocardiogram, Laboratory Testing, and Echocardiogram. IMPRESSION: Mr. Sauceda is a 58 year old male who presents for follow up after CAD s/p PCI RCA. Patient reports PERAZA/fatigue and continue smoking. Coronary artery disease involving [place] coronary artery of [place] heart without angina pectoris (primary encounter diagnosis) S/p drug eluting coronary stent placement Mixed hyperlipidemia Primary hypertension Class 3 severe obesity due to excess calories without serious comorbidity with body mass index (bmi) of 40.0 to 44.9 in adult (hcc) Smoker PLAN AND RECOMMENDATIONS: CAD s/p PCI RCA -ASA 81 mg PO daily and ticagrelor 90 mg PO BID -high intensity statin goal LDL <70 and ideally LDL <55 -cardiac rehab referral given previously, patient did not participate -CT/PET cardiac stress/viability given PERAZA HLD -high intensity statin goal LDL <70 and ideally LDL <55 HTN -continue with carvedilol 25 mg PO twice daily goal HR < 70. Monitor for bradycardia, lightheadedness, dizziness, hypotension, hyperglycemia continue with lorsartan 50 PO daily goal BP <130/80. Monitor for angioedema, dry cough, hyperkalemia, muscle cramps, palpitations Right Carotid Occluded, Left Carotid Artery 0-19% stenosis -ASA and statin Obesity -Heart healthy diet counseling performed -weight loss clinic referral -age and risk appropriate malignancy screening per pcp -smoking cessation counseling performed for 3-10 minutes. Smoking cessation class referral made previously, patient did not attend -if patient has recurrent or worsening symptoms, patient is instructed to come to the ED or call 911 -patient understands and agrees with the plan -RTC 6 months CONTACT INFORMATION: Kodi Sullivan M.D. Section of Interventional Cardiology AND Endovascular Interventions Yelitza Acosta Department of Cardiovascular Medicine Heart, Vascular and Thoracic [facility] Office Office Pager [phone] This note was partially generated using Loot! voice recognition system, and there may be some incorrect words, spellings, and punctuation that were not noted in checking the note before saving Referring Provider: KODI SULLIVAN [[id number]] Allergies As of Date: 05/17/2024 (No Known Allergies) Date Reviewed: 05/17/2024 Reviewed by: Neil Proctor LPN - Fully Assessed Reason for Visit: Follow Up [171] Primary Visit Diagnosis:S/P drug eluting coronary stent placement [Z95.5] Other Visit Diagnoses:Essential hypertension [I10] Mixed hyperlipidemia [E78.2] Class 3 obesity [E66.813] Smoker [F17.200] Encounter for screening for cardiovascular disorders [Z13.6] Ischemic cardiomyopathy [I25.5] Order(s):ECG COMPLETE [ECG01] Order #: [id number] NM PET/CT CARDIAC PERF REST/STRESS [1467804] Order #: [id number] FUTURE NM PET/CT CARDIAC VIABILITY [5891421] Order #: [id number] FUTURE Prescriptions as of 05/17/2024 - meloxicam (MOBIC) 7.5 mg tablet Take 1 tablet by mouth once daily. - methocarbamol (ROBAXIN) 500 mg tablet Take 1 tablet by mouth at bedtime as needed. - levothyroxine (SYNTHROID) 75 mcg tablet Take 1 tablet by mouth once daily - rosuvastatin (CRESTOR) 20 mg tablet TAKE 1 TABLET BY MOUTH ONCE DAILY AT BEDTIME - pantoprazole DR (PROTONIX) 40 mg tablet Take 1 tablet by mouth once daily - fluticasone (FLONASE) 50 mcg/actuation nasal spray Use 2 spray(s) in each nostril once daily - mupirocin (BACTROBAN) 2 % ointment Apply to affected area daily - ticagrelor (BRILINTA) 90 mg tablet Take 1 tablet by mouth two times a day. - aspirin, enteric coated (ECOTRIN LOW STRENGTH) 81 mg EC tablet Take 1 tablet by mouth once daily. - carvedilol (COREG) 25 mg tablet Take 1 tablet by mouth two times a day. - losartan (COZAAR) 50 mg tablet Take 1 tablet by mouth once daily. - tamsulosin (FLOMAX) 0.4 mg Take 1 capsule by mouth once daily - azelastine 0.1% nasal spray Use 2 Sprays in each nostril two times a day as needed. Problem List As Of Date 05/17/2024 Noted Resolved Larynx cancer (HCC) [C32.9] 01/06/2016 09/16/2016 Difficulty coping with disease [R45.89] 01/06/2016 Malignant neoplasm of subglottis (HCC) [C32.2] 01/19/2016 Degenerative spondylolisthesis [M43.10] 05/28/2016 07/23/2016 Spondylolysis, lumbosacral [M43.07] 07/24/2016 Adjustment disorder with anxious mood [F43.22] 09/16/2016 Radiculitis [M54.10] 10/29/2016 Primary hypertension [I10] 11/10/2016 Larynx cancer (HCC) [C32.9] 01/06/2016 Laryngeal cancer (HCC) [C32.9] 11/04/2015 Degenerative spondylolisthesis [M43.10] 05/28/2016 Former smoker [Z87.891] History of laryngeal cancer [Z85.21] 03/10/2017 Hoarseness [R49.0] 03/10/2017 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] 04/19/2017 Spinal stenosis, lumbar region with neurogenic *04/19/2017 Lumbar stenosis with neurogenic claudication [M*05/19/2017 Obesity (BMI 35.0-39.9 without comorbidity) [E6*11/07/2020 Difficult intubation [T88.4XXA] 11/07/2020 FEDE (obstructive sleep apnea) [G47.33] 11/07/2020 Alcohol use [Z78.9] 11/07/2020 S/P lumbar spinal fusion [Z98.1] 01/16/2021 Chronic midline low back pain without sciatica *01/16/2021 Degenerative lumbar disc [M51.369] 01/16/2021 Lumbar spondylosis [M47.816] 01/20/2022 GERD (gastroesophageal reflux disease) [K21.9] 03/22/2023 Acquired hypothyroidism [E03.9] 03/22/2023 BMI 40.0-44.9, adult (HCC) [Z68.41] 07/27/2023 Stable angina (HCC) [I20.89] 11/26/2023 Elevated coronary artery calcium score [R93.1] 11/26/2023 Level of Service: OFFICE/OUTPATIENT ESTABLISHED LOW MDM 20 MIN [55676] Additional E/M codes: VISIT CPLX INHERENT EANDM ASSOC WITH MED * Encounter Status:Closed by KODI SULLIVAN on 05/17/24 ECG COMPLETE Observed: 05/17/2024 9:42 AM Status: F Source: [facility] Ventricular Rate : 77 BPM Atrial Rate : 77 BPM P-R Interval : 158 ms QRS Duration : 98 ms Q-T Interval : 370 ms QTC Calculation(Bazett) : 418 ms Calculated P [place] : 40 degrees Calculated R [place] : 53 degrees Calculated T [place] : -13 degrees NORMAL SINUS RHYTHM ABNORMAL QRS-T ANGLE, CONSIDER PRIMARY T WAVE ABNORMALITY ABNORMAL ECG Confirmed by ERNESTO HILARIO M.D. ([id number]) on 05/17/2024 3:22:41 PM NAME : MIKI SAUCEDA PID : [id number] : 1965 Gender : Male Race : ORD : [id number] Procedure Date : May 17 2024 09:42:48 Edit Date : May 17 2024 15:22:45 Diagnosis: NORMAL SINUS RHYTHM ABNORMAL QRS-T ANGLE, CONSIDER PRIMARY T WAVE ABNORMALITY ABNORMAL ECG Confirmed by ERNESTO HILARIO M.D. ([id number]) on 05/17/2024 3:22:41 PM Test Reason : Z95.5 S/P drug eluting coronary stent placement Location : 192 : AVCRD Overread By : ERNESTO HILARIO M.D. Edited By : ERNESTO HILARIO M.D. Referred By : KODI SULLIVAN Acquired by : , PROGRESS Observed: 05/17/2024 9:35 AM Status: COMPLETED Source: [facility] ID: [id number] Author: KODI SULLIVAN MD Service: ? Author Type: Physician Type: Progress Notes Filed: 05/17/2024 10:17 Note Text: Heart, Vascular and Thoracic [place] Yelitza Acosta Department of Cardiovascular Medicine SECTION OF INTERVENTIONAL CARDIOLOGY OUTPATIENT VISIT DATE 05/17/2024 OUTPATIENT VISIT TYPE Established PRIMARY CARE PHYSICIAN: To use this Smartlink, specify the provider ID whose address you want to display, e.g., .PROVADDR[1 (where 1 is the provider ID). REFERRING PHYSICIAN: No referring provider defined for this encounter. CHIEF COMPLAINT: Patient presents with: CARD New Patient Consult HISTORY OF PRESENT ILLNESS: Prior Visit 12/15/2023: Mr. Sauceda is a 58 year old male who presents today for f/u after CAD s/p RCA PCI . He denies chest pain, shortness of breath, dyspnea on exertion, orthopnea, PND, palpitations, lightheadedness, syncope, claudication, leg swelling, bleeding, cough, and wheezing. He does note mild fatigue that is improved with exertion. Not been able to get CPAP due to weight limitations for FEDE. Current Visit 05/17/2024: The patient denies chest pain since PCI, but does note fatigue and mild PERAZA now. He is still smoking cigarettes. Denies any skin rash or bleeding with medications. Reports his brother passed from LAD [place] at age 61 since prior visit. Risk factors for coronary artery disease hyperlipidemia, hypertension, history of smoking, family history of CAD, obesity Diet / Nutrition: poor dietary control Weight: no change since last visit Exercise: pending cardiac rehab evaluation PAST MEDICAL HISTORY 09/16/2016: Adjustment disorder with anxious mood No date: Chronic obstructive pulmonary disease (COPD) ([facility]) 02/06/2016: Cigarette nicotine dependence in remission Comment: Reports not smoking for multiple weeks. 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 MATT 10/29/2016: Radiculitis Comment: Added automatically from request for surgery [id number] No date: Snoring 07/24/2016: Spondylolysis, lumbosacral PAST SURGICAL HISTORY 2018: BACK SURGERY HX 01/09/2021: COLONOSCOPY DIAGNOSTIC Comment: polyps removed 05/29/2016: COLONOSCOPY DIAGNOSTIC No date: EGD DIAGNOSTIC 11/20/2015: PAST SURGICAL HISTORY OF Comment: Biopsy/Trach SOCIAL HISTORY Social History Tobacco Use Smoking status: Former Current packs/day: 0.00 Average packs/day: 1 pack/day for 30.0 years (30.0 ttl pk-yrs) Types: Cigarettes Start date: 10/30/1985 Quit date: 10/31/2015 Years since quittin.1 Smokeless tobacco: Never Tobacco comments: Smokes socially now or when drinking. -07/27/23 [place] Vaping Use Vaping status: Never Used Substance Use Topics Alcohol use: Yes Comment: 12 beers weekly, does not drink daily Drug use: No FAMILY HISTORY Problem Relation Age of Onset Cancer Mother breast Cancer Father small cell lung cancer Colon Cancer No Family History Anesthesia Problems No Family History ALLERGIES: ALLERGIES No Known Allergies MEDICATIONS: mupirocin (BACTROBAN) 2 % ointment Apply to affected area daily ammonium lactate (LAC-HYDRIN) 12 % lotion Apply to elbows twice daily as needed. ticagrelor (BRILINTA) 90 mg tablet Take 1 tablet by mouth two times a day. pantoprazole DR (PROTONIX) 40 mg tablet Take 1 tablet by mouth once daily. Patient should start on November 27, 2023. rosuvastatin (CRESTOR) 20 mg tablet Take 1 tablet by mouth daily at bedtime. aspirin, enteric coated (ECOTRIN LOW STRENGTH) 81 mg EC tablet Take 1 tablet by mouth once daily. carvedilol (COREG) 25 mg tablet Take 1 tablet by mouth two times a day. losartan (COZAAR) 50 mg tablet Take 1 tablet by mouth once daily. tamsulosin (FLOMAX) 0.4 mg Take 1 capsule by mouth once daily fluticasone (FLONASE) 50 mcg/actuation nasal spray Use 2 Sprays in each nostril once daily. azelastine 0.1% nasal spray Use 2 Sprays in each nostril two times a day as needed. meloxicam (MOBIC) 7.5 mg tablet Take 1 tablet by mouth once daily. levothyroxine (SYNTHROID) 75 mcg tablet Take 1 tablet by mouth once daily. sodium chloride (AYR, OCEAN) 0.65 % nasal spray Use 1 [place] in the nose every 2 hours while awake. REVIEW OF SYSTEMS: GENERAL: negative for: fevers, chills, and change in weight HEENT: negative for: headaches, hearing loss, difficulty swallowing, visual changes, nose bleeds, dentures, own teeth SKIN: rashes, lesions, and ulcers RESPIRATORY: SEE HPI CARDIOVASCULAR: See HPI GASTROINTESTINAL: negative for: abdominal pain, nausea, vomiting, difficulty or painful swallowing, and melanotic stools GENITOURINARY: negative for: dysuria, frequency, nocturia, and male potency MUSCULOSKELETAL: negative for: joint pain, joint swelling, muscle pain or myalgias, and pain with walking NEUROLOGIC: negative for: numbness, tingling, and sensation of pins and needles HEMATOLOGY: negative for: bruising easily, prolonged bleeding, anemia, and cancer ENDOCRINE: negative for: cold or heat intolerance, polyuria, polydipsia, goiter, diabetes, and thyroid disease PSYCH: negative for: sleep disturbance, mood disorders, and recent psychosocial stressors PHYSICAL EXAMINATION: 05/17/24 0924 BP: 130/84 Pulse: 77 Weight: (!) 138.9 kg (306 lb 3.5 oz) Height: 180.3 cm (5' 11 ) General: Well appearing, in no acute distress, speaking in complete sentences. Skin: No clubbing, no cyanosis. Head/Eyes: Extra ocular movements intact Mouth: Teeth in good repair. Neck: No jugular venous distention, no carotid bruits, carotids have a normal upstroke, no palpable thyromegaly. Lungs: Clear to auscultation and no rales Heart: Regular rhythm, PMI not displaced, S1, S2 normal, no S3, no S4, no heaves, no rub and no murmur. PV Pulses:Pulses intact Abdomen: Soft, nontender, bowel sounds normal, no palpable organomegaly, no bruits. Extremities: No peripheral edema . Grade 2/4 distal pulses bilaterally. Edema Scale: No Musculoskeletal: Normal gait and ambulation Neuro: Oriented to time, place and person CARDIOVASCULAR MEDICINE TESTING: Laboratory Testing: A1c 5.2, LDL 80, HDL 29 Cardiac Catheterization/Percutaneous Coronary Intervention (PCI): Last EKG Result Conclusion ECG COMPLETE Collected: 12/15/2023 10:34 AM (Preliminary result) Impression: NORMAL SINUS RHYTHM Septal Infarct , AGE UNDETERMINED POSSIBLE INFERIOR MYOCARDIAL INFARCTION , AGE UNDETERMINED ABNORMAL ECG Carotid Duplex: IMPRESSION Kodi Sullivan MD was notified with results at 0900. Compared to prior study of 04/14/2021, right ICA now occluded, left unchanged. RIGHT SIDE Internal carotid artery: Occluded. Vertebral artery: Patent and antegrade flow noted. Subclavian artery: Plaque visualized without evidence of hemodynamically significant stenosis. LEFT SIDE Common carotid artery: Plaque visualized without evidence of hemodynamically significant stenosis. Internal carotid artery: 0-19% stenosis. Tortuous vessel at proximal . Vertebral artery: Patent and antegrade flow noted. Subclavian artery: Patent. Technologist: Ana Pacheco T Claudia Crowe T Ordering physician: KODI SULLIVAN Interpreting physician: Fran Victoria MD, HERBERT I have personally reviewed the Electrocardiogram, Laboratory Testing, and Echocardiogram. IMPRESSION: Mr. Sauceda is a 58 year old male who presents for follow up after CAD s/p PCI RCA. Patient reports PERAZA/fatigue and continue smoking. Coronary artery disease involving [place] coronary artery of [place] heart without angina pectoris (primary encounter diagnosis) S/p drug eluting coronary stent placement Mixed hyperlipidemia Primary hypertension Class 3 severe obesity due to excess calories without serious comorbidity with body mass index (bmi) of 40.0 to 44.9 in adult (hcc) Smoker PLAN AND RECOMMENDATIONS: CAD s/p PCI RCA -ASA 81 mg PO daily and ticagrelor 90 mg PO BID -high intensity statin goal LDL <70 and ideally LDL <55 -cardiac rehab referral given previously, patient did not participate -CT/PET cardiac stress/viability given PERAZA HLD -high intensity statin goal LDL <70 and ideally LDL <55 HTN -continue with carvedilol 25 mg PO twice daily goal HR < 70. Monitor for bradycardia, lightheadedness, dizziness, hypotension, hyperglycemia continue with lorsartan 50 PO daily goal BP <130/80. Monitor for angioedema, dry cough, hyperkalemia, muscle cramps, palpitations Right Carotid Occluded, Left Carotid Artery 0-19% stenosis -ASA and statin Obesity -Heart healthy diet counseling performed -weight loss clinic referral -age and risk appropriate malignancy screening per pcp -smoking cessation counseling performed for 3-10 minutes. Smoking cessation class referral made previously, patient did not attend -if patient has recurrent or worsening symptoms, patient is instructed to come to the ED or call 911 -patient understands and agrees with the plan -RTC 6 months CONTACT INFORMATION: Kodi Sullivan M.D. Section of Interventional Cardiology AND Endovascular Interventions Yelitza Acosta Department of Cardiovascular Medicine Heart, Vascular and Thoracic [facility] Office Office Pager [phone] This note was partially generated using Loot! voice recognition system, and there may be some incorrect words, spellings, and punctuation that were not noted in checking the note before saving CNPN Observed: 05/17/2024 12:00 AM Status: COMPLETED Source: [facility] Telephone (CARDAV) MIKI SAUCEDA ([id number]) 1965 M Date Time Provider Department 05/17/24 KODI SULLIVAN During your visit today, we recorded the following information about you: Alesia Mcnamara 05/17/2024 10:11 AM Signed This form is used for MAIN CAMPUS APPOINTMENTS ONLY. Is this request for a Main [place] PET scan appointment? Yes: Handhole Machine Operator: Alesia Mcnamara Requesting Person (Last Name, First Name): Miki Sauceda Area Code + Phone/Pager: [phone] Who do we call to schedule this appointment? Patient Requesting Staff Julissa Sullivan Area Code + Phone/Pager: N/A PET Orders (A delay in scheduling will result if the orders are not present at time of review): Internal ADDITIONAL ACTION MAY BE REQUIRED IF PATIENTS OON INSURANCE OR SELF PAY COVERAGE HAS NOT BEEN CLEARED FOR REQUESTED APPOINTMENT. Scheduling: BING: As soon as insurance will allow What account will this PET appointment be linked to? P/F Type of PET: Myocardial (Cardiac). Which PET orders are active (select all that apply)? PET Cardiac Viability Is this cardiac PET for Sarcoidosis?(See orders) No Is this a NON-[facility] Physician ordering a cardiac PET with a FAXED script? No. Same day/next day medically urgent scans please call [phone] to expedite LVEF: No results found for: LVEF LVEF Free text: Yes, see above. Additional comments: Send requests to P CARDIAC PET Alexandria Domingo 05/17/2024 12:33 PM Signed Preliminary Approval for Scheduling Purposes ONLY Are Cardiac PET orders Present: Yes Do the order comments specify a Protocol or Instruction? No LVEF: Ejection Fraction: 55% from Previous Echo Test Approved: No PET Perfusion Rest AND Stress (0109) Additional Comments: N/A Test Approved by: Alexandria Doss If additional orders are required route to ordering physician and to P PET AMORTIZATION CLERK with recommendations. If all recommended orders are present route to P PET AMORTIZATION CLERK Eladia Diallo 05/18/2024 10:03 AM Signed 05/18 1st attempt vm left Eladia Diallo 05/24/2024 3:37 PM Signed PT SCHEDULED 06/06 PREP SENT VIA MAIL Allergies As of Date: 05/17/2024 (No Known Allergies) Date Reviewed: 05/17/2024 Reviewed by: Neil Proctor LPN - Fully Assessed Reason for Visit: Nm Pet Request [3028] Prescriptions as of 05/24/2024 - pantoprazole DR (PROTONIX) 40 mg tablet Take 1 tablet by mouth once daily - meloxicam (MOBIC) 7.5 mg tablet Take 1 tablet by mouth once daily. - methocarbamol (ROBAXIN) 500 mg tablet Take 1 tablet by mouth at bedtime as needed. - levothyroxine (SYNTHROID) 75 mcg tablet Take 1 tablet by mouth once daily - rosuvastatin (CRESTOR) 20 mg tablet TAKE 1 TABLET BY MOUTH ONCE DAILY AT BEDTIME - fluticasone (FLONASE) 50 mcg/actuation nasal spray Use 2 spray(s) in each nostril once daily - mupirocin (BACTROBAN) 2 % ointment Apply to affected area daily - ticagrelor (BRILINTA) 90 mg tablet Take 1 tablet by mouth two times a day. - aspirin, enteric coated (ECOTRIN LOW STRENGTH) 81 mg EC tablet Take 1 tablet by mouth once daily. - carvedilol (COREG) 25 mg tablet Take 1 tablet by mouth two times a day. - losartan (COZAAR) 50 mg tablet Take 1 tablet by mouth once daily. - tamsulosin (FLOMAX) 0.4 mg Take 1 capsule by mouth once daily - azelastine 0.1% nasal spray Use 2 Sprays in each nostril two times a day as needed. Problem List As Of Date 05/17/2024 Noted Resolved Larynx cancer (HCC) [C32.9] 01/06/2016 09/16/2016 Difficulty coping with disease [R45.89] 01/06/2016 Malignant neoplasm of subglottis (HCC) [C32.2] 01/19/2016 Degenerative spondylolisthesis [M43.10] 05/28/2016 07/23/2016 Spondylolysis, lumbosacral [M43.07] 07/24/2016 Adjustment disorder with anxious mood [F43.22] 09/16/2016 Radiculitis [M54.10] 10/29/2016 Primary hypertension [I10] 11/10/2016 Larynx cancer (HCC) [C32.9] 01/06/2016 Laryngeal cancer (HCC) [C32.9] 11/04/2015 Degenerative spondylolisthesis [M43.10] 05/28/2016 Former smoker [Z87.891] History of laryngeal cancer [Z85.21] 03/10/2017 Hoarseness [R49.0] 03/10/2017 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] 04/19/2017 Spinal stenosis, lumbar region with neurogenic *04/19/2017 Lumbar stenosis with neurogenic claudication [M*05/19/2017 Obesity (BMI 35.0-39.9 without comorbidity) [E6*11/07/2020 Difficult intubation [T88.4XXA] 11/07/2020 FEDE (obstructive sleep apnea) [G47.33] 11/07/2020 Alcohol use [Z78.9] 11/07/2020 S/P lumbar spinal fusion [Z98.1] 01/16/2021 Chronic midline low back pain without sciatica *01/16/2021 Degenerative lumbar disc [M51.369] 01/16/2021 Lumbar spondylosis [M47.816] 01/20/2022 GERD (gastroesophageal reflux disease) [K21.9] 03/22/2023 Acquired hypothyroidism [E03.9] 03/22/2023 BMI 40.0-44.9, adult (HCC) [Z68.41] 07/27/2023 Stable angina (HCC) [I20.89] 11/26/2023 Elevated coronary artery calcium score [R93.1] 11/26/2023 Encounter Status:Closed by ELADIA DIALLO on 05/18/24 LEWISN Observed: 05/10/2024 12:00 AM Status: COMPLETED Source: [facility] Telephone (4CQ) MIKI SAUCEDA ([id number]) 1965 M Date Time Provider Department 05/10/24 NASIM ENNIS 4CQ During your visit today, we recorded the following information about you: Leonidas Lebron 05/10/2024 3:22 PM Signed Georgiana RN is calling Nasim Ennis, DO today Georgiana Rn from pre anesthesia tried to call the patient to schedule appt but patient did not want to as he has many question about the surgery. Georgiana is asking if the office can call the patient. Patient Update Patient has been identified by name and birthdate. Duration of symptoms: N/A Person calling: self Call patient at: at home [phone] (home) [phone] (cell) Was an appointment scheduled: No Closing statement: Results or non-symptom based questions: Thank you for calling [facility], your call will be returned within the next business day. Ebony Moore MA 05/16/2024 8:[address] Ennis spoke to patient and patient wants to cancel surgery. Surgery and post op appointment was cancelled per surgical scheduler. Allergies As of Date: 05/10/2024 (No Known Allergies) Date Reviewed: 05/03/2024 Reviewed by: Gerda Wallace LPN - Fully Assessed Reason for Visit: Patient Update [1234] Prescriptions as of 05/16/2024 - meloxicam (MOBIC) 7.5 mg tablet Take 1 tablet by mouth once daily. - methocarbamol (ROBAXIN) 500 mg tablet Take 1 tablet by mouth at bedtime as needed. - levothyroxine (SYNTHROID) 75 mcg tablet Take 1 tablet by mouth once daily - rosuvastatin (CRESTOR) 20 mg tablet TAKE 1 TABLET BY MOUTH ONCE DAILY AT BEDTIME - pantoprazole DR (PROTONIX) 40 mg tablet Take 1 tablet by mouth once daily - fluticasone (FLONASE) 50 mcg/actuation nasal spray Use 2 spray(s) in each nostril once daily - mupirocin (BACTROBAN) 2 % ointment Apply to affected area daily - ticagrelor (BRILINTA) 90 mg tablet Take 1 tablet by mouth two times a day. - aspirin, enteric coated (ECOTRIN LOW STRENGTH) 81 mg EC tablet Take 1 tablet by mouth once daily. - carvedilol (COREG) 25 mg tablet Take 1 tablet by mouth two times a day. - losartan (COZAAR) 50 mg tablet Take 1 tablet by mouth once daily. - tamsulosin (FLOMAX) 0.4 mg Take 1 capsule by mouth once daily - azelastine 0.1% nasal spray Use 2 Sprays in each nostril two times a day as needed. Problem List As Of Date 05/10/2024 Noted Resolved Larynx cancer (HCC) [C32.9] 01/06/2016 09/16/2016 Difficulty coping with disease [R45.89] 01/06/2016 Malignant neoplasm of subglottis (HCC) [C32.2] 01/19/2016 Degenerative spondylolisthesis [M43.10] 05/28/2016 07/23/2016 Spondylolysis, lumbosacral [M43.07] 07/24/2016 Adjustment disorder with anxious mood [F43.22] 09/16/2016 Radiculitis [M54.10] 10/29/2016 Primary hypertension [I10] 11/10/2016 Larynx cancer (HCC) [C32.9] 01/06/2016 Laryngeal cancer (HCC) [C32.9] 11/04/2015 Degenerative spondylolisthesis [M43.10] 05/28/2016 Former smoker [Z87.891] History of laryngeal cancer [Z85.21] 03/10/2017 Hoarseness [R49.0] 03/10/2017 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] 04/19/2017 Spinal stenosis, lumbar region with neurogenic *04/19/2017 Lumbar stenosis with neurogenic claudication [M*05/19/2017 Obesity (BMI 35.0-39.9 without comorbidity) [E6*11/07/2020 Difficult intubation [T88.4XXA] 11/07/2020 FEDE (obstructive sleep apnea) [G47.33] 11/07/2020 Alcohol use [Z78.9] 11/07/2020 S/P lumbar spinal fusion [Z98.1] 01/16/2021 Chronic midline low back pain without sciatica *01/16/2021 Degenerative lumbar disc [M51.369] 01/16/2021 Lumbar spondylosis [M47.816] 01/20/2022 GERD (gastroesophageal reflux disease) [K21.9] 03/22/2023 Acquired hypothyroidism [E03.9] 03/22/2023 BMI 40.0-44.9, adult (HCC) [Z68.41] 07/27/2023 Stable angina (HCC) [I20.89] 11/26/2023 Elevated coronary artery calcium score [R93.1] 11/26/2023 Encounter Status:Closed by EBONY HOWARD on 05/16/24 CISCO Observed: 05/05/2024 12:00 AM Status: COMPLETED Source: [facility] Telephone ([facility]ST[facility]) MIKI SAUCEDA ([id number]) 1965 M Date Time Provider Department 05/05/24 [facility] During your visit today, we recorded the following information about you: Camilo Fernandez LPN 05/05/2024 11:15 AM Signed Please share with the patient that his abdominal xray showed a moderate amount of stool in the colon suggesting constipation as a contributing factor of his abdominal pain. (I'm not sure why it took 4 weeks to get the report back). I would recommend the following: called patient and left VM regarding x-ray results and recommendation from PA.Patient encouraged to call us back with any more question or issues. SYLVIA Adamson Otasia 05/09/2024 1:45 PM Signed Patient calling back I regards to results Camilo Fernandez LPN 05/10/2024 10:22 AM Signed Called patient back and he just wanted to know about his results again and recommendation from PA. Camilo Fernandez LPN Allergies As of Date: 05/05/2024 (No Known Allergies) Date Reviewed: 05/03/2024 Reviewed by: Gerda Wallace LPN - Fully Assessed Reason for Visit: Results [95] Prescriptions as of 05/10/2024 - meloxicam (MOBIC) 7.5 mg tablet Take 1 tablet by mouth once daily. - methocarbamol (ROBAXIN) 500 mg tablet Take 1 tablet by mouth at bedtime as needed. - levothyroxine (SYNTHROID) 75 mcg tablet Take 1 tablet by mouth once daily - rosuvastatin (CRESTOR) 20 mg tablet TAKE 1 TABLET BY MOUTH ONCE DAILY AT BEDTIME - pantoprazole DR (PROTONIX) 40 mg tablet Take 1 tablet by mouth once daily - fluticasone (FLONASE) 50 mcg/actuation nasal spray Use 2 spray(s) in each nostril once daily - mupirocin (BACTROBAN) 2 % ointment Apply to affected area daily - ticagrelor (BRILINTA) 90 mg tablet Take 1 tablet by mouth two times a day. - aspirin, enteric coated (ECOTRIN LOW STRENGTH) 81 mg EC tablet Take 1 tablet by mouth once daily. - carvedilol (COREG) 25 mg tablet Take 1 tablet by mouth two times a day. - losartan (COZAAR) 50 mg tablet Take 1 tablet by mouth once daily. - tamsulosin (FLOMAX) 0.4 mg Take 1 capsule by mouth once daily - azelastine 0.1% nasal spray Use 2 Sprays in each nostril two times a day as needed. Problem List As Of Date 05/05/2024 Noted Resolved Larynx cancer (HCC) [C32.9] 01/06/2016 09/16/2016 Difficulty coping with disease [R45.89] 01/06/2016 Malignant neoplasm of subglottis (HCC) [C32.2] 01/19/2016 Degenerative spondylolisthesis [M43.10] 05/28/2016 07/23/2016 Spondylolysis, lumbosacral [M43.07] 07/24/2016 Adjustment disorder with anxious mood [F43.22] 09/16/2016 Radiculitis [M54.10] 10/29/2016 Primary hypertension [I10] 11/10/2016 Larynx cancer (HCC) [C32.9] 01/06/2016 Laryngeal cancer (HCC) [C32.9] 11/04/2015 Degenerative spondylolisthesis [M43.10] 05/28/2016 Former smoker [Z87.891] History of laryngeal cancer [Z85.21] 03/10/2017 Hoarseness [R49.0] 03/10/2017 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] 04/19/2017 Spinal stenosis, lumbar region with neurogenic *04/19/2017 Lumbar stenosis with neurogenic claudication [M*05/19/2017 Obesity (BMI 35.0-39.9 without comorbidity) [E6*11/07/2020 Difficult intubation [T88.4XXA] 11/07/2020 FEDE (obstructive sleep apnea) [G47.33] 11/07/2020 Alcohol use [Z78.9] 11/07/2020 S/P lumbar spinal fusion [Z98.1] 01/16/2021 Chronic midline low back pain without sciatica *01/16/2021 Degenerative lumbar disc [M51.369] 01/16/2021 Lumbar spondylosis [M47.816] 01/20/2022 GERD (gastroesophageal reflux disease) [K21.9] 03/22/2023 Acquired hypothyroidism [E03.9] 03/22/2023 BMI 40.0-44.9, adult (HCC) [Z68.41] 07/27/2023 Stable angina (HCC) [I20.89] 11/26/2023 Elevated coronary artery calcium score [R93.1] 11/26/2023 Encounter Status:Closed by CAMILO FERNANDEZ on 05/05/24 PROGRESS Observed: 05/03/2024 8:27 AM Status: COMPLETED Source: [facility] HNO ID: [id number] Author: JASON NASSAR, DO Service: ? Author Type: Physician Type: Progress Notes Filed: 05/03/2024 09:11 Note Text: SPINE CARE PATH LOW BACK PAIN: CHRONIC FOLLOW UP SUBJECTIVE HISTORY OF PRESENT ILLNESS: Reason for Visit: Follow up Miki Sauceda is seen for LBP procedure on 08/10/2023, RFA BL follow up. He is feeling the same. Pt had 90-100% up until a couple of weeks ago and is now at 30% relief. The distribution of symptoms is unchanged. Pain is currently 5 out of 10. Interim treatment has included Heat . PREVIOUS TREATMENTS IN THE LAST SIX MONTHS Active conservative therapy in the last six months (see below) 1. Physical therapy: No 2. Home exercise program after PT: No 3. A physician supervised home exercise program (HEP): No 4. Inside Sales Executive: No 5. What are your limitations: None but everything can be painful again Passive conservative therapy in the last six months (see below) 1. NSAIDS: Mobic last taken about 3 months ago 2. Prescription pain medication: None 3. Acupuncture: No 4. Tens unit: No Adherence with treatment has been fair . Adverse Effects: None Interim studies Obtained and Reviewed: None YELLOW AND BLUE FLAGS No-Neg Attitude; Back Pain is Disabling No-Avoiding Activity (for Fear of Pain) No-Depression or Anxiety Disorders No-Social Problems No-Substance Use Disorder No-Job Dissatisfaction No-Financial Disincentives History or Laryngeal Cancer. Patient Entered Questionnaires Oswestry Score: Pain: 1 - The pain is bad, but I can manage without having to take pain medication. Personal Care: 1 - I can take care of myself normally, but it increases my pain. Liftin - I can lift heavy weights, but it causes increased pain. Walkin - Pain prevents me from walking more than 1 mile. Sittin - I can only sit in my favorite chair as long as I like. Standin - Pain prevents me from standing more than 1 hour. Sleepin - Even when I take pain medication, I sleep less than 6 hours. Social Life: 1 - My social life is normal, but it does increase my level of pain. Travelin - I can travel anywhere, but it increases my pain. Employment/Homemakin - My normal homemaking/job activities increase my pain, but I can still perform all that is required of me. Score: Oswestry Interpretation: 0-20% = Mild disability 12/23/2020 Spine Questions Pain Location: Lower back Pain Duration: More than 5 years Pain over last 6 months: Every day or nearly every day in the past 6 months Symptoms from neck/cervical spine: No Employment Status: Working now Involved in law suit/legal claim: No PROMIS Score Percentiles 12/23/2020 Physical Health Physical Function Percentile 21* Sleep Percentile 34 Fatigue Percentile 24* Pain Interference Percentile 10 12/23/2020 PROMIS SOCIAL ROLE SCORE Social Role Satisfaction Percentile 21* 05/27/2016 09/16/2016 12/23/2020 PROMIS Global Health Scale Physical Health Percentile 22* 7 Mental Health Percentile 26* 26* 19* Percentiles provide an indication of how the patient's score ranks in relation to the general population. Higher percentile rankings indicate better function/quality of life. 50th percentile is the average of the general population and indicates half of respondents had a worse score. 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, Lumbosacral Adjustment Disorder With Anxious Mood Radiculitis Primary Hypertension Larynx Cancer ([facility]) Laryngeal Cancer ([facility]) Degenerative Spondylolisthesis Former Smoker History of Laryngeal Cancer Hoarseness Pars Defect of Lumbar Spine Spinal Stenosis, Lumbar Region With Neurogenic Claudication Lumbar Stenosis With Neurogenic Claudication Obesity (Bmi 35.0-39.9 Without Comorbidity) Difficult Intubation Fede (Obstructive Sleep Apnea) Alcohol Use S/P Lumbar Spinal Fusion Chronic Midline Low Back Pain Without Sciatica Degenerative Lumbar Disc Lumbar Spondylosis Gerd (Gastroesophageal Reflux Disease) Acquired Hypothyroidism Bmi 40.0-44.9, Adult ([facility]) Stable Angina ([facility]) Elevated Coronary Artery Calcium Score PAST MEDICAL HISTORY Diagnosis Date Adjustment disorder with anxious mood 09/16/2016 Chronic obstructive pulmonary disease (COPD) ([facility]) Cigarette nicotine dependence in remission 02/06/2016 Reports not smoking for multiple weeks. 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 MATT Radiculitis 10/29/2016 Added automatically from request for surgery [id number] Snoring Spondylolysis, lumbosacral 07/24/2016 PAST SURGICAL HISTORY Procedure Laterality Date BACK SURGERY HX 2018 COLONOSCOPY DIAGNOSTIC 01/09/2021 polyps removed COLONOSCOPY DIAGNOSTIC 05/29/2016 EGD DIAGNOSTIC PAST SURGICAL HISTORY OF 11/20/2015 Biopsy/Trach Social History Tobacco Use Smoking status: Former Current packs/day: 0.00 Average packs/day: 1 pack/day for 30.0 years (30.0 ttl pk-yrs) Types: Cigarettes Start date: 10/30/1985 Quit date: 10/31/2015 Years since quittin.5 Smokeless tobacco: Never Tobacco comments: Smokes socially now or when drinking. -07/27/23 [place] Vaping Use Vaping status: Never Used Substance Use Topics Alcohol use: Yes Comment: 12 beers weekly, does not drink daily Drug use: No FAMILY HISTORY Problem Relation Age of Onset Cancer Mother breast Cancer Father small cell lung cancer Colon Cancer No Family History Anesthesia Problems No Family History ALLERGIES No Known Allergies CURRENT MEDICATIONS: levothyroxine (SYNTHROID) 75 mcg tablet Take 1 tablet by mouth once daily rosuvastatin (CRESTOR) 20 mg tablet TAKE 1 TABLET BY MOUTH ONCE DAILY AT BEDTIME pantoprazole DR (PROTONIX) 40 mg tablet Take 1 tablet by mouth once daily fluticasone (FLONASE) 50 mcg/actuation nasal spray Use 2 spray(s) in each nostril once daily mupirocin (BACTROBAN) 2 % ointment Apply to affected area daily ammonium lactate (LAC-HYDRIN) 12 % lotion Apply to elbows twice daily as needed. ticagrelor (BRILINTA) 90 mg tablet Take 1 tablet by mouth two times a day. aspirin, enteric coated (ECOTRIN LOW STRENGTH) 81 mg EC tablet Take 1 tablet by mouth once daily. carvedilol (COREG) 25 mg tablet Take 1 tablet by mouth two times a day. losartan (COZAAR) 50 mg tablet Take 1 tablet by mouth once daily. tamsulosin (FLOMAX) 0.4 mg Take 1 capsule by mouth once daily azelastine 0.1% nasal spray Use 2 Sprays in each nostril two times a day as needed. meloxicam (MOBIC) 7.5 mg tablet Take 1 tablet by mouth once daily. sodium chloride (AYR, OCEAN) 0.65 % nasal spray Use 1 [place] in the nose every 2 hours while awake. OBJECTIVE PHYSICAL EXAM: Ht 180.3 cm (5' 11 ) Wt 133.8 kg (295 lb) BMI 41.14 kg/m? SIGNATURE: Jason Nassar DO PATIENT NAME: Miki Sauceda DATE: May 03, 2024 TIME: 8:33 AM I agree with the Chief Complaint, ROS, and Past Histories independently gathered by the clinical student support services director and the remaining scribed note accurately describes my personal service to the patient and I have edited the above note to reflect this. Pt presents for follow up today. Pt states that he did well with RFA. He is now having more pain in his lower back, similar to what was treated with RFA. Now on brilinta. Robaxin and Mobic helped and would like refills. Physical Exam: GENERAL APPEARANCE: WNWH, NAD, forward flexed, morbid obesity NEURO - Alert and oriented, cooperative, answers questions appropriately SPEECH - No slurring noted. HEAD - Normal cephalic, Atraumatic EYES - Extra ocular movement intact, no conjunctivitis, no nystagmus. EARS - No drainage noted, pinna intact NOSE - No epistaxis noted THROAT - No thyromegaly, no gross lymphadenopathy GAIT - no significant new antalgic gait noted MOTOR - no new motor weakness in b/l quads. SENSORY - No new sensory complaints unless noted earlier in notes. Extension of lumbar spine reproduced some pain which was concordant in nature. ROS: Musculoskeltal exam as above. No bowel or bladder incontinence. Denies SOB Radiology: Reports reviewed. Lumbar X-rays : 07/14/23 Report available in computer. There has been previous L3 laminectomy and posterior interbody lumbar fusion from L3-L4. There are bilateral pedicle screws with fusion rods and interbody cages. No interval hardware complication Mild dextrocurvature at L2 The is grade I retrolisthesis at L5-S1. The is grade I anterolisthesis at L3-4 fusion level. Disc space narrowing at L1-2 and L5-S1 Distal lumbar facet arthrosis Lumbar spine MRI :11/05/23 Report available in computer. Posterior and interbody fusion and laminectomies at L3-L4. Degenerative changes without significant canal stenosis. Mild inferior foraminal narrowing seen bilaterally at L5-S1. Slight dextroconvex lumbar scoliosis. Impression: see diagnosis. Plan: Discussed evidence based options including use of medications, non-surgical and surgical options. Educated about likely pathology and reviewed anatomy and prognosis. At present, pt would like to continue with non surgical care. Has quit smoking. We will refill robaxin and Mobic Given relief with RFA, we will repeat this. The majority of the visit was spent counseling and/or coordinating care for the patient on the date of the service which included preparing to see the patient, [id number] patient care, completing clinical documentation, obtaining and/or reviewing separately obtained history, performing a medically appropriate examination, and educating the patient/family/caregiver and ordering medications, tests, or procedures. Follow up with primary physician for routine care, blood pressure evaluation, labwork, and physical exam as scheduled as well as for any other medical concerns. I have answered all the questions regarding their diagnosis, care and treatment plan to patients satisfaction during today's visit. Pt verbalizes understanding of current diagnosis and treatment plan. CNOV Observed: 05/03/2024 8:20 AM Status: COMPLETED Source: [facility] Office Visit (SPNMAV) MIKI SAUCEDA ([id number]) 1965 M Date Time Provider Department 05/03/24 8:20 AM JASON NASSAR SPNMAV During your visit today, we recorded the following information about you: Weight Height 133.8 kg 1.803 m Jason Nassar, 05/03/2024 9:11 AM Signed SPINE CARE PATH LOW BACK PAIN: CHRONIC FOLLOW UP SUBJECTIVE HISTORY OF PRESENT ILLNESS: Reason for Visit: Follow up Miki Sauceda is seen for LBP procedure on 08/10/2023, RFA BL follow up. He is feeling the same. Pt had 90-100% up until a couple of weeks ago and is now at 30% relief. The distribution of symptoms is unchanged. Pain is currently 5 out of 10. Interim treatment has included Heat . PREVIOUS TREATMENTS IN THE LAST SIX MONTHS Active conservative therapy in the last six months (see below) 1. Physical therapy: No 2. Home exercise program after PT: No 3. A physician supervised home exercise program (HEP): No 4. Inside Sales Executive: No 5. What are your limitations: None but everything can be painful again Passive conservative therapy in the last six months (see below) 1. NSAIDS: Mobic last taken about 3 months ago 2. Prescription pain medication: None 3. Acupuncture: No 4. Tens unit: No Adherence with treatment has been fair . Adverse Effects: None Interim studies Obtained and Reviewed: None YELLOW AND BLUE FLAGS No-Neg Attitude; Back Pain is Disabling No-Avoiding Activity (for Fear of Pain) No-Depression or Anxiety Disorders No-Social Problems No-Substance Use Disorder No-Job Dissatisfaction No-Financial Disincentives History or Laryngeal Cancer. Patient Entered Questionnaires Oswestry Score: Pain: 1 - The pain is bad, but I can manage without having to take pain medication. Personal Care: 1 - I can take care of myself normally, but it increases my pain. Liftin - I can lift heavy weights, but it causes increased pain. Walkin - Pain prevents me from walking more than 1 mile. Sittin - I can only sit in my favorite chair as long as I like. Standin - Pain prevents me from standing more than 1 hour. Sleepin - Even when I take pain medication, I sleep less than 6 hours. Social Life: 1 - My social life is normal, but it does increase my level of pain. Travelin - I can travel anywhere, but it increases my pain. Employment/Homemakin - My normal homemaking/job activities increase my pain, but I can still perform all that is required of me. Score: 12/50 Oswestry Interpretation: 0-20% = Mild disability 12/23/2020 Spine Questions Pain Location: Lower back Pain Duration: More than 5 years Pain over last 6 months: Every day or nearly every day in the past 6 months Symptoms from neck/cervical spine: No Employment Status: Working now Involved in law suit/legal claim: No PROMIS Score Percentiles 12/23/2020 Physical Health Physical Function Percentile 21* Sleep Percentile 34 Fatigue Percentile 24* Pain Interference Percentile 10 12/23/2020 PROMIS SOCIAL ROLE SCORE Social Role Satisfaction Percentile 21* 05/27/2016 09/16/2016 12/23/2020 PROMIS Global Health Scale Physical Health Percentile 22* 7 Mental Health Percentile 26* 26* 19* Percentiles provide an indication of how the patient's score ranks in relation to the general population. Higher percentile rankings indicate better function/quality of life. 50th percentile is the average of the general population and indicates half of respondents had a worse score. 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, Lumbosacral Adjustment Disorder With Anxious Mood Radiculitis Primary Hypertension Larynx Cancer ([facility]) Laryngeal Cancer ([facility]) Degenerative Spondylolisthesis Former Smoker History of Laryngeal Cancer Hoarseness Pars Defect of Lumbar Spine Spinal Stenosis, Lumbar Region With Neurogenic Claudication Lumbar Stenosis With Neurogenic Claudication Obesity (Bmi 35.0-39.9 Without Comorbidity) Difficult Intubation Fede (Obstructive Sleep Apnea) Alcohol Use S/P Lumbar Spinal Fusion Chronic Midline Low Back Pain Without Sciatica Degenerative Lumbar Disc Lumbar Spondylosis Gerd (Gastroesophageal Reflux Disease) Acquired Hypothyroidism Bmi 40.0-44.9, Adult ([facility]) Stable Angina ([facility]) Elevated Coronary Artery Calcium Score PAST MEDICAL HISTORY Diagnosis Date Adjustment disorder with anxious mood 09/16/2016 Chronic obstructive pulmonary disease (COPD) (HCC) Cigarette nicotine dependence in remission 02/06/2016 Reports not smoking for multiple weeks. 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 [id number] stage MATT Radiculitis 10/29/2016 Added automatically from request for surgery [id number] Snoring Spondylolysis, lumbosacral 07/24/2016 PAST SURGICAL HISTORY Procedure Laterality Date BACK SURGERY HX 2018 COLONOSCOPY DIAGNOSTIC 01/09/2021 polyps removed COLONOSCOPY DIAGNOSTIC 05/29/2016 EGD DIAGNOSTIC PAST SURGICAL HISTORY OF 11/20/2015 Biopsy/Trach Social History Tobacco Use Smoking status: Former Current packs/day: 0.00 Average packs/day: 1 pack/day for 30.0 years (30.0 ttl pk-yrs) Types: Cigarettes Start date: 10/30/1985 Quit date: 10/31/2015 Years since quittin.5 Smokeless tobacco: Never Tobacco comments: Smokes socially now or when drinking. -07/27/23 [place] Vaping Use Vaping status: Never Used Substance Use Topics Alcohol use: Yes Comment: 12 beers weekly, does not drink daily Drug use: No FAMILY HISTORY Problem Relation Age of Onset Cancer Mother breast Cancer Father small cell lung cancer Colon Cancer No Family History Anesthesia Problems No Family History ALLERGIES No Known Allergies CURRENT MEDICATIONS: levothyroxine (SYNTHROID) 75 mcg tablet Take 1 tablet by mouth once daily rosuvastatin (CRESTOR) 20 mg tablet TAKE 1 TABLET BY MOUTH ONCE DAILY AT BEDTIME pantoprazole DR (PROTONIX) 40 mg tablet Take 1 tablet by mouth once daily fluticasone (FLONASE) 50 mcg/actuation nasal spray Use 2 spray(s) in each nostril once daily mupirocin (BACTROBAN) 2 % ointment Apply to affected area daily ammonium lactate (LAC-HYDRIN) 12 % lotion Apply to elbows twice daily as needed. ticagrelor (BRILINTA) 90 mg tablet Take 1 tablet by mouth two times a day. aspirin, enteric coated (ECOTRIN LOW STRENGTH) 81 mg EC tablet Take 1 tablet by mouth once daily. carvedilol (COREG) 25 mg tablet Take 1 tablet by mouth two times a day. losartan (COZAAR) 50 mg tablet Take 1 tablet by mouth once daily. tamsulosin (FLOMAX) 0.4 mg Take 1 capsule by mouth once daily azelastine 0.1% nasal spray Use 2 Sprays in each nostril two times a day as needed. meloxicam (MOBIC) 7.5 mg tablet Take 1 tablet by mouth once daily. sodium chloride (AYR, OCEAN) 0.65 % nasal spray Use 1 [place] in the nose every 2 hours while awake. OBJECTIVE PHYSICAL EXAM: Ht 180.3 cm (5' 11 ) Wt 133.8 kg (295 lb) BMI 41.14 kg/m? SIGNATURE: Jason Nassar DO PATIENT NAME: Miki Sauceda DATE: May 03, 2024 TIME: 8:33 AM I agree with the Chief Complaint, ROS, and Past Histories independently gathered by the clinical student support services director and the remaining scribed note accurately describes my personal service to the patient and I have edited the above note to reflect this. Pt presents for follow up today. Pt states that he did well with RFA. He is now having more pain in his lower back, similar to what was treated with RFA. Now on brilinta. Robaxin and Mobic helped and would like refills. Physical Exam: GENERAL APPEARANCE: WNWH, NAD, forward flexed, morbid obesity NEURO - Alert and oriented, cooperative, answers questions appropriately SPEECH - No slurring noted. HEAD - Normal cephalic, Atraumatic EYES - Extra ocular movement intact, no conjunctivitis, no nystagmus. EARS - No drainage noted, pinna intact NOSE - No epistaxis noted THROAT - No thyromegaly, no gross lymphadenopathy GAIT - no significant new antalgic gait noted MOTOR - no new motor weakness in b/l quads. SENSORY - No new sensory complaints unless noted earlier in notes. Extension of lumbar spine reproduced some pain which was concordant in nature. ROS: Musculoskeltal exam as above. No bowel or bladder incontinence. Denies SOB Radiology: Reports reviewed. Lumbar X-rays : 07/14/23 Report available in computer. There has been previous L3 laminectomy and posterior interbody lumbar fusion from L3-L4. There are bilateral pedicle screws with fusion rods and interbody cages. No interval hardware complication Mild dextrocurvature at L2 The is grade I retrolisthesis at L5-S1. The is grade I anterolisthesis at L3-4 fusion level. Disc space narrowing at L1-2 and L5-S1 Distal lumbar facet arthrosis Lumbar spine MRI :11/05/23 Report available in computer. Posterior and interbody fusion and laminectomies at L3-L4. Degenerative changes without significant canal stenosis. Mild inferior foraminal narrowing seen bilaterally at L5-S1. Slight dextroconvex lumbar scoliosis. Impression: see diagnosis. Plan: Discussed evidence based options including use of medications, non-surgical and surgical options. Educated about likely pathology and reviewed anatomy and prognosis. At present, pt would like to continue with non surgical care. Has quit smoking. We will refill robaxin and Mobic Given relief with RFA, we will repeat this. The majority of the visit was spent counseling and/or coordinating care for the patient on the date of the service which included preparing to see the patient, [id number] patient care, completing clinical documentation, obtaining and/or reviewing separately obtained history, performing a medically appropriate examination, and educating the patient/family/caregiver and ordering medications, tests, or procedures. Follow up with primary physician for routine care, blood pressure evaluation, labwork, and physical exam as scheduled as well as for any other medical concerns. I have answered all the questions regarding their diagnosis, care and treatment plan to patients satisfaction during today's visit. Pt verbalizes understanding of current diagnosis and treatment plan. Referring Provider: SELF [200] Allergies As of Date: 05/03/2024 (No Known Allergies) Date Reviewed: 05/03/2024 Reviewed by: Gerda Wallace LPN - Fully Assessed Reason for Visit: Follow Up [171] Cmt: LBP Primary Visit Diagnosis:Lumbar spondylosis [M47.816] Other Visit Diagnosis:Lumbosacral stenosis [M48.07] Order(s):meloxicam (MOBIC) 7.5 mg tabletTake 1 tablet by mouth once daily.Disp: 90 tabletRfl: 3 methocarbamol (ROBAXIN) 500 mg tabletTake 1 tablet by mouth at bedtime as needed.Disp: 90 tabletRfl: 3 SPINE INTERVENTION PROCEDURE [[id number]] Order #: [id number] Prescriptions as of 05/03/2024 - meloxicam (MOBIC) 7.5 mg tablet Take 1 tablet by mouth once daily. - methocarbamol (ROBAXIN) 500 mg tablet Take 1 tablet by mouth at bedtime as needed. - levothyroxine (SYNTHROID) 75 mcg tablet Take 1 tablet by mouth once daily - rosuvastatin (CRESTOR) 20 mg tablet TAKE 1 TABLET BY MOUTH ONCE DAILY AT BEDTIME - pantoprazole DR (PROTONIX) 40 mg tablet Take 1 tablet by mouth once daily - fluticasone (FLONASE) 50 mcg/actuation nasal spray Use 2 spray(s) in each nostril once daily - mupirocin (BACTROBAN) 2 % ointment Apply to affected area daily - ticagrelor (BRILINTA) 90 mg tablet Take 1 tablet by mouth two times a day. - aspirin, enteric coated (ECOTRIN LOW STRENGTH) 81 mg EC tablet Take 1 tablet by mouth once daily. - carvedilol (COREG) 25 mg tablet Take 1 tablet by mouth two times a day. - losartan (COZAAR) 50 mg tablet Take 1 tablet by mouth once daily. - tamsulosin (FLOMAX) 0.4 mg Take 1 capsule by mouth once daily - azelastine 0.1% nasal spray Use 2 Sprays in each nostril two times a day as needed. 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] 11/04/2015 Degenerative spondylolisthesis [M43.10] 05/28/2016 Former smoker [Z87.891] History of laryngeal cancer [Z85.21] 03/10/2017 Hoarseness [R49.0] 03/10/2017 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] 04/19/2017 Spinal stenosis, lumbar region with neurogenic *04/19/2017 Lumbar stenosis with neurogenic claudication [M*05/19/2017 Obesity (BMI 35.0-39.9 without comorbidity) [E6*11/07/2020 Difficult intubation [T88.4XXA] 11/07/2020 FEDE (obstructive sleep apnea) [G47.33] 11/07/2020 Alcohol use [Z78.9] 11/07/2020 S/P lumbar spinal fusion [Z98.1] 01/16/2021 Chronic midline low back pain without sciatica *01/16/2021 Degenerative lumbar disc [M51.369] 01/16/2021 Lumbar spondylosis [M47.816] 01/20/2022 GERD (gastroesophageal reflux disease) [K21.9] 03/22/2023 Acquired hypothyroidism [E03.9] 03/22/2023 BMI 40.0-44.9, adult (HCC) [Z68.41] 07/27/2023 Stable angina (HCC) [I20.89] 11/26/2023 Elevated coronary artery calcium score [R93.1] 11/26/2023 Prescriptions ordered this encounter Disp Refills Start End MELOXICAM 7.5 MG TABLET 90 t* 3 05/03/2024 Route: ORAL Sig: Take 1 tablet by mouth once daily. METHOCARBAMOL 500 MG TABLET 90 t* 3 05/03/2024 Route: ORAL Sig: Take 1 tablet by mouth at bedtime as needed. Medications Discontinued During This Encounter Prescriptions - sodium chloride (AYR, OCEAN) 0.65 % nasal spray (Discontinued) Use 1 [place] in the nose every 2 hours while awake. - meloxicam (MOBIC) 7.5 mg tablet (Discontinued) Take 1 tablet by mouth once daily. - ammonium lactate (LAC-HYDRIN) 12 % lotion (Discontinued) Apply to elbows twice daily as needed. Level of Service: OFFICE/OUTPATIENT ESTABLISHED MOD MDM 30 MIN [29328] Additional E/M codes: VISIT CPLX INHERENT EANDM ASSOC WITH MED * Encounter Status:Closed by JASON NASSAR on 05/03/24 CISCO Observed: 05/03/2024 12:00 AM Status: COMPLETED Source: [facility] Telephone (SPNMAV) MIKI SAUCEDA ([id number]) 1965 M Date Time Provider Department 05/03/24 JASON NASSAR SPNMAV During your visit today, we recorded the following information about you: Nurys Carlton 05/03/2024 3:15 PM Signed Florencia on behalf of Miki Sauceda is calling Jason Nassar, DO today with concern regarding [id number] interaction with meloxicam and brilinta. Please call to confirm the order for Meloxicam. Call [phone]. No chief complaint on file. Patient has been identified by name and birthdate.Duration of symptoms: Person calling: pharmacy: Call patient at: [phone] (home) [phone] (cell) Was an appointment scheduled: Closing statement: Ulisses Scott RN 05/03/2024 3:28 PM Signed Spoke to pt and informed Dr. Nassar advised to contact provider that ordered brilinta to confirm if OK to take meloxicam with brilinta. Pt advised to notify office once he hears back from provider about their recommendations. Will continue to monitor. Ulisses Allen RN 05/03/2024 3:31 PM Signed Contacted [facility] pharmacy and informed pt is checking with provider whom ordered brilinta to determine if OK to take both brilinta and meloxicam together. Will contact pharmacy once pt informs of physician recommendations. Allergies As of Date: 05/03/2024 (No Known Allergies) Date Reviewed: 05/03/2024 Reviewed by: Gerda Wallace LPN - Fully Assessed Reason for Visit: Medication Problem [65] Prescriptions as of 05/03/2024 - meloxicam (MOBIC) 7.5 mg tablet Take 1 tablet by mouth once daily. - methocarbamol (ROBAXIN) 500 mg tablet Take 1 tablet by mouth at bedtime as needed. - levothyroxine (SYNTHROID) 75 mcg tablet Take 1 tablet by mouth once daily - rosuvastatin (CRESTOR) 20 mg tablet TAKE 1 TABLET BY MOUTH ONCE DAILY AT BEDTIME - pantoprazole DR (PROTONIX) 40 mg tablet Take 1 tablet by mouth once daily - fluticasone (FLONASE) 50 mcg/actuation nasal spray Use 2 spray(s) in each nostril once daily - mupirocin (BACTROBAN) 2 % ointment Apply to affected area daily - ticagrelor (BRILINTA) 90 mg tablet Take 1 tablet by mouth two times a day. - aspirin, enteric coated (ECOTRIN LOW STRENGTH) 81 mg EC tablet Take 1 tablet by mouth once daily. - carvedilol (COREG) 25 mg tablet Take 1 tablet by mouth two times a day. - losartan (COZAAR) 50 mg tablet Take 1 tablet by mouth once daily. - tamsulosin (FLOMAX) 0.4 mg Take 1 capsule by mouth once daily - azelastine 0.1% nasal spray Use 2 Sprays in each nostril two times a day as needed. 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] 11/04/2015 Degenerative spondylolisthesis [M43.10] 05/28/2016 Former smoker [Z87.891] History of laryngeal cancer [Z85.21] 03/10/2017 Hoarseness [R49.0] 03/10/2017 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] 04/19/2017 Spinal stenosis, lumbar region with neurogenic *04/19/2017 Lumbar stenosis with neurogenic claudication [M*05/19/2017 Obesity (BMI 35.0-39.9 without comorbidity) [E6*11/07/2020 Difficult intubation [T88.4XXA] 11/07/2020 FEDE (obstructive sleep apnea) [G47.33] 11/07/2020 Alcohol use [Z78.9] 11/07/2020 S/P lumbar spinal fusion [Z98.1] 01/16/2021 Chronic midline low back pain without sciatica *01/16/2021 Degenerative lumbar disc [M51.369] 01/16/2021 Lumbar spondylosis [M47.816] 01/20/2022 GERD (gastroesophageal reflux disease) [K21.9] 03/22/2023 Acquired hypothyroidism [E03.9] 03/22/2023 BMI 40.0-44.9, adult (HCC) [Z68.41] 07/27/2023 Stable angina (HCC) [I20.89] 11/26/2023 Elevated coronary artery calcium score [R93.1] 11/26/2023 Encounter Status:Closed by ULISSES ALLEN on 05/03/24 CISCO Observed: 05/03/2024 12:00 AM Status: COMPLETED Source: [facility] Telephone (SPNMAV) MIKI SAUCEDA ([id number]) 1965 M Date Time Provider Department 05/03/24 JASON NASSARNMAV During your visit today, we recorded the following information about you: Ulisses Allen RN 05/03/2024 8:58 AM Signed Spoke to patient in reguards to pre procedure instructions at office visit. Pt given scheduling phone number. Pt must have a stake driver. Pt advised to arrive 60 min prior to time given by radiology scheduler. Pt advised will also receive a call the day before from the surgery center to confirm date/time. RFA protocol-patient NPO after midnight-okay to take sip of water with medications in the a.m. No alcohol 24 hours prior. Diabetic instructions given. The medication in the injection may raise you blood sugar levels. Please monitor sugar levels and adjust medications as needed. Pt is on Ticagrelor (Brilinta)-Stop 5 days prior to the procedure. May resume after procedure. and must check with prescribe to get clearance 5 days prior to procedure. Advised on location of ASC-2nd floor [facility] Pt will receive a follow up call several days after by a steam roller operator. If you experience any increase in weakness, difficulty walking or significant increase in pain that last more than 4 hours, please proceed to the Emergency Room and tell them you had a spine procedure done recently. Additionally, call us and notify us of these symptoms. Please call [phone] if you have any questions. Pt verbalized understanding. Allergies As of Date: 05/03/2024 (No Known Allergies) Date Reviewed: 05/03/2024 Reviewed by: Gerda Wallace LPN - Fully Assessed Reason for Visit: Procedure [88] Prescriptions as of 05/03/2024 - meloxicam (MOBIC) 7.5 mg tablet Take 1 tablet by mouth once daily. - levothyroxine (SYNTHROID) 75 mcg tablet Take 1 tablet by mouth once daily - rosuvastatin (CRESTOR) 20 mg tablet TAKE 1 TABLET BY MOUTH ONCE DAILY AT BEDTIME - pantoprazole DR (PROTONIX) 40 mg tablet Take 1 tablet by mouth once daily - fluticasone (FLONASE) 50 mcg/actuation nasal spray Use 2 spray(s) in each nostril once daily - mupirocin (BACTROBAN) 2 % ointment Apply to affected area daily - ticagrelor (BRILINTA) 90 mg tablet Take 1 tablet by mouth two times a day. - aspirin, enteric coated (ECOTRIN LOW STRENGTH) 81 mg EC tablet Take 1 tablet by mouth once daily. - carvedilol (COREG) 25 mg tablet Take 1 tablet by mouth two times a day. - losartan (COZAAR) 50 mg tablet Take 1 tablet by mouth once daily. - tamsulosin (FLOMAX) 0.4 mg Take 1 capsule by mouth once daily - azelastine 0.1% nasal spray Use 2 Sprays in each nostril two times a day as needed. 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] 11/04/2015 Degenerative spondylolisthesis [M43.10] 05/28/2016 Former smoker [Z87.891] History of laryngeal cancer [Z85.21] 03/10/2017 Hoarseness [R49.0] 03/10/2017 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] 04/19/2017 Spinal stenosis, lumbar region with neurogenic *04/19/2017 Lumbar stenosis with neurogenic claudication [M*05/19/2017 Obesity (BMI 35.0-39.9 without comorbidity) [E6*11/07/2020 Difficult intubation [T88.4XXA] 11/07/2020 FEDE (obstructive sleep apnea) [G47.33] 11/07/2020 Alcohol use [Z78.9] 11/07/2020 S/P lumbar spinal fusion [Z98.1] 01/16/2021 Chronic midline low back pain without sciatica *01/16/2021 Degenerative lumbar disc [M51.369] 01/16/2021 Lumbar spondylosis [M47.816] 01/20/2022 GERD (gastroesophageal reflux disease) [K21.9] 03/22/2023 Acquired hypothyroidism [E03.9] 03/22/2023 BMI 40.0-44.9, adult (HCC) [Z68.41] 07/27/2023 Stable angina (HCC) [I20.89] 11/26/2023 Elevated coronary artery calcium score [R93.1] 11/26/2023 Encounter Status:Closed by ULISSES ALLEN on 05/03/24 PROGRESS Observed: 04/07/2024 8:16 AM Status: COMPLETED Source: [facility] HNO ID: [id number] Author: BUD HASTINGS RT(Alexia) Service: ? Author Type: Technologist Type: Progress Notes Filed: 04/07/2024 08:17 Note Text: Radiology Service Progress Note PATIENT NAME: Miki Sauceda DATE OF SERVICE: April 07, 2024 TIME: 8:16 AM PATIENT IDENTITY VERIFICATION COMPLETED USING TWO (2) IDENTIFIERS: Name and Date of confirmed by patient verbally. FALL SCREENING: Has the patient had 2 falls in the last year or 1 fall with injury or currently using an Ambulatory Assistive Device (Walker, Cane, Wheelchair, Crutches, etc.)? No PATIENT GENDER DATA: Male PATIENT RELEVANT IMPLANT DATA REVIEWED: Not Applicable PATIENT PRESENTS WITH AN IMPLANTABLE OR ATTACHED TELEMARKETING AGENT: No RADIOLOGY DEPARTMENT: General X-ray: Exam(s) Completed: Abdomen X-Ray: Abdomen PERIPHERAL IV DATA: Not applicable SIGNED BY: RT Lorenzo(R) April 07, 2024 8:16 AM XR ABDOMEN 1V SUPINE Observed: 8:16 AM Status: F Source: [facility] * * *Final Report* * * DATE OF EXAM: Apr 07 2024 8:16AM [id number] [id number] - XR ABDOMEN 1V SUPINE / PROCEDURE REASON: Abdominal pain, unspecified abdominal location * * * * Physician Interpretation * * * * Examination: XR ABDOMEN 1V SUPINE History: Abdominal pain, unspecified abdominal location Assess stool burden Technique: XR ABDOMEN 1V SUPINE Comparison: 10/02/2022 CT RESULT: Supine view of the abdomen, including crosswise view of the pelvis. Mild/moderate stool throughout the colon. Nonspecific and nonobstructive bowel gas pattern. Lower thorax is unremarkable Calcifications in the spleen are consistent with remote granulomatous disease. Partially visualized lumbar hardware. Bony structures appear grossly intact IMPRESSION: MILD/MODERATE STOOL. NONSPECIFIC AND NONOBSTRUCTIVE BOWEL GAS PATTERN. Adjustment Clerk: PSCB Transcribe Date/Time: May 05 2024 9:07A Dictated by : SALEEM PARKER MD This examination was interpreted and the report reviewed and electronically signed by: SALEEM PARKER MD on May 05 2024 9:10AM EST [id number] Observed: 03/23/2024 1:30 PM Status: COMPLETED Source: [facility] Office Visit (GASTSP) MIKI SAUCEDA ([id number]) 1965 M Date Time Provider Department 03/23/24 1:30 PM ZEESHAN STONE [facility] During your visit today, we recorded the following information about you: Pulse Blood pressure Weight 61/minute 125/91 137.3 kg Zeeshan Stone PA-C 03/28/2024 1:46 PM Signed DEPARTMENT OF GASTROENTEROLOGY - FOLLOW UP VISIT HISTORY OF PRESENT ILLNESS Miki Sauceda is a 58 year old male who presents today for follow up of abdominal pain. He reports symptoms worsening over the last few months. Has been on pantoprazole 40 mg daily. Happens daily, no specific triggers. Feels better when he eats, no vomiting but does have nausea. He denies burning in the chest but does get some acid brash sensation and chronic cough. He reports constipation over the last 2 years, takes fiber daily which does help him go most days of the week. No stool softeners or laxatives. Established patient of [facility]. TEST RESULTS SINCE LAST VISIT Imaging/Procedures: None Hemoglobin (g/dL) Date Value 11/19/2023 16.4 10/16/2020 16.1 Hematocrit (%) Date Value 11/19/2023 46.3 10/16/2020 48.5 WBC (k/uL) Date Value 11/19/2023 9.20 10/16/2020 7.99 Glucose (mg/dL) Date Value 11/19/2023 101 10/16/2020 112 Potassium (mmol/L) Date Value 11/19/2023 4.1 10/16/2020 3.9 Sodium (mmol/L) Date Value 11/19/2023 139 10/16/2020 139 Chloride (mmol/L) Date Value 11/19/2023 105 10/16/2020 102 CO2 (mmol/L) Date Value 11/19/2023 26 10/16/2020 25 Creatinine (mg/dL) Date Value 11/19/2023 0.79 10/16/2020 0.83 BUN (mg/dL) Date Value 11/19/2023 13 10/16/2020 11 Anion Gap (mmol/L) Date Value 11/19/2023 8 10/16/2020 12 Calcium (mg/dL) Date Value 10/16/2020 9.1 Calcium, Total (mg/dL) Date Value 11/19/2023 9.1 Protein, Total (g/dL) Date Value 08/26/2023 7.0 10/16/2020 7.4 Albumin (g/dL) Date Value 08/26/2023 4.2 10/16/2020 4.4 Bilirubin, Total (mg/dL) Date Value 08/26/2023 0.5 10/16/2020 0.4 Alkaline Phosphatase (U/L) Date Value 08/26/2023 80 10/16/2020 80 AST (U/L) Date Value 08/26/2023 22 10/16/2020 26 ALT (U/L) Date Value 08/26/2023 23 10/16/2020 33 Current Outpatient Medications Medication Sig Dispense Refill levothyroxine (SYNTHROID) 75 mcg tablet Take 1 tablet by mouth once daily 90 tablet 0 rosuvastatin (CRESTOR) 20 mg tablet TAKE 1 TABLET BY MOUTH ONCE DAILY AT BEDTIME [address] (PROTONIX) 40 mg tablet Take 1 tablet by mouth once daily 90 tablet 0 fluticasone (FLONASE) 50 mcg/actuation nasal spray Use 2 spray(s) in each nostril once daily 16 g 5 mupirocin (BACTROBAN) 2 % ointment Apply to affected area daily 22 g 0 ammonium lactate (LAC-HYDRIN) 12 % lotion Apply to elbows twice daily as needed. 225 g 5 ticagrelor (BRILINTA) 90 mg tablet Take 1 tablet by mouth two times a day. 180 tablet 3 aspirin, enteric coated (ECOTRIN LOW STRENGTH) 81 mg EC tablet Take 1 tablet by mouth once daily. carvedilol (COREG) 25 mg tablet Take 1 tablet by mouth two times a day. 180 tablet 3 losartan (COZAAR) 50 mg tablet Take 1 tablet by mouth once daily. 90 tablet 3 tamsulosin (FLOMAX) 0.4 mg Take 1 capsule by mouth once daily 90 capsule 3 azelastine 0.1% nasal spray Use 2 Sprays in each nostril two times a day as needed. 90 mL 3 meloxicam (MOBIC) 7.5 mg tablet Take 1 tablet by mouth once daily. 30 tablet 2 sodium chloride (AYR, OCEAN) 0.65 % nasal spray Use 1 [place] in the nose every 2 hours while awake. 1 Bottle 5 No current facility-administered medications for this visit. ALLERGIES No Known Allergies REVIEW OF SYSTEMS Gastrointestinal : Abdominal Discomfort and Constipation All others negative except as noted above PAST MEDICAL HISTORY Htn CAD on DAPT FEDE Hx larngeal cancer BMI 42 PHYSICAL EXAMINATION BP 125/91 Pulse 61 Wt 302 lb 11.1 oz (137.3kg) General Appearance: Well appearing, alert, in no acute distress, well-hydrated, well nourished. Eyes: anicteric sclera Oropharynx: not examined while masked Lungs:breath sounds clear to auscultation bilaterally, no crackles, rhonchi, or wheezes Heart: regular rate and rhythm, no murmurs or gallops. Abdomen: not distended, normal bowel sounds, soft and depressible, no guarding or rebound Extremities: no lower extremity edema noted bilaterally Skin: no jaundice Neuro:alert, oriented x 3, pleasant and in no acute distress Assessment IMPRESSION Mr. Sauceda is a 58 year old year old male who presents as a follow up for chronic abdominal pain. PLAN #s/p PCI on DAPT (asa/brillinta) #chronic abdominal pain -patient requesting EGD which we discussed will not be able to be done until he gets clearance to hold his plavix for 5 days which will likely be at least 6 months out from PCI in November 2023. -KUB to assess stool burden, may benefit from additional constipation management -consider cross sectional imaging pending above -continue PPI at current dose -follow up with established providers at [facility] closer to home Medical Decision Making: Problems: Moderate: 1+ chronic illnesses with change Data: Unique test result(s) reviewed: 2 Unique test(s) ordered: 2 Risk: Moderate: Moderate risk from testing/treatment Medical Decision Making Level: 4 - Moderate Zeeshan Stone PA-C March 23, 2024 1:22 PM Zeeshan Stone PA-C 03/23/2024 1:51 PM Addendum 1) complete xray 2) schedule EGD only AFTER you get clearance from your human resources services specialist to hold your brillinta for the procedure 3) continue your current medications 4) follow up with Dr. Underwood after these tests Referring Provider: SELF [200] Allergies As of Date: 03/23/2024 (No Known Allergies) Date Reviewed: 03/23/2024 Reviewed by: Fausto Garza MA - Fully Assessed Reason for Visit: Consult [502] Cmt: Requesting EGD. Epigastric pain and lower mid abdominal pain. Nausea (when eats feels better). Ice Cream makes him throw up. Primary Visit Diagnosis:Abdominal pain, unspecified abdominal location [R10.9] Other Visit Diagnosis:Epigastric pain [R10.13] Order(s):XR ABDOMEN 1V SUPINE [[id number]] Order #: [id number] FUTURE EGD DIAGNOSTIC [GI9] Order #: [id number] FUTURE Prescriptions as of 03/28/2024 - levothyroxine (SYNTHROID) 75 mcg tablet Take 1 tablet by mouth once daily - rosuvastatin (CRESTOR) 20 mg tablet TAKE 1 TABLET BY MOUTH ONCE DAILY AT BEDTIME - pantoprazole DR (PROTONIX) 40 mg tablet Take 1 tablet by mouth once daily - fluticasone (FLONASE) 50 mcg/actuation nasal spray Use 2 spray(s) in each nostril once daily - mupirocin (BACTROBAN) 2 % ointment Apply to affected area daily - ammonium lactate (LAC-HYDRIN) 12 % lotion Apply to elbows twice daily as needed. - ticagrelor (BRILINTA) 90 mg tablet Take 1 tablet by mouth two times a day. - aspirin, enteric coated (ECOTRIN LOW STRENGTH) 81 mg EC tablet Take 1 tablet by mouth once daily. - carvedilol (COREG) 25 mg tablet Take 1 tablet by mouth two times a day. - losartan (COZAAR) 50 mg tablet Take 1 tablet by mouth once daily. - tamsulosin (FLOMAX) 0.4 mg Take 1 capsule by mouth once daily - azelastine 0.1% nasal spray Use 2 Sprays in each nostril two times a day as needed. - meloxicam (MOBIC) 7.5 mg tablet Take 1 tablet by mouth once daily. - sodium chloride (AYR, OCEAN) 0.65 % nasal spray Use 1 [place] in the nose every 2 hours while awake. 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] 11/04/2015 Degenerative spondylolisthesis [M43.10] 05/28/2016 Former smoker [Z87.891] History of laryngeal cancer [Z85.21] 03/10/2017 Hoarseness [R49.0] 03/10/2017 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] 04/19/2017 Spinal stenosis, lumbar region with neurogenic *04/19/2017 Lumbar stenosis with neurogenic claudication [M*05/19/2017 Obesity (BMI 35.0-39.9 without comorbidity) [E6*11/07/2020 Difficult intubation [T88.4XXA] 11/07/2020 FEDE (obstructive sleep apnea) [G47.33] 11/07/2020 Alcohol use [Z78.9] 11/07/2020 S/P lumbar spinal fusion [Z98.1] 01/16/2021 Chronic midline low back pain without sciatica *01/16/2021 Degenerative lumbar disc [M51.369] 01/16/2021 Lumbar spondylosis [M47.816] 01/20/2022 GERD (gastroesophageal reflux disease) [K21.9] 03/22/2023 Acquired hypothyroidism [E03.9] 03/22/2023 BMI 40.0-44.9, adult (HCC) [Z68.41] 07/27/2023 Stable angina (HCC) [I20.89] 11/26/2023 Elevated coronary artery calcium score [R93.1] 11/26/2023 Other instructions from your clinician: 1) complete xray 2) schedule EGD only AFTER you get clearance from your human resources services specialist to hold your brillinta for the procedure 3) continue your current medications 4) follow up with Dr. Underwood after these tests Encounter Status:Closed by ZEESHAN STONE I on 03/28/24 PROGRESS Observed: 03/23/2024 1:22 PM Status: COMPLETED Source: [facility] HNO ID: [id number] Author: ZEESHAN STONE PA-C Service: ? Author Type: Physician Wheel Alignment Mechanic Type: Progress Notes Filed: 03/28/2024 13:46 Note Text: DEPARTMENT OF GASTROENTEROLOGY - FOLLOW UP VISIT HISTORY OF PRESENT ILLNESS Miki Sauceda is a 58 year old male who presents today for follow up of abdominal pain. He reports symptoms worsening over the last few months. Has been on pantoprazole 40 mg daily. Happens daily, no specific triggers. Feels better when he eats, no vomiting but does have nausea. He denies burning in the chest but does get some acid brash sensation and chronic cough. He reports constipation over the last 2 years, takes fiber daily which does help him go most days of the week. No stool softeners or laxatives. Established patient of [facility]. TEST RESULTS SINCE LAST VISIT Imaging/Procedures: None Hemoglobin (g/dL) Date Value 11/19/2023 16.4 10/16/2020 16.1 Hematocrit (%) Date Value 11/19/2023 46.3 10/16/2020 48.5 WBC (k/uL) Date Value 11/19/2023 9.20 10/16/2020 7.99 Glucose (mg/dL) Date Value 11/19/2023 101 10/16/2020 112 Potassium (mmol/L) Date Value 11/19/2023 4.1 10/16/2020 3.9 Sodium (mmol/L) Date Value 11/19/2023 139 10/16/2020 139 Chloride (mmol/L) Date Value 11/19/2023 105 10/16/2020 102 CO2 (mmol/L) Date Value 11/19/2023 26 10/16/2020 25 Creatinine (mg/dL) Date Value 11/19/2023 0.79 10/16/2020 0.83 BUN (mg/dL) Date Value 11/19/2023 13 10/16/2020 11 Anion Gap (mmol/L) Date Value 11/19/2023 8 10/16/2020 12 Calcium (mg/dL) Date Value 10/16/2020 9.1 Calcium, Total (mg/dL) Date Value 11/19/2023 9.1 Protein, Total (g/dL) Date Value 08/26/2023 7.0 10/16/2020 7.4 Albumin (g/dL) Date Value 08/26/2023 4.2 10/16/2020 4.4 Bilirubin, Total (mg/dL) Date Value 08/26/2023 0.5 10/16/2020 0.4 Alkaline Phosphatase (U/L) Date Value 08/26/2023 80 10/16/2020 80 AST (U/L) Date Value 08/26/2023 22 10/16/2020 26 ALT (U/L) Date Value 08/26/2023 23 10/16/2020 33 Current Outpatient Medications Medication Sig Dispense Refill levothyroxine (SYNTHROID) 75 mcg tablet Take 1 tablet by mouth once daily 90 tablet 0 rosuvastatin (CRESTOR) 20 mg tablet TAKE 1 TABLET BY MOUTH ONCE DAILY AT BEDTIME [address] (PROTONIX) 40 mg tablet Take 1 tablet by mouth once daily 90 tablet 0 fluticasone (FLONASE) 50 mcg/actuation nasal spray Use 2 spray(s) in each nostril once daily 16 g 5 mupirocin (BACTROBAN) 2 % ointment Apply to affected area daily 22 g 0 ammonium lactate (LAC-HYDRIN) 12 % lotion Apply to elbows twice daily as needed. 225 g 5 ticagrelor (BRILINTA) 90 mg tablet Take 1 tablet by mouth two times a day. 180 tablet 3 aspirin, enteric coated (ECOTRIN LOW STRENGTH) 81 mg EC tablet Take 1 tablet by mouth once daily. carvedilol (COREG) 25 mg tablet Take 1 tablet by mouth two times a day. 180 tablet 3 losartan (COZAAR) 50 mg tablet Take 1 tablet by mouth once daily. 90 tablet 3 tamsulosin (FLOMAX) 0.4 mg Take 1 capsule by mouth once daily 90 capsule 3 azelastine 0.1% nasal spray Use 2 Sprays in each nostril two times a day as needed. 90 mL 3 meloxicam (MOBIC) 7.5 mg tablet Take 1 tablet by mouth once daily. 30 tablet 2 sodium chloride (AYR, OCEAN) 0.65 % nasal spray Use 1 [place] in the nose every 2 hours while awake. 1 Bottle 5 No current facility-administered medications for this visit. ALLERGIES No Known Allergies REVIEW OF SYSTEMS Gastrointestinal : Abdominal Discomfort and Constipation All others negative except as noted above PAST MEDICAL HISTORY Htn CAD on DAPT FEDE Hx larngeal cancer BMI 42 PHYSICAL EXAMINATION BP 125/91 Pulse 61 Wt 302 lb 11.1 oz (137.3kg) General Appearance: Well appearing, alert, in no acute distress, well-hydrated, well nourished. Eyes: anicteric sclera Oropharynx: not examined while masked Lungs:breath sounds clear to auscultation bilaterally, no crackles, rhonchi, or wheezes Heart: regular rate and rhythm, no murmurs or gallops. Abdomen: not distended, normal bowel sounds, soft and depressible, no guarding or rebound Extremities: no lower extremity edema noted bilaterally Skin: no jaundice Neuro:alert, oriented x 3, pleasant and in no acute distress Assessment IMPRESSION Mr. Sauceda is a 58 year old year old male who presents as a follow up for chronic abdominal pain. PLAN #s/p PCI on DAPT (asa/brillinta) #chronic abdominal pain -patient requesting EGD which we discussed will not be able to be done until he gets clearance to hold his plavix for 5 days which will likely be at least 6 months out from PCI in November 2023. -KUB to assess stool burden, may benefit from additional constipation management -consider cross sectional imaging pending above -continue PPI at current dose -follow up with established providers at [facility] gastro closer to home Medical Decision Making: Problems: Moderate: 1+ chronic illnesses with change Data: Unique test result(s) reviewed: 2 Unique test(s) ordered: 2 Risk: Moderate: Moderate risk from testing/treatment Medical Decision Making Level: 4 - Moderate Zeeshan Stone PA-C March 23, 2024 1:22 PM PVR LEG W/EXC [facility] Observed: 01/04 7:56 AM Status: F Source: [facility] Lower Extremity Arterial Physiology Study Bilateral/Complete Date of service/time: 01/31/2024 7:56:50 AM Name: MR. MIKI SAUCEDA Date of : 1965 Age: 58 years Gender: M Clinical Indication Claudication. TECHNIQUE -------- An arterial physiological examination was performed, including measurement of blood pressures using continuous wave Doppler and recording of plethysmographic with or without Doppler waveforms at the below-mentioned limb segments. FINDINGS -------- RIGHT SIDE AT REST Right Doppler Waveforms Dorsalis pedis: Multiphasic. Post tibial: Multiphasic. Right Pressures Brachial: 122 mmHg High thigh: 153 mmHg Low thigh: 149 mmHg Calf: 149 mmHg Ankle dorsalis pedis: 146 mmHg MITCHELL: 1.14 Ankle posterior tibial: 158 mmHg MITCHELL: 1.23 Right PVR Waveforms High thigh: Normal. Low thigh: Normal. Calf: Normal. Ankle: Normal. Transmetatarsal: Normal. Digit: Normal. LEFT SIDE AT REST Left Doppler Waveforms Dorsalis pedis: Multiphasic. Post tibial: Multiphasic. Left Pressures Brachial: 128 mmHg High thigh: 155 mmHg Low thigh: 153 mmHg Calf: 153 mmHg Ankle dorsalis pedis: 154 mmHg MITCHELL: 1.20 Ankle posterior tibial: 148 mmHg MITCHELL: 1.16 Left PVR Waveforms High thigh: Normal. Low thigh: Normal. Calf: Normal. Ankle: Normal. Transmetatarsal: Normal. Digit: Normal. POST EXERCISE Treadmill grade: 12.0 rate: 2.0 mph Onset of claudication: 1 min 50 sec Maximal walking time: 4 min 0 sec Exercise symptoms 1 min 50 sec: mild bilateral thigh tightening Reason test was terminated: shortness of breath. Post Exercise: Immediate Right Pressures and Waveform Ankle: 155 mmHg MITCHELL: 1.13 Ankle waveform: Normal. Left Pressures and Waveform Brachial: 137 mmHg Ankle: 149 mmHg MITCHELL: 1.09 Ankle waveform: Normal. IMPRESSION RIGHT SIDE Resting right ankle brachial index: 1.23 Post exercise right ankle brachial index: 1.13 Normal ankle brachial index at rest in the right leg. Right ankle: Normal at rest. No significant change in pressure and/or ankle-brachial index with exercise. LEFT SIDE Resting left ankle brachial index: 1.20 Post exercise left ankle brachial index: 1.09 Normal ankle brachial index at rest in the left leg. Left ankle: Normal at rest. No significant change in pressure and/or ankle-brachial index with exercise. Technologist: Ana Pacheco RVT Ordering physician: KODI SULLIVAN Interpreting physician: Fran Victoria MD, RPNADIRA Final CC [employer] [facility] Image : [id number] See Link below for Image US CAROTID ARTERIES [facility] Observed: 01/31/2024 7:53 AM Status: F [facility]ilateral/Complete Date of service/time: 01/31/2024 7:53:41 AM Name: MR. MIKI SAUCEDA Date of : 1965 Age: 58 years Gender: M Clinical Indication Rule out carotid artery disease. TECHNIQUE -------- A carotid duplex ultrasound examination was performed, including grayscale imaging and color Doppler and spectral Doppler examination of the below mentioned arteries. FINDINGS -------- RIGHT SIDE Common carotid artery: Origin: PSV: 79 cm/s. EDV: 8 cm/s. Proximal: PSV: 64 cm/s. EDV: 9 cm/s. Mid: PSV: 49 cm/s. EDV: 7 cm/s. Distal: PSV: 46 cm/s. EDV: 9 cm/s. Internal carotid artery: Origin: PSV: 0 cm/s. EDV: 0 cm/s. Proximal: PSV: 0 cm/s. EDV: 0 cm/s. Mid: PSV: 0 cm/s. EDV: 0 cm/s. ICA/CCA Ratio: 0.0 External carotid artery: Proximal: PSV: 76 cm/s. EDV: 14 cm/s. Subclavian artery: Proximal: PSV: 215 cm/s. EDV: 0 cm/s. Mild heterogeneous plaque at proximal. Innominate artery: PSV: 106 cm/s. EDV: 13 cm/s. Vertebral artery: PSV: 59 cm/s. EDV: 19 cm/s. LEFT SIDE Common carotid artery: Proximal: PSV: 90 cm/s. EDV: 26 cm/s. Mid: PSV: 78 cm/s. EDV: 24 cm/s. Distal: PSV: 63 cm/s. EDV: 17 cm/s. Mild heterogeneous plaque at distal. Internal carotid artery: Origin: PSV: 74 cm/s. EDV: 25 cm/s. Proximal: PSV: 80 cm/s. EDV: 34 cm/s. Mid: PSV: 73 cm/s. EDV: 31 cm/s. Distal: PSV: 84 cm/s. EDV: 39 cm/s. ICA/CCA Ratio: 1.3 External carotid artery: Proximal: PSV: 69 cm/s. EDV: 11 cm/s. Subclavian artery: Proximal: PSV: 117 cm/s. EDV: 12 cm/s. Vertebral artery: PSV: 46 cm/s. EDV: 15 cm/s. IMPRESSION Kodi Sullivan, MD was notified with results at 0900. Compared to prior study of 04/14/2021, right ICA now occluded, left unchanged. RIGHT SIDE Internal carotid artery: Occluded. Vertebral artery: Patent and antegrade flow noted. Subclavian artery: Plaque visualized without evidence of hemodynamically significant stenosis. LEFT SIDE Common carotid artery: Plaque visualized without evidence of hemodynamically significant stenosis. Internal carotid artery: 0-19% stenosis. Tortuous vessel at proximal . Vertebral artery: Patent and antegrade flow noted. Subclavian artery: Patent. Technologist: Ana Pacheco RVT Claudia Crowe RVT Ordering physician: KODI SULLIVAN Interpreting physician: Fran Victoria MD, RPVI Final CC [employer] [facility] Image : [id number] See Link below for Image CNPN Observed: 01/19/2024 12:00 AM Status: COMPLETED Source: [facility] Telephone (ORAVON) MIKI SAUCEDA ([id number]) 1965 M Date Time Provider Department 01/19/24 OLIVER RACHEL During your visit today, we recorded the following information about you: Oliver Rachel PA-C 01/19/2024 2:16 PM Signed Attempted to call patient x 2 for phone call pre op visit and there was no answer. Advised to call back and re schedule a phone call visit at a better time that works for him. Oliver Rachel PA-C Allergies As of Date: 01/19/2024 (No Known Allergies) Date Reviewed: 12/15/2023 Reviewed by: Ronn Roper OCCA - Fully Assessed Reason for Visit: Returning Patient's Call [408] Prescriptions as of 01/19/2024 - levothyroxine (SYNTHROID) 75 mcg tablet Take 1 tablet by mouth once daily - fluticasone (FLONASE) 50 mcg/actuation nasal spray Use 2 spray(s) in each nostril once daily - mupirocin (BACTROBAN) 2 % ointment Apply to affected area daily - ammonium lactate (LAC-HYDRIN) 12 % lotion Apply to elbows twice daily as needed. - ticagrelor (BRILINTA) 90 mg tablet Take 1 tablet by mouth two times a day. - pantoprazole DR (PROTONIX) 40 mg tablet Take 1 tablet by mouth once daily. Patient should start on November 27, 2023. - rosuvastatin (CRESTOR) 20 mg tablet Take 1 tablet by mouth daily at bedtime. - aspirin, enteric coated (ECOTRIN LOW STRENGTH) 81 mg EC tablet Take 1 tablet by mouth once daily. - carvedilol (COREG) 25 mg tablet Take 1 tablet by mouth two times a day. - losartan (COZAAR) 50 mg tablet Take 1 tablet by mouth once daily. - tamsulosin (FLOMAX) 0.4 mg Take 1 capsule by mouth once daily - azelastine 0.1% nasal spray Use 2 Sprays in each nostril two times a day as needed. - meloxicam (MOBIC) 7.5 mg tablet Take 1 tablet by mouth once daily. - sodium chloride (AYR, OCEAN) 0.65 % nasal spray Use 1 [place] in the nose every 2 hours while awake. 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] 01/06/2016 Laryngeal cancer (HCC) [C32.9] 11/04/2015 Degenerative spondylolisthesis [M43.10] 05/28/2016 Former smoker [Z87.891] History of laryngeal cancer [Z85.21] 03/10/2017 Hoarseness [R49.0] 03/10/2017 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] 04/19/2017 Spinal stenosis, lumbar region with neurogenic *04/19/2017 Lumbar stenosis with neurogenic claudication [M*05/19/2017 Obesity (BMI 35.0-39.9 without comorbidity) [E6*11/07/2020 Difficult intubation [T88.4XXA] 11/07/2020 FEDE (obstructive sleep apnea) [G47.33] 11/07/2020 Alcohol use [Z78.9] 11/07/2020 S/P lumbar spinal fusion [Z98.1] 01/16/2021 Chronic midline low back pain without sciatica *01/16/2021 Degenerative lumbar disc [M51.369] 01/16/2021 Lumbar spondylosis [M47.816] 01/20/2022 GERD (gastroesophageal reflux disease) [K21.9] 03/22/2023 Acquired hypothyroidism [E03.9] 03/22/2023 BMI 40.0-44.9, adult (HCC) [Z68.41] 07/27/2023 Stable angina (HCC) [I20.89] 11/26/2023 Elevated coronary artery calcium score [R93.1] 11/26/2023 Encounter Status:Closed by OLIVER RACEHL on 01/19/24 ALLERGIES DATE TYPE / CODE NAME / CODE REACTION SEVERITY SOURCE Drug Class/[id number](SNO MED CT) NO KNOWN ALLERGIES [facility] Drug Class/[id number](SNO MED CT) [facility]/DISCHARGE ACCOUNT NUMBER ADMITTING ENCOUNTER CLASS LOCATION SOURCE 12/29/2024/12/30/19 [id number] Ambulatory [facility] ding:MARIBEL [facility] 12/22/2024 [id number] Ambulatory [facility] ding:LNUS [facility] 11/22/2024/11/23/19 25 [id number] Ambulatory [facility] ding:LUISDARIN [facility] 11/22/2024/11/23/19 25 [id number] Ambulatory [facility]:RENETTA [facility] 11/15/2024/11/16/19 25 [id number] Ambulatory [facility] ding:LUISCHRISTIANO [facility] 11/15/2024/11/16/19 25 [id number] Ambulatory [facility]:PAULINO [facility] 11/15/2024 [id number] [facility]28[facility] [id number] Ambulatory [facility] ding:CARLYN [facility] 10/09/2024/10/10/19 25 [id number] Ambulatory [facility]:RENETTA [facility] 10/09/2024/10/10/19 25 [id number] Ambulatory [facility]:KAM [facility] 10/04/2024/10/05/19 25 [id number] Ambulatory [facility]:SHANNON [facility] 08/07/2024/08/08/19 25 [id number] [facility] 08/07/2024 [id number] Ambulatory [facility]:ROAZUCENA [facility] 08/04/2024/08/05/19 25 [id number] JASON NASSAR [facility] Luis m: AVENBed: 02 [facility] 07/24/2024 [id number] [facility] 07/21/2024/07/22/19 25 [id number] Ambulatory [facility] ding:PV40 [facility] 07/21/2024/07/22/19 25 [id number] Ambulatory [facility]:MICH [facility] 07/21/2024/07/22/19 25 [id number] Ambulatory [facility]:LUPIS [facility] 06/06/2024/06/07/19 25 [id number] Ambulatory [facility]:OTCA [facility] 06/06/2024/06/07/19 25 [id number] Ambulatory [facility]:ASH [facility] 06/06/2024/06/07/19 25 [id number] Ambulatory [facility]:XRCT [facility] 06/06/2024/06/07/19 25 [id number] Ambulatory [facility]:HTLB [facility] 06/06/2024/06/07/19 25 [id number] Ambulatory [facility]:NUCM [facility] 06/06/2024/06/07/19 25 [id number] Ambulatory [facility] ding:NUCM [facility] 06/01/2024/06/01/19 25 [id number] Ambulatory [facility] ding:LNLB [facility] 06/01/2024/06/01/19 25 [id number] Ambulatory [facility] ding:LNUR [facility] 05/22/2024/05/22/19 25 [id number] Emergency Building:[facility] _EDRoom: 6Bed: [address] [place] [address] 05/17/2024/05/17/19 25 [id number] Ambulatory [facility] ding:CARINF [facility] 05/03/2024/05/03/19 25 [id number] Ambulatory [facility]:AVSM [facility] 04/07/2024/04/07/19 25 [id number] Ambulatory [facility]:LORG [facility] 03/23/2024/03/23/20 24 [id number] Ambulatory [facility]:GSSP [facility] 02/21/2024/02/21/20 24 [id number] Ambulatory Building:[facility] 01/31/2024/01/31/20 24 [id number] Ambulatory [facility] Hospital[facility] ding:VLAV [facility] 01/31/2024/01/31/20 24 [id number] [facility] PAYERS ENCOUNTER GUARANTOR PAYER SUBSCRIBER SOURCE 12/29/2024 Primary Insurance:[facility] MEDICAID [facility] Number: [id number] Date:0444-17-19Bokv Name:Junaid ADAMSB: [id number] [place] [address] 12/22/2024 Primary Insurance:[facility] MEDICAID [facility] Number: [id number] Date:0449-22-05Nrcf Name:Junaid SAUCEDAB: [id number] [place] [address] 11/22/2024 Primary Insurance:[facility] MEDICAID [facility] Number: [id number] Date:7599-21-77Jqib Name:Junaid SAUCEDAB: [id number] [place] [address] 11/22/2024 Primary Insurance:[facility] MEDICAID [facility] Number: [id number] Date:9192-39-95Xvzn Name:Junaid SAUCEDAB: [id number] [place] [address] 11/15/2024 [facility] Number: [id number] Date:0938-65-66Kjen Name:Junaid SAUCEDAB: [id number] [place] [address] 11/15/2024 [facility] Number: [id number] Date:4139-09-39Qgpm Name:Junaid SAUCEDAB: [id number] [place], [place] [address] 11/15/2024 [facility] Number: [id number] Date:3603-75-01Lbpr Name:Junaid DWYER: [id number] [place] [address] [facility] 10/27/2024 [facility] Number: [id number] Date:1381-46-33Qgnn Name:Junaid ADAMSB: [id number] [place] [address] 10/09/2024 [facility] Number: [id number] Date:6456-75-96Etby Name:Junaid ADAMSB: [id number] [place] [address] 10/09/2024 [facility] Number: [id number] Date:2845-73-51Pgdi Name:Junaid ADAMSB: [id number] [place] [address] 10/04/2024 [facility] Number: [id number] Date:9948-73-52Ochw Name:Junaid ADAMSB: [id number] [place] [address] 08/07/2024 [facility] Number: [id number] Date:5628-42-13Ngbl Name:Junaid ADAMSB: [id number] [place] [address] 08/07/2024 [facility] Number: [id number] Date:0377-31-20Ftgh Name:Junaid ADAMSB: [id number] 08/04/2024 Primary Insurance:[employer] [facility] MEDICAID [facility] Number: [id number] Date:8644-83-90Jzae Name:Junaid DWYER: [id number] [place] [address] 07/24/2024 [facility] Number: [id number] Date:2737-50-36Mffc Name:Junaid ADAMSB: [id number] [place] [address] 07/21/2024 [facility] Number: [id number] Date:5750-45-38Lapg Name:Junaid ADAMSB: [id number] [place] [address] 07/21/2024 [facility] Number: [id number] Date:2112-57-72Btde Name:Junaid SAUCEDAB: [id number] [place] [address] 07/21/2024 [facility] Number: [id number] Date:8120-21-78Izud Name:Junaid ADAMSB: [id number] [place] [address] 06/06/2024 [facility] Number: [id number] Date:7825-94-41Bikf Name:Junaid SAUCEDAB: [id number] [place] [address] 06/06/2024 [facility] Number: [id number] Date:7606-07-02Vbyf Name:Junaid SAUCEDAB: [id number] [place] [address] [facility] 06/06/2024 Primary Insurance:[facility] MEDICAID [facility] Number: [id number] Date:2265-39-74Iege Name:Junaid ADAMSB: [id number] [address] [place] [address] [facility] 06/06/2024 Primary Insurance:[facility] MEDICAID [facility] Number: [id number] Date:4070-20-76Khek Name:Junaid ADAMSB: [id number] [place] [address] [facility] 06/06/2024 Primary Insurance:[employer] [place] Number: [id number] Date:8687-41-99Sind Name:Junaid SAUCEDAB: [id number] [place] [address] [facility] 06/06/2024 Primary Insurance:[facility] MEDICAID [facility] Number: [id number] Date:7514-61-50Ytof Name:Junaid LOOMISBOWENCECIB: [id number] [address] [address] [facility] 06/01/2024 Primary Insurance:[employer] [place] Number: [id number] Date:3002-05-30Vwgl Name:Junaid SAUCEDAB: [id number] [address] [address] [facility] 06/01/2024 Primary Insurance:[facility] MEDICAID [facility] Number: [id number] Date:2236-27-99Lsvh Name:Junaid SAUCEDAB: [id number] [address] [address] [facility] 05/22/2024 MIKI DUNCAN ANGIEB: [place], [place] [address]Jyk: () Primary Insurance[place] Number: [id number] Date:2022-05-06 MIKI LOOMISANGELICAB: [id number] [place] [address] [facility] 05/17/2024 [facility] Number: [id number] Date:4562-53-12Jcoc Name:Junaid SAUCEDAB: [id number] [address] [address] [facility] 05/03/2024 [facility] Number: [id number] Date:9090-33-58Dbfc Name:Junaid SAUCEDAB: [id number] [address] [address] [facility] 04/07/2024 [facility] Number: [id number] Date:2377-27-29Vcnm Name:Junaid SAUCEDAB: [id number] [address] [address] [facility] 03/23/2024 [facility] Number: [id number] Date:4568-16-58Vwwk Name:Junaid SAUCEDAB: [id number] [address] [address] [facility] 02/21/2024 MIKI LOOMISANGELICAB: [place], [place] [address]Ogk: () [facility] Number: [id number] Date:2022-05-06 MIKI LOOMISANGELICAB: [id number] [place] [address] [facility] 01/31/2024 [facility] Number: [id number] Date:4611-51-63Gfej Name:Junaid LOOMISBOWENCECIB: [id number] [address] [address] [facility] 01/31/2024 Primary Insurance:[employer] [place] Number: [id number] Date:1692-06-14Ggmg Name:Junaid DWYER: [id number] [address] [place] [address] [facility]
--- OUTSIDE RECORDS SUMMARY | 2025-01-03 10:05 | XMS_ITS | Clinical Summary ---
Author Organization [facility] Address [id number] [address] [place] [address] Care Team Providers Care Bottler Helper Name Role Phone No Pcp, No Pcp Primary Care Provider Unavailabl e Allergies No known active allergies Medications diflunisal (DOLOBID) 500 mg tablet Take 500 mg by mouth. 09/03/2016 Active gabapentin (NEURONTIN) 100 mg capsule 09/14/2016 Active ibuprofen (ADVIL,MOTRIN) 200 mg tablet Take 200 mg by mouth. Active omeprazole (PriLOSEC) 20 mg capsule Take 20 mg by mouth. 02/17/2016 Active verapamil SR (CALAN-SR) 240 mg CR tablet Take 240 mg by mouth. 02/17/2016 Active HYDROcodone-melissa taminophen (NORCO) 5-325 mg per tablet Take by mouth. 11/25/2015 Active carvediloL (COREG) 25 mg tablet Take 1 tablet (25 mg total) by mouth in the morning and 1 tablet (25 mg total) in the evening. Take with meals. Active losartan (COZAAR) 50 mg tablet Take 1 tablet (50 mg total) by mouth in the morning. Active aspirin 81 mg Take 1 tablet (81 mg total) by mouth in the morning. Active rosuvastatin (CRESTOR) 20 mg tablet Take 1 tablet (20 mg total) by mouth in the morning. Active meloxicam (MOBIC) 7.5 mg tablet Take 1 tablet (7.5 mg total) by mouth in the morning. Active pantoprazole (PROTONIX) 40 mg EC tablet Take 1 tablet (40 mg total) by mouth in the morning. Active Social History Tobacco Use Types Packs/Day Years Used Date Smoking Tobacco: Former Cigarettes Tobacco Cessation:Counseling Given: Not Answered Alcohol Use Standard Drinks/Week Comments Not Currently 0 (1 standard drink = 0.6 oz pur e alcohol) Childcare Answer Date Recorded Childcare Unknown 09/14/2018 Employment Answer Date Recorded Employment Unknown 09/14/2018 Hunger Screening Answer Date Recorded Within the past 12 months we worried whether our food would run out before we got money to buy more. Never True 05/22/2024 Within the past 12 months th e food we bought just didn't last and we didn't have money to get more. Never True 05/22/2024 Purpose - Life Answer Date Recorded Purpose and direction in life Unknown Sex and Gender Information Value Date Recorded Sex Assigned at Not on file Legal Sex Male 11:23 AM EDT Gender Identity Not on file Sexual Orientation Not on file Last Filed Vital Signs Vital Sign Reading Time Taken Comments Blood Pressure 134/77 05/22/2024 9:52 AM EST Pulse 67 05/22/2024 9:52 AM EST Temperature 36.4 C (97.6 F) 05/22/2024 9:54 AM EST Respiratory Rate 18 05/22/2024 9:52 AM EST Oxygen Saturation 97% 05/22/2024 9:52 AM EST Inhaled Oxygen Concentration - - Weight 136.1 kg (300 lb) 05/22/2024 9:52 AM EST Height 182.9 cm (6') 05/22/2024 9:52 AM EST Body Mass Index 40.69 05/22/2024 9:52 AM EST Plan of Treatment Health Maintenance Due Date Last Done Comments Depression Screening 1978 Tobacco Screening 1978 Adult BMI Follow Up Plan 1984 DTaP,Tdap and Td Vaccines (1 - Tdap) 1985 Zoster (Shingles) Vaccine (1 of 2) 2016 COVID-19 Vaccine (4 - 2024-2 6 season) 2024 03/17/2021, 08/12/2020, 07/22/2020 Influenza Vaccine 12/04/2024 03/17/2021, , 04/01/2017, Additional history exists Adult BMI Screening 05/22/2025 05/22/2024 Medical Devices Not on file Insurance [facility] MEDICAID Care Teams Bottler Helper Relationship Specialty Start Date End Date No Pcp, No Pcp NAE Mcneill [address] PCP - General Family Medicine 05/22/24
--- OUTSIDE RECORDS SUMMARY | 2025-01-03 10:05 | XMS_ITS | Clinical Summary ---
Author Organization [facility] Address [address] [place] [address] Care Team Providers Care Synthetic Resin Operator Name Role Phone Nerissa Guerrero MD Unavailable Allergies No known active allergies Medications tiotropium-olod aterol (Stiolto Respimat) 2.5-2.5 MCG/ACT aerosol solution inhaler Inhale 2 Inhalation Daily Active aspirin 81 MG EC tablet Take 81 mg by mouth in the morning. 4 Active carvedilol (Coreg) 25 MG tablet Take 1 tablet by mouth in the morning and 1 tablet before bedtime. Active levothyroxine (Synthroid, Levoxyl) 75 MCG tablet Take 75 mcg by mouth Daily Active losartan (Cozaar) 50 MG tablet Take 0.75 tablets every day by oral route for 90 days. 4 Active pantoprazole (ProtoNix) 40 MG EC tablet Take 40 mg by mouth in the morning. 4 Active rosuvastatin (Crestor) 20 MG tablet Take 20 mg by mouth at bedtime Active ticagrelor (Brilinta) 90 MG tablet Take 90 mg by mouth in the morning and 90 mg in the evening. 4 Active Family History Medical History Relation Name Comments Heart attack Brother Heart disease Father Lung cancer Father pacemaker Father Cancer Mother Heart attack Paternal Grandfather Heart attack Paternal Grandmother Relation Name Status Comments Brother Father Mother Paternal Grandfather Paternal Grandmother Social History Tobacco Use Types Packs/Day Years Used Date Smoking Tobacco: Never Assessed Sex and Gender Information Value Date Recorded Sex Assigned at Not on file Legal Sex Male 7:20 PM EDT Gender Identity Not on file Sexual Orientation Not on file Last Filed Vital Signs Vital Sign Reading Time Taken Comments Blood Pressure 112/72 02/21/2024 1:35 PM EST Pulse 88 02/21/2024 1:35 PM EST Temperature - - Respiratory Rate - - Oxygen Saturation 96% 02/21/2024 1:35 PM EST Inhaled Oxygen Concentration - - Weight 135 kg (297 lb 9.6 oz) 02/21/2024 1:35 PM EST Height 182.9 cm (6') 02/21/2024 1:35 PM EST Body Mass Index 40.36 02/21/2024 1:35 PM EST Plan of Treatment Health Maintenance Due Date Last Done Comments CT Colonography 1966 FIT-DNA 1966 FIT 1966 FOBT 1966 Sigmoidoscopy 1966 Influenza Vaccine (#1) 2024 , 03/13/2020, 04/01/2017, Additional history exists Colonoscopy 10/21/2032 10/21/2022, 10/21/2022, 05/07 Colorectal Cancer Screening 10/21/2032 Insurance MEDICAID [facility] MEDICAID [place] Care Teams Synthetic Resin Operator Relationship Specialty Start Date End Date Nerissa Guerrero MD [address] [place] [id number] Referring Physician Cardiology 01/11/24
--- OUTSIDE RECORDS SUMMARY | 2025-01-03 10:05 | XMS_ITS | Clinical Summary ---
Author Organization [facility] Address [address], [address] [place] [address] Care Team Providers Care Director Cost Name Role Phone House , Nestor NAGEL Primary Care Provider + Allergies No known active allergies Medications omeprazole (PRILOSEC) 20 MG capsule Take 20 mg by mouth daily Active verapamil (CALAN-SR) 240 MG CR tablet Take 1 tablet by mouth nightly 30 tablet 3 6 Active polyethylene glycol (GLYCOLAX) packet Take 17 g by mouth daily as needed for Constipation 527 g 1 6 Active HYDROcodone-melissa taminophen (NORCO) 5-325 MG per tablet Take 1 tablet by mouth every 4 hours as needed for Pain 30 tablet 6 Active Magic Mouthwash (MIRACLE MOUTHWASH) Mix 160 ml maalox, 160 ml benadryl and 80 ml 2% viscous Zylocaine. Use 5 ml swish and swallow or spit every 4 hours as needed 400 mL 2 6 Active Active Problems Problem Noted Date Diagnosed Date Slow transit constipation 11/24/2015 Essential hypertension 11/20/2015 Smoker 11/20/2015 Vocal cord mass Hoarseness of voice Laryngeal cancer Cancer Staging:Clinical:Stage 0(Tis, N0, M0) - Signed by Judy Lee MD on 02/05/2016 Social History Tobacco Use Types Packs/Day Years Used Date Smoking Tobacco: Every Day Cigarettes Tobacco Cessation:Ready to Q uit: Yes; Counseling Given: Yes Alcohol Use Standard Drinks/Week Comments Yes 24 (1 standard drink = 0.6 oz pu re alcohol) Sex and Gender Information Value Date Recorded Sex Assigned at Not on file Legal Sex Male 12:01 PM EDT Gender Identity Not on file Sexual Orientation Not on file Last Filed Vital Signs Vital Sign Reading Time Taken Comments Blood Pressure 147/94 12/20/2015 11:27 AM EDT Pulse 70 12/20/2015 11:27 AM EDT Temperature 36.2 C (97.2 F) 12/20/2015 11:27 AM EDT Respiratory Rate 16 12/20/2015 11:2 7 AM EDT Oxygen Saturation 98% 11/25/2015 1:20 PM EDT Inhaled Oxygen Concentration - - Weight 117.8 kg (259 lb 11.2 oz) 2015 11:27 AM EDT Height 185.4 cm (6' 1 ) 11/19/2015 3:48 PM EDT Body Mass Index 34.26 11/19/2015 3:48 PM EDT Plan of Treatment Not on file Insurance [employer] Advance Directives * Full Code (Latest Code Status on File) Date Activated Date Inactivated Comments 11/19/2015 3:38 PM 11/25/2015 6:37 PM Care Teams Director Cost Relationship Specialty Start Date End Date Nestor Perez Sr., [address] [place] [address] PCP - General 11/19/15
== END 2025-01-03 10:04 | disposition home or self-care (01) ==
LOC: SLEEP 10:03
PROVIDERS: PCP Psychiatry & Neurology Neurology; Visit Provider Psychiatry & Neurology Neurology
DX: G47.33 Obstructive sleep apnea (adult) (pediatric) (principal)